=== PATIENT | male | born 1945 | race Caucasian/White ===

== ENCOUNTER 2016-10-27 08:22 | Emergency (ER) | payer MEDICARE ==
[~2016-10-27] VITALS: Ht 175.3 cm; Wt 78.6 kg
[~2016-10-27 08:22] MED LIST: ARIP5TAB10 PO; CALC500T7; CLIN300C86 PO; DICL100G5 TOP; HYDR-3841 PO; HYDR2TAB56 PO; METH-310 PO; ONDA4TAB4 PO; ORPH100T2 PO; OXYC15TA50 PO; PROC5TAB; PROM25TA7 PO
--- OUTSIDE RECORDS SUMMARY | 2016-10-27 08:32 | XMS REPORT | Continuity of Care Document ---
Author Author [facility] Address Unknown Phone Unavailable Care Team Providers Care Welding Manager Name Role Phone SADAF FAITH Primary Care Physician [phone] Insurance Providers Payer Name Policy Number Subscriber Name Relationship Medicare A And B [id number] Grace Marroquin E 18 Self / Same As Patient Advance Directives Directive Response Recorded Date/Time Advanced Directives Yes 05/24/16 1:00pm Type Living Will 05/24/16 1:00pm Type Durable Power of Cancer Registrar 05/24/16 1:00pm Chief Complaint and Reason for Visit Chief Complaint Pain Reason for Visit Chronic pain disorder [id number] Back pain Problems Active Problems Medical Problem Onset Date Status Abdominal pain ~04/04/2015 Resolved Acute anterior epistaxis Unknown Resolved Acute bronchitis ~06/10/2015 Resolved Acute exacerbation of chronic low back pain ~03/25/2016 Acute Allergic rhinitis Unknown Resolved Back pain ~06/02/2014 Resolved Back pain ~01/23/2015 Chronic Govea's cyst ~02/17/2015 Chronic Govea's cyst of knee ~02/12/2015 Chronic Bipolar 1 disorder Unknown Chronic Bronchitis Unknown Resolved COPD (chronic obstructive pulmonary disease) Unknown Chronic Cellulitis ~03/26/2016 Acute Chronic back pain ~12/21/2015 Chronic Chronic insomnia Unknown Chronic Chronic pain disorder Unknown Acute Chronic pain of left knee Unknown Chronic Chronic pain syndrome ~05/15/2016 Acute Concerned about own drug use ~06/13/2014 Resolved Constipated Unknown Chronic Constipation ~05/06/2015 Chronic Cough ~06/04/2015 Resolved Cyst of left kidney Unknown Chronic Depression Unknown Acute Excess ear wax ~12/12/2015 Resolved Fever Unknown Resolved Gastroesophageal reflux disease ~01/02/2015 Chronic History of elopement from health care facility Unknown Acute Hyperglycemia Unknown Resolved Injury of hand Unknown Resolved Insomnia 05/01/2016 Acute Knee pain ~02/04/2015 Chronic Knee pain, chronic ~09/11/2015 Chronic Left knee pain ~02/06/2015 Chronic Left knee pain Unknown Acute Low back pain 05/01/2016 Acute Low back pain Unknown Acute Manic depressive disease manic phase ~06/10/2015 Resolved Multiple abrasions ~12/12/2015 Resolved Nausea ~06/08/2015 Resolved Nausea & vomiting Unknown Resolved Nosebleed 05/30/2014 Resolved Pain in left knee Unknown Acute Post-op pain Unknown Resolved Presbyesophagus ~01/02/2015 Chronic Second degree burn of abdomen ~06/04/2015 Resolved Splinter in skin Unknown Resolved Suicidal ideation ~03/30/2016 Acute Upper respiratory infection Unknown Resolved Vomiting Unknown Resolved Wound infection ~06/04/2015 Resolved Medications Current Home Medications Medication Dose Units Route Directions Days/Qty Instructions Start Date Ondansetron Hcl 8 Mg 8 Mg ORAL As Directed as needed for Nausea 12/23 Naproxen Sodium 220 Mg 2 Mg ORAL As Needed 05/24/16 Past Home Medications Medication Directions Ordered Status Linaclotide 145 Mcg Capsule, 145 Mcg Oral Daily 05/30/14 Discontinued Zolpidem Tartrate (Ambien) 10 Mg Tablet, 5 Mg Oral Bedtime 05/30/14 Discontinued Finasteride (Proscar) 5 Mg Tablet, 5 Mg Oral Bedtime 05/30/14 Discontinued Losartan Potassium (Cozaar) 50 Mg Tablet, 50 Mg Oral Bedtime 05/30/14 Discontinued Aspirin 81 Mg Tablet.dr, 81 Mg Oral Daily 05/30/14 Discontinued Aspirin 500 Mg Tablet, 500 Mg Oral As Needed as needed for Pain 05/30/14 Discontinued Lidocaine 1 Ea Patch, 1 Ea External Daily 06/01/14 Discontinued Risperidone 1 Mg Tab, 1 Mg G Tube Daily 06/01/14 Discontinued Amitriptyline Hcl 100 Mg Tablet, 100 Mg Oral Daily 06/01/14 Discontinued Oxycodone Hcl 15 Mg Tab.er.12h, 15 Mg Oral As Needed for Pain 06/13/14 Discontinued Cephalexin 500 Mg Capsule, 500 Mg Oral Three Times A Day 06/20/14 Discontinued Acyclovir 800 Mg Tablet, 800 Mg Oral As Directed 06/20/14 Discontinued Ondansetron Hcl 4 Mg Tablet, 4 Mg Oral As Needed 06/26/14 Discontinued Cyclobenzaprine Hcl 10 Mg Tablet, 10 Mg Oral Every 8HRS 08/23/14 Discontinued Docusate Sodium 50 Mg Capsule, 50 Mg Oral Daily 08/23/14 Discontinued Diltiazem Hcl (Dilacor Xr) 180 Mg Cap.er.24h, 180 Mg Oral Daily 08/23/14 Discontinued Sucralfate (Carafate) 1 Gm Tablet, 1 Gm Oral Four Times Daily 08/23/14 Discontinued Omeprazole 20 Mg Capsule.dr, 20 Mg Oral Daily 08/23/14 Discontinued Ondansetron 4 Mg Tab.rapdis, 8 Mg Oral As Needed as needed for Nausea/ Vomiting 09/01/14 Discontinued Prochlorperazine Maleate 25 Mg Supp.rect, 10 Mg Rectal Three Times A Day Discontinued Cholestyramine (With Sugar) 378 Gm Powder, 4 Gm Oral As Needed 01/02/15 Discontinued Acetaminophen (Tylenol) 500 Mg Tablet, 2 Tab Oral Every 4 Hours 01/26/15 Discontinued Ibuprofen (Motrin) 200 Mg Tablet, 4 Tab Oral Twice A Day 01/26/15 Discontinued Ondansetron Hcl 4 Mg Tablet, 2 Tab Oral As Needed 01/26/15 Discontinued Omeprazole 40 Mg Cap, 40 Mg Oral Daily 01/26/15 Discontinued Cholestyramine (With Sugar) 4 Gm Packet, 4 Gm Oral Three Times A Day Discontinued Ziprasidone 40 Mg Cap, 40 Mg G Tube Daily for Depression 02/06/15 Discontinued Ziprasidone 80 Mg Cap, 80 Mg Oral Bedtime 02/13/15 Discontinued Diphenhydramine Hcl 25 Mg Tab, 25 Mg Oral Bedtime 02/13/15 Discontinued Diphenhydramine Hcl 25 Mg Tab, 75 Mg Oral Bedtime 02/13/15 Discontinued Zolpidem Tartrate 10 Mg Tablet, 20 Mg Oral Bedtime 02/13/15 Discontinued Cyclobenzaprine Hcl 10 Mg Tablet, 10 Mg Oral Bedtime 02/13/15 Discontinued Hydrocodone/Acetaminophen 1 Each Tablet, 1-2 As Needed 04/04/15 Discontinued Ketorolac Tromethamine 10 Mg Tablet, 10 Mg Oral As Needed 04/04/15 Discontinued Cyclobenzaprine Hcl 10 Mg Tablet, 10 Mg Oral As Needed 04/04/15 Discontinued Lurasidone Hcl 40 Mg Tablet, 40 Mg Oral Daily 04/04/15 Discontinued Gabapentin (Neurontin) 300 Mg Capsule, 300 Mg Oral Daily 04/04/15 Discontinued Ranitidine Hcl 150 Mg Tablet, 150 Mg Oral Bedtime 04/04/15 Discontinued Dicyclomine Hcl 10 Mg Capsule, 10 Mg Oral Three Times A Day for Pain Discontinued Omeprazole 20 Mg Capsule.dr, 20 Mg Oral Daily 04/16/15 Discontinued Diclofenac Sodium 100 Gm Gel, 100 Gm Topical Three Times A Day 04/16/15 Discontinued Meloxicam 15 Mg Tablet, 15 Mg Oral Daily 04/16/15 Discontinued Acetaminophen/Hydrocodone Bitart 1 Ea Tablet, 1 Tab Oral Every 4HRS as needed for Pain 04/16/15 Discontinued Amitriptyline Hcl 25 Mg Tab, 25 Mg Oral Daily 05/06/15 Discontinued Zolpidem Tartrate (Ambien) 10 Mg Tablet, 20 Mg Oral Bedtime 05/06/15 Discontinued Ondansetron 4 Mg Tab.rapdis, 4 Mg Oral As Needed 05/06/15 Discontinued Diltiazem Hcl 180 Mg Tab.er.24h, 180 Mg Oral Daily 05/06/15 Discontinued Lactulose 10 Gm/15 Ml Solution, 10 Gm Oral As Needed 05/13/15 Discontinued Asenapine Maleate 5 Mg Tab.subl, 5 Mg Sublingual Daily 05/21/15 Discontinued Hydroxyzine Hcl 25 Mg Tablet, 25 Mg Oral Bedtime 05/21/15 Discontinued Diclofenac Sodium 100 Gm Gel, 100 Gm Topical Twice A Day 05/21/15 Discontinued Celecoxib 200 Mg Capsule, 200 Mg Oral Daily 05/30/15 Discontinued Amoxicillin 875 Mg Tablet, 875 Mg Oral Twice A Day 06/04/15 Discontinued Metoclopramide Hcl 10 Mg Tablet, 10 Mg Oral Four Times Daily as needed for Nausea 06/08/15 Discontinued Levofloxacin 500 Mg Tablet, 1 Tab Oral Daily 06/08/15 Discontinued Diphenhydram/Pe/Dm/Acetamin/Gg 360 Ml Liquid.seq, 360 Ml Oral As Directed Discontinued Ondansetron Hcl 4 Mg Tab.rapdis, 4 Mg Oral Four Times Daily as needed for Nausea 06/08/15 Discontinued Naproxen Sodium 220 Mg Capsule, 220 Mg Oral Daily 06/10/15 Discontinued Cholestyramine (With Sugar) 4 Gm Packet, 4 Gm Oral As Needed as needed for Diarrhea 07/13/15 Discontinued Calcium Carbonate 600 Mg Tablet, 2 Tab Oral Twice A Day 07/13/15 Discontinued Multivitamin 1 Each Tablet, 1 Each Oral Daily 07/13/15 Discontinued Pyridoxine Hcl 25 Mg Tablet, 2 Tab Oral Daily 07/13/15 Discontinued Levofloxacin 500 Mg Tablet, 1 Tab Oral Daily 07/13/15 Discontinued Methylprednisolone 21 Tab/Pkt Tablet, 21 Tab Oral As Directed 07/20/15 Discontinued Naproxen Sodium 550 Mg Tablet, 550 Mg Oral Twice A Day 08/25/15 Discontinued Prochlorperazine Maleate 10 Mg Tablet, 10 Mg Oral As Needed 09/07/15 Discontinued Melatonin/Pyridoxine Hcl (B6) 1 Each Tab.mphase, 1 Each Oral Bedtime Discontinued Diphenhydramine Hcl 25 Mg Capsule, 25 Mg Oral As Needed 09/11/15 Discontinued Ibuprofen 200 Mg Capsule, 2 Cap Oral Every 4 Hours 09/11/15 Discontinued Ferrous Sulfate 325 Mg Tablet, 325 Mg Oral Daily 09/11/15 Discontinued Oxycodone/Acetaminophen 1 Each Tablet, 1 Each Oral As Needed 11/13/15 Discontinued Oxycodone/Acetaminophen 1 Tab Tablet, 2 Tab Oral Every 6 Hours 12/12/15 Discontinued Naproxen Sodium 220 Mg Tablet, 2 Tab Oral Twice A Day 12/12/15 Discontinued Oxycodone Hcl 20 Mg Tablet, 20 Mg Oral Every 4HRS 12/21/15 Discontinued Oxycodone/Acetaminophen 1 Each Tablet, 1 Tab Oral Every 4HRS as needed for Pain 12/21/15 Discontinued Oxycodone Hcl 15 Mg Tablet, 15-30 Mg Oral Every 4HRS as needed for Pain 02/04 Discontinued Methocarbamol 750 Mg Tablet, 750 Mg Oral Three Times A Day as needed for Spasms 02/05/16 Discontinued Tamsulosin Hcl 0.4 Mg Cap, 0.4 Mg Oral Daily 02/05/16 Discontinued Acetaminophen/Hydrocodone Bitart 1 Each Tablet, 1-2 Tab Oral Every 6 Hours as needed for Pain 02/22/16 Discontinued Promethazine Hcl 25 Mg Tab, 25 Mg Oral Every 6 Hours as needed for Nausea Discontinued Orphenadrine Citrate 100 Mg Tablet.er, 100 Mg Oral Three Times A Day Discontinued Ondansetron Hcl 4 Mg Tablet, 4 Mg Oral Every 6 Hours as needed for Nausea/ Vomiting 03/25/16 Discontinued Sulfamethoxazole/Trimethoprim 1 Each Tablet, 1 Tab Oral Twice A Day 03/25/16 Discontinued Aripiprazole 5 Mg Tablet, 5 Mg Oral Daily 03/28/16 Discontinued Hydroxyzine Pamoate 25 Mg Capsule, 25 Mg Oral Four Times Daily as needed for Anxiety 03/28/16 Discontinued Hydroxyzine Pamoate 50 Mg Capsule, 50 Mg Oral Bedtime 03/28/16 Discontinued Sulfamethoxazole/Trimethoprim (Bactrim Ds 800MG/160MG) 1 Each Tablet, 1 Ea Oral Twice A Day 03/28/16 Discontinued Clindamycin Hcl 300 Mg Capsule, 300 Mg Oral Four Times Daily 04/03/16 Discontinued Ketorolac Tromethamine 10 Mg Tab, 10 Mg Oral Four Times Daily 04/05/16 Discontinued Hydromorphone Hcl 2 Mg Tablet, 2 Mg Oral Every Three Hours 04/05/16 Discontinued Ondansetron Hcl 4 Mg Tablet, 4 Mg Oral Daily 04/15/16 Discontinued Diclofenac Sodium 100 Gm Gel, 100 Gm Topical Daily 04/15/16 Discontinued Hydromorphone Hcl 4 Mg Tab, 4 Mg Oral Four Times Daily as needed for Severe Pain 04/16/16 Discontinued Oxycodone/Acetaminophen 1 Each Tablet, 1 Each Oral Four Times Daily as needed for Pain 04/24/16 Discontinued Lidocaine 1 Ea Patch, 1 Ea Topical Daily 04/27/16 Discontinued Aripiprazole 2 Mg Tablet, 2 Mg Oral Daily 05/01/16 Discontinued Amitriptyline Hcl 25 Mg Tab, 25 Mg Oral Daily 05/01/16 Discontinued Oxycodone/Acetaminophen 1 Tab Tablet, 1-2 Tab Oral As Needed as needed for Pain 05/01/16 Discontinued Tramadol Hcl (Ultram) 50 Mg Tablet, 1-2 Tab Oral Every 6 Hours as needed for Pain 05/01/16 Discontinued Zolpidem Tartrate (Ambien) 10 Mg Tablet, 10 Mg Oral Bedtime 05/01/16 Discontinued Acetaminophen (Tylenol) 500 Mg Tablet, 500 Mg Oral As Needed 05/01/16 Discontinued Prochlorperazine Maleate 10 Mg Tablet, 10 Mg Oral Three Times A Day 05/01/16 Discontinued Omeprazole 40 Mg Capsule.dr, 40 Mg Oral Daily 05/01/16 Discontinued Acetaminophen/Hydrocodone Bitart 1 Ea Tab, 1 Tab Oral Every 6 Hours for Pain 05/01/16 Discontinued Melatonin 10 Mg Capsule, 10 Mg Oral Bedtime 05/01/16 Discontinued Lactulose 10 Gm/15 Ml Solution, 10 Gm Oral Daily 05/01/16 Discontinued Ibuprofen (Motrin) 200 Mg Tablet, 200 Mg Oral As Needed 05/01/16 Discontinued Cholestyramine (With Sugar) 4 Gm Packet, 4 Gm Oral As Needed 05/01/16 Discontinued Diphenhydramine Hcl 25 Mg Capsule, 25 Mg Oral As Needed 05/01/16 Discontinued Aripiprazole 5 Mg Tablet, 5 Mg Oral Daily 05/15/16 Discontinued Prednisone 20 Mg Tablet, 20 Mg Oral Twice A Day 05/24/16 Discontinued Social History Social History Problem Response Recorded Date/Time Onset Date Status Exposure to occupational hazards No 03/26/2016 6:29am Query Response Start Date Stop Date Smoking Status Current some day smoker Hospital Discharge Instructions No hospital discharge instructions. Plan of Care Discharge Date 05/24/16 1:32pm Disposition 01 HOME OR SELF-CARE Condition at Discharge Stable Instructions/Education Provided Chronic Pain Management (ED) Prescriptions See Medication Section Referrals SADAF FAITH - Additional Instructions/Education Some of your test results may not be complete prior to your leaving the Emergency Department. The Emergency Department is not authorized to give test results over the phone. Please contact the doctor's office listed in this packet of information for your final results. Follow up with your primary care physician or return to the Emergency Department for worsening or worrisome symptoms. * Emergency Department phone number: [phone], x [phone] MEDICAL RECORD If you need copies of your X-rays, call [phone]. If you need copies of your medical record, including lab results, a signed authorization for release of records will be required. A telephone call for release of Health Information is not allowed. BILLING Billing can sometimes be confusing and frustrating. To help avoid confusion in the future, please take a moment to acquaint yourself with the billing parties for services. SERVICE BILLING LIBERTARIAN Emergency Room Services [facility] Physician Services [facility] X-rays [place] [facility] Patients will receive bills for services from the appropriate provider. If you have any questions about your [facility] bill, our staff will be happy to assist you. Please call [phone], and ask for the billing department. THANK YOU for choosing [facility] as your emergency care provider! Care Plan and Goals ~~Discharge Care Plan~~ Problem: Back pain Goal: Decreased level of pain. Return to usual activities. Instructions: Take medication(s) as directed; follow up with your primary care physician as directed; follow patient home care instructions. Apply ice or heat to site for comfort. Functional Status No functional status results. Allergies, Adverse Reactions, Alerts Allergen Type Severity Reaction Status Last Updated Hydroxyzine Allergy Unknown Active 05/24/16 Gabapentin Allergy Unknown Active 05/24/16 Trazodone Allergy Unknown Active 05/24/16 Amantadine Allergy Unknown Active 05/24/16 ziprasidone Adverse Reaction Unknown N/V Active 05/24/16 asenapine Allergy Unknown Active 05/24/16 lurasidone Allergy Unknown Active 05/24/16 ziprasidone hcl Allergy Unknown Active 05/01/16 Immunizations No immunization records. Vital Signs Acute Vital Signs Vital Response Date/Time Temperature (Fahrenheit) 99.1 05/24/2016 1:36pm Pulse 85 bpm 05/24/2016 1:36pm Respirations 17 05/24/2016 1:36pm Height 5 ft 9 in Weight 169 lb Body Mass Index 25.0 kg/m^2 Results No known relevant diagnostic tests, laboratory data and/or discharge summary. Procedures Procedure Status Date Provider(s) THER/PROPH/DIAG INJ SC/IM Completed 04/24/16 EMERGENCY DEPT VISIT Completed 04/24/16 Completed 04/24/16 Completed 04/24/16 EMERGENCY DEPT VISIT Completed 04/27/16 Completed 04/27/16 THER/PROPH/DIAG INJ SC/IM Completed 05/01/16 EMERGENCY DEPT VISIT Completed 05/01/16 Completed 05/01/16 THER/PROPH/DIAG INJ SC/IM Completed 05/15/16 EMERGENCY DEPT VISIT Completed 05/15/16 Completed 05/15/16 Encounters Encounter Location Arrival/Admit Date Discharge/Depart Date Attending Provider Registered Emergency Room [facility] 05/24/16 12:54pm OCTAVIO CLARK MD Departed Emergency Room [facility] 05/15/16 1:05am 05/15/16 2:02am PILAR SOSA DO Departed Emergency Room [facility] 05/01/16 6:11am 05/01/16 7:46am PILAR SOSA DO Registered Clinic [facility] 04/28/16 8:41am Jose Manuel Fuller III Departed Emergency Room [facility] 04/27/16 4:57pm 04/27/16 5:41pm JOSE TIDWELL MD Departed Emergency Room [facility] 04/24/16 10:25pm 04/24/16 11: 06pm DANDY IRBY MD Registered Clinic [facility] 04/24/16 10:15pm DANDY IRBY MD Recent Diagnosis
--- OUTSIDE RECORDS SUMMARY | 2016-10-27 08:32 | XMS REPORT ---
Author Author [facility] Organization Unknown Address Unknown Phone Unavailable Care Team Providers Care Pricing Manager Name Role Phone MD CARON, IVONNE PP Unavailable Reason For Visit Chief Complaint BACK PAIN Social History Functional Status Vital Signs Results Problems Encounter Diagnosis No relevant problems exist. Encounters Encounter Diagnosis No relevant problems exist. Plan of Care Procedures No relevant procedures performed. Immunizations No immunizations administered or ordered. Hospital Course Hospital Discharge Instructions Allergies, Adverse Reactions, Alerts * Latex Allergy has not been assessed. * IV Contrast Allergy has not been assessed. Medication Medication reconciliation has not been performed.
--- OUTSIDE RECORDS SUMMARY | 2016-10-27 08:32 | XMS REPORT | Continuity of Care Document ---
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 04/27/16 5:18pm Chief Complaint and Reason for Visit Chief Complaint Pain Reason for Visit Chronic back pain Problems Active Problems Medical Problem Onset [...] Chronic Chronic insomnia Unknown Chronic Chronic pain of left knee Unknown Chronic Chronic pain syndrome Unknown Acute Concerned about own drug use ~06/13/2014 Resolved Constipated Unknown Chronic Constipation ~05/06/2015 Chronic Cough ~06/04/2015 Resolved Cyst of left kidney Unknown Chronic Depression Unknown Acute Excess ear wax ~12/12/2015 Resolved Fever Unknown Resolved Gastroesophageal reflux disease ~01/02/2015 Chronic History of elopement from health care facility Unknown Acute Hyperglycemia Unknown Resolved Injury of hand Unknown Resolved Knee pain ~02/04/2015 Chronic Knee pain, chronic ~09/11/2015 Chronic Left knee pain ~02/06/2015 Chronic Left knee pain Unknown Acute Low back pain Unknown Acute Low back pain Unknown Acute Manic [...] Units Route Directions Days/Qty Instructions Start Date Aripiprazole 5 Mg 5 Mg ORAL Daily 03/28/16 Diclofenac Sodium 100 Gm 100 Gm TOPICAL Daily 04/15/16 Oxycodone/Acetaminophen 1 Each 1 Each ORAL Four Times Daily as needed for Pain 04/24/16 Lidocaine 1 Ea 1 Ea TOPICAL Daily 1 Apply patch for 12 hours, remove for 12 hours, and then place new patch. 04/27/16 Past Home Medications Medication Directions Ordered Status [...] Tab Oral Twice A Day 03/25/16 Discontinued Hydroxyzine Pamoate 25 Mg Capsule, 25 [...] Tablet, 4 Mg Oral Daily 04/15/16 Discontinued Hydromorphone Hcl 4 Mg Tab, 4 Mg Oral Four Times Daily as needed for Severe Pain 04/16/16 Discontinued Social History Social History Problem Response Recorded Date/Time Onset Date Status Exposure to occupational hazards No 03/26/2016 6:29am Query Response Start Date Stop Date Smoking Status Never smoker Hospital Discharge Instructions No hospital discharge instructions. Plan of Care Discharge Date 04/27/16 5:41pm Disposition 01 HOME OR SELF-CARE Condition at Discharge Stable Instructions/Education Provided Chronic Pain Management (ED) Prescriptions See Medication Section Referrals SADAF FAITH - Additional Instructions/Education Rest, ice or heat to back for 20 minutes at a time at least twice a day. Continue your current medications as prescribed. Return if symptoms worsen, if new symptoms develop, or for any other concerns. Your prescription was electronically transmitted. Some of your test results may not [...] worrisome symptoms. * Emergency Department phone number: [phone], x [phone] MEDICAL RECORD If you need copies of your X-rays, call [phone]. If you need copies of [...] the billing parties for services. SERVICE BILLING [employer] Emergency Room Services Physician Services X-rays [place] [facility] Patients will receive bills for services from the appropriate provider. If you have any questions about your bill, our staff will be happy to assist you. Please call [phone], and ask for the billing department. THANK YOU for choosing as your emergency care provider! Care Plan and Goals ~~Discharge Care Plan~~ Problem: Contusion, pain to affected area, fall. Goal: Decreased contusion and pain to affected area. Instructions: Apply ice to area for 15-20 minutes every 3-4 hours. Elevate extremity above the level of the heart, if applicable. Splint area with pillow or blanket to any chest/abdomen injuries. Use incentive spirometry as directed. Take at least 10 deep breaths per hour. Take medication(s) as directed. Follow up with regular physician or specialist as directed. Exercise as tolerated or directed by physician. Functional Status No functional status results. Allergies, Adverse Reactions, Alerts Allergen Type Severity Reaction Status Last Updated quetiapine Adverse Reaction Unknown N/V Active 04/27/16 ziprasidone Adverse Reaction Unknown N/V Active 04/27/16 asenapine Allergy Unknown Active 04/27/16 Immunizations No immunization records. Vital Signs Acute Vital Signs Vital Response Date/Time Temperature (Fahrenheit) 98.2 04/27/2016 5:40pm Pulse 75 bpm 04/27/2016 5:40pm Respirations 18 04/27/2016 5:40pm Height 5 ft 9 in Weight 198 lb Body Mass Index 29.0 kg/m^2 Results Laboratory Results Test Name Result Units Flags Reference Collection Date/Time Result Date/ Time Comments White Blood Count 4.93 10^3uL 4.0-11.0 03/27/2016 5:00am 03/27/2016 6: 44am Red Blood Count 4.57 10^6uL 4.50-5.50 03/27/2016 5:00am 03/27/2016 6: 44am Hemoglobin 12.9 g/dL L 13.5-17.0 03/27/2016 5:00am 03/27/2016 6:44am Hematocrit 39.40 % 39.00-50.00 03/27/2016 5:00am 03/27/2016 6:44am Mean Corpuscular Volume 86 FL 80-100 03/27/2016 5:00am 03/27/2016 6: 44am Mean Corpuscular Hemoglobin 28.2 PG 26.0-34.0 03/27/2016 5:00am 2015 6:44am Mean Corpuscular Hemoglobin Concent 32.7 g/dL 31.0-37.0 03/27/2016 5: 00am 03/27/2016 6:44am Red Cell Distribution Width 14.5 % 11.8-15.6 03/27/2016 5:00am 2015 6:44am Platelet Count 182 10^3uL 150-450 03/27/2016 5:00am 03/27/2016 6:44am Mean Platelet Volume 9.8 FL H 6.0-9.5 03/27/2016 5:00am 03/27/2016 6: 44am Neutrophils (%) (Auto) 71 % H 51-67 03/26/2016 1:44am 03/26/2016 2:18am Lymphocytes (%) (Auto) 15 % L 20-46 03/26/2016 1:44am 03/26/2016 2:18am Monocytes (%) (Auto) 11 % 3-11 03/26/2016 1:44am 03/26/2016 2:18am Eosinophils (%) (Auto) 2 % 0-4 03/26/2016 1:44am 03/26/2016 2:18am Basophils (%) (Auto) 1 % 0-2 03/26/2016 1:44am 03/26/2016 2:18am Neutrophils # (Auto) 4.5 X10^3 03/26/2016 1:44am 03/26/2016 2:18am Lymphocytes # (Auto) 1.0 X10^3 03/26/2016 1:44am 03/26/2016 2:18am Monocytes # (Auto) 0.7 X10^3 03/26/2016 1:44am 03/26/2016 2:18am Eosinophils # (Auto) 0.1 10^3uL 03/26/2016 1:44am 03/26/2016 2:18am Basophils # (Auto) 0.1 10^3uL 03/26/2016 1:44am 03/26/2016 2:18am Differential Total Cells Counted 100 03/27/2016 5:00am 03/27/2016 6 :53am Segmented Neutrophils % 58 % 51-67 03/27/2016 5:00am 03/27/2016 6:53am Band Neutrophils % 1 % 0-6 03/27/2016 5:00am 03/27/2016 6:53am Lymphocytes % (Manual) 32 % 20-46 03/27/2016 5:00am 03/27/2016 6:53am Monocytes % (Manual) 6 % 3-11 03/27/2016 5:00am 03/27/2016 6:53am Eosinophils % (Manual) 3 % 0-4 03/27/2016 5:00am 03/27/2016 6:53am Basophils % (Manual) 0 % 0-2 03/27/2016 5:00am 03/27/2016 6:53am Metamyelocytes % 0 % 0-1 03/27/2016 5:00am 03/27/2016 6:53am Neutrophils # 2.9 # 03/27/2016 5:00am 03/27/2016 6:53am Absolute Band Neutrophils 0.0 # 03/27/2016 5:00am 03/27/2016 6:53am Lymphocytes # 1.6 # 03/27/2016 5:00am 03/27/2016 6:53am Monocytes # 0.2 # 03/27/2016 5:00am 03/27/2016 6:53am Eosinophils # 0.1 # 03/27/2016 5:00am 03/27/2016 6:53am Basophils # (Manual) 0.0 # 03/27/2016 5:00am 03/27/2016 6:53am Blood Morphology Comment SEE REFERENCE NORMAL 03/27/2016 5:00am 03/27 6:53am Poikilocytosis SLIGHT 03/27/2016 5:00am 03/27/2016 6:53am OVALOCYTES 1+ Urine Collection Type CLEAN CATCH 03/26/2016 4:50am 03/26/2016 5: 11am Urine Color Yellow 03/26/2016 4:50am 03/26/2016 5:02am Urine Clarity Clear 03/26/2016 4:50am 03/26/2016 5:02am Urine pH 7.0 5.0 - 8.0 03/26/2016 4:50am 03/26/2016 5:02am Urine Specific [place] 1.020 1.005-1.030 03/26/2016 4:50am 2015 5:02am Urine Protein Negative Negative 03/26/2016 4:50am 03/26/2016 5:02am Urine Glucose (UA) Negative Negative 03/26/2016 4:50am 03/26/2016 5: 02am Urine RBC (Auto) Negative Negative 03/26/2016 4:50am 03/26/2016 5: 02am Urine Ketones Negative Negative 03/26/2016 4:50am 03/26/2016 5:02am Urine Nitrite Negative Negative 03/26/2016 4:50am 03/26/2016 5:02am Urine Bilirubin Negative Negative 03/26/2016 4:50am 03/26/2016 5: 02am Urine Urobilinogen 0.2 mg/dL 0.2-1.0 03/26/2016 4:50am 03/26/2016 5: 02am Urine Leukocyte Esterase Negative Negative 03/26/2016 4:50am 2015 5:02am Sodium Level 143 mmol/L 135-150 03/27/2016 5:00am 03/27/2016 7:00am Potassium Level 4.2 mmol/L 3.5-5.1 03/27/2016 5:00am 03/27/2016 7:00am Chloride Level 102 mmol/L 98-108 03/27/2016 5:00am 03/27/2016 7:00am Carbon Dioxide Level 30 mmol/L H 22-29 03/27/2016 5:00am 03/27/2016 7: 00am Anion Gap 14.4 MEQ/L 3-15 03/27/2016 5:00am 03/27/2016 7:00am Blood Urea Nitrogen 10 mg/dL 7-18 03/27/2016 5:00am 03/27/2016 7:00am Creatinine 0.96 mg/dL 0.8-1.5 03/27/2016 5:00am 03/27/2016 7:00am BUN/Creatinine Ratio 10 10-20 03/27/2016 5:00am 03/27/2016 7:00am Estimat Glomerular Filtration Rate 93.7 03/27/2016 5:00am 2015 7:00am Estimated GFR (Non- 77.4 03/27/2016 5:00am 2015 7:00am Glucose Level 95 mg/dL 70-110 03/27/2016 5:00am 03/27/2016 7:00am Calculated Osmolality 275 mosm/L L 280-300 03/27/2016 5:00am 03/27/2016 7:00am Calcium Level 9.5 mg/dL 8.8-10.8 03/27/2016 5:00am 03/27/2016 7:00am Calcium/Ionized Calcium Ratio 4.3 mg/dL 3.8-4.6 03/27/2016 5:00am 03/27 7:00am Total Bilirubin 0.8 mg/dL 0.1-1.0 03/27/2016 5:00am 03/27/2016 7:00am Alkaline Phosphatase 160 U/L H 38-126 03/27/2016 5:00am 03/27/2016 7: 00am Aspartate Amino Transf (AST/SGOT) 22 U/L 15-37 03/27/2016 5:00am 2015 7:00am Alanine Aminotransferase (ALT/SGPT) 27 U/L L 30-65 03/27/2016 5:00am 7:00am Total Protein 6.8 g/dL 6.4-8.5 03/27/2016 5:00am 03/27/2016 7:00am Albumin 3.7 g/dL 3.4-5.0 03/27/2016 5:00am 03/27/2016 7:00am Albumin/Globulin Ratio 1.193 1.1-1.8 03/27/2016 5:00am 03/27/2016 7: 00am Thyroid Stimulating Hormone (TSH) 0.27 uIU/mL # L 0.46-4.68 03/26/2016 1: 44am 03/26/2016 2:59am C-Reactive Protein 0.90 mg/dL 0.0-0.9 03/28/2016 5:30am 03/28/2016 7: 12am Salicylates Level < 1.0 mg/dL L 2.0-20.0 03/26/2016 1:44am 03/26/2016 2: 29am Acetaminophen Level < 10.0 mcg/mL L 10.0-30.0 03/26/2016 1:44am 2015 2:29am Serum Alcohol < 10.0 mg/dL L 10-80 03/26/2016 1:44am 03/26/2016 2:29am Pending Laboratory Results Test Name Collection Date/Time Procedures Procedure Status Date Provider(s) ROUTINE VENIPUNCTURE Completed 03/26/16 ROUTINE VENIPUNCTURE Completed 03/26/16 ROUTINE VENIPUNCTURE Completed 03/26/16 COMPREHEN METABOLIC PANEL Completed 03/26/16 COMPREHEN METABOLIC PANEL Completed 03/26/16 URINALYSIS AUTO W/O SCOPE Completed 03/26/16 ASSAY THYROID STIM HORMONE Completed 03/26/16 BL SMEAR W/DIFF WBC COUNT Completed 03/26/16 COMPLETE CBC W/AUTO DIFF WBC Completed 03/26/16 COMPLETE CBC AUTOMATED Completed 03/26/16 C-REACTIVE PROTEIN Completed 03/26/16 C-REACTIVE PROTEIN Completed 03/26/16 C-REACTIVE PROTEIN Completed 03/26/16 THER/PROPH/DIAG IV INF INIT Completed 03/26/16 THER/PROPH/DIAG INJ SC/IM Completed 03/26/16 THER/PROPH/DIAG INJ SC/IM Completed 03/26/16 THER/PROPH/DIAG INJ SC/IM Completed 03/26/16 TX/PRO/DX INJ NEW DRUG ADDON Completed 03/26/16 TX/PRO/DX INJ NEW DRUG ADDON Completed 03/26/16 TX/PRO/DX INJ SAME DRUG CLEANER TOUCH UP WORKER Completed 03/26/16 TX/PRO/DX INJ SAME DRUG CLEANER TOUCH UP WORKER Completed 03/26/16 PT EVALUATION Completed 03/26/16 EMERGENCY DEPT VISIT Completed 03/26/16 Completed 03/26/16 Completed 03/26/16 Completed 03/26/16 Completed 03/26/16 Completed 03/26/16 Completed 03/26/16 Completed 03/26/16 Completed 03/26/16 Completed 03/26/16 Completed 03/26/16 Completed 03/26/16 Completed 03/26/16 Completed 03/26/16 Completed 03/26/16 Completed 03/26/16 Completed 03/26/16 Completed 03/26/16 Drug tests(s), presumptive, any number of drug classes; any Completed Drug test(s), definitive, utilizing drug identification meth Completed Drug test(s), definitive, utilizing drug identification meth Completed Drug test(s), definitive, utilizing drug identification meth Completed Completed 03/26/16 Completed 03/26/16 Completed 03/26/16 Completed 03/26/16 Completed 03/26/16 Completed 03/26/16 Completed 03/26/16 Completed 03/26/16 Completed 03/26/16 ROUTINE VENIPUNCTURE Completed 03/30/16 COMPREHEN METABOLIC PANEL Completed 03/30/16 URINALYSIS AUTO W/O SCOPE Completed 03/30/16 MICROSCOPIC EXAM OF URINE Completed 03/30/16 ASSAY THYROID STIM HORMONE Completed 03/30/16 COMPLETE CBC W/AUTO DIFF WBC Completed 03/30/16 PROTHROMBIN TIME Completed 03/30/16 EMERGENCY DEPT VISIT Completed 03/30/16 Drug tests(s), presumptive, any number of drug classes; any Completed Drug test(s), definitive, utilizing drug identification meth Completed Drug test(s), definitive, utilizing drug identification meth Completed Drug test(s), definitive, utilizing drug identification meth Completed EMERGENCY DEPT VISIT Completed 04/03/16 Completed 04/03/16 ROUTINE VENIPUNCTURE Completed 04/04/16 COMPREHEN METABOLIC PANEL Completed 04/04/16 COMPLETE CBC W/AUTO DIFF WBC Completed 04/04/16 THER/PROPH/DIAG IV INF INIT Completed 04/04/16 TX/PRO/DX INJ NEW DRUG ADDON Completed 04/04/16 EMERGENCY DEPT VISIT Completed 04/04/16 Completed 04/04/16 Completed 04/04/16 Completed 04/04/16 THER/PROPH/DIAG INJ SC/IM Completed 04/10/16 EMERGENCY DEPT VISIT Completed 04/10/16 Completed 04/10/16 Completed 04/10/16 ROUTINE VENIPUNCTURE Completed 04/15/16 COMPREHEN METABOLIC PANEL Completed 04/15/16 COMPLETE CBC W/AUTO DIFF WBC Completed 04/15/16 THER/PROPH/DIAG INJ SC/IM Completed 04/15/16 EMERGENCY DEPT VISIT Completed 04/15/16 Completed 04/15/16 Drug tests(s), presumptive, any number of drug classes; any Completed Drug test(s), definitive, utilizing drug identification meth Completed Drug test(s), definitive, utilizing drug identification meth Completed Drug test(s), definitive, utilizing drug identification meth Completed Completed 04/15/16 ROUTINE VENIPUNCTURE Completed 04/20/16 X-RAY EXAM THORAC SPINE 3VWS Completed 04/20/16 X-RAY EXAM L-S SPINE 2/3 VWS Completed 04/20/16 COMPREHEN METABOLIC PANEL Completed 04/20/16 URINALYSIS AUTO W/O SCOPE Completed 04/20/16 COMPLETE CBC W/AUTO DIFF WBC Completed 04/20/16 EMERGENCY DEPT VISIT Completed 04/20/16 Drug tests(s), presumptive, any number of drug classes; any Completed Drug test(s), definitive, utilizing drug identification meth Completed Drug test(s), definitive, utilizing drug identification meth Completed Drug test(s), definitive, utilizing drug identification meth Completed THER/PROPH/DIAG INJ SC/IM Completed 04/24/16 EMERGENCY DEPT VISIT Completed 04/24/16 Completed 04/24/16 Completed 04/24/16 Encounters Encounter Location Arrival/Admit Date Discharge/Depart Date Attending Provider Departed Emergency Room 04/27/16 4:57pm 04/27/16 5:41pm JOSE TIDWELL MD Departed Emergency Room 04/24/16 10:25pm 04/24/16 11: 06pm DANDY IRBY MD Registered Clinic 04/24/16 10:15pm DADNY IRBY MD Registered Clinic 04/20/16 3:00pm DANDY IRBY MD Departed Emergency Room 04/20/16 1:06pm 04/20/16 3:08pm DANDY IRBY MD Registered Emergency Room 04/15/16 9:31pm MUNIR BANKS MD Departed Emergency Room 04/10/16 4:00pm 04/10/16 5:01pm OCTAVIO CLARK MD Departed Emergency Room 04/04/16 11:32pm 04/05/16 1:27am MUNIR BANKS MD Departed Emergency Room 04/03/16 4:41pm 04/03/16 5:30pm JUAN MANUEL PARISH MD Registered Clinic 03/30/16 2:45pm PILAR SOSA DO Departed Emergency Room 03/30/16 10:45am 03/30/16 2:47pm PILAR SOSA DO Discharged Inpatient (obs) 03/26/16 6:02am 03/28/16 5: 55pm SARAH JONES MD Recent Diagnosis
--- OUTSIDE RECORDS SUMMARY | 2016-10-27 08:33 | XMS REPORT ---
Author Author [facility] Organization Unknown Address Unknown Phone Unavailable Care Team Providers Care Head Butler Name Role Phone UNASSIGNED DOCTOR , DOCTOR PP [phone] Reason For Visit Reason for Visit from 09/14/2015 4:54 PM:* Pt Stated Reason for Adm : Threatened to kill self for pain medication Reason for Visit from 09/12/2015 8:19 AM:* Pt Stated Reason for Adm : Threatened to kill self for pain medication Chief Complaint UNSPECIFIED BIPOLAR DISORDER Social History Social History from 09/15/2015 11:24 AM:* Tobacco Use? : Never Smoker Social History from 09/14/2015 4:54 PM:* Tobacco Use? : Never Smoker Social History from 09/12/2015 8:19 AM:* Tobacco Use? : Never Smoker Functional Status Functional Status from 09/15/2015 10:50 AM:* LOC : Alert * Oriented To : Person,Place,Time,Event * Weight Bearing Status : Full * Assist Level : Independent * # Assists : Independent Functional Status from 09/14/2015 8:56 PM:* LOC : Alert * Oriented To : Person,Place,Time,Event * Weight Bearing Status : Full * Assist Level : Independent * # Assists : Independent Functional Status from 09/14/2015 12:33 PM:* Oriented To : Person,Place,Time,Event Functional Status from 09/14/2015 8:45 AM:* LOC : Alert * Oriented To : Person,Place,Time,Event * Weight Bearing Status : Full * Assist Level : Independent * # Assists : Independent Functional Status from 09/13/2015 10:34 PM:* LOC : Alert * Oriented To : Person,Place,Time,Event * Weight Bearing Status : Full * Assist Level : Independent * # Assists : Independent Functional Status from 09/13/2015 9:29 AM:* LOC : Alert * Oriented To : Person,Place,Time,Event * Weight Bearing Status : Full * Assist Level : Independent * # Assists : Independent Functional Status from 09/12/2015 8:40 PM:* LOC : Alert * Oriented To : Person,Place,Time * Weight Bearing Status : Full * Assist Level : Independent * # Assists : Independent Functional Status from 09/12/2015 8:19 AM:* LOC : Alert * Oriented To : Person,Place,Time,Event * Weight Bearing Status : Full * Assist Level : Independent * # Assists : Independent Vital Signs Hospital Vital Signs from 09/15/2015 5:48 AM:* Height : 5/11 ft,in * Temperature : 97.6 F * Pulse : 75 * Respirations : 16 * BP : 125/82 Hospital Vital Signs from 09/14/2015 11:41 AM:* Height : 5/11 ft,in Hospital Vital Signs from 09/14/2015 3:52 AM:* Height : 5/11 ft,in * Temperature : 98.0 F * Pulse : 71 * Respirations : 16 * BP : 142/87 Hospital Vital Signs from 09/13/2015 7:02 AM:* Height : 5/11 ft,in * Temperature : 98.0 F * Pulse : 66 * Respirations : 20 * BP : 129/71 Hospital Vital Signs from 09/12/2015 9:09 PM:* Height : 5/11 ft,in * Temperature : 97.4 F * Pulse : 77 * Respirations : 20 * BP : 130/93 Hospital Vital Signs from 09/12/2015 8:19 AM:* Weight : 74.1/ kg * Height : 5/11 ft,in Hospital Vital Signs from 09/12/2015 7:45 AM:* Weight : 74.1/ kg * Height : 5/11 ft,in * Temperature : 96.8 F * Pulse : 62 * Respirations : 18 * BP : 152/89 Results Chemistry from 09/14/2015 6:45 AMGLUCOSE (FASTING) 108 MG/DL H (65-99 MG/DL) Problems Encounter Diagnosis * Chronic Pain Status:Active. * Fall Risk Status:Active. * Mood Disorder Status:Active. Encounters Encounter Diagnosis * Chronic Pain Status:Active. * Fall Risk Status:Active. * Mood Disorder Status:Active. Plan of Care Follow-up Appointments from 09/15/2015 11:24 AM:* #1 Office appointment: : Randa Weston * #1 Date/Time : 09/16/2015 3:30 PM * Address # [address] : [address] * #2 Office appointment: : Jeannie Lockwood * #2 Date/Time : 09/30/2015 10:00 AM * Address # 2 : [address] Procedures No relevant procedures performed. Immunizations No immunizations administered or ordered. Hospital Course Hospital Discharge Instructions How to care for yourself at home from 09/15/2015 11:24 AM:* Discharge Activity : Activity as tolerated * Discharge Diet : As before hospitalization * Call your doctor if: : Fever over 101 F or severe chills,Chest pain or other unexplained symptoms,Tingling or numbness develops,A sudden increase or decrease in weight,You have persistent or worsening symptoms,If you have Heart Failure and you gain 3 pounds within 1 week or your symptoms worsen. (Weigh at home tomorrow morning) Allergies, Adverse Reactions, Alerts * Geodon causes Unknown. * No Latex Allergy. * No IV Contrast Allergy. * No Known Food Allergies. Medication It is the responsibility of the patient or patient b2b outside sales representative to confirm the list of medications with either the patient's personal care provider or the patient's follow-up care provider to ensure the patient has an appropriate list of medications to take at home. Discharge medications New medications* aripiprazole (Abilify) 2 mg Tablet, Ordered By: CYNDY BARBOSA Directions: 1 tablet oral daily for mood stabilization Changed medications* omeprazole 40 mg capsule,delayed release(DR/EC), Ordered By : CYNDY BARBOSA Directions: 1 capsule oral daily before breakfast for dyspepsia * diclofenac sodium (Voltaren) 1 % Gel, Ordered By: CYNDY BARBOSA Directions: 1 application topical twice a day for pain Stopped medications* zolpidem (Ambien) 20 Tablet Directions: 1 tablet oral daily at bedtime * calcium carbonate-vit D3-min (Calcium 600 + Minerals) Tablet
--- OUTSIDE RECORDS SUMMARY | 2016-10-27 08:33 | XMS REPORT ---
Author Author GENERATED, SYSTEM Organization Unknown Address Unknown Phone Unavailable Care Team Providers Care Manager Life Insurance Name Role Phone UNASSIGNED DOCTOR , DOCTOR PP [phone] Reason For Visit Reason for Visit from 03/31/2016 9:37 AM:* Pt Stated Reason for Adm : "I can't tolerate the pain." Reason for Visit from 03/30/2016 4:30 PM:* Pt Stated Reason for Adm : "I can't tolerate the pain." Chief Complaint BIPOLAR I D/O MRE DEPRESSED Social History Social History from 03/31/2016 11:49 AM:* Tobacco Use? : Never Smoker Social History from 03/31/2016 9:37 AM:* Tobacco Use? : Never Smoker Social History from 03/30/2016 4:30 PM:* Tobacco Use? : Never Smoker Functional Status Functional Status from 03/31/2016 9:00 AM:* LOC : Alert * Oriented To : Person,Place,Time,Event * Weight Bearing Status : Full * Assist Level : Independent * # Assists : Independent Functional Status from 03/30/2016 8:35 PM:* LOC : Alert * Oriented To : Person,Place,Time,Event * Weight Bearing Status : Full * Assist Level : Independent * # Assists : Independent Functional Status from 03/30/2016 4:30 PM:* LOC : Alert * Oriented To : Person,Place,Time,Event * Weight Bearing Status : Full * Assist Level : Independent * # Assists : Independent Vital Signs Hospital Vital Signs from 03/31/2016 8:48 AM:* Height : 5/9 ft,in Hospital Vital Signs from 03/31/2016 6:19 AM:* Height : 5/9 ft,in * Temperature : 97.2 F * Pulse : 82 * Respirations : 18 * BP : 111/73 Hospital Vital Signs from 03/31/2016 1:32 AM:* Height : 5/9 ft,in * Temperature : 98.8 F * Pulse : 68 * Respirations : 18 * BP : 127/81 Hospital Vital Signs from 03/30/2016 9:00 PM:* Height : 5/9 ft,in * Temperature : 97.2 F * Pulse : 72 * Respirations : 18 * BP : 126/74 Hospital Vital Signs from 03/30/2016 4:30 PM:* Weight : 72.3/ kg * Height : 5/9 ft,in Hospital Vital Signs from 03/30/2016 3:35 PM:* Weight : 72.3/ kg * Height : 5/9 ft,in * Temperature : 98.9 F * Pulse : 72 * Respirations : 18 * BP : 102/53 Results Chemistry from 03/30/2016 5:02 PMGLUCOSE (FASTING) 98 MG/DL (65-99 MG/DL) Problems Encounter Diagnosis * Chronic Pain Status:Active. * Mood Disorder Status:Active. Additional Problems * Chronic Back Pain Comment:Problem resolved by [facility] upon Discharge , Status:Resolved. * Drug Overdose - Suicide Comment:Problem resolved by [facility] upon Discharge, Status:Resolved. * Fall Risk Comment:Problem resolved by [facility] upon Discharge, Status: Resolved. Encounters Encounter Diagnosis * Chronic Pain Status:Active. * Mood Disorder Status:Active. Plan of Care Follow-up Appointments from 03/31/2016 11:49 AM:* #1 Office appointment: : [facility] * #1 Date/Time : 04/06/2016 8:00 AM * Address # 1 : [phone] * #2 Office appointment: : Randa Grider [facility] * #2 Date/Time : 04/17/2016 9:15 AM * Address # 2 : [phone] Procedures No relevant procedures performed. Immunizations No immunizations administered or ordered. Hospital Course Hospital Discharge Instructions How to care for yourself at home from 03/31/2016 11:49 AM:* Discharge Activity : Activity as tolerated * Discharge Diet : As before hospitalization * Call your doctor if: : Fever over 101 F or severe chills,Chest pain or other unexplained symptoms,Tingling or numbness develops,A sudden increase or decrease in weight,You have persistent or worsening symptoms Allergies, Adverse Reactions, Alerts * Seroquel causes Unknown. * asenapine causes Unknown. * Geodon causes Unknown. * No Latex Allergy. * No IV Contrast Allergy. * No Known Food Allergies. Medication It is the responsibility of the patient or patient credit resolution representative to confirm the list of medications with either the patient's personal care provider or the patient's follow-up care provider to ensure the patient has an appropriate list of medications to take at home. Discharge medications New medications* aripiprazole (Abilify) 5 mg Tablet, Ordered By: CYNDY BARBOSA Directions: 1 tablet oral daily for mood stabilization * hydrOXYzine pamoate (Vistaril) 50 mg Capsule, Ordered By: CYNDY BARBOSA Directions: 1 capsule oral daily at bedtime for insomnia Changed medications* sulfamethoxazole-trimethoprim 800 mg-160 mg Tablet, Ordered By: CYNDY BARBOSA Directions: 1 tablet oral twice a day for recent bronchitis Additional Instructions: GIVE WITH A FULL GLASS OF WATER. BACTRIM 800 MG/160 MG. Stopped medications* methocarbamol (Robaxin-750) 750 mg Tablet Directions: 1 tablet oral three times a day PRN pain * oxyCODONE 15 mg Tablet Directions: 1 tablet oral every four hours PRN PAIN Additional Instructions: max 8 tabs in 24 hours * ondansetron HCl 4 mg Tablet Directions: 1 tablet oral every six hours PRN nausea or vomiting
--- OUTSIDE RECORDS SUMMARY | 2016-10-27 08:33 | XMS REPORT | Continuity of Care Document ---
Author Author [facility] Address Unknown Phone Unavailable Care Team Providers Care Pump Rebuilder Name Role Phone SADAF FAITH Primary Care Physician [phone] Insurance Providers Payer Name Policy Number Subscriber Name Relationship Medicare A And B [id number] Grace Marroquin 18 Self / Same As Patient Advance Directives Directive Response Recorded Date/Time Advanced Directives No 04/20/16 1:36pm Type Living Will 04/20/16 1:36pm Type Durable Power of Tool Carrier 04/20/16 1:36pm Problems Active Problems Medical Problem Onset Date [...] 100 Gm 100 Gm TOPICAL Daily 04/15/16 Past Home Medications Medication Directions Ordered Status [...] Smoking Status Never smoker Hospital Discharge Instructions Current inpatient/outpatient. Discharge instructions are currently unavailable. Plan of Care Prescriptions Functional Status No functional status results. Allergies, Adverse Reactions, Alerts Allergen Type Severity Reaction Status Last Updated quetiapine Adverse Reaction Unknown N/V Active 04/20/16 ziprasidone Adverse Reaction Unknown N/V Active 04/20/16 asenapine Allergy Unknown Active 04/20/16 Immunizations No immunization records. Vital Signs Acute Vital Signs Vital Response Date/Time Temperature (Fahrenheit) 99.1 04/20/2016 1:36pm Pulse 90 bpm 04/20/2016 3:05pm Respirations 16 04/20/2016 3:05pm Results Laboratory Results Test Name Result Units Flags Reference Collection Date/Time Result Date/ Time Comments White Blood Count 7.35 10^3uL 4.0-11.0 03/25/2016 4:05am 03/25/2016 4: 35am Red Blood Count 4.28 10^6uL L 4.50-5.50 03/25/2016 4:05am 03/25/2016 4: 35am Hemoglobin 12.0 g/dL L 13.5-17.0 03/25/2016 4:05am 03/25/2016 4:35am Hematocrit 36.20 % L 39.00-50.00 03/25/2016 4:05am 03/25/2016 4:35am Mean Corpuscular Volume 85 FL 80-100 03/25/2016 4:0503/25/2016 4: 35am Mean Corpuscular Hemoglobin 28.0 PG 26.0-34.0 03/25/2016 4:052015 4:35am Mean Corpuscular Hemoglobin Concent 33.1 g/dL 31.0-37.0 03/25/2016 4: 05am 03/25/2016 4:35am Red Cell Distribution Width 14.1 % 11.8-15.6 03/25/2016 4:052015 4:35am Platelet Count 162 10^3uL 150-450 03/25/2016 4:0503/25/2016 4:35am Mean Platelet Volume 9.8 FL H 6.0-9.5 03/25/2016 4:0503/25/2016 4: 35am Neutrophils (%) (Auto) 78 % H 51-67 03/25/2016 4:0503/25/2016 4:35am Lymphocytes (%) (Auto) 10 % L 20-46 03/25/2016 4:0503/25/2016 4:35am Monocytes (%) (Auto) 10 % 3-11 03/25/2016 4:0503/25/2016 4:35am Eosinophils (%) (Auto) 1 % 0-4 03/25/2016 4:0503/25/2016 4:35am Basophils (%) (Auto) 1 % 0-2 03/25/2016 4:0503/25/2016 4:35am Neutrophils # (Auto) 5.7 X10^3 03/25/2016 4:0503/25/2016 4:35am Lymphocytes # (Auto) 0.7 X10^3 03/25/2016 4:0503/25/2016 4:35am Monocytes # (Auto) 0.8 X10^3 03/25/2016 4:0503/25/2016 4:35am Eosinophils # (Auto) 0.1 10^3uL 03/25/2016 4:0503/25/2016 4:35am Basophils # (Auto) 0.0 10^3uL 03/25/2016 4:05am 03/25/2016 4:35am Sodium Level 142 mmol/L 135-150 03/25/2016 4:0503/25/2016 4:53am Potassium Level 3.8 mmol/L 3.5-5.1 03/25/2016 4:0503/25/2016 4:53am Chloride Level 106 mmol/L 98-108 03/25/2016 4:0503/25/2016 4:53am Carbon Dioxide Level 25 mmol/L 22-29 03/25/2016 4:0503/25/2016 4: 53am Anion Gap 15.1 MEQ/L H 3-15 03/25/2016 4:0503/25/2016 4:53am Blood Urea Nitrogen 9 mg/dL 7-18 03/25/2016 4:0503/25/2016 4:53am Creatinine 0.68 mg/dL L 0.8-1.5 03/25/2016 4:0503/25/2016 4:53am BUN/Creatinine Ratio 13 10-20 03/25/2016 4:0503/25/2016 4:53am Estimat Glomerular Filtration Rate 139.5 03/25/2016 4:2015 4:53am Estimated GFR (Non- 115.3 03/25/2016 4:2015 4:53am Glucose Level 105 mg/dL 70-110 03/25/2016 4:03/25/2016 4:53am Calculated Osmolality 274 mosm/L L 280-300 03/25/2016 4:0503/25/2016 4:53am Calcium Level 8.8 mg/dL 8.8-10.8 03/25/2016 4:03/25/2016 4:53am Calcium/Ionized Calcium Ratio 3.9 mg/dL 3.8-4.6 03/25/2016 4:0503/25 4:53am Total Bilirubin 0.9 mg/dL 0.1-1.0 03/25/2016 4:0503/25/2016 4:53am Alkaline Phosphatase 149 U/L H 38-126 03/25/2016 4:0503/25/2016 4: 53am Aspartate Amino Transf (AST/SGOT) 23 U/L 15-37 03/25/2016 4:052015 4:53am Alanine Aminotransferase (ALT/SGPT) 31 U/L 30-65 03/25/2016 4:05am 4:53am Total Protein 7.0 g/dL 6.4-8.5 03/25/2016 4:05am 03/25/2016 4:53am Albumin 3.7 g/dL 3.4-5.0 03/25/2016 4:05am 03/25/2016 4:53am Albumin/Globulin Ratio 1.121 1.1-1.8 03/25/2016 4:05am 03/25/2016 4: 53am C-Reactive Protein 0.80 mg/dL 0.0-0.9 03/25/2016 4:05am 03/25/2016 4: 53am Pending Laboratory Results Test Name Collection Date/Time Microbiology Results Procedure Source Result Collection Date/Time Result Date/Time Blood Culture Peripheral, :Lab Indicates After Collectio No Growth in 4 days 03/25/2016 4:05am 03/29/2016 6:30am Procedures Procedure Status Date Provider(s) ROUTINE VENIPUNCTURE Completed 03/25/16 COMPREHEN METABOLIC PANEL Completed 03/25/16 COMPLETE CBC W/AUTO DIFF WBC Completed 03/25/16 C-REACTIVE PROTEIN Completed 03/25/16 BLOOD CULTURE FOR BACTERIA Completed 03/25/16 HYDRATE IV INFUSION ADD-ON Completed 03/25/16 THER/PROPH/DIAG INJ IV PUSH Completed 03/25/16 TX/PRO/DX INJ SAME DRUG SCOREBOARD OPERATOR Completed 03/25/16 EMERGENCY DEPT VISIT Completed 03/25/16 Completed 03/25/16 Completed 03/25/16 Completed 03/25/16 Completed 03/25/16 ROUTINE VENIPUNCTURE Completed 03/26/16 ROUTINE VENIPUNCTURE Completed [...] ADDON Completed 03/26/16 TX/PRO/DX INJ SAME DRUG SCOREBOARD OPERATOR Completed 03/26/16 TX/PRO/DX INJ SAME DRUG SCOREBOARD OPERATOR Completed 03/26/16 PT EVALUATION Completed 03/26/16 EMERGENCY [...] VISIT Completed 04/10/16 Completed 04/10/16 Completed 04/10/16 Encounters Encounter Location Arrival/Admit Date Discharge/Depart Date Attending Provider Registered [facility] 04/20/16 3:00pm DANDY IRBY MD Departed Emergency Room [facility] 04/20/16 1:06pm 04/20/16 3:08pm DANDY IRBY MD Registered Emergency Room [facility] 04/15/16 9:31pm MUNIR BANKS MD Departed Emergency Room [facility] 04/10/16 4:00pm 04/10/16 5:01pm OCTAVIO CLARK MD Departed Emergency Room [facility] 04/04/16 11:32pm 04/05/16 1:27am MUNIR BANKS MD Departed Emergency Room [facility] 04/03/16 4:41pm 04/03/16 5:30pm JUAN MANUEL PARISH MD Registered Clinic [facility] 03/30/16 2:45pm PILAR SOSA DO Departed Emergency Room [facility] 03/30/16 10:45am 03/30/16 2:47pm PILAR SOSA DO Discharged Inpatient (obs) [facility] 03/26/16 6:02am 03/28/16 5: 55pm SARAH JONES MD Registered [facility] 03/26/16 1:30am DANDY IRBY MD Departed Emergency Room [facility] 03/25/16 3:27am 03/25/16 5:56am DANDY IRBY MD [facility] 03/25/16 3:12am DANDY IRBY MD
--- OUTSIDE RECORDS SUMMARY | 2016-10-27 08:33 | XMS REPORT | Continuity of Care Document ---
Author Author [facility] Organization [facility] Address Unknown Phone Unavailable Support Name Relationship Address Phone MUNIR BANSK MD Caregiver [address] [place] [address] Insurance Providers Payer Name Policy Number Subscriber Name Relationship Medicare A And B [id number] Miguel Marroquin 18 Self / Same As Patient Blue Cross [facility] Supp [id number] Miguel Marroquin 18 Self / Same As Patient Chief Complaint and Reason for Visit Chief Complaint Pain Reason for Visit Back pain Left knee pain Problems Medical Problems Problem Onset Date Status Nosebleed 05/30/2014 Resolved Back pain ~06/02/2014 Resolved Bipolar 1 disorder Unknown Active Cyst of left kidney Unknown Active Concerned about own drug use ~06/13/2014 Resolved Upper respiratory infection Unknown Resolved Acute anterior epistaxis Unknown Resolved Hyperglycemia Unknown Resolved Splinter in skin Unknown Resolved Vomiting Unknown Resolved Gastroesophageal reflux disease ~01/02/2015 Active 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 Chronic back pain ~02/04/2015 Active Back pain ~01/23/2015 Active Knee pain ~02/04/2015 Active Left knee pain ~02/06/2015 Active Medications Medication Dose Route Sig Days/Qty Instructions Order Date Discontinued Date Status Linaclotide 145 Mcg ORAL DAILY 05/30/14 06/26/14 Discontinued Zolpidem Tartrate 5 Mg ORAL BEDTIME 05/30/14 01/02/15 Discontinued Finasteride (Proscar) 5 Mg ORAL BEDTIME 05/30/14 01/24/15 Discontinued Losartan Potassium (Cozaar) 50 Mg ORAL BEDTIME 05/30/14 01/24/15 Discontinued Aspirin 81 Mg ORAL DAILY 05/30/14 05/30/14 Discontinued Aspirin 500 Mg ORAL NEEDED PRN PAIN 05/30/14 06/01/14 Discontinued Lidocaine 1 Ea EXT DAILY 06/01/14 06/26/14 Discontinued Risperidone 1 Mg GT DAILY 06/01/14 09/01/14 Discontinued Amitriptyline Hcl 100 Mg ORAL DAILY 06/01/14 09/01/14 Discontinued Oxycodone Hcl 15 Mg ORAL NEEDED For pain 06/13/14 08/23/14 Discontinued Cephalexin 500 Mg ORAL THREE TIMES A DAY 06/20/14 08/23/14 Discontinued Acyclovir 800 Mg ORAL DIRECTED 06/20/14 08/23/14 Discontinued Ondansetron Hcl 4 Mg ORAL NEEDED 06/26/14 09/01/14 Discontinued Cyclobenzaprine HCl 10 Mg ORAL EVERY 8HRS 08/23/14 01/02/15 Discontinued Docusate Sodium 50 Mg ORAL DAILY 08/23/14 09/01/14 Discontinued Diltiazem HCl (Dilacor XR) 180 Mg ORAL DAILY 08/23/14 Active Sucralfate (Carafate) 1 Gm ORAL FOUR TIMES DAILY 08/23/14 01/25/15 Discontinued Omeprazole 20 Mg ORAL DAILY 08/23/14 01/26/15 Discontinued Ondansetron 8 Mg ORAL NEEDED PRN NAUSEA/VOMITING 09/01/14 Discontinued Prochlorperazine Maleate 10 Mg RECTAL THREE TIMES A DAY 01/02/15 Discontinued Cholestyramine (With Sugar) 4 Gm ORAL NEEDED 01/02/15 01/26/15 Discontinued Acetaminophen (Tylenol) 6 Tab ORAL TWICE A DAY 01/26/15 Active Ibuprofen (Motrin) 4 Tab ORAL TWICE A DAY 01/26/15 Active Ondansetron Hcl 2 Tab ORAL NEEDED 01/26/15 Active Omeprazole 40 Mg ORAL DAILY 01/26/15 Active Cholestyramine (With Sugar) 4 Gm ORAL THREE TIMES A DAY 01/26/15 Active Ziprasidone 40 Mg GT TWICE A DAY For depression 02/06/15 Active Social History No social history. Hospital Discharge Instructions No hospital discharge instructions. Plan of Care Discharge Date 02/06/15 10:08pm Disposition 01 HOME OR SELF-CARE Condition at Discharge Stable Instructions/Education Provided Acute Low Back Pain (ED) Prescriptions See Medications Section Additional Instructions/Education Home. Rest. Pain meds as previously Rx'd. Limited heat 30 min up to 4 times a day to lower back, as needed. Follow up with PCP next week, as planned. Some of your test results may not [...] worrisome symptoms. * Emergency Department phone number: [phone], x [phone]* MEDICAL RECORD If you need copies of your X-rays, call [phone]. If you need copies of [...] SERVICE BILLING [employer] Emergency Room Services [facility] Physician Services [facility] X-rays [place] [facility] Patients will receive bills for services from the appropriate provider. If you have any questions about your [facility] bill, our staff will be happy to assist you. Please call [phone], and ask for the billing department. THANK YOU for choosing [facility] as your emergency care provider! Functional Status No functional status results. Allergies, Adverse Reactions, Alerts Allergen Type Severity Reaction Status Last Updated No Known Drug Allergies Active 06/26/14 Immunizations No immunization records. Vital Signs Acute Vital Signs Vital Response Date/Time Temperature (Fahrenheit) 98.5 Pulse 74 bpm Respirations 18 Height 5 ft 11 in Weight 180 lb Body Mass Index 25.0 kg/m^2 Results Test Source Date Result Interp. Ref. Range Comments Absolute Band Neutrophils June 20, 2014 7:00am 0.0 # Acetaminophen Level February 01, 2015 10:10am < 10.0 mcg/mL L 10.0-30.0 Alanine Aminotransferase (ALT/SGPT) February 01, 2015 10:10am 41 U/L N 30- 65 Albumin February 01, 2015 10:10am 3.5 g/dL N 3.4-5.0 Albumin/Globulin Ratio February 01, 2015 10:10am 1.250 N 1.1-1.8 Alkaline Phosphatase February 01, 2015 10:10am 134 U/L H 38-126 Amylase Level June 01, 2014 10:10pm 60 U/L N 25-115 Anion Gap February 01, 2015 10:10am 13.5 MEQ/L N 3-15 Aspartate Amino Transf (AST/SGOT) February 01, 2015 10:10am 38 U/L H 15-37 BUN/Creatinine Ratio February 01, 2015 10:10am 11 N 10-20 Band Neutrophils % June 20, 2014 7:00am 0 % N 0-6 Basophils # (Auto) January 26, 2015 9:27am 0.0 10^3uL Basophils % (Manual) June 20, 2014 7:00am 0 % N 0-2 Basophils (%) (Auto) January 26, 2015 9:27am 0 % N 0-2 Blood Morphology Comment June 20, 2014 7:00am Normal NORMAL Blood Urea Nitrogen February 01, 2015 10:10am 9 mg/dL N 7-18 C-Reactive Protein January 26, 2015 9:27am 0.80 mg/dL N 0.0-0.9 Calcium Level February 01, 2015 10:10am 8.9 mg/dL N 8.8-10.8 Calcium/Ionized Calcium Ratio February 01, 2015 10:10am 4.2 mg/dL N 3.8-4.6 Calculated Osmolality February 01, 2015 10:10am 278 mosm/L L 280-300 Carbon Dioxide Level February 01, 2015 10:10am 24 mmol/L N 22-29 Chloride Level February 01, 2015 10:10am 108 mmol/L N 98-108 Creatinine February 01, 2015 10:10am 0.82 mg/dL N 0.8-1.5 Differential Total Cells Counted June 20, 2014 7:00am 100 Eosinophils # June 20, 2014 7:00am 0.1 # Eosinophils # (Auto) January 26, 2015 9:27am 0.1 10^3uL Eosinophils % (Manual) June 20, 2014 7:00am 1 % N 0-4 Eosinophils (%) (Auto) January 26, 2015 9:27am 2 % N 0-4 Estimat Glomerular Filtration Rate February 01, 2015 10:10am 113.1 Estimated GFR (Non- February 01, 2015 10:10am 93.4 Glucose Level February 01, 2015 10:10am 172 mg/dL DH 70-110 Hematocrit January 26, 2015 9:27am 40.20 % N 39.00-50.00 Hemoglobin January 26, 2015 9:27am 13.5 g/dL N 13.5-17.0 Lipase June 01, 2014 10:10pm 159 U/L N 23-300 Lymphocytes # June 20, 2014 7:00am 1.0 # Lymphocytes # (Auto) January 26, 2015 9:27am 1.0 X10^3 Lymphocytes % (Manual) June 20, 2014 7:00am 20 % N 20-46 Lymphocytes (%) (Auto) January 26, 2015 9:27am 19 % L 20-46 Mean Corpuscular Hemoglobin January 26, 2015 9:27am 29.5 PG N 26.0-34.0 Mean Corpuscular Hemoglobin Concent January 26, 2015 9:27am 33.6 g/dL N 31.0-37.0 Mean Corpuscular Volume January 26, 2015 9:27am 88 FL N 80-100 Mean Platelet Volume January 26, 2015 9:27am 9.9 FL H 6.0-9.5 Metamyelocytes % June 20, 2014 7:00am 0 % N 0-1 Monocytes # June 20, 2014 7:00am 0.3 # Monocytes # (Auto) January 26, 2015 9:27am 0.7 X10^3 Monocytes % (Manual) June 20, 2014 7:00am 6 % N 3-11 Monocytes (%) (Auto) January 26, 2015 9:27am 14 % H 3-11 Neutrophils # June 20, 2014 7:00am 3.7 # Neutrophils # (Auto) January 26, 2015 9:27am 3.3 X10^3 Neutrophils (%) (Auto) January 26, 2015 9:27am 65 % N 51-67 Platelet Count January 26, 2015 9:27am 175 10^3uL N 150-450 Potassium Level February 01, 2015 10:10am 3.4 mmol/L L 3.5-5.1 Red Blood Count January 26, 2015 9:27am 4.58 10^6uL N 4.50-5.50 Red Cell Distribution Width January 26, 2015 9:27am 12.8 % N 11.8-15.6 Salicylates Level January 26, 2015 9:27am < 1.0 mg/dL L 2.0-20.0 Segmented Neutrophils % June 20, 2014 7:00am 73 % H 51-67 Serum Alcohol January 26, 2015 9:27am < 10.0 mg/dL L 10-80 Sodium Level February 01, 2015 10:10am 142 mmol/L N 135-150 Total Bilirubin February 01, 2015 10:10am 0.7 mg/dL N 0.1-1.0 Total Protein February 01, 2015 10:10am 6.3 g/dL L 6.4-8.5 Urine Bacteria January 26, 2015 9:17am Rare /HPF Urine collection method Clean Catch Urine Bilirubin January 26, 2015 9:17am Negative Negative Urine collection method Clean Catch Urine Blood June 01, 2014 10:15pm Negative Negative Urine collection method Clean Catch Urine Clarity January 26, 2015 9:17am Clear Urine collection method Clean Catch Urine Collection Type January 26, 2015 9:17am Random voided Urine collection method Clean Catch Urine Color January 26, 2015 9:17am Yellow Urine collection method Clean Catch Urine Glucose (UA) January 26, 2015 9:17am Negative Negative Urine collection method Clean Catch Urine Ketones January 26, 2015 9:17am Negative Negative Urine collection method Clean Catch Urine Leukocyte Esterase January 26, 2015 9:17am Negative Negative Urine collection method Clean Catch Urine Nitrite January 26, 2015 9:17am Negative Negative Urine collection method Clean Catch Urine Protein January 26, 2015 9:17am Negative Negative Urine collection method Clean Catch Urine RBC January 26, 2015 9:17am 0-2 /HPF Urine collection method Clean Catch Urine RBC (Auto) January 26, 2015 9:17am Trace-intact H Negative Urine collection method Clean Catch Urine Specific Hi Hat January 26, 2015 9:17am 1.010 1.005-1.030 Urine collection method Clean Catch Urine Squamous Epithelial Cells January 26, 2015 9:17am 2-5 /LPF Urine collection method Clean Catch Urine Urobilinogen January 26, 2015 9:17am 0.2 mg/dL 0.2-1.0 Urine collection method Clean Catch Urine WBC January 26, 2015 9:17am 2-5 /HPF Urine collection method Clean Catch Urine pH January 26, 2015 9:17am 5.5 5.0 - 8.0 Urine collection method Clean Catch Volume Urine Centrifuged January 26, 2015 9:17am 12 ml Urine collection method Clean Catch White Blood Count January 26, 2015 9:27am 5.05 10^3uL N 4.0-11.0 Procedures Procedure Status Date Provider(s) MRI LUMBAR SPINE W/O DYE completed 01/29/15 Encounters Encounter Location Date/Time Departed Emergency Room [facility] 02/06/15 8:14pm Departed Emergency Room [facility] 02/04/15 9:37pm Departed Emergency Room [facility] 02/01/15 9:35am Registered Clinic [facility] 01/29/15 7:24am Departed Emergency Room [facility] 01/26/15 9:03am Registered Clinic [facility] 01/26/15 8:50am Departed Emergency Room [facility] 01/25/15 5:10pm Departed Emergency Room [facility] 01/24/15 11:04pm Recent Diagnosis
--- OUTSIDE RECORDS SUMMARY | 2016-10-27 08:35 | XMS REPORT ---
Author Author GENERATED, SYSTEM Organization Unknown Address Unknown Phone Unavailable Care Team Providers Care Advertising Statistical Clerk Name Role Phone MD CARON, IVONNE PP Unavailable Reason For Visit Chief Complaint VOMITING, NAUCEAUS Social History Functional Status Vital Signs Results Chemistry from 06/07/2015 3:31 AMSODIUM 141 MMOL/L (136-145 MMOL/L) POTASSIUM 3.4 MMOL/L L (3.5-5.1 MMOL/L) CHLORIDE 107 MMOL/L (98-107 MMOL/L) TCO2 29.1 MMOL/L (21.0-32.0 MMOL/L) *ANION GAP 4.9 MMOL/L L (8.0-16.0 MMOL/L) BUN 7 MG/DL (7-18 MG/DL) CREATININE 0.85 MG/DL (0.70-1.30 MG/DL) *BUN/CREATININE RATIO 8.2 L (9.1-17.0 ) GLUCOSE 98 MG/DL (65-99 MG/DL) *GFR EST NON AFR NAMIBIAN 89 ML/MIN *GFRA EST AFR AMER >90 ML/MIN CALCIUM 9.4 MG/DL (8.5-10.1 MG/DL) Hematology from 06/07/2015 3:31 AMWBC 7.3 X10e3/UL (3.6-11.2 X10e3/UL) RBC 4.77 X10e6/UL (4.06-5.63 X10e6/UL) HEMOGLOBIN 14.9 G/DL (12.5-16.3 G/DL) HEMATOCRIT 44.8 % (36.7-47.1 %) *MCV 93.8 FL (80.0-100.0 FL) *MCH 31.1 PG (27.0-33.0 PG) *MCHC 33.2 G/DL (32.0-36.0 G/DL) *RDW 13.1 % (12.3-17.0 %) *RDWSD 42.9 (37.1-47.8 ) PLATELET 171 X10e3/UL (159-386 X10e3/UL) *MPV 7.9 FL (7.4-10.4 FL) AUTOMATED DIFF PERFORMED SEGS 75.0 % *LYMPHOCYTES 14.5 % *MONOCYTES 7.0 % *EOSINOPHILS 2.5 % *BASOPHILS 1.0 % *ABSOLUTE NEUTROPHILS 5.40 X10e3/UL (1.80-7.80 X10e3/UL) *ABSOLUTE LYMPHOCYTES 1.10 X10e3/UL (1.00-3.00 X10e3/UL) *ABSOLUTE MONOCYTES 0.50 X10e3/UL (0.30-1.00 X10e3/UL) *ABSOLUTE EOSINOPHILS 0.20 X10e3/UL (0.00-0.50 X10e3/UL) *ABSOLUTE BASOPHILS 0.10 X10e3/UL (0.00-0.20 X10e3/UL) Urinalysis from 06/07/2015 3:20 AM* Status: Final Result URINALYSIS Specimen Number: [id number] Sample Collection Date/Time: 06/07/2015 3:20 AM Specimen Source: *URINE COLOR YELLOW (STRAW/YELL/DK YELL ) *URINE APPEARANCE CLEAR (CLEAR ) URINE PH 7.5 (5.0-8.0 ) URINE SPECIFIC GRAVITY 1.010 (<=1.005->=1.030 ) *URINE GLUCOSE NEGATIVE MG/DL (NEGATIVE MG/DL) *URINE BILIRUBIN NEGATIVE (NEGATIVE ) *URINE KETONES NEGATIVE MG/DL (NEGATIVE MG/DL) *URINE BLOOD NEGATIVE (NEGATIVE ) *URINE PROTEIN NEGATIVE MG/DL (NEGATIVE MG/DL) *URINE UROBILINOGEN 0.2 EU/DL (0.2-1.0 EU/DL) *URINE NITRITES NEGATIVE (NEGATIVE ) *URINE LEUKOCYTES NEGATIVE (NEGATIVE ) Problems Encounter Diagnosis No relevant problems exist. [...]
--- OUTSIDE RECORDS SUMMARY | 2016-10-27 08:35 | XMS REPORT | Continuity of Care Document ---
Author Author [facility] Organization [facility] Address Unknown Phone Unavailable Support Name Relationship Address Phone KATE MARTINEZ DO Caregiver [address] [place] [address] KATE MARROQUIN Next Of Kin [address] [place] [address] Insurance Providers Payer Name Policy Number Subscriber Name Relationship Medicare A And B [id number] Miguel Marroquin 18 Self / Same As Patient Blue Cross [facility] Supp [id number] Miguel Marroquin 18 Self / Same As Patient Chief Complaint and Reason for Visit Chief Complaint GI Complaint Reason for Visit Hyperglycemia Splinter in skin Vomiting Problems Medical Problems Problem Onset Date Status Nosebleed 05/30/2014 Resolved Back pain ~06/02/2014 Resolved Bipolar 1 disorder Unknown Active Cyst of left kidney Unknown Active Concerned about own drug use ~06/13/2014 Resolved Upper respiratory infection Unknown Resolved Acute anterior epistaxis Unknown Resolved Hyperglycemia Unknown Active Splinter in skin Unknown Active Vomiting Unknown Active Medications Medication Dose Route Sig Days/Qty Instructions Order Date Discontinued Date Status Linaclotide 145 Mcg ORAL DAILY 05/30/14 06/26/14 Discontinued Zolpidem Tartrate 5 Mg ORAL BEDTIME 05/30/14 Active Finasteride 5 Mg ORAL BEDTIME 05/30/14 Active Losartan Potassium 50 Mg ORAL BEDTIME 05/30/14 Active Aspirin 81 Mg ORAL DAILY 05/30/14 05/30/14 [...] HCl 10 Mg ORAL EVERY 8HRS 08/23/14 Active Docusate Sodium 50 Mg ORAL DAILY 08/23/14 09/01/14 Discontinued Diltiazem HCl 180 Mg ORAL DAILY 08/23/14 Active Sucralfate (Carafate) 1 Gm ORAL FOUR TIMES DAILY 08/23/14 Active Omeprazole 20 Mg ORAL DAILY 08/23/14 Active Ondansetron 8 Mg ORAL NEEDED PRN NAUSEA/VOMITING 09/01/14 Active Social History No social history. Hospital Discharge Instructions No hospital discharge instructions. Plan of Care Discharge Date 09/02/14 12:18am Disposition 01 HOME OR SELF-CARE Condition at Discharge Stable Instructions/Education Provided Acute Nausea and Vomiting (ED) Prescriptions See Medications Section Additional Instructions/Education Follow up with primary care doctor and specialist. Return to ER as needed. Some of your test results may not [...] worrisome symptoms. * Emergency Department phone number: [phone], x [phone]* MEDICAL RECORD If you need copies of your X-rays, call [phone] x [phone]. If you need copies of [...] the billing parties for services. [employer]ILLING [facility] Emergency Room Services [facility] Physician Services [facility] X[facility] [facility] Patients will receive bills for services from the appropriate provider. If you have any questions about your [facility] bill, our staff will be happy to assist you. Please call [phone], and ask for the billing department. THANK YOU for choosing [facility] as your emergency care provider! Functional Status No functional status results. Allergies, Adverse Reactions, Alerts Allergen Type Severity Reaction Status Last Updated No Known Drug Allergies Active 06/26/14 Immunizations No immunization records. Vital Signs Acute Vital Signs Vital Response Date/Time Temperature (Fahrenheit) 98.6 Pulse 85 bpm Respirations 18 Height 5 ft 11 in Weight 172 lb Body Mass Index 24.0 kg/m^2 Results Test Source Date Result Interp. Ref. Range Comments Absolute Band Neutrophils June 20, 2014 7:00am 0.0 # Alanine Aminotransferase (ALT/SGPT) September 01, 2014 11:45pm 22 U/L L 30-65 Albumin September 01, 2014 11:45pm 3.8 g/dL N 3.4-5.0 Albumin/Globulin Ratio September 01, 2014 11:45pm 1.520 N 1.1-1.8 Alkaline Phosphatase September 01, 2014 11:45pm 149 U/L H 38-126 Amylase Level June 01, 2014 10:10pm 60 U/L N 25-115 Anion Gap September 01, 2014 11:45pm 13.4 MEQ/L N 3-15 Aspartate Amino Transf (AST/SGOT) September 01, 2014 11:45pm 29 U/L N 15- 37 BUN/Creatinine Ratio September 01, 2014 11:45pm 15 N 10-20 Band Neutrophils % June 20, 2014 7:00am 0 % N 0-6 Basophils # (Auto) September 01, 2014 11:45pm 0.0 10^3uL Basophils % (Manual) June 20, 2014 7:00am 0 % N 0-2 Basophils (%) (Auto) September 01, 2014 11:45pm 1 % N 0-2 Blood Morphology Comment June 20, 2014 7:00am Normal NORMAL Blood Urea Nitrogen September 01, 2014 11:45pm 12 mg/dL N 7-18 Calcium Level September 01, 2014 11:45pm 9.1 mg/dL DN 8.8-10.8 Calcium/Ionized Calcium Ratio September 01, 2014 11:45pm 4.3 mg/dL N 3.8- 4.6 Calculated Osmolality September 01, 2014 11:45pm 276 mosm/L L 280-300 Carbon Dioxide Level September 01, 2014 11:45pm 25 mmol/L N 22-29 Chloride Level September 01, 2014 11:45pm 107 mmol/L N 98-108 Creatinine September 01, 2014 11:45pm 0.80 mg/dL N 0.8-1.5 Differential Total Cells Counted June 20, 2014 7:00am 100 Eosinophils # June 20, 2014 7:00am 0.1 # Eosinophils # (Auto) September 01, 2014 11:45pm 0.1 10^3uL Eosinophils % (Manual) June 20, 2014 7:00am 1 % N 0-4 Eosinophils (%) (Auto) September 01, 2014 11:45pm 3 % N 0-4 Estimat Glomerular Filtration Rate September 01, 2014 11:45pm 116.3 Estimated GFR (Non- September 01, 2014 11:45pm 96.1 Glucose Level September 01, 2014 11:45pm 154 mg/dL H 70-110 Hematocrit September 01, 2014 11:45pm 39.80 % N 39.00-50.00 Hemoglobin September 01, 2014 11:45pm 13.5 g/dL N 13.5-17.0 Lipase June 01, 2014 10:10pm 159 U/L N 23-300 Lymphocytes # June 20, 2014 7:00am 1.0 # Lymphocytes # (Auto) September 01, 2014 11:45pm 0.9 X10^3 Lymphocytes % (Manual) June 20, 2014 7:00am 20 % N 20-46 Lymphocytes (%) (Auto) September 01, 2014 11:45pm 20 % N 20-46 Mean Corpuscular Hemoglobin September 01, 2014 11:45pm 30.1 PG N 26.0- 34.0 Mean Corpuscular Hemoglobin Concent September 01, 2014 11:45pm 33.9 g/dL N 31.0-37.0 Mean Corpuscular Volume September 01, 2014 11:45pm 89 FL N 80-100 Mean Platelet Volume September 01, 2014 11:45pm 9.7 FL H 6.0-9.5 Metamyelocytes % June 20, 2014 7:00am 0 % N 0-1 Monocytes # June 20, 2014 7:00am 0.3 # Monocytes # (Auto) September 01, 2014 11:45pm 0.4 X10^3 Monocytes % (Manual) June 20, 2014 7:00am 6 % N 3-11 Monocytes (%) (Auto) September 01, 2014 11:45pm 10 % N 3-11 Neutrophils # June 20, 2014 7:00am 3.7 # Neutrophils # (Auto) September 01, 2014 11:45pm 3.0 X10^3 Neutrophils (%) (Auto) September 01, 2014 11:45pm 67 % N 51-67 Platelet Count September 01, 2014 11:45pm 177 10^3uL N 150-450 Potassium Level September 01, 2014 11:45pm 3.7 mmol/L N 3.5-5.1 Red Blood Count September 01, 2014 11:45pm 4.49 10^6uL L 4.50-5.50 Red Cell Distribution Width September 01, 2014 11:45pm 12.9 % N 11.8- 15.6 Segmented Neutrophils % June 20, 2014 7:00am 73 % H 51-67 Sodium Level September 01, 2014 11:45pm 141 mmol/L N 135-150 Total Bilirubin September 01, 2014 11:45pm 0.9 mg/dL N 0.1-1.0 Total Protein September 01, 2014 11:45pm 6.3 g/dL L 6.4-8.5 Urine Bilirubin June 01, 2014 10:15pm Negative Negative Urine collection method Clean Catch Urine Blood June 01, 2014 10:15pm Negative Negative Urine collection method Clean Catch Urine Clarity June 01, 2014 10:15pm Clear Urine collection method Clean Catch Urine Collection Type June 01, 2014 10:15pm Clean catch Urine collection method Clean Catch Urine Color June 01, 2014 10:15pm Dark yellow Urine collection method Clean Catch Urine Glucose (UA) June 01, 2014 10:15pm Negative Negative Urine collection method Clean Catch Urine Ketones June 01, 2014 10:15pm 2+ H Negative --- 06/14/14 0411 ---UR KETO previously reported as: Negative Urine Leukocyte Esterase June 01, 2014 10:15pm Negative Negative Urine collection method Clean Catch Urine Nitrite June 01, 2014 10:15pm Negative Negative Urine collection method Clean Catch Urine Protein June 01, 2014 10:15pm Negative Negative Urine collection method Clean Catch Urine Specific [place] June 01, 2014 10:15pm 1.025 1.005-1.030 Urine collection method Clean Catch Urine Urobilinogen June 01, 2014 10:15pm 0.2 mg/dL 0.2-1.0 Urine collection method Clean Catch Urine pH June 01, 2014 10:15pm 5.5 5.0 - 8.0 Urine collection method Clean Catch White Blood Count September 01, 2014 11:45pm 4.44 10^3uL N 4.0-11.0 Procedures Procedure Status Date Provider(s) CONTRAST X-RAY ESOPHAGUS completed 08/12/14 EMERGENCY DEPT VISIT completed 08/23/14 Encounters Encounter Location Date/Time Departed Emergency Room [facility] 09/01/14 10:56pm Registered [facility] 09/01/14 7:30am Departed Emergency Room [facility] 08/23/14 5:32pm Registered Clinic [facility] 08/12/14 8:31am Recent Diagnosis
--- OUTSIDE RECORDS SUMMARY | 2016-10-27 08:36 | XMS REPORT | Continuity of Care Document ---
Author Author [facility] Organization [facility] Address Unknown Phone Unavailable Support Name Relationship Address Phone KATE MARTINEZ DO Caregiver [address] [place] [address] KATE MARROQUIN Next Of Kin [address] [place] [address] Insurance Providers Payer Name Policy Number Subscriber Name Relationship Medicare A And B [id number] Miguel Marroquin 18 Self / Same As Patient Blue Cross [facility] Supp [id number] Miguel Marroquin 19 Self / Same As [...] worrisome symptoms. * Emergency Department phone number: [phone], x [phone]* MEDICAL RECORD If you need copies of your X-rays, call [phone] x [phone]. If you need copies of [...] the billing parties for services. SERVICE BILLING [employer] Emergency Room Services [facility] Physician Services [facility] X-rays [facility] Patients will receive bills for services from the appropriate provider. If you have any questions about your [facility] bill, our staff will be happy to assist you. Please call [phone], and ask for the billing department. THANK YOU for choosing [facility] as your emergency care provider! Functional Status [...] Urine collection method Clean Catch Urine Specific [place] June 01, 2014 10:15pm 1.025 1.005-1.030 Urine [...] completed 08/12/14 EMERGENCY DEPT VISIT completed 08/23/14 ROUTINE VENIPUNCTURE completed 09/01/14 COMPREHEN METABOLIC PANEL completed 09/01/14 COMPLETE CBC W/AUTO DIFF WBC completed 09/01/14 EMERGENCY DEPT VISIT completed 09/01/14 Encounters Encounter Location Date/Time Departed Emergency Room [facility] 09/01/14 10:56pm Discharged Recurring [facility] 09/01/14 7:30am Departed Emergency Room [facility] 08/23/14 5:32pm Registered Clinic [facility] 08/12/14 8:31am Recent Diagnosis
--- OUTSIDE RECORDS SUMMARY | 2016-10-27 08:36 | XMS REPORT | Continuity of Care Document ---
Author Author [facility] Organization [facility] Address Unknown Phone Unavailable Care Team Providers Care Funeral Home Associate Name Role Phone NEY MOSS MD Primary Care Physician [phone] Insurance Providers Payer Name Policy Number Subscriber Name Relationship Medicare A And B [id number] Grace Marroquin 18 Self / Same As Patient Chief Complaint and Reason for Visit Chief Complaint Pain Reason for Visit [id number] Back pain Problems Medical Problems Problem Onset Date [...] ~02/04/2015 Active Left knee pain ~02/06/2015 Active 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 Hospital Discharge Instructions No hospital discharge instructions. Plan of Care Discharge Date 02/17/15 11:05am Disposition 01 HOME OR SELF-CARE Condition at Discharge Stable Instructions/Education Provided Chronic Pain Management (ED) Govea's Cyst (ED) Prescriptions See Medications Section Referrals NEY MOSS MD Additional Instructions/Education Please stop using ambulance and emergency room services for chronic back and knee pain. These are best managed by your regular primary care doctor and any consultants he may use. Keep your appointment with Dr. Moss today at 2 pm. Please take over the counter pain medications like Tylenol or ibuprofen per label instructions. Keep your follow up appointments with your [place] counselor and upper caser. Some of your test results may not [...] worrisome symptoms. * Emergency Department phone number: [phone], x [phone]* MEDICAL RECORD If you need copies of your X-rays, call [phone] x [phone]. If you need copies of [...] the billing parties for services. SERVICE BILLING [employer] Emergency Room Services [facility] Physician Services [facility] X-rays [facility] [facility] Patients will receive bills for services from the appropriate provider. If you have any questions about your [facility] bill, our staff will be happy to assist you. Please call [phone], and ask for the billing department. THANK YOU for choosing [facility] as your emergency care provider! Functional Status No functional status results. Allergies, Adverse Reactions, Alerts Allergen Type Severity Reaction Status Last Updated No Known Drug Allergies Active 02/17/15 Immunizations No immunization records. Vital Signs Acute Vital Signs Vital Response Date/Time Temperature (Fahrenheit) 97.8 Pulse 90 bpm Respirations 18 Height 5 ft 11 in Weight 180 lb Body Mass Index 25.0 kg/m^2 Results Test Source Date Result Interp. Ref. Range Comments Acetaminophen Level February 01, 2015 10:10am < [...] 2015 9:27am 0 % N 0-2 Blood Urea Nitrogen February 01, 2015 10:10am 9 mg/dL N 7-18 C-Reactive Protein January 26, 2015 9:27am 0.80 mg/dL N 0.0-0.9 Calcium Level February 01, 2015 10:10am 8.9 mg/dL N 8.8-10.8 Calculated Osmolality February 01, 2015 10:10am 278 [...] 26, 2015 9:27am 2 % N 0-4 Glucose Level February 01, 2015 10:10am 172 [...] 7:00am 73 % H 51-67 Sodium Level February 01, 2015 10:10am 142 [...] /HPF Urine collection method Clean Catch Urine Specific [place] January 26, 2015 9:17am 1.010 1.005-1.030 Urine [...] 26, 2015 9:27am 5.05 10^3uL N 4.0-11.0 Serum Alcohol January 26, 2015 9:27am < 10.0 mg/dL L 10-80 Volume Urine Centrifuged January 26, 2015 9:17am 12 ml Urine collection method Clean Catch Estimat Glomerular Filtration Rate February 01, 2015 10:10am 113.1 Blood Morphology Comment June 20, 2014 7:00am Normal NORMAL Estimated GFR (Non- February 01, 2015 10:10am 93.4 Urine RBC (Auto) January 26, 2015 9:17am Trace-intact H Negative Urine collection method Clean Catch Absolute Band Neutrophils June 20, 2014 7:00am 0.0 # Calcium/Ionized Calcium Ratio February 01, 2015 10:10am 4.2 mg/dL N 3.8-4.6 Procedures Procedure Status Date Provider(s) THER/PROPH/DIAG INJ SC/IM completed 01/24/15 EMERGENCY DEPT VISIT completed 01/24/15 completed 01/24/15 THER/PROPH/DIAG INJ SC/IM completed 01/25/15 EMERGENCY DEPT VISIT completed 01/25/15 completed 01/25/15 ROUTINE VENIPUNCTURE completed 01/26/15 COMPREHEN METABOLIC PANEL completed 01/26/15 URINALYSIS AUTO W/O SCOPE completed 01/26/15 MICROSCOPIC EXAM OF URINE completed 01/26/15 COMPLETE CBC W/AUTO DIFF WBC completed 01/26/15 C-REACTIVE PROTEIN completed 01/26/15 EMERGENCY DEPT VISIT completed 01/26/15 completed 01/26/15 completed 01/26/15 completed 01/26/15 Alcohol (ethanol) any specimen except breath completed 01/26/15 MRI LUMBAR SPINE W/O DYE completed 01/29/15 ROUTINE VENIPUNCTURE completed 02/01/15 COMPREHEN METABOLIC PANEL completed 02/01/15 THER/PROPH/DIAG INJ SC/IM completed 02/01/15 EMERGENCY DEPT VISIT completed 02/01/15 completed 02/01/15 completed 02/01/15 completed 02/01/15 X-RAY EXAM OF KNEE 3 completed 02/04/15 THER/PROPH/DIAG INJ SC/IM completed 02/04/15 EMERGENCY DEPT VISIT completed 02/04/15 completed 02/04/15 THER/PROPH/DIAG INJ SC/IM completed 02/06/15 EMERGENCY DEPT VISIT completed 02/06/15 completed 02/06/15 Encounters Encounter Location Date/Time Departed Emergency Room [facility] 02/17/15 10:25am Registered Clinic [facility] 02/17/15 10:20am Departed Emergency Room [facility] 02/13/15 3:39am Departed Emergency Room [facility] 02/06/15 8:14pm Departed Emergency Room [facility] 02/04/15 9:37pm Departed Emergency Room [facility] 02/01/15 9:35am Registered Clinic [facility] 01/29/15 7:24am Departed Emergency Room [facility] 01/26/15 9:03am Registered Clinic [facility] 01/26/15 8:50am Departed Emergency Room [facility] 01/25/15 5:10pm Departed Emergency Room [facility] 01/24/15 11:04pm Recent Diagnosis
--- OUTSIDE RECORDS SUMMARY | 2016-10-27 08:36 | XMS REPORT | Continuity of Care Document ---
Author Author [facility] Organization [facility] Address Unknown Phone Unavailable Support Name Relationship Address Phone MARIA ELENA SORIA MD Caregiver [address] [place] [address] Amanuel Morris Caregiver [address] [place], [place] [id number] KATE MARROQUIN Next Of Kin [address] [place] [address] Insurance Providers Payer Name Policy Number Subscriber Name Relationship Medicare A And B [id number] Grace Marroquin 18 Self / Same As Patient [employer] [facility] Supp [id number] Grace Marroquin 18 Self / Same As Patient Problems Medical Problems Problem Onset Date Status Nosebleed 05/30/2014 Active Back pain ~06/02/2014 Active Bipolar 1 disorder Unknown Active Cyst of left kidney Unknown Active Concerned about own drug use ~06/13/2014 Active Upper respiratory infection Unknown Active Acute anterior epistaxis Unknown Active Medications Medication Dose Route Sig Days/Qty Instructions Order Date Discontinued Date Status Linaclotide 145 Mcg ORAL DAILY 05/30/14 06/26/14 Discontinued Zolpidem Tartrate 10 Mg ORAL BEDTIME 05/30/14 Active Finasteride 5 Mg ORAL BEDTIME 05/30/14 Active Losartan Potassium 50 Mg ORAL BEDTIME 05/30/14 Active Aspirin 81 Mg ORAL DAILY 05/30/14 05/30/14 Discontinued Aspirin 500 Mg ORAL NEEDED PRN PAIN 05/30/14 06/01/14 Discontinued Lidocaine 1 Ea EXT DAILY 06/01/14 06/26/14 Discontinued Risperidone 1 Mg GT DAILY 06/01/14 Active Amitriptyline Hcl 100 Mg ORAL DAILY 06/01/14 Active Oxycodone Hcl 15 Mg ORAL NEEDED For pain 06/13/14 08/23/14 Discontinued Cephalexin 500 Mg ORAL THREE TIMES A DAY 06/20/14 08/23/14 Discontinued Acyclovir 800 Mg ORAL DIRECTED 06/20/14 08/23/14 Discontinued Ondansetron Hcl 4 Mg ORAL NEEDED 06/26/14 Active Cyclobenzaprine HCl 10 Mg ORAL EVERY 8HRS 08/23/14 Active Docusate Sodium 50 Mg ORAL DAILY 08/23/14 Active Diltiazem HCl 180 Mg ORAL DAILY 08/23/14 Active Sucralfate 1 Gm ORAL FOUR TIMES DAILY 08/23/14 Active Omeprazole 20 Mg ORAL DAILY 08/23/14 Active Social History No social history. Hospital Discharge Instructions No hospital discharge instructions. Plan of Care Discharge Date 08/23/14 6:27pm Disposition 07 AGAINST MEDICAL ADVICE Prescriptions See Medications Section Functional Status No functional status results. Allergies, Adverse Reactions, Alerts Allergen Type Severity Reaction Status Last Updated No Known Drug Allergies Active 06/26/14 Immunizations No immunization records. Vital Signs Acute Vital Signs Vital Response Date/Time Temperature (Fahrenheit) 98.4 Pulse 98 bpm Respirations 16 Height 5 ft 11 in Weight 172 lb Body Mass Index 23.0 kg/m^2 Results Test Source Date Result Interp. Ref. Range Comments Alanine Aminotransferase (ALT/SGPT) June 01, 2014 10:10pm 51 U/L N 30-65 Albumin June 01, 2014 10:10pm 4.3 G/DL N 3.4-5.0 Albumin/Globulin Ratio June 01, 2014 10:10pm 1.720 N 1.1-1.8 Alkaline Phosphatase June 01, 2014 10:10pm 109 U/L N 38-126 Amylase Level June 01, 2014 10:10pm 60 U/L N 25-115 Anion Gap June 20, 2014 7:00am 9.6 MEQ/L N 3-15 Aspartate Amino Transf (AST/SGOT) June 01, 2014 10:10pm 69 U/L H 15- 37 BUN/Creatinine Ratio June 20, 2014 7:00am 18 N 10-20 Band Neutrophils % June 20, 2014 7:00am 0 % N 0-6 Basophils # (Auto) June 20, 2014 7:00am Not Performed Basophils % (Manual) June 20, 2014 7:00am 0 % N 0-2 Basophils (%) (Auto) June 20, 2014 7:00am Not Performed 0-2 Blood Urea Nitrogen June 20, 2014 7:00am 14 MG/DL DN 7-18 Calcium Level June 20, 2014 7:00am 7.9 MG/DL DL 8.8-10.8 Calculated Osmolality June 01, 2014 10:10pm 269 MOSM/L L 280-300 Carbon Dioxide Level June 20, 2014 7:00am 26 MMOL/L N 22-29 Chloride Level June 20, 2014 7:00am 102 mmol/L N 98-108 Creatinine June 20, 2014 7:00am 0.78 mg/dL L 0.8-1.5 Differential Total Cells Counted June 20, 2014 7:00am 100 Eosinophils # June 20, 2014 7:00am 0.1 # Eosinophils # (Auto) June 20, 2014 7:00am Not Performed Eosinophils % (Manual) June 20, 2014 7:00am 1 % N 0-4 Eosinophils (%) (Auto) June 20, 2014 7:00am Not Performed 0-4 Glucose Level June 20, 2014 7:00am 139 mg/dL DH 70-110 Hematocrit June 20, 2014 7:00am 35.30 % L 39.00-50.00 Hemoglobin June 20, 2014 7:00am 12.1 g/dL L 13.5-17.0 Lipase June 01, 2014 10:10pm 159 U/L N 23-300 Lymphocytes # June 20, 2014 7:00am 1.0 # Lymphocytes # (Auto) June 20, 2014 7:00am Not Performed Lymphocytes % (Manual) June 20, 2014 7:00am 20 % N 20-46 Lymphocytes (%) (Auto) June 20, 2014 7:00am Not Performed 20-46 Mean Corpuscular Hemoglobin June 20, 2014 7:00am 31.0 PG N 26.0- 34.0 Mean Corpuscular Hemoglobin Concent June 20, 2014 7:00am 34.3 g/dL N 31.0-37.0 Mean Corpuscular Volume June 20, 2014 7:00am 91 FL N 80-100 Mean Platelet Volume June 20, 2014 7:00am 9.3 FL N 6.0-9.5 Metamyelocytes % June 20, 2014 7:00am 0 % N 0-1 Monocytes # June 20, 2014 7:00am 0.3 # Monocytes # (Auto) June 20, 2014 7:00am Not Performed Monocytes % (Manual) June 20, 2014 7:00am 6 % N 3-11 Monocytes (%) (Auto) June 20, 2014 7:00am Not Performed 3-11 Neutrophils # June 20, 2014 7:00am 3.7 # Neutrophils # (Auto) June 20, 2014 7:00am Not Performed Neutrophils (%) (Auto) June 20, 2014 7:00am Not Performed 51-67 Platelet Count June 20, 2014 7:00am 163 10^3uL N 150-450 Potassium Level June 20, 2014 7:00am 3.7 mmol/L N 3.5-5.1 Red Blood Count June 20, 2014 7:00am 3.90 10^6uL L 4.50-5.50 Red Cell Distribution Width June 20, 2014 7:00am 12.3 % N 11.8-15.6 Segmented Neutrophils % June 20, 2014 7:00am 73 % H 51-67 Sodium Level June 20, 2014 7:00am 135 MMOL/L N 135-150 Total Bilirubin June 01, 2014 10:10pm 1.1 MG/DL H 0.1-1.0 Total Protein June 01, 2014 10:10pm 6.8 G/DL N 6.4-8.5 Urine Bilirubin June 01, 2014 10:15pm [...] Urine collection method Clean Catch Urine Specific Sandy June 01, 2014 10:15pm 1.025 1.005-1.030 Urine collection method Clean Catch Urine Urobilinogen June 01, 2014 10:15pm 0.2 mg/dL 0.2-1.0 Urine collection method Clean Catch Urine pH June 01, 2014 10:15pm 5.5 5.0 - 8.0 Urine collection method Clean Catch White Blood Count June 20, 2014 7:00am 5.09 10^3uL N 4.0-11.0 Estimat Glomerular Filtration Rate June 20, 2014 7:00am 119.8 Blood Morphology Comment June 20, 2014 7:00am Normal NORMAL Estimated GFR (Non- June 20, 2014 7:00am 99.0 Absolute Band Neutrophils June 20, 2014 7:00am 0.0 # Calcium/Ionized Calcium Ratio June 01, 2014 10:10pm 4.00 mg/dL Procedures Procedure Status Date Provider(s) CONTRAST X-RAY ESOPHAGUS completed 08/12/14 Encounters Encounter Location Date/Time Departed Emergency Room [facility] 08/23/14 5:32pm Registered Clinic [facility] 08/12/14 8:31am
--- OUTSIDE RECORDS SUMMARY | 2016-10-27 08:37 | XMS REPORT ---
Author Author [facility] Organization Unknown Address Unknown Phone Unavailable Care Team Providers Care Postie Name Role Phone MD CARON, IVONNE PP Unavailable Reason For Visit Chief Complaint DEEP COUGH, NAUSEA Social History Functional Status Vital Signs Results DX Radiology from 06/05/2015 10:49 AMCHEST 2 VIEWS History: Cough. Technique: 2 VIEW CHEST Priors: 07/20/08 Findings: The cardiac silhouette and pulmonary vasculature within normal limits. There are no acute infiltrates or effusions. Impression: No acute cardiopulmonary disease. Electronically signed by: Franck Marquez MD Dictated: 06/05/2015 13:40 Problems Encounter Diagnosis No relevant problems exist. [...]
--- OUTSIDE RECORDS SUMMARY | 2016-10-27 08:37 | XMS REPORT | Continuity of Care Document ---
Author Author [facility] Organization [facility] Address Unknown Phone Unavailable Support Name Relationship Address Phone ARIELLA DAVIS MD Caregiver [address] [place] [address] Unavailable SADAF FAITH PA-C Caregiver [address] [place] [address] Unavailable OTHER Caregiver Unknown Unavailable VERITO COLES Next Of Kin [address] [place] [address] Insurance Providers Guarantor Grace Marroquin Address [address] [place] [address] Email DENIED/NO PT PORT Payer Medicare Policy Number [id number] Subscriber's Name Grace Marroquin Relationship 18 Self Advance Directives Directive Response Recorded Date/Time Advanced Directives Type None 04/12/16 3:03am Chief Complaint and Reason for Visit Chief Complaint Low Back Pain or Injury Reason for Visit Narcotic dependence Chronic back pain Problems Active Problems Medical Problem Onset Date Status Cellulitis Unknown Acute Cellulitis Unknown Acute Esophagitis Unknown Acute Exacerbation of chronic back pain Unknown Acute Gastritis Unknown Acute Nausea & vomiting Unknown Acute Nausea & vomiting Unknown Acute Nausea & vomiting Unknown Acute Shingles Unknown Acute Shingles Unknown Acute Past Problems Medical Problem Onset Date Chronic back pain Unknown Narcotic dependence Unknown Medications Current Home Medications Medication Dose Units Route Directions Days Qty Instructions Start Date Aripiprazole (Abilify) 5 Mg Tablet 1 Tab Oral Daily 04/12/16 Calcium Carbonate (Tums) 200 Mg Tab.chew As Needed 09/07/15 Clindamycin Hcl 300 Mg Capsule 1 Cap Oral Four Times Daily TAKE WITH A FULL GLASS OF WATER TO AVOID ESOPHAGEAL IRRITATION. 04/12/16 Diclofenac Sodium (Voltaren) 100 Gm Gel..gram. 1 Applic Topically Three Times A Day 04/12/16 Hydromorphone Hcl (Dilaudid) 2 Mg Tablet 1 Tab Oral As Needed 90 Tablet 04/12/16 Hydromorphone Hcl (Dilaudid) 2 Mg Tablet 1 Tab Oral Four Times Daily Prn 20 Tablet 04/12/16 Hydroxyzine Pamoate 25 Mg Capsule 1 Cap Oral Bedtime as needed for Insomnia 60 Capsule 04/12/16 Methocarbamol (Robaxin-750) 750 Mg Tablet 750 Mg Oral Three Times A Day as needed for Spasms Take 1 tablet, by mouth, 3 times a day. 04/12/16 Ondansetron Hcl (Zofran) 4 Mg Tablet 8 Mg Oral Every 6 Hours for Nausea 02/05/15 Orphenadrine Citrate 100 Mg Tablet.er 100 Mg Oral Every 12 Hours 04/12/16 Oxycodone Hcl 15 Mg Tablet 15 Mg Oral Every 4-6 Hours as needed for Pain 04/12/16 Prochlorperazine Maleate 5 Mg Tablet 10 Mg Every 8 Hours as needed for Nausea 09/07/15 Promethazine Hcl 25 Mg Tablet 1 Tab Oral Every 6 Hours as needed for Nausea &/Or Vomiting 04/12/16 Social History Social History Problem Response Recorded Date/Time Onset Date Status Chewing Tobacco Status No 04/12/2016 4:28am Not Applicable Not Applicable Hx Substance Use No 04/12/2016 4:28am Not Applicable Not Applicable Hx Alcohol Use No 04/12/2016 4:28am Not Applicable Not Applicable Has the pt used tobacco in the last 12 months No 08/20/2014 7:13am Not Applicable Not Applicable Tobacco Usage none 06/23/2014 4:09am Not Applicable Not Applicable Query Response Start Date Stop Date Smoking Status Light Smoker Hospital Discharge Instructions No hospital discharge instructions. Plan of Care Discharge Date 04/12/16 4:40am Disposition 01 DISCHARGED HOME, SELF-CARE Condition at Discharge Improved Instructions/Education Provided Low Back Pain Prescriptions See Medication Section Referrals Fara MOSS MD Address: [place] [address] Additional Instructions/Education Dilaudid 2 mg, one tablet 4 times daily for pain control Call your primary doctor in [place] first thing this morning, and get an appointment sometime in the next 2 days. Establish pain management care with your primary doctor or a automobile painter Call Dr. Fuller tomorrow to set up an appointment for evaluation of the spinal nodule. Care Plan and Goals Physician Care Plan Problem: Back pain, opioid dependence Goal: Follow up with primary care provider Instructions: Take medications and follow care plan as discussed/written Dilaudid 2 mg, one tablet 4 times daily for pain control Call your primary doctor in [place] first thing this morning, and get an appointment sometime in the next 2 days. Establish pain management care with your primary doctor or a automobile painter Call Dr. Fuller tomorrow to set up an appointment for evaluation of the spinal nodule. Functional Status No functional status results. Allergies, Adverse Reactions, Alerts Allergen Type Severity Reaction Status Last Updated Gabapentin Allergy Unknown Active 04/12/16 Quetiapine Allergy Unknown Active 04/12/16 Ziprasidone Allergy Unknown Active 04/12/16 Asenapine Allergy Unknown Active 04/12/16 Lurasidone Allergy Unknown Active 04/12/16 Immunizations Query Response on File Recorded Date/Time Hx Influenza Vaccination No 02/05/15 9:00am Hx Influenza Vaccination No 02/05/15 9:00am Influenza Vaccine Hx NONE 04/12/16 4:28am Vital Signs Acute Vital Signs Vital Response Date/Time Temperature (Fahrenheit) 98.4 deg F (96.8 - 99.1) 04/12/2016 4:40am Temperature (Calculated Celsius) 36.75998 degrees C (36.0 - 37.3) 04/12/2016 4:40am Pulse Rate (adult) 66 bpm (60 - 100) 04/12/2016 4:40am Respiratory Rate 12 breaths/min (10 - 20) 04/12/2016 4:40am O2 Sat by Pulse Oximetry 94 % (90 - 100) 04/12/2016 4:40am Blood Pressure 166/96 mm Hg 04/12/2016 4:40am Height (Feet) 5 feet 04/12/2016 3:03am Height (Inches) 9.00 inches 04/12/2016 3:03am Weight (Kilograms) 77.100 kg 04/12/2016 3:03am Body Mass Index (BMI) 25.0 04/12/2016 3:03am Results No known relevant diagnostic tests, laboratory data and/or discharge summary. Procedures No known history of procedures. Encounters Encounter Location Arrival/Admit Date Discharge/Depart Date Attending Provider Departed Emergency Room [facility] 04/12/16 3:03am 04/12/16 4: 40am ARIELLA DAVIS MD Recent Diagnosis
--- OUTSIDE RECORDS SUMMARY | 2016-10-27 08:37 | XMS REPORT ---
Author Author [facility] Organization Unknown Address Unknown Phone Unavailable Care Team Providers Care Hotel Clerk Name Role Phone UNASSIGNED DOCTOR , DOCTOR PP [phone] Reason For Visit Reason for Visit from [...] 8:00 AM * Address # 1 : [phone] * #2 Office appointment: : Randa Grider PV * #2 Date/Time : 04/17/2016 9:15 AM * Address # 2 : [phone] Procedures No relevant procedures performed. Immunizations No [...] the responsibility of the patient or patient medical customer service representative to confirm the list of medications [...]
--- OUTSIDE RECORDS SUMMARY | 2016-10-27 08:37 | XMS REPORT | Continuity of Care Document ---
Author Author [facility] Address Unknown Phone Unavailable Care Team Providers Care Refrigeration Engine Operator Name Role Phone SADAF FAITH Primary Care Physician [phone] Insurance Providers Payer Name Policy Number Subscriber Name Relationship Medicare A And B [id number] Grace Marroquin 18 Self / Same As Patient Advance Directives Directive Response Recorded Date/Time Advanced Directives Yes 05/01/16 6:23am Type Living Will 05/01/16 6:23am Type Durable Power of Turnstile Collector 05/01/16 6:23am Chief Complaint and Reason for Visit Chief Complaint Pain Reason for Visit Chronic back pain Insomnia Chronic pain of left knee Problems Active Problems Medical Problem Onset Date [...] Resolved Injury of hand Unknown Resolved Insomnia Unknown Acute Knee pain ~02/04/2015 Chronic Knee pain, [...] Units Route Directions Days/Qty Instructions Start Date Oxycodone/Acetaminophen 1 Each 1 Each ORAL Four Times Daily as needed for Pain 04/24/16 Aripiprazole 2 Mg 2 Mg ORAL Daily 05/01/16 Amitriptyline Hcl 25 Mg 25 Mg ORAL Daily 05/01/16 Oxycodone/Acetaminophen 1 Tab 1-2 Tab ORAL As Needed as needed for Pain 05/01/16 Tramadol Hcl (Ultram) 50 Mg 1-2 Tab ORAL Every 6 Hours as needed for Pain 20 05/01/16 Zolpidem Tartrate (Ambien) 10 Mg 10 Mg ORAL Bedtime 05/01/16 Acetaminophen (Tylenol) 500 Mg 500 Mg ORAL As Needed 05/01/16 Prochlorperazine Maleate 10 Mg 10 Mg ORAL Three Times A Day 05/01/16 Omeprazole 40 Mg 40 Mg ORAL Daily 05/01/16 Acetaminophen/Hydrocodone Bitart 1 Ea 1 Tab ORAL Every 6 Hours for Pain 05/01/16 Melatonin 10 Mg 10 Mg ORAL Bedtime 05/01/16 Lactulose 10 Gm/15 Ml 10 Gm ORAL Daily 05/01/16 Ibuprofen (Motrin) 200 Mg 200 Mg ORAL As Needed 05/01/16 Cholestyramine (With Sugar) 4 Gm 4 Gm ORAL As Needed 05/01/16 Diphenhydramine Hcl 25 Mg 25 Mg ORAL As Needed 05/01/16 Past Home Medications Medication Directions Ordered Status Linaclotide 145 Mcg Capsule, 145 Mcg Oral Daily 05/30/14 Discontinued Zolpidem Tartrate (Ambien) 10 Mg Tablet, 5 Mg Oral Bedtime 05/30/14 Discontinued Finasteride (Proscar) 5 Mg Tablet, 5 Mg Oral Bedtime 05/30/14 Discontinued Losartan Potassium (Cozaar) 50 Mg Tablet, 50 Mg Oral Bedtime 05/30/14 Discontinued Aspirin 81 Mg Tablet., 81 Mg Oral Daily 05/30/14 Discontinued Aspirin [...] as needed for Severe Pain 04/16/16 Discontinued Lidocaine 1 Ea Patch, 1 Ea Topical Daily 04/27/16 Discontinued Social History Social History Problem Response Recorded Date/Time Onset Date Status Exposure to occupational hazards No 03/26/2016 6:29am Query Response Start Date Stop Date Smoking Status Current some day smoker Hospital Discharge Instructions No hospital discharge instructions. Plan of Care Discharge Date 05/01/16 7:46am Disposition 01 HOME OR SELF-CARE Condition at Discharge Stable Instructions/Education Provided Chronic Pain Management (ED) Insomnia in Older People (GEN) Prescriptions See Medication Section Referrals SADAF FAITH - Additional Instructions/Education The medical records here at [facility] indicate multiple emergency room visits for back pain and knee pain. You apparently have seen specialists for this, have had corrective surgeries, yet you have continued to have pain. It also sounds like your specialists are offering no additional surgical solutions for your problem. You may be in a "chronic pain" situation and need chronic pain management by either your primary care physician or a chronic pain specialist. You are hereby advised to refrain from presenting to this emergency department or any emergency department for treatment of your chronic pain. This ER will not provide you any additional narcotic medications either in injectable form or tablet form or with prescriptions for home use for these chronic conditions. You should see your primary care doctor for chronic pain management or to get referred to a chronic pain specialist. Regarding your insomnia, you're advised today to try taking melatonin 10 mg, Benadryl 50 mg, and amitriptyline 50 mg at bedtime each night as needed. However, it would be better to seek the advice of your primary care doctor and/or your psychiatrist for further help with your insomnia. Some of your test results may not [...] worrisome symptoms. * Emergency Department phone number: [phone], x [phone] MEDICAL RECORD If you need copies of your X-rays, call [phone] x [phone]. If you need copies of [...] services. SERVICE BILLING DEMOCRAT Emergency Room Services [facility] Physician Services [facility] X-rays [facility] Patients will receive bills for services from the appropriate provider. If you have any questions about your [facility] bill, our staff will be happy to assist you. Please call [phone], and ask for the billing department. THANK YOU for choosing [facility] as your emergency care provider! Care [...] Status Last Updated Hydroxyzine Allergy Unknown Active 05/01/16 Gabapentin Allergy Unknown Active 05/01/16 Trazodone Allergy Unknown Active 05/01/16 Amantadine Allergy Unknown Active 05/01/16 ziprasidone Adverse Reaction Unknown N/V Active 04/27/16 asenapine Allergy Unknown Active 04/27/16 lurasidone Allergy Unknown Active 05/01/16 ziprasidone hcl Allergy Unknown Active 05/01/16 Immunizations No immunization records. Vital Signs Acute Vital Signs Vital Response Date/Time Temperature (Fahrenheit) 98.1 05/01/2016 6:23am Pulse 72 bpm 05/01/2016 7:48am Respirations 14 05/01/2016 7:48am Height 5 ft 9 in Weight 169 lb Body Mass Index 25.0 kg/m^2 Results Pending Laboratory Results Test Name Collection Date/Time Procedures Procedure Status Date Provider(s) EMERGENCY DEPT VISIT Completed 04/03/16 Completed 04/03/16 [...] Discharge/Depart Date Attending Provider Departed Emergency Room [facility] 05/01/16 6:11am 05/01/16 7:46am PILAR SOSA DO Registered Clinic [facility] 04/28/16 8:41am Jose Manuel Fuller III Departed Emergency Room [facility] 04/27/16 4:57pm 04/27/16 5:41pm JOSE TIDWELL MD Departed Emergency Room [facility] 04/24/16 10:25pm 04/24/16 11: 06pm DANDY IRBY MD Registered [facility] 04/24/16 10:15pm DANDY IRBY MD Registered [facility] 04/20/16 3:00pm DANDY IRBY MD Departed Emergency Room [facility] 04/20/16 1:06pm 04/20/16 3:08pm DANDY IRBY MD Registered Emergency Room [facility] 04/15/16 9:31pm MUNIR BANKS MD Departed Emergency Room [facility] 04/10/16 4:00pm 04/10/16 5:01pm OCTAVIO CLARK MD Departed Emergency Room [facility] 04/04/16 11:32pm 04/05/16 1:27am MUNIR BANKS MD Departed Emergency Room [facility] 04/03/16 4:41pm 04/03/16 5:30pm JUAN MANUEL PARISH MD Recent Diagnosis
--- OUTSIDE RECORDS SUMMARY | 2016-10-27 08:37 | XMS REPORT ---
Author Author [facility] Organization Unknown Address Unknown Phone Unavailable Care Team Providers Care Manufacturing Mechanic Name Role Phone MD CARON, IVONNE PP Unavailable Reason For Visit Chief Complaint RETAINING FLUID Social History Functional Status Vital Signs Results Chemistry from 07/04/2014 11:52 PMSODIUM 137 MMOL/L (136-145 MMOL/L) POTASSIUM 3.8 MMOL/L (3.5-5.1 MMOL/L) CHLORIDE 106 MMOL/L (98-107 MMOL/L) TCO2 26.0 MMOL/L (21.0-32.0 MMOL/L) ANION GAP 5.0 MMOL/L L (8.0-16.0 MMOL/L) BUN 11 MG/DL (7-18 MG/DL) CREATININE 0.86 MG/DL (0.63-1.13 MG/DL) BUN/CREATININE RATIO 12.8 (9.1-17.0 ) GLUCOSE 112 MG/DL H (65-99 MG/DL) GFR EST NON AFR GAMBIAN 89 ML/MIN GFRA EST AFR AMER >90 ML/MIN CALCIUM 8.2 MG/DL L (8.5-10.1 MG/DL) BILIRUBIN TOTAL 0.38 MG/DL (0.20-1.00 MG/DL) TOTAL PROTEIN 6.5 GM/DL (6.4-8.2 GM/DL) ALBUMIN 2.9 GM/DL L (3.4-5.0 GM/DL) GLOBULIN 3.6 GM/DL H (2.3-3.5 GM/DL) A/G RATIO 0.8 MG/DL L (1.5-2.2 MG/DL) ALK PHOS 109 U/L (46-116 U/L) ALT (SGPT) 34 U/L (12-78 U/L) AST (SGOT) 62 U/L H (15-37 U/L) TROPONIN-I <0.04 (SEE BELOW ) CKMB 5.8 NG/ML H (0.0-3.6 NG/ML) Hematology from 07/04/2014 11:53 PMWBC 2.7 X10e3/UL L (3.6-11.2 X10e3/UL) RBC 3.88 X10e6/UL L (4.06-5.63 X10e6/UL) HEMOGLOBIN 11.8 G/DL L (12.5-16.3 G/DL) HEMATOCRIT 34.7 % L (36.7-47.1 %) MCV 89.5 FL (80.0-100.0 FL) MCH 30.4 PG (27.0-33.0 PG) MCHC 34.0 G/DL (32.0-36.0 G/DL) RDW 13.4 % (12.3-17.0 %) RDWSD 42.0 (37.1-47.8 ) PLATELET 167 X10e3/UL (159-386 X10e3/UL) MPV 7.3 FL L (7.4-10.4 FL) MANUAL DIFF PERFORMED SEGS 54.0 % BANDS 4.0 % LYMPHOCYTES 23.0 % MONOCYTES 14.0 % EOSINOPHILS 3.0 % BASOPHILS 1.0 % ATYPICAL LYMPHOCYTES 1.0 % ABSOLUTE NEUTROPHILS 1.6 X10e3/UL L (1.8-7.8 X10e3/UL) ABSOLUTE LYMPHOCYTES 0.6 X10e3/UL L (1.0-3.0 X10e3/UL) ABSOLUTE MONOCYTES 0.4 X10e3/UL (0.3-1.0 X10e3/UL) ABSOLUTE EOSINOPHILS 0.1 X10e3/UL (0.0-0.5 X10e3/UL) ABSOLUTE BASOPHILS 0.0 X10e3/UL (0.0-0.2 X10e3/UL) OVALOCYTES 1+ Problems Encounter Diagnosis No relevant problems exist. [...]
--- OUTSIDE RECORDS SUMMARY | 2016-10-27 08:37 | XMS REPORT | Continuity of Care Document ---
Author Author [facility] Address Unknown Phone Unavailable Care Team Providers Care Heel Molder Name Role Phone SADAF FAITH Primary Care Physician [phone] Insurance Providers Payer Name Policy Number Subscriber Name Relationship Medicare A And B [id number] Grace Marroquin 19 Self / Same As Patient Advance Directives Directive Response Recorded Date/Time Advanced Directives Yes 05/15/16 1:16am Type Living Will 05/15/16 1:16am Type Durable Power of Charger Operator Helper 05/15/16 1:16am Chief Complaint and Reason for Visit Chief Complaint Psychological Complaint Reason for Visit Chronic pain syndrome Problems Active Problems Medical Problem Onset Date [...] As Directed as needed for Nausea 12/23 Aripiprazole 5 Mg 5 Mg ORAL Daily 05/15/16 Past Home Medications Medication Directions Ordered Status [...] 25 Mg Oral As Needed 05/01/16 Discontinued Social History Social History Problem Response Recorded Date/Time Onset Date Status Exposure to occupational hazards No 03/26/2016 6:29am Query Response Start Date Stop Date Smoking Status Current some day smoker Hospital Discharge Instructions No hospital discharge instructions. Plan of Care Discharge Date 05/15/16 2:02am Disposition 01 HOME OR SELF-CARE Prescriptions See Medication Section Referrals SADAF FAITH - Additional Instructions/Education Keep your follow up appointment with the pain doctor in June and see your primary care doctor and mental health doctors this week. Some of your test results may not [...] worrisome symptoms. * Emergency Department phone number: [phone], x [phone]* MEDICAL RECORD If you need copies of your X-rays, call [phone] x [phone]. If you need copies of [...] services. SERVICE BILLING LIBERTARIAN Emergency Room Services [facility] Physician Services [facility] X-rays [facility] Patients will receive bills for services from the appropriate provider. If you have any questions about your [facility] bill, our staff will be happy to assist you. Please call [phone], and ask for the billing department. THANK YOU for choosing [facility] as your emergency care provider! Care Plan [...] Vital Signs Vital Response Date/Time Temperature (Fahrenheit) 97.9 05/15/2016 1:16am Pulse 68 bpm 05/15/2016 2:01am Respirations 18 05/15/2016 2:01am Height 5 ft 9 in Weight 174 lb Body Mass Index 25.0 kg/m^2 Results Laboratory Results Test Name Result Units Flags Reference Collection Date/Time Result Date/ Time Comments White Blood Count 5.64 10^3uL 4.0-11.0 04/15/2016 10:10pm 04/15/2016 10 :18pm Red Blood Count 4.27 10^6uL L 4.50-5.50 04/15/2016 10:10pm 04/15/2016 10 :18pm Hemoglobin 12.3 g/dL L 13.5-17.0 04/15/2016 10:10pm 04/15/2016 10:18pm Hematocrit 36.00 % L 39.00-50.00 04/15/2016 10:10pm 04/15/2016 10:18pm Mean Corpuscular Volume 84 FL 80-100 04/15/2016 10:10pm 04/15/2016 10: 18pm Mean Corpuscular Hemoglobin 28.8 PG 26.0-34.0 04/15/2016 10:10pm 2015 10:18pm Mean Corpuscular Hemoglobin Concent 34.2 g/dL 31.0-37.0 04/15/2016 10: 10pm 04/15/2016 10:18pm Red Cell Distribution Width 14.7 % 11.8-15.6 04/15/2016 10:10pm 2015 10:18pm Platelet Count 193 10^3uL 150-450 04/15/2016 10:10pm 04/15/2016 10: 18pm Mean Platelet Volume 9.5 FL 6.0-9.5 04/15/2016 10:10pm 04/15/2016 10: 18pm Neutrophils (%) (Auto) 66 % 51-67 04/15/2016 10:10pm 04/15/2016 10: 18pm Lymphocytes (%) (Auto) 22 % 20-46 04/15/2016 10:10pm 04/15/2016 10: 18pm Monocytes (%) (Auto) 11 % 3-11 04/15/2016 10:10pm 04/15/2016 10:18pm Eosinophils (%) (Auto) 1 % 0-4 04/15/2016 10:10pm 04/15/2016 10:18pm Basophils (%) (Auto) 1 % 0-2 04/15/2016 10:10pm 04/15/2016 10:18pm Neutrophils # (Auto) 3.7 X10^3 04/15/2016 10:10pm 04/15/2016 10:18pm Lymphocytes # (Auto) 1.2 X10^3 04/15/2016 10:10pm 04/15/2016 10:18pm Monocytes # (Auto) 0.6 X10^3 04/15/2016 10:10pm 04/15/2016 10:18pm Eosinophils # (Auto) 0.1 10^3uL 04/15/2016 10:10pm 04/15/2016 10: 18pm Basophils # (Auto) 0.0 10^3uL 04/15/2016 10:10pm 04/15/2016 10:18pm Sodium Level 142 mmol/L 135-150 04/15/2016 10:1004/15/2016 10:31pm Potassium Level 3.6 mmol/L 3.5-5.1 04/15/2016 10:1004/15/2016 10: 31pm Chloride Level 109 mmol/L H 98-108 04/15/2016 10:1004/15/2016 10: 31pm Carbon Dioxide Level 24 mmol/L 22-29 04/15/2016 10:1004/15/2016 10: 31pm Anion Gap 12.3 MEQ/L 3-15 04/15/2016 10:1004/15/2016 10:31pm Blood Urea Nitrogen 12 mg/dL 7-18 04/15/2016 10:1004/15/2016 10: 31pm Creatinine 0.97 mg/dL 0.8-1.5 04/15/2016 10:1004/15/2016 10:31pm BUN/Creatinine Ratio 12 10-04/15/2016 10:1004/15/2016 10:31pm Estimat Glomerular Filtration Rate 92.6 04/15/2016 10:102015 10:31pm Estimated GFR (Non- 76.5 04/15/2016 10:2015 10:31pm Glucose Level 104 mg/dL 70-110 04/15/2016 10:1004/15/2016 10:31pm Calculated Osmolality 274 mosm/L L 280-300 04/15/2016 10:102015 10:31pm Calcium Level 9.0 mg/dL 8.8-10.8 04/15/2016 10:1004/15/2016 10:31pm Calcium/Ionized Calcium Ratio 4.1 mg/dL 3.8-4.6 04/15/2016 10:1001/2016 10:31pm Total Bilirubin 0.9 mg/dL 0.1-1.0 04/15/2016 10:1004/15/2016 10: 31pm Alkaline Phosphatase 141 U/L H 38-126 04/15/2016 10:10pm 04/15/2016 10: 31pm Aspartate Amino Transf (AST/SGOT) 18 U/L 15-37 04/15/2016 10:10pm 04/15 10:31pm Alanine Aminotransferase (ALT/SGPT) 26 U/L L 30-65 04/15/2016 10:10pm 10:31pm Total Protein 6.8 g/dL 6.4-8.5 04/15/2016 10:10pm 04/15/2016 10:31pm Albumin 3.5 g/dL 3.4-5.0 04/15/2016 10:10pm 04/15/2016 10:31pm Albumin/Globulin Ratio 1.060 L 1.1-1.8 04/15/2016 10:10pm 04/15/2016 10:31pm Salicylates Level < 1.0 mg/dL L 2.0-20.0 04/15/2016 10:10pm 04/15/2016 10:31pm Acetaminophen Level < 10.0 mcg/mL L 10.0-30.0 04/15/2016 10:10pm 2015 10:31pm Serum Alcohol < 10.0 mg/dL L 10-80 04/15/2016 10:10pm 04/15/2016 10: 31pm Pending Laboratory Results Test Name Collection Date/Time Procedures Procedure Status Date Provider(s) ROUTINE VENIPUNCTURE Completed 04/20/16 X-RAY EXAM THORAC [...] EMERGENCY DEPT VISIT Completed 05/01/16 Completed 05/01/16 Encounters Encounter Location Arrival/Admit Date Discharge/Depart Date Attending Provider Departed Emergency Room [facility] 05/15/16 1:05am 05/15/16 2:02am PILAR SOSA DO Departed Emergency Room [facility] 05/01/16 6:11am 05/01/16 7:46am PILAR SOSA DO Registered Clinic [facility] 04/28/16 8:41am Jose Manuel Fuller III Departed Emergency Room [facility] 04/27/16 4:57pm 04/27/16 5:41pm JOSE TIDWELL MD Departed Emergency Room [facility] 04/24/16 10:25pm 04/24/16 11: 06pm DANDY IRBY MD Registered Clinic [facility] 04/24/16 10:15pm DANDY IRBY MD Registered Clinic [facility] 04/20/16 3:00pm DANDY IRBY MD Departed Emergency Room [facility] 04/20/16 1:06pm 04/20/16 3:08pm DANDY IRBY MD Departed Emergency Room [facility] 04/15/16 9:31pm 04/16/16 6:06am MUNIR BANKS MD Recent Diagnosis
--- OUTSIDE RECORDS SUMMARY | 2016-10-27 08:38 | XMS REPORT | Continuity of Care Document ---
Author Author [facility] Address Unknown Phone Unavailable Care Team Providers Care Spray Booth Operator Name Role Phone SADAF FAITH Primary Care Physician [phone] Insurance Providers Payer Name Policy Number Subscriber Name Relationship Medicare A And B [id number] Grace Marroquin 19 Self / Same As Patient Advance Directives Directive Response Recorded Date/Time Advanced Directives Yes 05/01/16 6:23am Type Living Will 05/01/16 6:23am Type Durable Power of Rating Officer 05/01/16 6:23am Chief Complaint and Reason for [...] Additional Instructions/Education The medical records here at [facility] indicate multiple emergency room visits for back [...] worrisome symptoms. * Emergency Department phone number: [phone], x [phone]* MEDICAL RECORD If you need copies of your X-rays, call [phone] x [phone]. If you need copies of [...] SERVICE BILLING CONSTITUTION PARTY Emergency Room Services [facility] Physician Services [facility] X-rays [facility] Patients will receive bills for services from the appropriate provider. If you have any questions about your [facility] bill, our staff will be happy to assist you. Please call [phone], and ask for the billing department. THANK YOU for choosing [facility] as your emergency care provider! Care Plan [...] Collection Date/Time Procedures Procedure Status Date Provider(s) THER/PROPH/DIAG INJ SC/IM Completed 04/10/16 EMERGENCY DEPT [...]
--- OUTSIDE RECORDS SUMMARY | 2016-10-27 08:38 | XMS REPORT | Continuity Of Care Document ---
Author Author [facility] Organization [facility] Address [address] [place] [address] Phone Care Team Providers Care Shank Scourer Name Role Phone UNASSIGNED, PHYSICIAN Unavailable Unavailable SADAF PAREKH PP FRANCISCA HOBSON M AT Results Microbiology Results Visit/Account #[id number] (June 30, 2016 3:06am - June 30, 2016 5: 09am) Procedure Result INFLUENZA A/B INFLUENZA A/B Result Instance On June 30, 2016 3:10am Source: NASAL Result Prompts: INFLUENZA A NEGATIVE FOR INFLUENZA A INFLUENZA B NEGATIVE FOR INFLUENZA B Allergies and Adverse Reactions Allergies and Adverse Reactions Patient Unit Number: [id number] Agent Type Reaction Severity Status NO KNOWN DRUG ALLERGIES Drug Allergy Unknown Unknown Active GABAPENTIN Drug Allergy Unknown Unknown Active QUETIAPINE Drug Allergy Unknown Unknown Active ZIPRASIDONE Drug Allergy Unknown Unknown Active LURASIDONE Drug Allergy Unknown Unknown Active Problem List Problem List Visit/Account #[id number] (June 30, 2016 3:06am - June 30, 2016 5: 09am) Acute Problems: Code/Condition Comments Documented Start Date Documented Resolved Date Code (s) Acute bronchitis ICD10: J20.9 Acute bronchitis ICD9: 466.0 Acute bronchitis SNOMED: 52557746 Acute bronchitis Patient Unit Number: [id number] Chronic Problems: Code/Condition Comments Documented Start Date Documented Resolved Date Code (s) Opiate dependence ICD10: F11.20 Opioid dependence ICD9: 304.00 Opioid dependence SNOMED: 87286224 Opioid dependence 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 Take the Z-Frank as prescribed. Recommend stop smoking. Followup with your PCP if not better in the next 3-5 days. Return to the ER if worsens. Vital Signs Vital Signs Visit/Account #[id number] (June 30, 2016 3:06am - June 30, 2016 5: 09am) Sign First Result Last Result Code(s) Temperature in Fahrenheit Temperature (Fahrenheit): 97.8 [degF] On June 30, 2016 3:05am Temperature (Fahrenheit): 98.2 [degF] On June 30, 2016 5:02am 8310-5 Body Temperature Weight in Kilograms Weight (Kilograms): 81.8 kg On June 30, 2016 3:05am 3141-9 Weight Measured 31024-6 Body weight measured in kilograms Functional Status Functional and Cognitive Status No Functional Status Data Medications Inpatient/Ordered Medications - Medications administered during hospital visit Visit/Account #[id number] (June 30, 2016 3:06am - June 30, 2016 5: 09am) Medication Route Sig/Schedule Precondition/Indication Comments/Instructions Codes ATROVENT 0.02% NEB(IPRATROPIUM BROMIDE) 0.5 MG/2.5 ML SOLUTION Dose: 2.5 ML INHALED NOW Ipratropium [place] 0.2 MG/ML Inhalant Solution (RxNorm): 161814 ATROVENT 0.02% NEB (IPRATROPIUM BROMIDE) NDC: 67396431949 XOPENEX NEB(LEVALBUTEROL) 1.25 MG/0.5 ML NEBULE Dose: 0.5 ML INHALED NOW Levalbuterol 0.417 MG/ML Inhalant Solution [Xopenex] (RxNorm): 109424 XOPENEX NEB (LEVALBUTEROL) NDC: 46231181677 TORADOL INJ(KETOROLAC TROMETHAMINE) 60 MG/2 ML VIAL Dose: 2 ML INTRAMUSC NOW 2 ML Ketorolac Tromethamine 30 MG/ML Injection (RxNorm): 3010782 TORADOL INJ (KETOROLAC TROMETHAMINE) NDC: 71728048203 Discharge Medications - Medications that patient should continue to take. Review with physician Visit/Account #[id number] (June 30, 2016 3:06am - June 30, 2016 5: 09am) Medication Route Sig/Schedule Precondition/Indication Comments/Instructions Codes Zithromax (Z-Pack)(AZITHROMYCIN) 250 MG TAB Dose: 1 TAB ORAL DIRECTED Rx Instructions: TAKE 2 TABLETS TODAY THEN 1 TABLET DAILY ON DAYS 2-5. Azithromycin 250 MG Oral Tablet [Zithromax] (RxNorm): 654377 Zithromax (Z-Pack) (AZITHROMYCIN) NDC: 38205460512 History Of Encounters Encounters Visit/Account #[id number] (June 30, 2016 3:06am - June 30, 2016 5: 09am) Account Status Physican Of Record Reason For Visit Visit Diagnosis Start Date/Time Stop Date/Time ER MILAGROS ESPINOSA MD FLU LIKE SYMPTOMS R05: COUGH ICD10 Jun 30, 2016 3:06am Jun 30, 2016 5:09am History of Procedures Procedure List No procedures recorded. Discharge Instructions Discharge Instructions Visit/Account #[id number] (June 30, 2016 3:06am - June 30, 2016 5: 09am) DISCHARGE INSTRUCTIONS Physician Documentation Social History Social History No Social History Data. Immunizations Immunizations Patient Unit Number: [id number] Immunizations No immunizations recorded.
--- OUTSIDE RECORDS SUMMARY | 2016-10-27 08:39 | XMS REPORT ---
Author Author GENERATED, SYSTEM Organization Unknown Address Unknown Phone Unavailable Care Team Providers Care Senior Informatica Etl Developer Name Role Phone UNASSIGNED DOCTOR , DOCTOR PP [phone] Reason For Visit Chief Complaint PAIN IN LEFT KNEE Social History Functional Status Vital Signs Results Chemistry from 09/12/2015 5:55 AM*COCAINE NEGATIVE (NEG <150 ) *PCP NEGATIVE (NEG <25 ) *OXYCODONE NEGATIVE (NEG <100 ) *PROPOXYPHENE (NORPROPOXYPHENE) NEGATIVE (NEG <300 ) *CANNABINOIDS NEGATIVE (NEG <50 ) *BENZODIAZEINE NEGATIVE (NEG <150 ) *AMPHETAMINE NEGATIVE (NEG <500 ) *BARBITURATES NEGATIVE (NEG <200 ) *METHAMPHETAMINES NEGATIVE (NEG <500 ) *METHADONE (UR) NEGATIVE (NEG <200 ) *OPIATES NEGATIVE (NEG <100 ) *TRICYCLICS NEGATIVE (NEG <300 ) Chemistry from 09/12/2015 5:18 AMSODIUM 144 MMOL/L (136-145 MMOL/L) POTASSIUM 3.6 MMOL/L (3.5-5.1 MMOL/L) CHLORIDE 107 MMOL/L (98-107 MMOL/L) TCO2 30.2 MMOL/L (21.0-32.0 MMOL/L) *ANION GAP 6.8 MMOL/L L (8.0-16.0 MMOL/L) BUN 8 MG/DL (7-18 MG/DL) CREATININE 1.06 MG/DL (0.70-1.30 MG/DL) *BUN/CREATININE RATIO 7.5 L (9.1-17.0 ) GLUCOSE 112 MG/DL H (65-99 MG/DL) *GFR EST NON AFR CHADIAN 71 ML/MIN *GFRA EST AFR AMER 82 ML/MIN CALCIUM 8.8 MG/DL (8.5-10.1 MG/DL) BILIRUBIN TOTAL 0.60 MG/DL (0.20-1.00 MG/DL) TOTAL PROTEIN 6.3 GM/DL L (6.4-8.2 GM/DL) ALBUMIN 3.5 GM/DL (3.4-5.0 GM/DL) *GLOBULIN 2.8 GM/DL (2.3-3.5 GM/DL) *A/G RATIO 1.3 MG/DL L (1.5-2.2 MG/DL) ALK PHOS 114 U/L (46-116 U/L) ALT (SGPT) 26 U/L (14-59 U/L) AST (SGOT) 16 U/L (15-37 U/L) ALCOHOL <0.003 GM/DL ACETAMINOPHEN 17 MCG/ML (10-30 MCG/ML) SALICYLATE 0.2 MG/DL L (2.8-20.0 MG/DL) Hematology from 09/12/2015 5:18 AMWBC 5.4 X10e3/UL (3.6-11.2 X10e3/UL) RBC 4.48 X10e6/UL (4.06-5.63 X10e6/UL) HEMOGLOBIN 13.7 G/DL (12.5-16.3 G/DL) HEMATOCRIT 40.8 % (36.7-47.1 %) *MCV 90.9 FL (80.0-100.0 FL) *MCH 30.5 PG (27.0-33.0 PG) *MCHC 33.6 G/DL (32.0-36.0 G/DL) *RDW 13.2 % (12.3-17.0 %) *RDWSD 41.6 (37.1-47.8 ) PLATELET 193 X10e3/UL (159-386 X10e3/UL) *MPV 7.9 FL (7.4-10.4 FL) AUTOMATED DIFF PERFORMED SEGS 55.6 % *LYMPHOCYTES 25.1 % *MONOCYTES 11.6 % *EOSINOPHILS 6.7 % *BASOPHILS 1.0 % *ABSOLUTE NEUTROPHILS 3.00 X10e3/UL (1.80-7.80 X10e3/UL) *ABSOLUTE LYMPHOCYTES 1.30 X10e3/UL (1.00-3.00 X10e3/UL) *ABSOLUTE MONOCYTES 0.60 X10e3/UL (0.30-1.00 X10e3/UL) *ABSOLUTE EOSINOPHILS 0.40 X10e3/UL (0.00-0.50 X10e3/UL) *ABSOLUTE BASOPHILS 0.10 X10e3/UL (0.00-0.20 X10e3/UL) Urinalysis from 09/12/2015 5:55 AM*URINE COLOR YELLOW (STRAW/YELL/DK YELL ) *URINE APPEARANCE CLEAR (CLEAR ) URINE PH 5.5 (5.0-8.0 ) URINE SPECIFIC GRAVITY <1.005 (<=1.005->=1.030 ) *URINE GLUCOSE NEGATIVE MG/DL (NEGATIVE MG/DL) *URINE BILIRUBIN NEGATIVE (NEGATIVE ) *URINE KETONES NEGATIVE MG/DL (NEGATIVE MG/DL) *URINE BLOOD NEGATIVE (NEGATIVE ) *URINE PROTEIN NEGATIVE MG/DL (NEGATIVE MG/DL) *URINE UROBILINOGEN 0.2 EU/DL (0.2-1.0 EU/DL) *URINE NITRITES NEGATIVE (NEGATIVE ) *URINE LEUKOCYTES NEGATIVE (NEGATIVE ) Problems Encounter Diagnosis No relevant problems exist. Additional Problems * Chronic Pain Status:Active. * Fall Risk Status:Active. * Mood Disorder Status:Active. Encounters Encounter Diagnosis No relevant problems exist. Plan of Care Procedures No relevant procedures performed. Immunizations No immunizations administered or ordered. Hospital Course Hospital Discharge Instructions Allergies, Adverse Reactions, Alerts * Geodon causes Unknown. * Latex Allergy has not been assessed. * IV Contrast Allergy has not been assessed. * No Known Food Allergies. Medication Medication reconciliation has not been performed.
--- OUTSIDE RECORDS SUMMARY | 2016-10-27 08:39 | XMS REPORT | Continuity of Care Document ---
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 04/22/2016 OCTAVIO CLARK MD, Ot M54.89 OTHER DORSALGIA 04/22/2016 DANDY IRBY MD P Ot R45.851 SUICIDAL IDEATIONS 04/24/2016 DANDY IRBY MD P Ot M54.5 LOW BACK PAIN 04/25/2016 PILAR SOSA DO Ot R45.851 SUICIDAL IDEATIONS 04/25/2016 DANDY IRBY MD P Ot F32.9 MAJOR DEPRESSIVE DISORDER, SINGLE EPISOD 04/25/2016 DANDY IRBY MD P Ot R45.851 SUICIDAL IDEATIONS 04/27/2016 DANDY IRBY MD P Ot M54.5 LOW BACK PAIN 04/27/2016 YAW HOBSON, JOSE Leach Ot G89.29 OTHER CHRONIC PAIN 04/27/2016 YAW HOBSON, JOSE L Ot M54.5 LOW BACK PAIN 04/27/2016 YAW HOBSON, JOSE L Ot Z98.890 OTHER SPECIFIED POSTPROCEDURAL STATES 04/28/2016 JACOBY WARE MDCY L Ot 401.9 HYPERTENSION NOS 04/28/2016 JEANIE HOBSON, TIMOTHY L Ot 784.7 EPISTAXIS 04/28/2016 YANG HOBSON, MARIA ELENA Ot 401.9 HYPERTENSION NOS 04/28/2016 YANG HOBSON, MARIA ELENA Ot 780.4 DIZZINESS AND GIDDINESS 04/28/2016 YANG HOBSON, MARIA ELENA Ot 780.79 OTH MALAISE FATIGUE 04/28/2016 MARIA ELENA SORIA MD Ot 401.9 HYPERTENSION NOS 04/28/2016 YANG HOBSON, MARIA ELENA Ot 784.7 EPISTAXIS 04/28/2016 YANG HOBSON, MARIA ELENA Ot V58.66 LONG-TERM (CURRENT) USE OF ASPIRIN 04/28/2016 NEY MOSS MD Ot 553.3 DIAPHRAGMATIC HERNIA 04/28/2016 NEY MOSS MD Ot 787.20 DYSPHAGIA, UNSPECIFIED 04/28/2016 PILAR SOSA DO Ot 724.2 LUMBAGO 04/28/2016 NEY MOSS MD Ot 724.02 SPINAL STENOSIS, LUMBAR REG, W/OUT NEURO 04/28/2016 NEY MOSS MD Ot 724.5 BACKACHE NOS 04/28/2016 PILAR SOSA DO Ot 305.90 DRUG ABUSE NEC-UNSPEC 04/28/2016 PILAR SOSA DO Ot 719.46 JOINT PAIN-L/LEG 04/28/2016 FAST NEY HOBSON Ot 338.29 OTHER CHRONIC PAIN 04/28/2016 FAST NEY HOBSON Ot 717.5 DERANGEMENT MENISCUS NEC 04/28/2016 FAST NEY HOBSON Ot 719.46 JOINT PAIN-L/LEG 04/28/2016 FAST NEY HOBSON Ot 721.3 LUMBOSACRAL SPONDYLOSIS 04/28/2016 NEY MOSS MD Ot 727.41 GANGLION OF JOINT 04/28/2016 FAST NEY HOBSON Ot 782.3 EDEMA 04/28/2016 GIULIANA GOMES MD Ot F31.9 BIPOLAR DISORDER, UNSPECIFIED 04/28/2016 GIULIANA GOMES MD Ot G47.00 INSOMNIA, UNSPECIFIED 04/28/2016 GIULIANA GOMES MD Ot I10 ESSENTIAL (PRIMARY) HYPERTENSION 04/28/2016 GIULIANA GOMES MD Ot M54.9 DORSALGIA, UNSPECIFIED 04/28/2016 GIULIANA GOMES MD Ot Z11.4 ENCOUNTER FOR SCREENING FOR HUMAN IMMUNO 04/28/2016 GIULIANA GOMES MD Ot Z72.51 HIGH RISK HETEROSEXUAL BEHAVIOR 04/28/2016 Daily Siva HOBSON Ot M17.12 UNILATERAL PRIMARY OSTEOARTHRITIS, LEFT 04/28/2016 Daily Siva HOBSON Ot M25.562 PAIN IN LEFT KNEE 04/28/2016 DUNCAN HOBSON, DIDI Miranda Ot M25.562 PAIN IN LEFT KNEE 04/28/2016 Daily Siva HOBSON Ot Z96.652 PRESENCE OF LEFT ARTIFICIAL KNEE JOINT 04/28/2016 Daily Siva HOBSON Ot Z98.89 OTHER SPECIFIED POSTPROCEDURAL STATES 04/28/2016 MUNIR BANKS MD, Ot M25.562 PAIN IN LEFT KNEE 04/28/2016 MAHAMED HOBSON, DANDY Gallego Ot Z53.21 PROC/TRTMT NOT CRD OUT D/T PT LV BEF SEE 04/28/2016 MUNIR BANKS MD, Ot F99 MENTAL DISORDER, NOT OTHERWISE SPECIFIED 04/28/2016 MUNIR BANKS MD, Ot G89.29 OTHER CHRONIC PAIN 04/28/2016 JOCELYN MD, AMARAL R Ot M25.562 PAIN IN LEFT KNEE 04/28/2016 MUNIR BANKS MD R Ot M54.89 OTHER DORSALGIA 04/28/2016 MUNIR BANKS MD R Ot R45.851 SUICIDAL IDEATIONS 04/28/2016 DANDY IRBY MD P Ot M54.5 LOW BACK PAIN 04/28/2016 DANDY IRBY MD P Ot M79.605 PAIN IN LEFT LEG 04/28/2016 DANDY IRBY MD P Ot G89.29 OTHER CHRONIC PAIN 04/28/2016 DANDY IRBY MD P Ot R45.851 SUICIDAL IDEATIONS 04/28/2016 PILAR SOSA DO Ot R45.851 SUICIDAL IDEATIONS 04/28/2016 MUNIR BANKS MD R Ot F32.9 MAJOR DEPRESSIVE DISORDER, SINGLE EPISOD 04/28/2016 MUNIR BANKS MD R Ot G89.29 OTHER CHRONIC PAIN 04/28/2016 MUNIR BANKS MD R Ot M54.5 LOW BACK PAIN 04/28/2016 MUNIR BANKS MD R Ot R45.851 SUICIDAL IDEATIONS 04/28/2016 DANDY IRBY MD P Ot R45.851 SUICIDAL IDEATIONS 04/28/2016 DANDY IRBY MD P Ot G89.29 OTHER CHRONIC PAIN 04/30/2016 DANDY IRBY MD P Ot M54.5 LOW BACK PAIN 05/01/2016 PILAR SOSA DO Ot G47.00 INSOMNIA, UNSPECIFIED 05/01/2016 PILAR SOSA DO Ot G89.29 OTHER CHRONIC PAIN 05/01/2016 PILAR SOSA DO Ot M25.562 PAIN IN LEFT KNEE 05/01/2016 PILAR SOSA DO Ot M54.5 LOW BACK PAIN 05/01/2016 PILAR SOSA DO Ot Z91.14 PATIENT'S OTHER NONCOMPLIANCE WITH MEDIC 05/02/2016 YAW HOBSON, JOSE Leach Ot G89.29 OTHER CHRONIC PAIN 05/02/2016 YAW HOBSON, JOSE Leach Ot M54.5 LOW BACK PAIN 05/02/2016 YAW HOBSON, JOSE L Ot Z98.890 OTHER SPECIFIED POSTPROCEDURAL STATES 05/02/2016 Jose Manuel Fuller Ruth Ot Z53.9 PROCEDURE AND TREATMENT NOT CARRIED OUT , 05/04/2016 SOSA DO PILAR Can Ot G47.00 INSOMNIA, UNSPECIFIED 05/04/2016 SOSA DO PILAR Can Ot G89.29 OTHER CHRONIC PAIN 05/04/2016 SHEILA DO PILAR Can Ot M25.562 PAIN IN LEFT KNEE 05/04/2016 SOSA PILAR KING Ot M54.5 LOW BACK PAIN 05/04/2016 SOSA PILAR KING Ot Z91.14 PATIENT'S OTHER NONCOMPLIANCE WITH MEDIC 05/09/2016 JOCELYN HOBSON, MUNIR Carey Ot F32.9 MAJOR DEPRESSIVE DISORDER, SINGLE EPISOD 05/09/2016 MUNIR BANKS MD Ot G89.29 OTHER CHRONIC PAIN 05/09/2016 MUNIR BANKS MD Ot M54.5 LOW BACK PAIN 05/09/2016 MUNIR BANKS MD Ot R45.851 SUICIDAL IDEATIONS 05/11/2016 DANDY IRBY MD Ot R45.851 SUICIDAL IDEATIONS 05/15/2016 SOSA PILAR KING Ot F31.9 BIPOLAR DISORDER, UNSPECIFIED 05/15/2016 SOSA PILAR KING Ot G89.29 OTHER CHRONIC PAIN 05/16/2016 TIMOTHY WARE MD Ot 401.9 HYPERTENSION NOS 05/16/2016 TIMOTHY WARE MD Ot 784.7 EPISTAXIS 05/16/2016 MARIA ELENA SORIA MD Ot 401.9 HYPERTENSION NOS 05/16/2016 YANG HOBSON, MARIA ELENA Ot 780.4 DIZZINESS AND GIDDINESS 05/16/2016 MARIA ELENA SORIA MD Ot 780.79 OTH MALAISE FATIGUE 05/16/2016 MARIA ELENA SORIA MD Ot 401.9 HYPERTENSION NOS 05/16/2016 MARIA ELENA SORIA MD Ot 784.7 EPISTAXIS 05/16/2016 MARIA ELENA SORIA MD Ot V58.66 LONG-TERM (CURRENT) USE OF ASPIRIN 05/16/2016 NEY MOSS MD Ot 553.3 DIAPHRAGMATIC HERNIA 05/16/2016 NEY MOSS MD Ot 787.20 DYSPHAGIA, UNSPECIFIED 05/16/2016 PILAR SOSA DO Ot 724.2 LUMBAGO 05/16/2016 FAST MD, NEY A Ot 724.02 SPINAL STENOSIS, LUMBAR REG, W/OUT NEURO 05/16/2016 FAST NEY HOBSON Ot 724.5 BACKACHE NOS 05/16/2016 SHEILA KING PILAR Can Ot 305.90 DRUG ABUSE NEC-UNSPEC 05/16/2016 SHEILA KING PILAR [place] Ot 719.46 JOINT PAIN-L/LEG 05/16/2016 FAST NEY HOBSON Ot 338.29 OTHER CHRONIC PAIN 05/16/2016 FAST NEY HOBSON Ot 717.5 DERANGEMENT MENISCUS NEC 05/16/2016 FAST NEY HOBSON Ot 719.46 JOINT PAIN-L/LEG 05/16/2016 FAST NEY HOBSON Ot 721.3 LUMBOSACRAL SPONDYLOSIS 05/16/2016 NEY MOSS MD Ot 727.41 GANGLION OF JOINT 05/16/2016 FAST NEY HOBSON Ot 782.3 EDEMA 05/16/2016 GIULIANA GOMES MD Ot F31.9 BIPOLAR DISORDER, UNSPECIFIED 05/16/2016 GIULIANA GOMES MD Ot G47.00 INSOMNIA, UNSPECIFIED 05/16/2016 GIULIANA GOMES MD Ot I10 ESSENTIAL (PRIMARY) HYPERTENSION 05/16/2016 GIULIANA GOMES MD Ot M54.9 DORSALGIA, UNSPECIFIED 05/16/2016 GIULIANA GOMES MD Ot Z11.4 ENCOUNTER FOR SCREENING FOR HUMAN IMMUNO 05/16/2016 GIULIANA GOMES MD Ot Z72.51 HIGH RISK HETEROSEXUAL BEHAVIOR 05/16/2016 Daily Siva HOBSON Ot M17.12 UNILATERAL PRIMARY OSTEOARTHRITIS, LEFT 05/16/2016 Daily Siva HOBSON Ot M25.562 PAIN IN LEFT KNEE 05/16/2016 DUNCAN HOBSON, DIDI Miranda Ot M25.562 PAIN IN LEFT KNEE 05/16/2016 Daily Siva HOBSON Ot Z96.652 PRESENCE OF LEFT ARTIFICIAL KNEE JOINT 05/16/2016 Daily Siva HOBSON Ot Z98.89 OTHER SPECIFIED POSTPROCEDURAL STATES 05/16/2016 JOCELYN HOBSON, MUNIR Carey Ot M25.562 PAIN IN LEFT KNEE 05/16/2016 MAHAMED HOBSON, DANDY Gallego Ot Z53.21 PROC/TRTMT NOT CRD OUT D/T PT LV BEF SEE 05/16/2016 MUNIR BANKS MD R Ot F99 MENTAL DISORDER, NOT OTHERWISE SPECIFIED 05/16/2016 MUNIR BANKS MD R Ot G89.29 OTHER CHRONIC PAIN 05/16/2016 MUNIR BANKS MD R Ot M25.562 PAIN IN LEFT KNEE 05/16/2016 MUNIR BANKS MD R Ot M54.89 OTHER DORSALGIA 05/16/2016 MUNIR BANKS MD R Ot R45.851 SUICIDAL IDEATIONS 05/16/2016 DANDY IRBY MD P Ot M54.5 LOW BACK PAIN 05/16/2016 DANDY IRBY MD P Ot M79.605 PAIN IN LEFT LEG 05/16/2016 DANDY IRBY MD P Ot G89.29 OTHER CHRONIC PAIN 05/16/2016 DANDY IRBY MD P Ot R45.851 SUICIDAL IDEATIONS 05/16/2016 PILAR SOSA DO Ot R45.851 SUICIDAL IDEATIONS 05/16/2016 DANDY IRBY MD P Ot R45.851 SUICIDAL IDEATIONS 05/16/2016 DANDY IRBY MD P Ot G89.29 OTHER CHRONIC PAIN 05/16/2016 Jose Manuel Fuller Ot Z53.9 PROCEDURE AND TREATMENT NOT CARRIED OUT , 05/17/2016 DANDY IRBY MD P Ot G89.29 OTHER CHRONIC PAIN 05/17/2016 PILAR SOSA DO Ot F31.9 BIPOLAR DISORDER, UNSPECIFIED 05/17/2016 PILAR SOSA DO Ot G89.29 OTHER CHRONIC PAIN 05/21/2016 PILAR SOSA DO Ot F31.9 BIPOLAR DISORDER, UNSPECIFIED 05/21/2016 PILAR SOSA DO Ot G89.29 OTHER CHRONIC PAIN 05/24/2016 JEANIE HOBSON, TIMOTHY L Ot 401.9 HYPERTENSION NOS 05/24/2016 JEANIE HOBSON, TIMOTHY L Ot 784.7 EPISTAXIS 05/24/2016 YANG HOBSON, MARIA ELENA Ot 401.9 HYPERTENSION NOS 05/24/2016 YANG HOBSON, MARIA ELENA Ot 780.4 DIZZINESS AND GIDDINESS 05/24/2016 YANG HOBSON, MARIA ELENA Ot 780.79 OTH MALAISE FATIGUE 05/24/2016 YANG HOBSON, MARIA ELENA Ot 401.9 HYPERTENSION NOS 05/24/2016 YANG HOBSON, MARIA ELENA Ot 784.7 EPISTAXIS 05/24/2016 MARIA ELENA SORIA MD Ot V58.66 LONG-TERM (CURRENT) USE OF ASPIRIN 05/24/2016 NEY MOSS MD Ot 553.3 DIAPHRAGMATIC HERNIA 05/24/2016 NEY MOSS MD Ot 787.20 DYSPHAGIA, UNSPECIFIED 05/24/2016 PILAR SOSA DO Ot 724.2 LUMBAGO 05/24/2016 NEY MOSS MD Ot 724.02 SPINAL STENOSIS, LUMBAR REG, W/OUT NEURO 05/24/2016 NEY MOSS MD Ot 724.5 BACKACHE NOS 05/24/2016 PILAR SOSA DO Ot 305.90 DRUG ABUSE NEC-UNSPEC 05/24/2016 PILAR SOSA DO Ot 719.46 JOINT PAIN-L/LEG 05/24/2016 NEY MOSS MD Ot 338.29 OTHER CHRONIC PAIN 05/24/2016 NEY MOSS MD Ot 717.5 DERANGEMENT MENISCUS NEC 05/24/2016 NEY MOSS MD Ot 719.46 JOINT PAIN-L/LEG 05/24/2016 NEY MOSS MD Ot 721.3 LUMBOSACRAL SPONDYLOSIS 05/24/2016 NEY MOSS MD Ot 727.41 GANGLION OF JOINT 05/24/2016 NEY MOSS MD Ot 782.3 EDEMA 05/24/2016 GIULIANA GOMES MD Ot F31.9 BIPOLAR DISORDER, UNSPECIFIED 05/24/2016 GIULIANA GOMES MD Ot G47.00 INSOMNIA, UNSPECIFIED 05/24/2016 GIULIANA GOMES MD Ot I10 ESSENTIAL (PRIMARY) HYPERTENSION 05/24/2016 GIULIANA GOMES MD Ot M54.9 DORSALGIA, UNSPECIFIED 05/24/2016 GIULIANA GOMES MD Ot Z11.4 ENCOUNTER FOR SCREENING FOR HUMAN IMMUNO 05/24/2016 GIULIANA GOMES MD Ot Z72.51 HIGH RISK HETEROSEXUAL BEHAVIOR 05/24/2016 Daily Siva HOBSON Ot M17.12 UNILATERAL PRIMARY OSTEOARTHRITIS, LEFT 05/24/2016 Daily Siva HOBSON Ot M25.562 PAIN IN LEFT KNEE 05/24/2016 DUNCAN HOBSON, DIDI Miranda Ot M25.562 PAIN IN LEFT KNEE 05/24/2016 Daily Siva HOBSON Ot Z96.652 PRESENCE OF LEFT ARTIFICIAL KNEE JOINT 05/24/2016 Daily Siva HOBSON Ot Z98.89 OTHER SPECIFIED POSTPROCEDURAL STATES 05/24/2016 MUNIR BANKS MD Ot M25.562 PAIN IN LEFT KNEE 05/24/2016 DANDY IRBY MD Ot Z53.21 PROC/TRTMT NOT CRD OUT D/T PT LV BEF SEE 05/24/2016 MUNIR BANKS MD Ot F99 MENTAL DISORDER, NOT OTHERWISE SPECIFIED 05/24/2016 MUNIR BANKS MD Ot G89.29 OTHER CHRONIC PAIN 05/24/2016 MUNIR BANKS MD Ot M25.562 PAIN IN LEFT KNEE 05/24/2016 MUNIR BANKS MD Ot M54.89 OTHER DORSALGIA 05/24/2016 MUNIR BANKS MD Ot R45.851 SUICIDAL IDEATIONS 05/24/2016 DANDY IRBY MD Ot M54.5 LOW BACK PAIN 05/24/2016 DANDY IRBY MD Ot M79.605 PAIN IN LEFT LEG 05/24/2016 DANDY IRBY MD Ot G89.29 OTHER CHRONIC PAIN 05/24/2016 DANDY IRBY MD Ot R45.851 SUICIDAL IDEATIONS 05/24/2016 PILAR SOSA DO Ot R45.851 SUICIDAL IDEATIONS 05/24/2016 DANDY IRBY MD Ot R45.851 SUICIDAL IDEATIONS 05/24/2016 DANDY IRBY MD Ot G89.29 OTHER CHRONIC PAIN 05/24/2016 Jose Manuel Fuller Ot Z53.9 PROCEDURE AND TREATMENT NOT CARRIED OUT , 05/24/2016 OCTAVIO CLARK MD, Ot G89.29 OTHER CHRONIC PAIN 05/24/2016 OCTAVIO CLARK MD Ot M54.5 LOW BACK PAIN 05/24/2016 OCTAVIO CLARK MD Ot Z87.898 PERSONAL HISTORY OF OTHER SPECIFIED COND 05/27/2016 OCTAVIO CLARK MD, Ot G89.29 OTHER CHRONIC PAIN 05/27/2016 OCTAVIO CLARK MD Ot M54.5 LOW BACK PAIN 05/27/2016 OCTAVIO CLARK MD Ot Z87.898 PERSONAL HISTORY OF OTHER SPECIFIED COND 05/28/2016 MUNIR BANKS MD Ot F32.9 MAJOR DEPRESSIVE DISORDER, SINGLE EPISOD 05/28/2016 MUNIR BANKS MD Ot G89.29 OTHER CHRONIC PAIN 05/28/2016 MUNIR BANKS MD Ot M54.5 LOW BACK PAIN 05/28/2016 MUNIR BANKS MD Ot R45.851 SUICIDAL IDEATIONS 05/31/2016 TIMOTHY WARE MD Ot 401.9 HYPERTENSION NOS 05/31/2016 TIMOTHY WARE MD Ot 784.7 EPISTAXIS 05/31/2016 YANG HOBSON, MARIA ELENA Ot 401.9 HYPERTENSION NOS 05/31/2016 YANG HOBSON, MARIA ELENA Ot 780.4 DIZZINESS AND GIDDINESS 05/31/2016 YANG HOBSON, MARIA ELENA Ot 780.79 OTH MALAISE FATIGUE 05/31/2016 YANG HOBSON, MARIA ELENA Ot 401.9 HYPERTENSION NOS 05/31/2016 YANG HOBSON, MARIA ELENA Ot 784.7 EPISTAXIS 05/31/2016 YANG HOBSON, MARIA ELENA Ot V58.66 LONG-TERM (CURRENT) USE OF ASPIRIN 05/31/2016 NEY MOSS MD Ot 553.3 DIAPHRAGMATIC HERNIA 05/31/2016 NEY MOSS MD Ot 787.20 DYSPHAGIA, UNSPECIFIED 05/31/2016 PILAR SOSA DO Ot 724.2 LUMBAGO 05/31/2016 NEY MOSS MD Ot 724.02 SPINAL STENOSIS, LUMBAR REG, W/OUT NEURO 05/31/2016 NEY MOSS MD Ot 724.5 BACKACHE NOS 05/31/2016 PILAR SOSA DO Ot 305.90 DRUG ABUSE NEC-UNSPEC 05/31/2016 PILAR SOSA DO Ot 719.46 JOINT PAIN-L/LEG 05/31/2016 NEY MOSS MD Ot 338.29 OTHER CHRONIC PAIN 05/31/2016 NEY MOSS MD Ot 717.5 DERANGEMENT MENISCUS NEC 05/31/2016 NEY MOSS MD Ot 719.46 JOINT PAIN-L/LEG 05/31/2016 NEY MOSS MD Ot 721.3 LUMBOSACRAL SPONDYLOSIS 05/31/2016 NEY MOSS MD Ot 727.41 GANGLION OF JOINT 05/31/2016 NEY MOSS MD Ot 782.3 EDEMA 05/31/2016 GIULIANA GOMES MD Ot F31.9 BIPOLAR DISORDER, UNSPECIFIED 05/31/2016 GIULIANA GOMES MD Ot G47.00 INSOMNIA, UNSPECIFIED 05/31/2016 GIULIANA GMOES MD Ot I10 ESSENTIAL (PRIMARY) HYPERTENSION 05/31/2016 GIULIANA GOMES MD, Ot M54.9 DORSALGIA, UNSPECIFIED 05/31/2016 GIULIANA GOMES MD Ot Z11.4 ENCOUNTER FOR SCREENING FOR HUMAN IMMUNO 05/31/2016 GIULINAA GOMES MD Ot Z72.51 HIGH RISK HETEROSEXUAL BEHAVIOR 05/31/2016 Daily Siva HOBSON Ot M17.12 UNILATERAL PRIMARY OSTEOARTHRITIS, LEFT 05/31/2016 Daily Siva HOBSON Ot M25.562 PAIN IN LEFT KNEE 05/31/2016 DUNCAN HOBSON, DIDI Miranda Ot M25.562 PAIN IN LEFT KNEE 05/31/2016 Daily Siva HOBSON Ot Z96.652 PRESENCE OF LEFT ARTIFICIAL KNEE JOINT 05/31/2016 Daily Siva HOBSON Ot Z98.89 OTHER SPECIFIED POSTPROCEDURAL STATES 05/31/2016 MUNIR BANKS MD, Ot M25.562 PAIN IN LEFT KNEE 05/31/2016 DANDY IRBY MD, Ot Z53.21 PROC/TRTMT NOT CRD OUT D/T PT LV BEF SEE 05/31/2016 MUNIR BANKS MD, Ot F99 MENTAL DISORDER, NOT OTHERWISE SPECIFIED 05/31/2016 MUNIR BANKS MD Ot G89.29 OTHER CHRONIC PAIN 05/31/2016 MUNIR BANKS MD, Ot M25.562 PAIN IN LEFT KNEE 05/31/2016 MUNIR BANKS MD, Ot M54.89 OTHER DORSALGIA 05/31/2016 MUNIR BANKS MD, Ot R45.851 SUICIDAL IDEATIONS 05/31/2016 DANDY IRBY MD, Ot M54.5 LOW BACK PAIN 05/31/2016 MIGGIANI MD, DANDY P Ot M79.605 PAIN IN LEFT LEG 05/31/2016 DANDY IRBY MD P Ot G89.29 OTHER CHRONIC PAIN 05/31/2016 DANDY IRBY MD P Ot R45.851 SUICIDAL IDEATIONS 05/31/2016 PILAR SOSA DO Ot R45.851 SUICIDAL IDEATIONS 05/31/2016 DANDY IRBY MD P Ot R45.851 SUICIDAL IDEATIONS 05/31/2016 DANDY IRBY MD P Ot G89.29 OTHER CHRONIC PAIN 05/31/2016 Jose Manuel Fuller Ot Z53.9 PROCEDURE AND TREATMENT NOT CARRIED OUT , 05/31/2016 MUNIR BANKS MD Ot F99 MENTAL DISORDER, NOT OTHERWISE SPECIFIED 05/31/2016 MUNIR BANKS MD Ot G89.29 OTHER CHRONIC PAIN 05/31/2016 MUNIR BANKS MD Ot M25.562 PAIN IN LEFT KNEE 05/31/2016 MUNIR BANKS MD R Ot M54.89 OTHER DORSALGIA 05/31/2016 MUNIR BANKS MD R Ot R45.851 SUICIDAL IDEATIONS 05/31/2016 DANDY IRBY MD P Ot M54.5 LOW BACK PAIN 05/31/2016 DANDY IRBY MD P Ot M79.605 PAIN IN LEFT LEG 05/31/2016 DANDY IRBY MD P Ot G89.29 OTHER CHRONIC PAIN 05/31/2016 DANDY IRBY MD P Ot R45.851 SUICIDAL IDEATIONS 05/31/2016 PILAR SOSA DO Ot R45.851 SUICIDAL IDEATIONS 05/31/2016 DANDY IRBY MD P Ot R45.851 SUICIDAL IDEATIONS 05/31/2016 DANDY IRBY MD P Ot G89.29 OTHER CHRONIC PAIN 06/05/2016 MARIA ELENA SORIA MD Ot M25.562 PAIN IN LEFT KNEE 06/09/2016 MARIA ELENA SORIA MD, Ot M25.562 PAIN IN LEFT KNEE 06/16/2016 TIMOTHY WARE MD L Ot 401.9 HYPERTENSION NOS 06/16/2016 TIMOTHY WARE MD Ot 784.7 EPISTAXIS 06/16/2016 YANG MD, MARIA ELENA Ot 401.9 HYPERTENSION NOS 06/16/2016 YANG HOBSON, MARIA ELENA Ot 780.4 DIZZINESS AND GIDDINESS 06/16/2016 MARIA ELENA SORIA MD Ot 780.79 OTH MALAISE FATIGUE 06/16/2016 MARIA ELENA SORIA MD Ot 401.9 HYPERTENSION NOS 06/16/2016 MARIA ELENA SORIA MD Ot 784.7 EPISTAXIS 06/16/2016 MARIA ELENA SORIA MD Ot V58.66 LONG-TERM (CURRENT) USE OF ASPIRIN 06/16/2016 NEY MOSS MD Ot 553.3 DIAPHRAGMATIC HERNIA 06/16/2016 NEY MOSS MD Ot 787.20 DYSPHAGIA, UNSPECIFIED 06/16/2016 PILAR SOSA DO Ot 724.2 LUMBAGO 06/16/2016 NEY MOSS MD Ot 724.02 SPINAL STENOSIS, LUMBAR REG, W/OUT NEURO 06/16/2016 NEY MOSS MD Ot 724.5 BACKACHE NOS 06/16/2016 PILAR SOSA DO Ot 305.90 DRUG ABUSE NEC-UNSPEC 06/16/2016 PILAR SOSA DO Ot 719.46 JOINT PAIN-L/LEG 06/16/2016 NEY MOSS MD Ot 338.29 OTHER CHRONIC PAIN 06/16/2016 NEY MOSS MD Ot 717.5 DERANGEMENT MENISCUS NEC 06/16/2016 NEY MOSS MD Ot 719.46 JOINT PAIN-L/LEG 06/16/2016 NEY MOSS MD Ot 721.3 LUMBOSACRAL SPONDYLOSIS 06/16/2016 NEY MOSS MD Ot 727.41 GANGLION OF JOINT 06/16/2016 NEY MOSS MD Ot 782.3 EDEMA 06/16/2016 GIULIANA GOMES MD Ot F31.9 BIPOLAR DISORDER, UNSPECIFIED 06/16/2016 GIULIANA GOMES MD Ot G47.00 INSOMNIA, UNSPECIFIED 06/16/2016 GIULIANA GOMES MD Ot I10 ESSENTIAL (PRIMARY) HYPERTENSION 06/16/2016 GIULIANA GOMES MD Ot M54.9 DORSALGIA, UNSPECIFIED 06/16/2016 GIULIANA GOMES MD Ot Z11.4 ENCOUNTER FOR SCREENING FOR HUMAN IMMUNO 06/16/2016 GIULIANA GOMES MD, Ot Z72.51 HIGH RISK HETEROSEXUAL BEHAVIOR 06/16/2016 Daily Siva HOBSON Ot M17.12 UNILATERAL PRIMARY OSTEOARTHRITIS, LEFT 06/16/2016 Daily Siva HOBSON Ot M25.562 PAIN IN LEFT KNEE 06/16/2016 DUNCAN HOBSON, DIDI Miranda Ot M25.562 PAIN IN LEFT KNEE 06/16/2016 Daily Siva HOBSON Ot Z96.652 PRESENCE OF LEFT ARTIFICIAL KNEE JOINT 06/16/2016 Daily Siva HOBSON Ot Z98.89 OTHER SPECIFIED POSTPROCEDURAL STATES 06/16/2016 MUNIR BANKS MD Ot M25.562 PAIN IN LEFT KNEE 06/16/2016 DANDY IRBY MD Ot Z53.21 PROC/TRTMT NOT CRD OUT D/T PT LV BEF SEE 06/16/2016 MUNIR BANKS MD Ot F99 MENTAL DISORDER, NOT OTHERWISE SPECIFIED 06/16/2016 MUNIR BANKS MD Ot G89.29 OTHER CHRONIC PAIN 06/16/2016 MUNIR BANKS MD Ot M25.562 PAIN IN LEFT KNEE 06/16/2016 MUNIR BANKS MD R Ot M54.89 OTHER DORSALGIA 06/16/2016 MUNIR BANKS MD Ot R45.851 SUICIDAL IDEATIONS 06/16/2016 DANDY IRBY MD Ot M54.5 LOW BACK PAIN 06/16/2016 DANDY IRBY MD Ot M79.605 PAIN IN LEFT LEG 06/16/2016 DANDY IRBY MD Ot G89.29 OTHER CHRONIC PAIN 06/16/2016 DANDY IRBY MD P Ot R45.851 SUICIDAL IDEATIONS 06/16/2016 PILAR SOSA DO Ot R45.851 SUICIDAL IDEATIONS 06/16/2016 DANDY IRBY MD Ot R45.851 SUICIDAL IDEATIONS 06/16/2016 DANDY IRBY MD P Ot G89.29 OTHER CHRONIC PAIN 06/16/2016 Jose Manuel Fuller Ot Z53.9 PROCEDURE AND TREATMENT NOT CARRIED OUT , 06/16/2016 PILAR SOSA DO Ot G89.29 OTHER CHRONIC PAIN 06/16/2016 PILAR SOSA DO, Ot M25.561 PAIN IN RIGHT KNEE 06/21/2016 SHEILA KING PILAR [place] Ot G89.29 OTHER CHRONIC PAIN 06/21/2016 PLIAR SOSA DO Ot M25.561 PAIN IN RIGHT KNEE 06/25/2016 SHEILA KING PILAR Can Ot G89.29 OTHER CHRONIC PAIN 06/25/2016 PILAR SOSA DO Can Ot M25.561 PAIN IN RIGHT KNEE 06/27/2016 MUNIR BANKS MD R Ot M25.562 PAIN IN LEFT KNEE 06/27/2016 MUNIR BANKS MD R Ot F99 MENTAL DISORDER, NOT OTHERWISE SPECIFIED 06/27/2016 MUNIR BANKS MD R Ot G89.29 OTHER CHRONIC PAIN 06/27/2016 MUNIR BANKS MD R Ot M25.562 PAIN IN LEFT KNEE 06/27/2016 MUNIR BANKS MD R Ot M54.89 OTHER DORSALGIA 06/27/2016 MUNIR BANKS MD R Ot R45.851 SUICIDAL IDEATIONS 06/27/2016 DANDY IRBY MD P Ot M54.5 LOW BACK PAIN 06/27/2016 DANDY IRBY MD P Ot M79.605 PAIN IN LEFT LEG 06/27/2016 DANDY IRBY MD P Ot G89.29 OTHER CHRONIC PAIN 06/27/2016 DANDY IRBY MD P Ot R45.851 SUICIDAL IDEATIONS 06/27/2016 DANDY IRBY MD P Ot G89.29 OTHER CHRONIC PAIN 06/27/2016 DANDY IRBY MD P Ot R45.851 SUICIDAL IDEATIONS 06/27/2016 SOSA PILAR KING Ot R45.851 SUICIDAL IDEATIONS 06/27/2016 DANDY IRBY MD P Ot R45.851 SUICIDAL IDEATIONS 06/27/2016 DANDY IRBY MD P Ot G89.29 OTHER CHRONIC PAIN Procedures Results Test Result Range CBC W/DIFF - 11/17/14 15:55 BASOPHIL # 0.0 k/cumm 0.0-0.2 BASOPHIL % 1 % 0-1 EOSINOPHIL # 0.2 k/cumm 0.1-0.5 EOSINOPHIL % 4 % 2-4 GRANULOCYTE # 3.1 k/cumm 2.0-9.0 GRANULOCYTE % 66 % 50-75 LYMPHOCYTE # 0.7 k/cumm 1.0-4.0 LYMPHOCYTE % 15 % 20-30 MEAN CELL HGB 29.8 pg 27.0-33.0 MEAN CELL HGB CONCENTRATION 33.7 g/dL 32.0-37.0 MEAN CELL VOLUME 88.3 fl 80.0-100.0 MONOCYTE # 0.7 k/cumm 0.1-1.0 MONOCYTE % 16 % 4-6 RED BLOOD CELL 4.97 m/cumm 4.00-6.00 RED CELL DISTRIBUTION WIDTH 13.3 % 11.0- 15.6 WHITE BLOOD CELL 4.7 k/cumm 5.0-10.0 HEMOGLOBIN 14.8 gm/dL 14.0-18.0 HEMATOCRIT 43.9 % 40.0-54.0 PLATELET COUNT 173 k/cumm 150-400 URINALYSIS, ROUTINE - 11/17/14 16:05 UA LEUKOCYTE ESTERASE DIPSTICK NEGATIVE NEGATIVE UA NITRITE DIPSTICK NEGATIVE NEGATIVE UA PROTEIN DIPSTICK NEGATIVE NEGATIVE UA GLUCOSE DIPSTICK NEGATIVE NEGATIVE UA KETONE DIPSTICK NEGATIVE NEGATIVE UA UROBILINOGEN DIPSTICK NORMAL NORMAL UA BILIRUBIN DIPSTICK NEGATIVE NEGATIVE UA BLOOD DIPSTICK TRACE NEGATIVE UA SPECIFIC GRAVITY 1.010 1.015-1.025 UR PH 5.5 5.0-7.0 CHEM/HEM PROFILE-BEDSIDE - 11/17/14 16:05 POTASSIUM 3.5 mmol/L 3.5-5.3 METHOD Bedside ANION GAP 22 mmol/L 10-20 METHOD Bedside GLUCOSE 117 mg/dL 70-99 BLOOD UREA NITROGEN 5 mg/dL 7-20 CREATININE 0.8 mg/dL 0.8-1.3 HEMOGLOBIN 13.9 gm/dL 14.0-18.0 HEMATOCRIT 41.0 % 40.0-54.0 SODIUM 143 mmol/L 135-148 CHLORIDE 103 mmol/L 98-110 CARBON DIOXIDE 23 mmol/L 21-32 CALCIUM IONIZED 4.8 mg/dL 4.5-5.3 UA MICROSCOPIC - 11/17/14 16:05 UA RBC 0-3 rbc/hpf 0 - 3 UA VOLUME FOR EXAM 12.0 mL (12mL STD) UA WBC 0-1 wbc/hpf 0 - 5 Complete blood count (CBC) with automated white blood cell (WBC) differential - 02/05/16 22:53 Blood automated leukocyte count 4.72 4.0 -11.0 Erythrocytes 3.90 4.50-5.50 12.0-16.0;g/dL 11.3 13.5-17.0 Hematocrit 33.60 39.00-50.00 Automated erythrocyte mean corpuscular volume 86 80-100 Mean corpuscular hemoglobin (MCH) determination 29.0 26.0-34.0 Automated erythrocyte mean corpuscular hemoglobin concentration measurement ( mass/volume) 33.6 31.0-37.0 Erythrocyte distribution width 12.5 11.8 -15.6 Automated blood platelet count 206 150- 450 Automated blood platelet mean volume measurement 9.6 6.0-9.5 Comprehensive metabolic panel - 02/05/16 22:53 Sodium measurement 132 70-110 Carbon dioxide measurement -29 Serum or plasma anion gap 16.0 3-15 BLOOD UREA NITROGEN 9 7-18 CREATININE SERUM 0.72 0.8-1.5 Brucella species antibody panel (IgG, IgM) 13 10-20 Estimated glomerular filtration rate (GFR) 131.0 Estimated glomerular filtration rate (GFR) non- 108.2 OSMOLALITY,CALCULATED 269 280-300 CALCIUM 9.2 8.8-10.8 Calculated ionized calcium measurement 4.2 3.8-4.6 BILIRUBIN,TOTAL 1.2 0.1-1.0 Serum or plasma alkaline phosphatase measurement 128 38-126 ASPARTATE AMINO TRANSFERASE 35 15-37 ALANINE AMINOTRANSFERASE 41 30-65 Serum or plasma total protein measurement 6.6 6.4-8.5 Serum or plasma albumin measurement 3.6 3.4-5.0 Serum or plasma albumin/globulin mass ratio 1.200 1.1-1.8 Complete blood count, platelets with manual differential - 02/05/16 22:53 Total cell count 100 Blood segmented neutrophils percentage 67 51-67 Blood band neutrophil count as percentage of total leukocytes 0 0-6 LYMPHOCYTES % 14 20-46 Automated monocyte percentage 16 3-11 Eosinophil count auto 3 0-4 Basophils 0 0-2 NEUTROPHILS(SEG) 3.2 NEUTROPHILS # BANDS 0.0 Blood lymphocytes manual count (number/volume) 0.7 Automated blood monocyte count 0.6 Blood absolute eosinophil count 0.1 Basophils 0.0 Erythrocyte morphology assessment NORMAL NORMAL Bacterial blood culture - 02/05/16 22:53 Bacterial blood culture NG5 Bacterial blood culture - 02/05/16 23:00 Bacterial blood culture NG5 Complete blood count (CBC) with automated white blood cell (WBC) differential - 02/28/16 06:25 Blood automated leukocyte count 6.53 4.0 -11.0 Erythrocytes 4.15 4.50-5.50 12.0-16.0;g/dL 11.8 13.5-17.0 Hematocrit 35.20 39.00-50.00 Automated erythrocyte mean corpuscular volume 85 80-100 Mean corpuscular hemoglobin (MCH) determination 28.4 26.0-34.0 Automated erythrocyte mean corpuscular hemoglobin concentration measurement ( mass/volume) 33.5 31.0-37.0 Erythrocyte distribution width 12.7 11.8 -15.6 Automated blood platelet count 168 150- 450 Automated blood platelet mean volume measurement 9.8 6.0-9.5 Automated neutrophil percentage 79 51- 67 Lymphocytes/100 leukocytes 11 20-46 Automated monocyte percentage 7 3-11 Eosinophil count auto 2 0-4 Automated basophil percentage 1 0-2 Automated blood neutrophil count 5.2 Blood lymphocytes count (number/volume) 0.7 Automated blood monocyte count 0.4 Blood absolute eosinophil count 0.1 Basophils 0.1 Comprehensive metabolic panel - 02/28/16 06:25 Sodium measurement 96 70-110 Carbon dioxide measurement 23 22-29 Serum or plasma anion gap 15.6 3-15 BLOOD UREA NITROGEN 12 7-18 CREATININE SERUM 0.74 0.8-1.5 Brucella species antibody panel (IgG, IgM) 16 10-20 Estimated glomerular filtration rate (GFR) 126.5 Estimated glomerular filtration rate (GFR) non- 104.6 OSMOLALITY,CALCULATED 280 280-300 CALCIUM 8.5 8.8-10.8 Calculated ionized calcium measurement 4.2 3.8-4.6 BILIRUBIN,TOTAL 0.7 0.1-1.0 Serum or plasma alkaline phosphatase measurement 159 38-126 ASPARTATE AMINO TRANSFERASE 23 15-37 ALANINE AMINOTRANSFERASE 36 30-65 Serum or plasma total protein measurement 5.7 6.4-8.5 Serum or plasma albumin measurement 3.3 3.4-5.0 Serum or plasma albumin/globulin mass ratio 1.375 1.1-1.8 SALICYLATE - 02/28/16 06:25 SALICYLATE < 1.0 2.0-20.0 ACETAMINOPHEN - 02/28/16 06:25 ACETAMINOPHEN < 10.0 10.0-30.0 ALCOHOL - 02/28/16 06:25 ALCOHOL < 10.0 10-80 DRUG SCREEN STAT - 02/28/16 07:09 Urine phencyclidine detection by screening method >25 NG/ml NEGATIVE NEGATIVE Urine benzodiazepines detection by screening method Negative Negative Urine cocaine detection Negative Negative Urine amphetamines detection by screen method > 1000 ng/mL NEGATIVE NEGATIVE Urine tetrahydrocannabinol detection by screening method >100 NG/ml Negative Negative Urine opiates detection by screening method Positive Negative Urine barbiturates detection by screening method Negative Negative Drugs of abuse panel POSITIVE NEGATIVE Complete blood count (CBC) with automated white blood cell (WBC) differential - 03/25/16 04:05 Blood automated leukocyte count 7.35 4.0 -11.0 Erythrocytes 4.28 4.50-5.50 12.0-16.0;g/dL 12.0 13.5-17.0 Hematocrit 36.20 39.00-50.00 Automated erythrocyte mean corpuscular volume 85 80-100 Mean corpuscular hemoglobin (MCH) determination 28.0 26.0-34.0 Automated erythrocyte mean corpuscular hemoglobin concentration measurement ( mass/volume) 33.1 31.0-37.0 Erythrocyte distribution width 14.1 11.8 -15.6 Automated blood platelet count 162 150- 450 Automated blood platelet mean volume measurement 9.8 6.0-9.5 Automated neutrophil percentage 78 51- 67 Lymphocytes/100 leukocytes 10 20-46 Automated monocyte percentage 10 3-11 Eosinophil count auto 1 0-4 Automated basophil percentage 1 0-2 Automated blood neutrophil count 5.7 Blood lymphocytes count (number/volume) 0.7 Automated blood monocyte count 0.8 Blood absolute eosinophil count 0.1 Basophils 0.0 Comprehensive metabolic panel - 03/25/16 04:05 Sodium measurement 105 70-110 Carbon dioxide measurement 25 22-29 Serum or plasma anion gap 15.1 3-15 BLOOD UREA NITROGEN 9 7-18 CREATININE SERUM 0.68 0.8-1.5 Brucella species antibody panel (IgG, IgM) 13 10-20 Estimated glomerular filtration rate (GFR) 139.5 Estimated glomerular filtration rate (GFR) non- 115.3 OSMOLALITY,CALCULATED 274 280-300 CALCIUM 8.8 8.8-10.8 Calculated ionized calcium measurement 3.9 3.8-4.6 BILIRUBIN,TOTAL 0.9 0.1-1.0 Serum or plasma alkaline phosphatase measurement 149 38-126 ASPARTATE AMINO TRANSFERASE 23 15-37 ALANINE AMINOTRANSFERASE 31 30-65 Serum or plasma total protein measurement 7.0 6.4-8.5 Serum or plasma albumin measurement 3.7 3.4-5.0 Serum or plasma albumin/globulin mass ratio 1.121 1.1-1.8 C REACTIVE PROTEIN* - 03/25/16 04:05 C REACTIVE PROTEIN* 0.80 0.0-0.9 Complete blood count (CBC) with automated white blood cell (WBC) differential - 03/26/16 01:44 Blood automated leukocyte count 6.36 4.0 -11.0 Erythrocytes 4.39 4.50-5.50 12.0-16.0;g/dL 12.3 13.5-17.0 Hematocrit 37.10 39.00-50.00 Automated erythrocyte mean corpuscular volume 85 80-100 Mean corpuscular hemoglobin (MCH) determination 28.0 26.0-34.0 Automated erythrocyte mean corpuscular hemoglobin concentration measurement ( mass/volume) 33.2 31.0-37.0 Erythrocyte distribution width 14.2 11.8 -15.6 Automated blood platelet count 181 150- 450 Automated blood platelet mean volume measurement 10.2 6.0-9.5 Automated neutrophil percentage 71 51- 67 Lymphocytes/100 leukocytes 15 20-46 Automated monocyte percentage 11 3-11 Eosinophil count auto 2 0-4 Automated basophil percentage 1 0-2 Automated blood neutrophil count 4.5 Blood lymphocytes count (number/volume) 1.0 Automated blood monocyte count 0.7 Blood absolute eosinophil count 0.1 Basophils 0.1 Comprehensive metabolic panel - 03/26/16 01:44 Sodium measurement 103 70-110 Carbon dioxide measurement 25 22-29 Serum or plasma anion gap 16.0 3-15 BLOOD UREA NITROGEN 11 7-18 CREATININE SERUM 0.65 0.8-1.5 Brucella species antibody panel (IgG, IgM) 17 10-20 Estimated glomerular filtration rate (GFR) 147.0 Estimated glomerular filtration rate (GFR) non- 121.5 OSMOLALITY,CALCULATED 280 280-300 CALCIUM 8.9 8.8-10.8 Calculated ionized calcium measurement 4.0 3.8-4.6 BILIRUBIN,TOTAL 1.1 0.1-1.0 Serum or plasma alkaline phosphatase measurement 142 38-126 ASPARTATE AMINO TRANSFERASE 24 15-37 ALANINE AMINOTRANSFERASE 31 30-65 Serum or plasma total protein measurement 6.9 6.4-8.5 Serum or plasma albumin measurement 3.7 3.4-5.0 Serum or plasma albumin/globulin mass ratio 1.156 1.1-1.8 THYROID STIMULATING HORMONE* - 03/26/16 01:44 THYROID STIMULATING HORMONE 0.27 0.46- 4.68 C REACTIVE PROTEIN* - 03/26/16 01:44 C REACTIVE PROTEIN* 2.30 0.0-0.9 SALICYLATE - 03/26/16 01:44 SALICYLATE < 1.0 2.0-20.0 ACETAMINOPHEN - 03/26/16 01:44 ACETAMINOPHEN < 10.0 10.0-30.0 ALCOHOL - 03/26/16 01:44 ALCOHOL < 10.0 10-80 UA CULTURE IF INDICATED* - 03/26/16 04:50 COLLECTION METHOD CLEAN CATCH Color of urine by auto Yellow Urine appearance determination Clear Urine pH measurement by automated test strip 7.0 5.0 - 8.0 Specific gravity of urine by automated test strip 1.020 1.005-1.030 Urine protein measurement by test strip (mass/volume) Negative Negative Urine glucose detection by automated test strip Negative Negative Urine erythrocytes count by automated test strip (number/volume) Negative Negative Urine ketones detection by automated test strip Negative Negative Urine nitrite detection by test strip Negative Negative Urine total bilirubin detection by automated test strip Negative Negative Urine urobilinogen measurement by automated test strip (mass/volume) 0.2 0.2-1.0 Urine leukocyte esterase detection by dipstick Negative Negative DRUG SCREEN STAT - 03/26/16 04:50 Urine phencyclidine detection by screening method >25 NG/ml NEGATIVE NEGATIVE Urine benzodiazepines detection by screening method Negative Negative Urine cocaine detection Negative Negative Urine amphetamines detection by screen method > 1000 ng/mL NEGATIVE NEGATIVE Urine tetrahydrocannabinol detection by screening method >100 NG/ml Negative Negative Urine opiates detection by screening method Positive Negative Urine barbiturates detection by screening method Negative Negative Drugs of abuse panel POSITIVE NEGATIVE CBC AND MANUAL DIFF - 03/27/16 05:00 Blood automated leukocyte count 4.93 4.0 -11.0 Erythrocytes 4.57 4.50-5.50 12.0-16.0;g/dL 12.9 13.5-17.0 Hematocrit 39.40 39.00-50.00 Automated erythrocyte mean corpuscular volume 86 80-100 Mean corpuscular hemoglobin (MCH) determination 28.2 26.0-34.0 Automated erythrocyte mean corpuscular hemoglobin concentration measurement ( mass/volume) 32.7 31.0-37.0 Erythrocyte distribution width 14.5 11.8 -15.6 Automated blood platelet count 182 150- 450 Automated blood platelet mean volume measurement 9.8 6.0-9.5 Total cell count 100 Blood segmented neutrophils percentage 58 51-67 Blood band neutrophil count as percentage of total leukocytes 1 0-6 LYMPHOCYTES % 32 20-46 Automated monocyte percentage 6 3-11 Eosinophil count auto 3 0-4 Basophils 0 0-2 Manual blood metamyelocytes/100 leukocytes 0 0-1 NEUTROPHILS(SEG) 2.9 NEUTROPHILS # BANDS 0.0 Blood lymphocytes manual count (number/volume) 1.6 Automated blood monocyte count 0.2 Blood absolute eosinophil count 0.1 Basophils 0.0 Erythrocyte morphology assessment SEE REFERENCE NORMAL Blood poikilocytosis detection by light microscopy SLIGHT Comprehensive metabolic panel - 03/27/16 05:00 Sodium measurement 95 70-110 Carbon dioxide measurement 30 22-29 Serum or plasma anion gap 14.4 3-15 BLOOD UREA NITROGEN 10 7-18 CREATININE SERUM 0.96 0.8-1.5 Brucella species antibody panel (IgG, IgM) 10 10-20 Estimated glomerular filtration rate (GFR) 93.7 Estimated glomerular filtration rate (GFR) non- 77.4 OSMOLALITY,CALCULATED 275 280-300 CALCIUM 9.5 8.8-10.8 Calculated ionized calcium measurement 4.3 3.8-4.6 BILIRUBIN,TOTAL 0.8 0.1-1.0 Serum or plasma alkaline phosphatase measurement 160 38-126 ASPARTATE AMINO TRANSFERASE 22 15-37 ALANINE AMINOTRANSFERASE 27 30-65 Serum or plasma total protein measurement 6.8 6.4-8.5 Serum or plasma albumin measurement 3.7 3.4-5.0 Serum or plasma albumin/globulin mass ratio 1.193 1.1-1.8 C REACTIVE PROTEIN* - 03/27/16 05:00 C REACTIVE PROTEIN* 1.60 0.0-0.9 C REACTIVE PROTEIN* - 03/28/16 05:30 C REACTIVE PROTEIN* 0.90 0.0-0.9 Complete blood count (CBC) with automated white blood cell (WBC) differential - 03/30/16 11:15 Blood automated leukocyte count 5.29 4.0 -11.0 Erythrocytes 4.36 4.50-5.50 12.0-16.0;g/dL 12.4 13.5-17.0 Hematocrit 37.30 39.00-50.00 Automated erythrocyte mean corpuscular volume 86 80-100 Mean corpuscular hemoglobin (MCH) determination 28.4 26.0-34.0 Automated erythrocyte mean corpuscular hemoglobin concentration measurement ( mass/volume) 33.2 31.0-37.0 Erythrocyte distribution width 14.6 11.8 -15.6 Automated blood platelet count 198 150- 450 Automated blood platelet mean volume measurement 9.6 6.0-9.5 Automated neutrophil percentage 69 51- 67 Lymphocytes/100 leukocytes 17 20-46 Automated monocyte percentage 11 3-11 Eosinophil count auto 2 0-4 Automated basophil percentage 1 0-2 Automated blood neutrophil count 3.6 Blood lymphocytes count (number/volume) 0.9 Automated blood monocyte count 0.6 Blood absolute eosinophil count 0.1 Basophils 0.1 Prothrombin time (PT) with international normalized ratio (INR) - 03/30/16 11: 15 Prothrombin time (PT) in platelet poor plasma by coagulation assay 13.0 11.6-14.2 INR in platelet poor plasma by coagulation assay 1.0 0.8-1.4 Comprehensive metabolic panel - 03/30/16 11:15 Sodium measurement 95 70-110 Carbon dioxide measurement 26 22-29 Serum or plasma anion gap 18.3 3-15 BLOOD UREA NITROGEN 16 7-18 CREATININE SERUM 0.96 0.8-1.5 Brucella species antibody panel (IgG, IgM) 17 10-20 Estimated glomerular filtration rate (GFR) 93.7 Estimated glomerular filtration rate (GFR) non- 77.4 OSMOLALITY,CALCULATED 279 280-300 CALCIUM 9.7 8.8-10.8 Calculated ionized calcium measurement 4.1 3.8-4.6 BILIRUBIN,TOTAL 0.9 0.1-1.0 Serum or plasma alkaline phosphatase measurement 148 38-126 ASPARTATE AMINO TRANSFERASE 25 15-37 ALANINE AMINOTRANSFERASE 27 30-65 Serum or plasma total protein measurement 7.6 6.4-8.5 Serum or plasma albumin measurement 4.3 3.4-5.0 Serum or plasma albumin/globulin mass ratio 1.303 1.1-1.8 THYROID STIMULATING HORMONE* - 03/30/16 11:15 THYROID STIMULATING HORMONE 0.29 0.46- 4.68 SALICYLATE - 03/30/16 11:15 SALICYLATE < 1.0 2.0-20.0 ACETAMINOPHEN - 03/30/16 11:15 ACETAMINOPHEN < 10.0 10.0-30.0 ALCOHOL - 03/30/16 11:15 ALCOHOL < 10.0 10-80 UA CULTURE IF INDICATED* - 03/30/16 11:25 COLLECTION METHOD CLEAN CATCH Color of urine by auto Yellow Urine appearance determination Clear Urine pH measurement by automated test strip 5.5 5.0 - 8.0 Specific gravity of urine by automated test strip 1.020 1.005-1.030 Urine protein measurement by test strip (mass/volume) Negative Negative Urine glucose detection by automated test strip Negative Negative Urine erythrocytes count by automated test strip (number/volume) Trace-lysed Negative Urine ketones detection by automated test strip Negative Negative Urine nitrite detection by test strip Negative Negative Urine total bilirubin detection by automated test strip Negative Negative Urine urobilinogen measurement by automated test strip (mass/volume) 0.2 0.2-1.0 Urine leukocyte esterase detection by dipstick Negative Negative Microscopic examination of urine - 03/30/16 11:25 Urine volume measurement 12 mL Urine erythrocytes detection by automated method 0-2 Automated urine sediment leukocyte count by microscopy (number/high power field ) None Seen Bacteria None Seen SQUAMOUS EPITHELIAL CELL,UR 0-2 MUCOUS,URINE Rare DRUG SCREEN STAT - 03/30/16 11:25 Urine phencyclidine detection by screening method >25 NG/ml NEGATIVE NEGATIVE Urine benzodiazepines detection by screening method Positive Negative Urine cocaine detection Negative Negative Urine amphetamines detection by screen method > 1000 ng/mL NEGATIVE NEGATIVE Urine tetrahydrocannabinol detection by screening method >100 NG/ml Negative Negative Urine opiates detection by screening method Negative Negative Urine barbiturates detection by screening method Negative Negative Drugs of abuse panel POSITIVE NEGATIVE Complete blood count (CBC) with automated white blood cell (WBC) differential - 04/05/16 00:02 Blood automated leukocyte count 8.50 4.0 -11.0 Erythrocytes 4.24 4.50-5.50 12.0-16.0;g/dL 11.8 13.5-17.0 Hematocrit 35.80 39.00-50.00 Automated erythrocyte mean corpuscular volume 84 80-100 Mean corpuscular hemoglobin (MCH) determination 27.8 26.0-34.0 Automated erythrocyte mean corpuscular hemoglobin concentration measurement ( mass/volume) 33.0 31.0-37.0 Erythrocyte distribution width 14.6 11.8 -15.6 Automated blood platelet count 231 150- 450 Automated blood platelet mean volume measurement 9.1 6.0-9.5 Automated neutrophil percentage 76 51- 67 Lymphocytes/100 leukocytes 13 20-46 Automated monocyte percentage 9 3-11 Eosinophil count auto 1 0-4 Automated basophil percentage 1 0-2 Automated blood neutrophil count 6.4 Blood lymphocytes count (number/volume) 1.1 Automated blood monocyte count 0.8 Blood absolute eosinophil count 0.1 Basophils 0.1 Comprehensive metabolic panel - 04/05/16 00:02 Sodium measurement 99 70-110 Carbon dioxide measurement 21 22-29 Serum or plasma anion gap 16.4 3-15 BLOOD UREA NITROGEN 9 7-18 CREATININE SERUM 0.79 0.8-1.5 Brucella species antibody panel (IgG, IgM) 11 10-20 Estimated glomerular filtration rate (GFR) 117.3 Estimated glomerular filtration rate (GFR) non- 97.0 OSMOLALITY,CALCULATED 274 280-300 CALCIUM 9.1 8.8-10.8 Calculated ionized calcium measurement 4.0 3.8-4.6 BILIRUBIN,TOTAL 0.9 0.1-1.0 Serum or plasma alkaline phosphatase measurement 148 38-126 ASPARTATE AMINO TRANSFERASE 18 15-37 ALANINE AMINOTRANSFERASE 26 30-65 Serum or plasma total protein measurement 7.2 6.4-8.5 Serum or plasma albumin measurement 3.9 3.4-5.0 Serum or plasma albumin/globulin mass ratio 1.181 1.1-1.8 Complete blood count (CBC) with automated white blood cell (WBC) differential - 04/15/16 22:10 Blood automated leukocyte count 5.64 4.0 -11.0 Erythrocytes 4.27 4.50-5.50 12.0-16.0;g/dL 12.3 13.5-17.0 Hematocrit 36.00 39.00-50.00 Automated erythrocyte mean corpuscular volume 84 80-100 Mean corpuscular hemoglobin (MCH) determination 28.8 26.0-34.0 Automated erythrocyte mean corpuscular hemoglobin concentration measurement ( mass/volume) 34.2 31.0-37.0 Erythrocyte distribution width 14.7 11.8 -15.6 Automated blood platelet count 193 150- 450 Automated blood platelet mean volume measurement 9.5 6.0-9.5 Automated neutrophil percentage 66 51- 67 Lymphocytes/100 leukocytes 22 20-46 Automated monocyte percentage 11 3-11 Eosinophil count auto 1 0-4 Automated basophil percentage 1 0-2 Automated blood neutrophil count 3.7 Blood lymphocytes count (number/volume) 1.2 Automated blood monocyte count 0.6 Blood absolute eosinophil count 0.1 Basophils 0.0 Comprehensive metabolic panel - 04/15/16 22:10 Sodium measurement 104 70-110 Carbon dioxide measurement 24 22-29 Serum or plasma anion gap 12.3 3-15 BLOOD UREA NITROGEN 12 7-18 CREATININE SERUM 0.97 0.8-1.5 Brucella species antibody panel (IgG, IgM) 12 10-20 Estimated glomerular filtration rate (GFR) 92.6 Estimated glomerular filtration rate (GFR) non- 76.5 OSMOLALITY,CALCULATED 274 280-300 CALCIUM 9.0 8.8-10.8 Calculated ionized calcium measurement 4.1 3.8-4.6 BILIRUBIN,TOTAL 0.9 0.1-1.0 Serum or plasma alkaline phosphatase measurement 141 38-126 ASPARTATE AMINO TRANSFERASE 18 15-37 ALANINE AMINOTRANSFERASE 26 30-65 Serum or plasma total protein measurement 6.8 6.4-8.5 Serum or plasma albumin measurement 3.5 3.4-5.0 Serum or plasma albumin/globulin mass ratio 1.060 1.1-1.8 SALICYLATE - 04/15/16 22:10 SALICYLATE < 1.0 2.0-20.0 ACETAMINOPHEN - 04/15/16 22:10 ACETAMINOPHEN < 10.0 10.0-30.0 ALCOHOL - 04/15/16 22:10 ALCOHOL < 10.0 10-80 DRUG SCREEN STAT - 04/15/16 22:25 Urine phencyclidine detection by screening method >25 NG/ml NEGATIVE NEGATIVE Urine benzodiazepines detection by screening method Negative Negative Urine cocaine detection Negative Negative Urine amphetamines detection by screen method > 1000 ng/mL NEGATIVE NEGATIVE Urine tetrahydrocannabinol detection by screening method >100 NG/ml Negative Negative Urine opiates detection by screening method Negative Negative Urine barbiturates detection by screening method Negative Negative Drugs of abuse panel NEGATIVE NEGATIVE UA CULTURE IF INDICATED* - 04/20/16 13:27 COLLECTION METHOD CLEAN CATCH Color of urine by auto Yellow Urine appearance determination Clear Urine pH measurement by automated test strip 7.0 5.0 - 8.0 Specific gravity of urine by automated test strip 1.020 1.005-1.030 Urine protein measurement by test strip (mass/volume) Negative Negative Urine glucose detection by automated test strip Negative Negative Urine erythrocytes count by automated test strip (number/volume) Negative Negative Urine ketones detection by automated test strip Negative Negative Urine nitrite detection by test strip Negative Negative Urine total bilirubin detection by automated test strip Negative Negative Urine urobilinogen measurement by automated test strip (mass/volume) 0.2 0.2-1.0 Urine leukocyte esterase detection by dipstick Negative Negative DRUG SCREEN STAT - 04/20/16 13:27 Urine phencyclidine detection by screening method >25 NG/ml NEGATIVE NEGATIVE Urine benzodiazepines detection by screening method Negative Negative Urine cocaine detection Negative Negative Urine amphetamines detection by screen method > 1000 ng/mL NEGATIVE NEGATIVE Urine tetrahydrocannabinol detection by screening method >100 NG/ml Negative Negative Urine opiates detection by screening method Positive Negative Urine barbiturates detection by screening method Negative Negative Drugs of abuse panel NEGATIVE NEGATIVE Comprehensive metabolic panel - 04/20/16 13:34 Sodium measurement 89 70-110 Carbon dioxide measurement 28 22-29 Serum or plasma anion gap 14.7 3-15 BLOOD UREA NITROGEN 11 7-18 CREATININE SERUM 0.81 0.8-1.5 Brucella species antibody panel (IgG, IgM) 14 10-20 Estimated glomerular filtration rate (GFR) 114.0 Estimated glomerular filtration rate (GFR) non- 94.2 OSMOLALITY,CALCULATED 273 280-300 CALCIUM 9.1 8.8-10.8 Calculated ionized calcium measurement 3.9 3.8-4.6 BILIRUBIN,TOTAL 0.9 0.1-1.0 Serum or plasma alkaline phosphatase measurement 145 38-126 ASPARTATE AMINO TRANSFERASE 25 15-37 ALANINE AMINOTRANSFERASE 27 30-65 Serum or plasma total protein measurement 7.4 6.4-8.5 Serum or plasma albumin measurement 4.1 3.4-5.0 Serum or plasma albumin/globulin mass ratio 1.242 1.1-1.8 SALICYLATE - 04/20/16 13:34 SALICYLATE < 1.0 2.0-20.0 ACETAMINOPHEN - 10/12/16 13:34 ACETAMINOPHEN < 10.0 10.0-30.0 ALCOHOL - 04/20/16 13:34 ALCOHOL < 10.0 10-80 Complete blood count (CBC) with automated white blood cell (WBC) differential - 04/20/16 13:34 Blood automated leukocyte count 4.97 4.0 -11.0 Erythrocytes 4.48 4.50-5.50 12.0-16.0;g/dL 12.8 13.5-17.0 Hematocrit 38.40 39.00-50.00 Automated erythrocyte mean corpuscular volume 86 80-100 Mean corpuscular hemoglobin (MCH) determination 28.6 26.0-34.0 Automated erythrocyte mean corpuscular hemoglobin concentration measurement ( mass/volume) 33.3 31.0-37.0 Erythrocyte distribution width 14.9 11.8 -15.6 Automated blood platelet count 169 150- 450 Automated blood platelet mean volume measurement 9.7 6.0-9.5 Automated neutrophil percentage 62 51- 67 Lymphocytes/100 leukocytes 24 20-46 Automated monocyte percentage 11 3-11 Eosinophil count auto 1 0-4 Automated basophil percentage 1 0-2 Automated blood neutrophil count 3.1 Blood lymphocytes count (number/volume) 1.2 Automated blood monocyte count 0.6 Blood absolute eosinophil count 0.1 Basophils 0.0 Encounters ACCT No. Visit Date/Time Discharge Status Pt. Type Provider Facility Loc./Unit Complaint [id number] 11/17/2014 14:27:00 2014 17:15:00 DIS Emergency Louis HOBSON, Graham Deutsch [facility] W.EDS
--- OUTSIDE RECORDS SUMMARY | 2016-10-27 08:39 | XMS REPORT | Continuity of Care Document ---
Author Author [facility] Organization [facility] Address Unknown Phone Unavailable Support Name Relationship Address Phone MUNIR BANKS MD Caregiver [address] [place] [address] Insurance Providers Payer Name Policy Number Subscriber Name Relationship Medicare A And B [id number] Miguel Marroquin 18 Self / Same As Patient [employer] [facility] Supp [id number] Miguel Marroquin 18 Self / Same As Patient Chief Complaint and Reason for Visit Chief Complaint Pain Reason for Visit Chronic back pain Knee pain Problems Medical Problems Problem Onset Date [...] pain ~01/23/2015 Active Knee pain ~02/04/2015 Active Medications Medication Dose Route Sig Days/Qty [...] ORAL THREE TIMES A DAY 01/26/15 Active Social History No social history. Hospital Discharge Instructions No hospital discharge instructions. Plan of Care Discharge Date 02/04/15 11:23pm Disposition 01 HOME OR SELF-CARE Condition at Discharge Stable Instructions/Education Provided Acute Low Back Pain (ED) Prescriptions See Medications Section Additional Instructions/Education Home. Rest in a recliner. For your low back, use limited heat, 30 min up to four times a day. Pain meds as previously discussed with your PCP. Follow up with PCP in 2 days. Some of your test results may not [...] worrisome symptoms. * Emergency Department phone number: [phone], x [phone]* MEDICAL RECORD If you need copies of your X-rays, call [phone] x [phone]. If you need copies of [...] services. SERVICE BILLING DEMOCRAT Emergency Room Services [facility] Physician Services [facility] X-[facility] Patients will receive bills for services from the appropriate provider. If you have any questions about your [facility] bill, our staff will be happy to assist you. Please call [phone], and ask for the billing department. THANK YOU for choosing [facility] as your emergency care provider! Functional Status No functional status results. Allergies, Adverse Reactions, Alerts Allergen Type Severity Reaction Status Last Updated No Known Drug Allergies Active 06/26/14 Immunizations No immunization records. Vital Signs Acute Vital Signs Vital Response Date/Time Temperature (Fahrenheit) 98.3 Pulse 75 bpm Respirations 18 Height 5 ft 11 [...] Urine collection method Clean Catch Urine Specific [place] January 26, 2015 9:17am 1.010 1.005-1.030 Urine [...] Encounters Encounter Location Date/Time Departed Emergency Room [facility] 02/04/15 9:37pm Departed Emergency Room [facility] 02/01/15 9:35am Registered Clinic [facility] 01/29/15 7:24am Departed Emergency Room [facility] 01/26/15 9:03am Registered Clinic [facility] 01/26/15 8:50am Departed Emergency Room [facility] 01/25/15 5:10pm Departed Emergency Room [facility] 01/24/15 11:04pm Recent Diagnosis
--- OUTSIDE RECORDS SUMMARY | 2016-10-27 08:39 | XMS REPORT | Continuity Of Care Document ---
Author Author [facility] Organization [facility] Address [address] [place] [address] Phone Care Team Providers Care Tire Changer Aircraft Name Role Phone Can SUN MD AT UNASSIGNED, PHYSICIAN Unavailable Unavailable SADAF PAREKH PP Jenna MEZA MD Unavailable Results Results No results recorded. Allergies and Adverse Reactions Allergies and Adverse Reactions Patient Unit Number: [id number] Agent Type Reaction Severity Status NO KNOWN DRUG ALLERGIES Drug Allergy Unknown Unknown Active Problem List Problem List Visit/Account #[id number] (June 15, 2016 10:17am - June 15, 2016 11: 25am) Acute Problems: Code/Condition Comments Documented Start Date Documented Resolved Date Code (s) Back pain ICD10: M54.9 Back pain ICD9: 724.5 Back pain SNOMED: 144681611 Back pain Knee pain, left ICD10: M25.562 Left knee pain ICD9: 719.46 Left knee pain SNOMED: 38408681 Left knee pain Patient Unit Number: [id number] Chronic Problems: Code/Condition Comments Documented Start Date Documented Resolved Date Code (s) Opiate dependence ICD10: F11.20 Opioid dependence ICD9: 304.00 Opioid dependence SNOMED: 67747424 Opioid dependence 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 Followup with primary care physician Vital Signs Vital Signs Visit/Account #[id number] (June 15, 2016 10:17am - June 15, 2016 11: 25am) Sign First Result Last Result Code(s) Body Mass Index Body Mass Index (BMI): 29.0 kg/m2 On June 15, 2016 10:15am 64799-8 BMI (body mass index) Body Mass Index as a Calculated Value 29.8 kg/m2 On June 15, 2016 10:15am 17457-1 BMI (body mass index) Body Surface Area as a Calculated Value 2.07 m2 On June 15, 2016 10:15am 3140-1 BSA (body surface area) Height (Feet/Inches) 5 [ft_us] 9 [in_us] On June 15, 2016 10:15am Temperature in Fahrenheit Temperature (Fahrenheit): 98.0 [degF] On June 15, 2016 10:15am Temperature (Fahrenheit): 98.2 [degF] On June 15, 2016 11:13am 8310-5 Body Temperature Weight in Kilograms Weight (Kilograms): 91.5 kg On June 15, 2016 10:15am 3141-9 Weight Measured 28359-0 Body weight measured in kilograms Functional Status Functional and Cognitive Status No Functional Status Data Medications Inpatient/Ordered Medications - Medications administered during hospital visit Visit/Account #[id number] (June 15, 2016 10:17am - June 15, 2016 11: 25am) Medication Route Sig/Schedule Precondition/Indication Comments/Instructions Codes TORADOL INJ(KETOROLAC TROMETHAMINE) 60 MG/2 ML VIAL Dose: 2 ML INTRAMUSC NOW 2 ML Ketorolac Tromethamine 30 MG/ML Injection (RxNorm): 2252488 TORADOL INJ (KETOROLAC TROMETHAMINE) ND: 61307875949 SUBLIMAZE INJ(FentaNYL CITRATE) 100 MCG/2 ML INJECTION Dose: 1 ML INTRAMUSC NOW Label Comments: GIVE BY SLOW PUSH OVER 2-5 MIN MAY INCREASE FALL RISK SUBLIMAZE INJ (FentaNYL CITRATE) NDC: 70433529122 Discharge Medications - Medications that patient should continue to take. Review with physician Visit/Account #[id number] (June 15, 2016 10:17am - June 15, 2016 11: 25am) Medication Route Sig/Schedule Precondition/Indication Comments/Instructions Codes NAPROXEN(NAPROXEN) 500 MG TABLET Dose: 500 MG ORAL TWICE A DAY Naproxen 500 MG Oral Tablet (RxNorm): 520393 NAPROXEN (NAPROXEN) NDC: 37228073171 Prednisone(PredniSONE) 20 MG TAB Dose: 60 MG ORAL DAILY Rx Instructions: Take 3 tabs daily for the next 4 days Prednisone 20 MG Oral Tablet (RxNorm): 291651 Prednisone (PredniSONE) NDC: 23221600871 History Of Encounters Encounters Visit/Account #[id number] (June 15, 2016 10:17am - June 15, 2016 11: 25am) Account Status Physican Of Record Reason For Visit Visit Diagnosis Start Date/Time Stop Date/Time ER DIDI SUN MD KNEE AND BACK PAIN Not Available Jun 15, 2016 10:17am Jun 15, 2016 11:25am History of Procedures Procedure List No procedures recorded. Discharge Instructions Discharge Instructions Visit/Account #[id number] (June 15, 2016 10:17am - June 15, 2016 11: 25am) DISCHARGE INSTRUCTIONS Physician Documentation Social History Social History No Social History Data. Immunizations Immunizations Patient Unit Number: [id number] Immunizations No immunizations recorded.
--- OUTSIDE RECORDS SUMMARY | 2016-10-27 08:40 | XMS REPORT | Continuity of Care Document ---
Author Author [facility] Address Unknown Phone Unavailable Care Team Providers Care Refractory Manager Name Role Phone SADAF FAITH Primary Care Physician [phone] Insurance Providers Payer Name Policy Number Subscriber Name Relationship Medicare A And B [id number] Grace Marroquin 18 Self / Same As Patient Advance Directives Directive Response Recorded Date/Time Advanced Directives No 04/24/16 10:45pm Type Living Will 04/24/16 10:45pm Type Durable Power of Analysis Engineer 04/24/16 10:45pm Chief Complaint and Reason for Visit Chief Complaint Pain Reason for Visit Acute exacerbation of chronic low back pain Problems Active Problems Medical Problem [...] Times Daily as needed for Pain 04/24/16 Past Home Medications Medication Directions Ordered Status [...] discharge instructions. Plan of Care Discharge Date 04/24/16 11:06pm Disposition 01 HOME OR SELF-CARE Condition at Discharge Stable Instructions/Education Provided Chronic Pain Management (ED) Prescriptions See Medication Section Referrals SADAF FAITH - Additional Instructions/Education ED BREANN if any worse. Follow up with your doctor. Some of your test results may not [...] worrisome symptoms. * Emergency Department phone number: [phone], x [phone]* MEDICAL RECORD If you need copies of your X-rays, call [phone] x [phone]. If you need copies of [...] services. SERVICE BILLING LIBERTARIAN Emergency Room Services [facility] Physician Services [facility] X[facility] [place] Patients will receive bills for services from the appropriate provider. If you have any questions about your [facility] bill, our staff will be happy to assist you. Please call [phone], and ask for the billing department. THANK YOU for choosing [facility] as your emergency care provider! Care [...] Updated quetiapine Adverse Reaction Unknown N/V Active 04/24/16 ziprasidone Adverse Reaction Unknown N/V Active 04/24/16 asenapine Allergy Unknown Active 04/24/16 Immunizations No immunization records. Vital Signs Acute Vital Signs Vital Response Date/Time Temperature (Fahrenheit) 98.1 04/24/2016 11:08pm Pulse 75 bpm 04/24/2016 11:08pm Respirations 16 04/24/2016 11:08pm Height 5 ft 9 in Weight 130 lb Body Mass Index 19.0 kg/m^2 Results Laboratory Results Test Name Result Units Flags Reference Collection Date/Time Result Date/ Time Comments White Blood Count 7.35 10^3uL 4.0-11.0 03/25/2016 4:05am 03/25/2016 4: 35am Red Blood Count 4.28 10^6uL L 4.50-5.50 03/25/2016 4:05am 03/25/2016 4: 35am Hemoglobin 12.0 g/dL L 13.5-17.0 03/25/2016 4:03/25/2016 4:35am Hematocrit 36.20 % L 39.00-50.00 03/25/2016 4:03/25/2016 4:35am Mean Corpuscular Volume 85 FL 80-100 03/25/2016 4:03/25/2016 4: 35am Mean Corpuscular Hemoglobin 28.0 PG 26.0-34.0 03/25/2016 4:2015 4:35am Mean Corpuscular Hemoglobin Concent 33.1 g/dL 31.0-37.0 03/25/2016 4: 03/25/2016 4:35am Red Cell Distribution Width 14.1 % 11.8-15.6 03/25/2016 4:2015 4:35am Platelet Count 162 10^3uL 150-450 03/25/2016 4:03/25/2016 4:35am Mean Platelet Volume 9.8 FL H 6.0-9.5 03/25/2016 4:03/25/2016 4: 35am Neutrophils (%) (Auto) 78 % H 51-67 03/25/2016 4:03/25/2016 4:35am Lymphocytes (%) (Auto) 10 % L 20-46 03/25/2016 4:03/25/2016 4:35am Monocytes (%) (Auto) 10 % 3-11 03/25/2016 4:03/25/2016 4:35am Eosinophils (%) (Auto) 1 % 0-4 03/25/2016 4:03/25/2016 4:35am Basophils (%) (Auto) 1 % 0-2 03/25/2016 4:03/25/2016 4:35am Neutrophils # (Auto) 5.7 X10^3 03/25/2016 4:03/25/2016 4:35am Lymphocytes # (Auto) 0.7 X10^3 03/25/2016 4:03/25/2016 4:35am Monocytes # (Auto) 0.8 X10^3 03/25/2016 4:0503/25/2016 4:35am Eosinophils # (Auto) 0.1 10^3uL 03/25/2016 4:05am 03/25/2016 4:35am Basophils # (Auto) 0.0 10^3uL 03/25/2016 4:0503/25/2016 4:35am Sodium Level 142 mmol/L 135-150 03/25/2016 [...] 4:53am Estimat Glomerular Filtration Rate 139.5 03/25/2016 4:052015 4:53am Estimated GFR (Non- 115.3 03/25/2016 4:052015 4:53am Glucose Level 105 mg/dL 70-110 03/25/2016 4:0503/25/2016 4:53am Calculated Osmolality 274 mosm/L L 280-300 03/25/2016 4:0503/25/2016 4:53am Calcium Level 8.8 mg/dL 8.8-10.8 03/25/2016 4:0503/25/2016 4:53am Calcium/Ionized Calcium Ratio 3.9 mg/dL 3.8-4.6 03/25/2016 4:0503/25 4:53am Total Bilirubin 0.9 mg/dL 0.1-1.0 03/25/2016 4:0503/25/2016 4:53am Alkaline Phosphatase 149 U/L H 38-126 03/25/2016 4:05am 03/25/2016 4: 53am Aspartate Amino Transf (AST/SGOT) 23 U/L 15-37 03/25/2016 4:05am 2015 4:53am Alanine Aminotransferase (ALT/SGPT) 31 U/L 30-65 [...] PUSH Completed 03/25/16 TX/PRO/DX INJ SAME DRUG COLD HEADER Completed 03/25/16 EMERGENCY DEPT VISIT Completed 03/25/16 [...] ADDON Completed 03/26/16 TX/PRO/DX INJ SAME DRUG COLD HEADER Completed 03/26/16 TX/PRO/DX INJ SAME DRUG COLD HEADER Completed 03/26/16 PT EVALUATION Completed 03/26/16 EMERGENCY [...] utilizing drug identification meth Completed Completed 04/15/16 Encounters Encounter Location Arrival/Admit Date Discharge/Depart Date Attending Provider Departed Emergency Room [facility] 04/24/16 10:25pm 04/24/16 11: 06pm DANDY IRBY MD Registered [facility] 04/24/16 10:15pm DANDY IRBY MD Registered [facility] 04/20/16 3:00pm DANDY IRBY MD Departed Emergency Room [facility] 04/20/16 1:06pm 04/20/16 3:08pm DANDY IRBY MD Registered Emergency Room [facility] 04/15/16 9:31pm MUNIR BANKS MD Departed Emergency Room [facility] 04/10/16 4:00pm 04/10/16 5:01pm OCTAVIO CLARK MD Departed Emergency Room [facility] 04/04/16 11:32pm 04/05/16 1:27am MUNIR BANKS MD Departed Emergency Room [facility] 04/03/16 4:41pm 04/03/16 5:30pm JUAN MANUEL PARISH MD Registered Clinic [facility] 03/30/16 2:45pm PILAR SOSA DO Departed Emergency Room [facility] 03/30/16 10:45am 03/30/16 2:47pm PILAR SOSA DO Discharged Inpatient (obs) [facility] 03/26/16 6:02am 03/28/16 5: 55pm SARAH JONES MD Registered Clinic [facility] 03/26/16 1:30am DANDY IRBY MD Departed Emergency Room [facility] 03/25/16 3:27am 03/25/16 5:56am DANDY IRBY MD Registered Clinic [facility] 03/25/16 3:12am DANDY IRBY MD Recent Diagnosis
--- OUTSIDE RECORDS SUMMARY | 2016-10-27 08:40 | XMS REPORT | Continuity of Care Document ---
Author Author [facility] Address Unknown Phone Unavailable Care Team Providers Care Strapping Machine Tender Name Role Phone SADAF FAITH Primary Care Physician [phone] Insurance Providers Payer Name Policy Number Subscriber Name Relationship Medicare A And B [id number] Grace Marroquin 18 Self / Same As Patient Self Pay Pending Hannah Apprv [id number] Grace Marroquin 18 Self / Same As Patient Advance Directives Directive Response Recorded Date/Time Advanced Directives No 10/10/16 10:20pm Type Living Will 10/10/16 10:20pm Type Durable Power of Vector Control Specialist 10/10/16 10:20pm Chief Complaint and Reason for Visit Chief Complaint Pain Reason for Visit Subungual hematoma of great toe of left foot Problems Active Problems Medical Problem Onset Date [...] ~12/21/2015 Chronic Chronic insomnia Unknown Chronic Chronic knee pain Unknown Acute Chronic pain disorder Unknown Acute Chronic pain [...] ~06/04/2015 Resolved Splinter in skin Unknown Resolved Subungual hematoma of great toe of left foot Unknown Acute Suicidal ideation ~03/30/2016 Acute Upper respiratory infection Unknown Resolved Vomiting Unknown Resolved Wound infection ~06/04/2015 Resolved Medications Current Home Medications Medication Dose Units Route Directions Days/Qty Instructions Start Date Naproxen Sodium 220 Mg 2 Mg ORAL As Needed 05/24/16 Lisinopril (Zestril) 20 Mg 20 Mg ORAL Daily 10/10/16 Clonidine Hcl 0.1 Mg 0.1 Mg ORAL Daily 10/10/16 Past Home Medications Medication Directions Ordered Status [...] 25 Mg Oral As Needed 05/01/16 Discontinued Ondansetron Hcl 8 Mg Tablet, 8 Mg Oral As Directed as needed for Nausea 05/15 Discontinued Aripiprazole 5 Mg Tablet, 5 Mg [...] discharge instructions. Plan of Care Discharge Date 10/11/16 12:09am Disposition 01 HOME OR SELF-CARE Condition at Discharge Stable Instructions/Education Provided Toe Injury (DC) Prescriptions See Medication Section Referrals SADAF FAITH - Additional Instructions/Education You may keep a light guaze dressing on the toenail to absorb blood and fluid oozing. You will gradually shed the nail over the next few weeks and grow a new nail under it pushing it off. There is no hurry to remove the nail. Keep the area clean. Your x-rays did not show any significant abnormality according to the ER doctor, but a radiologist will over-read them later and make sure nothing was missed. You may want to wear a stiff soled shoe or boot for comfort. Some of your test results may not [...] worrisome symptoms. * Emergency Department phone number: [phone], x [phone]* MEDICAL RECORD If you need copies of your X-rays, call [phone] x [phone]. If you need copies of [...] services. SERVICE BILLING LIBERTARIAN Emergency Room Services [facility] Physician Services [facility] [place] [facility] Patients will receive bills for services from the appropriate provider. If you have any questions about your [facility] bill, our staff will be happy to assist you. Please call [phone], and ask for the billing department. THANK YOU for choosing [facility] as your emergency care provider! Care Plan and Goals ~~Discharge Care Plan~~ Problem: Sprain, strain or fracture of extremity Goal: Extremity will be pink and warm to touch, with good movement of fingers or toes. Instructions: Apply ice bag and elevate extremity above the level of your heart. Monitor extremity for pink color to fingers or toes and movement. Call your physician if extremity becomes blue in color or cool to touch. Some swelling of fingers or toes is expected, continue to wiggle fingers and toes and keep elevated. Allow 24-48 hours for the splint to dry completely. Do not place splint on a hard surface to avoid a pressure area. Take medication(s) as directed. Follow up with Orthopedic or primary care physician as directed. Functional Status No functional status results. Allergies, Adverse Reactions, Alerts Allergen Type Severity Reaction Status Last Updated Hydroxyzine Allergy Unknown Active 10/10/16 Gabapentin Allergy Unknown Active 10/10/16 Trazodone Allergy Unknown Active 10/10/16 Amantadine Allergy Unknown Active 10/10/16 ziprasidone Adverse Reaction Unknown N/V Active 10/10/16 asenapine Allergy Unknown Active 10/10/16 lurasidone Allergy Unknown Active 10/10/16 ziprasidone hcl Allergy Unknown Active 05/01/16 Immunizations No immunization records. Vital Signs Acute Vital Signs Vital Response Date/Time Temperature (Fahrenheit) 98.3 10/10/2016 10:20pm Pulse 87 bpm 10/11/2016 12:10am Respirations 20 10/11/2016 12:10am Height 5 ft 9 in Weight 163 lb Body Mass Index 24.0 kg/m^2 Results No known relevant diagnostic tests, laboratory data and/or discharge summary. Procedures No known history of procedures. Encounters Encounter Location Arrival/Admit Date Discharge/Depart Date Attending Provider Departed Emergency Room [facility] 10/10/16 10:07pm 10/11/16 12: 09am PILAR SOSA DO Recent Diagnosis
--- OUTSIDE RECORDS SUMMARY | 2016-10-27 08:41 | XMS REPORT | Continuity of Care Document ---
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 Hospital Discharge Instructions No hospital discharge instructions. Plan of Care Discharge Date 02/13/15 4:25am Disposition 01 HOME OR SELF-CARE Condition at Discharge Stable Instructions/Education Provided Govea's Cyst (ED) Prescriptions See Medications Section Referrals NEY MOSS MD Additional Instructions/Education Use a cane or crutches or walker to avoid putting any weight on your left knee so as to not have pain Don't take more that 4 grams (4000mg of tylenol a day) Follow up with Dr. Moss regarding further treatment of your pain Some of your test results may not [...] worrisome symptoms. * Emergency Department phone number: [phone], x [phone]* MEDICAL RECORD If you need copies of your X-rays, call [phone] x [phone]. If you need copies of [...] services. SERVICE BILLING LIBERTARIAN Emergency Room Services [facility] Physician Services [facility] [place] [facility] Patients will receive bills for services from the appropriate provider. If you have any questions about your [facility] bill, our staff will be happy to assist you. Please call [phone], and ask for the billing department. THANK YOU for choosing [facility] as your emergency care provider! Functional Status No functional status results. Allergies, Adverse Reactions, Alerts Allergen Type Severity Reaction Status Last Updated No Known Drug Allergies Active 06/26/14 Immunizations No immunization records. Vital Signs Acute Vital Signs Vital Response Date/Time Temperature (Fahrenheit) 98.1 Pulse 81 bpm Respirations 18 Height 5 ft 11 [...] Urine collection method Clean Catch Urine Specific [place] January 26, 2015 9:17am 1.010 1.005-1.030 Urine [...] N 4.0-11.0 Procedures Procedure Status Date Provider(s) THER/PROPH/DIAG INJ [...] Encounters Encounter Location Date/Time Departed Emergency Room [facility] 02/13/15 3:39am Departed Emergency Room [facility] 02/06/15 8:14pm Departed Emergency Room [facility] 02/04/15 9:37pm Departed Emergency Room [facility] 02/01/15 9:35am Registered Clinic [facility] 01/29/15 7:24am Departed Emergency Room [facility] 01/26/15 9:03am Registered Clinic [facility] 01/26/15 8:50am Departed Emergency Room [facility] 01/25/15 5:10pm Departed Emergency Room [facility] 01/24/15 11:04pm Recent Diagnosis
--- OUTSIDE RECORDS SUMMARY | 2016-10-27 08:41 | XMS REPORT | Continuity of Care Document ---
Author Author [facility] Organization [facility] Address Unknown Phone Unavailable Support Name Relationship Address Phone Fara MOSS MD Caregiver [address] [place] [address] NORMAN POTTS MD Caregiver [facility] [address] [place] [phone] IVONNE REARDON Caregiver [address] [place] [address] KATE MARROQUIN Next Of Kin [address] [place] [address] Insurance Providers Payer Name Policy Number Subscriber Name Relationship Medicare [id number] Grace Marroquin 19 Self Blue [employer] Select Plan 65 [id number] Grace Marroquin 19 Self Advance Directives Directive Response Recorded Date/Time Ordered Resuscitation Status Full Code 08/19/14 2:23pm Resuscitation Documents on File No 08/20/14 7:15am Problems Medical Problems Problem Onset Date Status Cellulitis Unknown Active Cellulitis Unknown Active Shingles Unknown Active Shingles Unknown Active Medications Medication Dose Route Sig Days/Qty Instructions Order Date Discontinued Date Status Zolpidem Tartrate 10 Mg PO BEDTIME Take 1 tablet, by mouth, 1 time a day (at BEDTIME). 06/17/14 Active Amitriptyline HCl 200 Mg PO BEDTIME 06/17/14 Active Risperidone 1 Mg PO BEDTIME 06/17/14 Active Losartan Potassium 100 Mg PO DAILY 06/17/14 Active Diltiazem HCl 180 Mg PO DAILY 08/19/14 Active Finasteride 1 Tab PO DAILY 08/19/14 Active Cyclobenzaprine HCl 1 Tab PO THREE TIMES A DAY PRN PRN ORDERS Active Ondansetron 4 Mg PO EVERY 4 HOURS PRN PRN ORDERS 08/20/14 Active Docusate Sodium 50 Mg PO DAILY For CONSTIPATION 08/20/14 Active Social History Social History Problem Response Recorded Date/Time Hx Alcohol Use No 08/20/2014 7:13am Has the pt used tobacco in the last 12 months No 08/20/2014 7:13am Tobacco Usage none 06/23/2014 4:09am Query Response Start Date Stop Date Smoking Status Never smoker Hospital Discharge Instructions No hospital discharge instructions. Plan of Care No plan of care. Functional Status Query Response Date Recorded Physical Hygiene Self June 17, 2014 9:09pm Physical Hygiene Self June 17, 2014 9:09pm Allergies, Adverse Reactions, Alerts Allergen Type Severity Reaction Status Last Updated No Known Allergies Active 06/17/14 Immunizations Name Given Type Hx Influenza Vaccination No Historical Hx Influenza Vaccination No Historical Vital Signs Acute Vital Signs Vital Response Date/Time Temperature (Fahrenheit) 97.0 deg F (96.8 - 99.1) Temperature (Calculated Celsius) 36.91573 degrees C (36.0 - 37.3) Temperature Source Temporal Pulse Rate (adult) 80 bpm (60 - 100) Respiratory Rate 16 breaths/min (10 - 20) O2 Sat by Pulse Oximetry 99 % (90 - 100) Oxygen Delivery Method Room Air Blood Pressure 143/85 mm Hg Blood Pressure Source Automatic Cuff Height 5 ft 11 in Weight 170 lb Body Mass Index 23.0 kg/m^2 Results Test Source Date Result Interp. Ref. Range Comments Acetaminophen Level June 17, 2014 9:32pm < 10 UG/ML L 10-30 TOXIC < 4 HR POST INGESTION: >150 MG/L;TOXIC <12 HR POST INGESTION: >50 MG/L Alanine Aminotransferase (ALT/SGPT) June 17, 2014 9:32pm 64 U/L N 21 -72 Albumin June 17, 2014 9:32pm 3.5 G/DL N 3.5-5.0 Albumin/Globulin Ratio June 17, 2014 9:32pm 1.3 RATIO N 1.1-2.2 Alkaline Phosphatase June 17, 2014 9:32pm 174 U/L H 38-126 Anion Gap June 17, 2014 9:32pm 4 MEQ/L L 5-15 Aspartate Amino Transf (AST/SGOT) June 17, 2014 9:32pm 53 U/L N 17- 59 BUN/Creatinine Ratio June 17, 2014 9:32pm 12 RATIO N 6-26 Basophils # (Auto) June 17, 2014 9:32pm 0.0 T/MM3 N 0-0.2 Basophils (%) (Auto) June 17, 2014 9:32pm 0.3 % N 0-2 Blood Urea Nitrogen June 17, 2014 9:32pm 12.0 MG/DL N 9-20 Calcium Level June 17, 2014 9:32pm 8.4 MG/DL N 8.4-10.2 Calculated Osmolality June 17, 2014 9:32pm 264 MOSM/KG N 261-280 Carbon Dioxide Level June 17, 2014 9:32pm 29 MEQ/L N 22-30 Chloride Level June 17, 2014 9:32pm 104 MEQ/L N 98-107 Creatinine June 17, 2014 9:32pm 1.0 MG/DL N 0.8-1.5 Eosinophils # (Auto) June 17, 2014 9:32pm 0.1 T/MM3 N 0-0.5 Eosinophils (%) (Auto) June 17, 2014 9:32pm 2.1 % N 0-4 Globulin June 17, 2014 9:32pm 2.6 G/DL N 2.4-3.6 Glucose Level June 17, 2014 9:32pm 98 MG/DL N 75-110 Hematocrit June 17, 2014 9:32pm 39.6 % L 41-53 Hemoglobin June 17, 2014 9:32pm 13.0 GM/DL L 13.5-17.5 Lymphocytes # (Auto) June 17, 2014 9:32pm 1.0 T/MM3 N 1-4.8 Lymphocytes (%) (Auto) June 17, 2014 9:32pm 16.3 % L 23-45 Mean Corpuscular Hemoglobin June 17, 2014 9:32pm 31.4 UUG N 26-34 Mean Corpuscular Hemoglobin Concent June 17, 2014 9:32pm 32.8 GM/DL N 31-37 Mean Corpuscular Volume June 17, 2014 9:32pm 95.7 UM3 N 80-100 Mean Platelet Volume June 17, 2014 9:32pm 9.3 UM3 L 9.4-12.4 Monocytes # (Auto) June 17, 2014 9:32pm 0.6 T/MM3 N 0-0.8 Monocytes (%) (Auto) June 17, 2014 9:32pm 9.7 % H 0-9.0 Neutrophils # (Auto) June 17, 2014 9:32pm 4.5 T/MM3 N 1.8-7.7 Neutrophils (%) (Auto) June 17, 2014 9:32pm 71.4 % H 33-66 Platelet Count June 17, 2014 9:32pm 156 T/MM3 N 130-400 Potassium Level June 17, 2014 9:32pm 4.1 MEQ/L N 3.6-5 RDW Standard Deviation June 17, 2014 9:32pm 42.7 FL N 36.9-50.2 Red Blood Count June 17, 2014 9:32pm 4.14 M/MM3 L 4.50-5.90 Salicylates Level June 17, 2014 9:32pm < 1.0 MG/DL L 2-20 Sodium Level June 17, 2014 9:32pm 137 MEQ/L N 134-144 Thyroid Stimulating Hormone (TSH) June 17, 2014 9:32pm 0.37 MIU/L L 0.47-4.68 Total Bilirubin June 17, 2014 9:32pm 0.80 MG/DL N 0.20-1.30 Total Protein June 17, 2014 9:32pm 6.1 G/DL L 6.3-8.2 Urine Bilirubin June 17, 2014 10:12pm Negative - Has specimen been collected/obtained? Y Urine Blood June 17, 2014 10:12pm Negative - Has specimen been collected/obtained? Y Urine Collection Type June 17, 2014 10:12pm Cleancatch-midstream - Has specimen been collected/obtained? Y Urine Color June 17, 2014 10:12pm Yellow - Has specimen been collected/obtained? Y Urine Glucose (UA) June 17, 2014 10:12pm Negative - Has specimen been collected/obtained? Y Urine Ketones June 17, 2014 10:12pm Negative - Has specimen been collected/obtained? Y Urine Leukocyte Esterase June 17, 2014 10:12pm Negative - Has specimen been collected/obtained? Y Urine Nitrite June 17, 2014 10:12pm Negative - Has specimen been collected/obtained? Y Urine Protein June 17, 2014 10:12pm Negative - Has specimen been collected/obtained? Y Urine Specific [place] June 17, 2014 10:12pm 1.010 L - Has specimen been collected/obtained? Y Urine Turbidity June 17, 2014 10:12pm Clear - Has specimen been collected/obtained? Y Urine Urobilinogen June 17, 2014 10:12pm 0.2 EU/DL - Has specimen been collected/obtained? Y Urine pH June 17, 2014 10:12pm 7.0 - Has specimen been collected/ obtained? Y White Blood Count June 17, 2014 9:32pm 6.3 T/MM3 N 4.5-11.0 Chemistry Specimen Hemolysis June 17, 2014 9:32pm < 15 0-25 0-25 : No Hemolysis.26-70: Slight Hemolysis - can falsely elevate K and Urine Protein. 71-285: Moderate Hemolysis - can falsely elevate K, Troponin I, CA 19-9, PTH, CSF GLucose, and Urine Protein, and can falsely decrease Phenytoin. 286-999: Gross Hemolysis - can falsely elevate K, Troponin I, CA 19-9, PTH, CSF Glucose, and Urine Protine, and can falsely decrease Phenytoin. Recommend specimen recollection. Urinalysis Comment June 17, 2014 10:12pm Microscopic not ind. - Has specimen been collected/obtained? Y Lab Scanned Report June 17, 2014 10:56pm REFERENCE LAB [id number] - Turbidity June 17, 2014 9:32pm < 20 0-20 Glomerular Filtration Rate Calc June 17, 2014 9:32pm 74 - Immature Granulocyte # (Auto) June 17, 2014 9:32pm 0.01 T/MM3 N 0.00 -0.03 Immature Granulocyte % (Auto) June 17, 2014 9:32pm 0.2 % N 0.0-0.5 Icterus Index June 17, 2014 9:32pm < 2 0-7 Name: GRACE MARROQUIN Unit #: [id number] : 1945 Sex: M Loc / Svc: ED DOS: 06/17/14 Signed Report #: [id number] DIAGNOSTIC IMAGING REPORT TYPE OF EXAM: CT HEAD W/O CONTRAST Dictated By: MARTA HENSON MD INDICATION: ITS.REASON: swelling on forehead CT HEAD W/O CONTRAST: Comparison: None Technique: Axial CT images through the head were performed without contrast. FINDINGS: The ventricles are of normal size, shape, and contour for the patient's age. There are scattered areas of low attenuation in the white matter which most likely represent changes from chronic microvascular ischemia. The brainstem, cerebellum, and cerebral hemispheres otherwise have a normal morphology and CT attenuation. There is no evidence of midline displacement. No hemorrhage, signs of acute territorial stroke, mass effect, mass lesions, or edema is evident. The visualized portions of the skull base, midface, and calvarium demonstrate no abnormality. The paranasal sinuses are well aerated and free of significant disease. Mucous retention cysts in the left maxillary and sphenoid sinuses. The tympanic and mastoid cavities appear normal. Small amount of soft tissue swelling in the frontal region. IMPRESSION: No acute intracranial abnormality or hemorrhage. There is a preliminary report by [facility]. . Procedures Procedure Status Date Provider(s) ROUTINE VENIPUNCTURE completed 06/17/14 CT HEAD/BRAIN W/O DYE completed 06/17/14 COMPREHEN METABOLIC PANEL completed 06/17/14 ASSAY OF SALICYLATE completed 06/17/14 URINALYSIS AUTO W/O SCOPE completed 06/17/14 ASSAY OF ACETAMINOPHEN completed 06/17/14 ASSAY THYROID STIM HORMONE completed 06/17/14 COMPLETE CBC W/AUTO DIFF WBC completed 06/17/14 EMERGENCY DEPT VISIT completed 06/17/14 [id number] ITEM OR SERVICE completed 06/17/14 [id number] ITEM OR SERVICE completed 06/17/14 DRUG SCR, UR,STAT completed 06/17/14 Esophagogastroduodenoscopy (EGD) with closed biopsy completed 08/20/14 NORMAN POTTS MD Encounters Encounter Location Date/Time Departed Emergency Room [facility] 06/17/14 9:09pm
--- OUTSIDE RECORDS SUMMARY | 2016-10-27 08:41 | XMS REPORT | Continuity of Care Document ---
Author Author [facility] Address Unknown Phone Unavailable Care Team Providers Care Social Professionals Name Role Phone SADAF FAITH Primary Care Physician [phone] Insurance Providers Payer Name Policy Number Subscriber Name Relationship Medicare A And B [id number] Grace Marroquin 18 Self / Same As Patient Self Pay Pending [facility] Apprv [id number] Grace Marroquin 19 Self / Same As Patient Advance Directives Directive Response Recorded Date/Time Advanced Directives No 06/05/16 8:40am Type Living Will 05/24/16 1:00pm Type Durable Power of Finance Lecturer 05/24/16 1:00pm Chief Complaint and Reason for Visit Chief Complaint Pain Reason for Visit Knee pain Problems Active Problems Medical Problem Onset [...] discharge instructions. Plan of Care Discharge Date 06/05/16 9:12am Disposition 01 HOME OR SELF-CARE Condition at Discharge Stable Prescriptions See Medication Section Referrals SADAF FAITH - Additional Instructions/Education Follow up with your PCP and keep your already scheduled appointment with the pain specialist for chronic pain management Continue your current medications Return if you think you are having an emergency condition Some of your test results may not [...] worrisome symptoms. * Emergency Department phone number: [phone], x [phone]* MEDICAL RECORD If you need copies of your X-rays, call [phone] x [phone]. If you need copies of [...] services. SERVICE BILLING DEMOCRAT Emergency Room Services [facility] Physician Services [facility] X-rays [place] [facility] Patients will receive bills for services from the appropriate provider. If you have any questions about your [facility] bill, our staff will be happy to assist you. Please call [phone], and ask for the billing department. THANK YOU for choosing [facility] as your emergency care provider! Care Plan [...] Status Last Updated Hydroxyzine Allergy Unknown Active 06/05/16 Gabapentin Allergy Unknown Active 06/05/16 Trazodone Allergy Unknown Active 06/05/16 Amantadine Allergy Unknown Active 06/05/16 ziprasidone Adverse Reaction Unknown N/V Active 06/05/16 asenapine Allergy Unknown Active 06/05/16 lurasidone Allergy Unknown Active 06/05/16 ziprasidone hcl Allergy Unknown Active 05/01/16 Immunizations No immunization records. Vital Signs Acute Vital Signs Vital Response Date/Time Temperature (Fahrenheit) 98.5 06/05/2016 9:11am Pulse 79 bpm 06/05/2016 9:11am Respirations 14 06/05/2016 9:11am Height 5 ft 9 in Weight 169 lb Body Mass Index 25.0 kg/m^2 Results No known relevant diagnostic tests, laboratory data and/or discharge summary. Procedures Procedure Status Date Provider(s) THER/PROPH/DIAG INJ SC/IM Completed 05/15/16 EMERGENCY DEPT VISIT Completed 05/15/16 Completed 05/15/16 EMERGENCY DEPT VISIT Completed 05/24/16 Encounters Encounter Location Arrival/Admit Date Discharge/Depart Date Attending Provider Departed Emergency Room [facility] 06/05/16 8:34am 06/05/16 9:12am MARIA ELENA SORIA MD Departed Emergency Room [facility] 05/24/16 12:54pm 05/24/16 1:32pm OCTAVIO CLARK MD Departed Emergency Room [facility] 05/15/16 1:05am 05/15/16 2:02am PILAR SOSA DO Recent Diagnosis
--- OUTSIDE RECORDS SUMMARY | 2016-10-27 08:41 | XMS REPORT ---
Author [facility] Organization Unknown Address Unknown Phone Unavailable Care Team Providers Care Tipple Boss Name Role Phone MD CARON, IVONNE PP Unavailable Reason For Visit Chief Complaint VOMITING EVERYTHING Social History Functional Status Vital Signs Results [...]
--- OUTSIDE RECORDS SUMMARY | 2016-10-27 08:42 | XMS REPORT ---
Author Author [facility] Organization Unknown Address Unknown Phone Unavailable Care Team Providers Care Discharge Coordinator Name Role Phone UNASSIGNED DOCTOR , DOCTOR PP [phone] Reason For Visit Reason for Visit from 02/29/2016 11:00 AM:* Pt Stated Reason for Adm : Si with a plan to OD on pain medications Reason for Visit from 02/28/2016 11:00 AM:* Pt Stated Reason for Adm : Si with a plan to OD on pain medications Chief Complaint MAJOR DEPRESSION REC/SEVERE WITHOUT PF Social History Social History from 03/01/2016 1:20 PM:* Tobacco Use? : Never Smoker Social History from 02/29/2016 11:00 AM:* Tobacco Use? : Never Smoker Social History from 02/28/2016 11:00 AM:* Tobacco Use? : Never Smoker Functional Status Functional Status from 03/01/2016 8:55 AM:* LOC : Alert * Oriented To : Person,Place,Time,Event * Weight Bearing Status : Full * Assist Level : Independent * # Assists : Independent Functional Status from 02/29/2016 9:15 PM:* LOC : Alert * Oriented To : Person,Place,Time,Event * Weight Bearing Status : Full * Assist Level : Independent * # Assists : Independent Functional Status from 02/29/2016 9:53 AM:* LOC : Alert * Oriented To : Person,Place,Time * Weight Bearing Status : Full * Assist Level : Independent * # Assists : Independent Functional Status from 02/28/2016 9:15 PM:* LOC : Alert * Oriented To : Person,Place,Time,Event * Weight Bearing Status : Full * Assist Level : Independent * # Assists : Independent Functional Status from 02/28/2016 11:00 AM:* LOC : Alert * Oriented To : Person,Place,Time,Event * Weight Bearing Status : Full * Assist Level : Independent * # Assists : Independent Vital Signs Hospital Vital Signs from 03/01/2016 8:18 AM:* Height : 5/11 ft,in * Temperature : 99.9 F * Pulse : 80 * Respirations : 20 * BP : 142/86 Hospital Vital Signs from 02/29/2016 9:47 AM:* Height : 5/11 ft,in Hospital Vital Signs from 02/29/2016 6:21 AM:* Height : 5/11 ft,in * Temperature : 98.6 F * Pulse : 77 * Respirations : 16 * BP : 132/80 Hospital Vital Signs from 02/28/2016 11:00 AM:* Weight : 71.5/ kg * Height : 5/11 ft,in Hospital Vital Signs from 02/28/2016 10:47 AM:* Weight : 71.5/ kg * Height : 5/11 ft,in * Temperature : 97.6 F * Pulse : 75 * Respirations : 18 * BP : 140/81 Results Chemistry from 02/29/2016 5:52 AMGLUCOSE (FASTING) 92 MG/DL (65-99 MG/DL) Serology from 02/29/2016 5:52 AMHIV 1/2 RAPID SCREEN NON-REACTIVE (NON-REACTIVE ) Problems Encounter Diagnosis * Chronic Back Pain Status:Active. * Drug Overdose - Suicide Status:Active. Additional Problems * Chronic Pain Comment:Problem resolved by [facility] upon Discharge, Status:Resolved. * Fall Risk Comment:Problem resolved by [facility] upon Discharge, Status: Resolved. * Mood Disorder Comment:Problem resolved by [facility] upon Discharge, Status:Resolved. Encounters Encounter Diagnosis * Chronic Back Pain Status:Active. * Drug Overdose - Suicide Status:Active. Plan of Care Follow-up Appointments from 03/01/2016 1:20 PM:* #1 Office appointment: : [facility] Intake * Address # 1 : [facility]: [address], [address], [place], [place] - Procedures No relevant procedures performed. Immunizations No immunizations administered or ordered. Hospital Course Hospital Discharge Instructions How to care for yourself at home from 03/01/2016 1:20 PM:* Discharge Activity : Activity as tolerated * [...] tomorrow morning) Allergies, Adverse Reactions, Alerts * Aftabdon causes Unknown. * No Latex Allergy. * No IV Contrast Allergy. * No Known Food Allergies. Medication It is the responsibility of the patient or patient business services representative to confirm the list of medications with either the patient's personal care provider or the patient's follow-up care provider to ensure the patient has an appropriate list of medications to take at home. Discharge medications New medications* aripiprazole (Abilify) 5 mg Tablet, Ordered By: CANDY HOLDER, PAC Directions: 1 tablet oral daily for mood stabilization * hydrOXYzine pamoate (Vistaril) 25 mg Capsule, Ordered By: CANDY HOLDER, PAC Directions: 1 capsule oral three times a day PRN ANXIETY * hydrOXYzine pamoate (Vistaril) 50 mg Capsule, Ordered By: CANDY HOLDER, PAC Directions: 1 capsule oral daily at bedtime for insomnia * tamsuLOSIN 0.4 mg capsule,extended release 24hr, Ordered By: CANDY HOLDER , PAC Directions: 1 capsule oral daily for for blood pressure Continued medications* promethazine 25 mg Tablet, Ordered By: CANDY HOLDER , PAC Directions: 1 tablet oral every six hours PRN nausea or vomiting Changed medications* methocarbamol (Robaxin-750) 750 mg Tablet, Ordered By: CANDY HOLDER, PAC Directions: 1 tablet oral four times daily PRN pain * oxyCODONE 15 mg Tablet, Ordered By: CANDY HOLDER, PAC Directions: 1 tablet oral every four hours PRN PAIN Stopped medications* orphenadrine citrate 100 mg Tablet Extended Release Directions: 1 tablet oral twice a day * HYDROcodone-acetaminophen (Fiatt) 5 mg-325 mg Tablet Directions: 1 tablet oral every six hours PRN pain * tamulosin 1 po daily
--- OUTSIDE RECORDS SUMMARY | 2016-10-27 08:42 | XMS REPORT | Continuity of Care Document ---
Author Author [facility] Address Unknown Phone Unavailable Care Team Providers Care Senior Manufacturing Test Engineer Name Role Phone SADAF FAITH Primary Care Physician [phone] Insurance Providers Payer Name Policy Number Subscriber Name Relationship Medicare A And B [id number] Grace Marroquin 19 Self / Same As Patient Self Pay Pending [facility] Apprv [id number] Grace Marroquin 19 Self / Same As Patient Advance Directives Directive Response Recorded Date/Time Advanced Directives No 06/16/16 8:53am Type Living Will 06/16/16 8:53am Type Durable Power of Archeology Faculty Member 06/16/16 8:53am Chief Complaint and Reason for Visit Chief Complaint Pain Reason for Visit Chronic knee pain Chronic back pain Problems Active Problems Medical [...] discharge instructions. Plan of Care Discharge Date 06/16/16 9:15am Disposition 01 HOME OR SELF-CARE Condition at Discharge Stable Instructions/Education Provided Chronic Pain (DC) Prescriptions See Medication Section Referrals SADAF FAITH - Additional Instructions/Education Once again you are inappropriately using the emergency room for management of your chronic pain. To reiterate prior directions given to you, do not return to this emergency room for treatment of chronic pain issues. Please use your primary care doctor and your chronic pain doctor for these issues. This includes presenting for Toradol shots. Toradol is never supposed to be used more than 5 consecutive days, and it is an anti-inflammatory medication, which can be more safely managed by Aleve or Motrin or other [id number] anti-inflammatory medications as you have been previously instructed. Apparently, [facility] gave you a prescription for Aleve which you did not fill. You're receiving your last Toradol injection from this ER today for these chronic complaints of knee pain and back pain. Please do not present to other emergency rooms for the same reason. Please see your regular doctors for this. Only present here for other emergency conditions. Some of your test results may not [...] worrisome symptoms. * Emergency Department phone number: [phone], x [phone]* MEDICAL RECORD If you need copies of your X-rays, call [phone] x [phone]. If you need copies of [...] SERVICE BILLING CONSTITUTION PARTY Emergency Room Services [facility] Physician Services [facility] X-rays [place] Radi[facility] Patients will receive bills for services from the appropriate provider. If you have any questions about your [facility] bill, our staff will be happy to assist you. Please call [phone], and ask for the billing department. THANK YOU for choosing [facility] as your emergency care provider! Care Plan and Goals ~~Discharge Care Plan~~ Problem:pain Goal:decreased pain Instructions:follow up with pcp Functional Status No functional status results. Allergies, [...] Signs Vital Response Date/Time Temperature (Fahrenheit) 97.8 06/16/2016 9:26am Pulse 85 bpm 06/16/2016 9:26am Respirations 18 06/16/2016 9:26am Height 5 ft 9 in Weight 183 lb Body Mass Index 27.0 kg/m^2 Results No known relevant diagnostic tests, laboratory data and/or discharge summary. Procedures Procedure Status Date Provider(s) EMERGENCY DEPT VISIT Completed 05/24/16 THER/PROPH/DIAG INJ SC/IM Completed 06/05/16 EMERGENCY DEPT VISIT Completed 06/05/16 Completed 06/05/16 Encounters Encounter Location Arrival/Admit Date Discharge/Depart Date Attending Provider Departed Emergency Room [facility] 06/16/16 8:44am 06/16/16 9:15am PILAR SOSA DO Departed Emergency Room [facility] 06/05/16 8:34am 06/05/16 9:12am MARIA ELENA SORIA MD Departed Emergency Room [facility] 05/24/16 12:54pm 05/24/16 1:32pm OCTAVIO CLARK MD Recent Diagnosis
--- OUTSIDE RECORDS SUMMARY | 2016-10-27 08:42 | XMS REPORT ---
Author Author [facility] Organization Unknown Address Unknown Phone Unavailable Care Team Providers Care Reservation Manager Name Role Phone UNASSIGNED DOCTOR , DOCTOR PP [phone] Reason For Visit Reason for Visit from [...] the responsibility of the patient or patient food service representative to confirm the list of medications with either the patient's personal care provider or the patient's follow-up care provider to ensure the patient has an appropriate list of medications to take at home. Preliminary list - medication reconciliation not completed. Discharge medications New medications* aripiprazole (Abilify) 2 mg Tablet, Ordered By: CANDY HOLDER, CYNDY Directions: 1 tablet oral daily for mood stabilization Changed medications* omeprazole 40 mg capsule,delayed release(DR/EC), Ordered By : CANDY HOLDER, PAC Directions: 1 capsule oral daily before breakfast for dyspepsia * diclofenac sodium (Voltaren) 1 % Gel, Ordered By: CYNDY BARBOSA Directions: 1 application topical twice a day for pain Stopped medications* zolpidem (Ambien) 20 Tablet Directions: 1 tablet oral daily at bedtime * calcium carbonate-vit D3-min (Calcium 600 + Minerals) Tablet
--- OUTSIDE RECORDS SUMMARY | 2016-10-27 08:42 | XMS REPORT | Continuity of Care Document ---
Author Author [facility] Organization [facility] Address Unknown Phone Unavailable Support Name Relationship Address Phone MUNIR BANKS MD Caregiver [address] [place] [address] KATE MARROQUIN Next Of Kin [address] [place] [address] Insurance Providers Payer Name Policy Number Subscriber Name Relationship Medicare A And B [id number] Miguel Marroquin 18 Self / Same As Patient Blue Cross [facility] Supp [id number] Miguel Marroquin 18 Self / Same As Patient Chief Complaint and Reason for Visit Chief Complaint GI Complaint Reason for Visit Gastroesophageal reflux disease Presbyesophagus Problems Medical Problems Problem Onset Date Status Nosebleed 05/30/2014 Resolved Back pain ~06/02/2014 Resolved Bipolar 1 disorder Unknown Active Cyst of left kidney Unknown Active Concerned about own drug use ~06/13/2014 Resolved Upper respiratory infection Unknown Resolved Acute anterior epistaxis Unknown Resolved Hyperglycemia Unknown Active Splinter in skin Unknown Active Vomiting Unknown Active Gastroesophageal reflux disease Unknown Active Presbyesophagus Unknown Active Medications Medication Dose Route Sig Days/Qty Instructions Order Date Discontinued Date Status Linaclotide 145 Mcg ORAL DAILY 05/30/14 06/26/14 Discontinued Zolpidem Tartrate 5 Mg ORAL BEDTIME 05/30/14 01/02/15 Discontinued Finasteride (Proscar) 5 Mg ORAL BEDTIME 05/30/14 Active Losartan Potassium (Cozaar) 50 Mg ORAL BEDTIME 05/30/14 Active Aspirin [...] Mg ORAL NEEDED PRN NAUSEA/VOMITING 09/01/14 Active Prochlorperazine Maleate 10 Mg RECTAL THREE TIMES A DAY 01/02/15 Active Cholestyramine (With Sugar) 4 Gm ORAL NEEDED 01/02/15 Active Social History No social history. Hospital Discharge Instructions No hospital discharge instructions. Plan of Care Discharge Date 01/02/15 10:13pm Disposition 01 HOME OR SELF-CARE Condition at Discharge Stable Instructions/Education Provided Gastroesophageal Reflux Disease (ED) Prescriptions See Medications Section Additional Instructions/Education Change Prilosec 20mg to twice a day, 30 min before meals. Other meds as previously Rx'd, including Zofran 4mg about twice a day as needed for nausea. Follow up with Dr. Beckford per office instructions. Some of your test results may not [...] worrisome symptoms. * Emergency Department phone number: [phone], x [phone]* MEDICAL RECORD If you need copies of your X-rays, call [phone] x [phone]. If you need copies of [...] services. SERVICE BILLING LIBERTARIAN Emergency Room Services [facility] Physician Services [facility] X[facility] [place] [facility] Patients will receive bills for services from the appropriate provider. If you have any questions about your [facility] bill, our staff will be happy to assist you. Please call [phone], and ask for the billing department. THANK YOU for choosing [facility] as your emergency care provider! Functional Status No functional status results. Allergies, Adverse Reactions, Alerts Allergen Type Severity Reaction Status Last Updated No Known Drug Allergies Active 06/26/14 Immunizations No immunization records. Vital Signs Acute Vital Signs Vital Response Date/Time Temperature (Fahrenheit) 98.6 Pulse 90 bpm Respirations 20 Height 5 ft 11 in Weight 169 lb Body Mass Index 23.0 kg/m^2 Results [...] Urine collection method Clean Catch Urine Specific [place] June 01, 2014 10:15pm 1.025 1.005-1.030 Urine collection method Clean Catch Urine Urobilinogen June 01, 2014 10:15pm 0.2 mg/dL 0.2-1.0 Urine collection method Clean Catch Urine pH June 01, 2014 10:15pm 5.5 5.0 - 8.0 Urine collection method Clean Catch White Blood Count September 01, 2014 11:45pm 4.44 10^3uL N 4.0-11.0 Procedures No known history of procedures. Encounters Encounter Location Date/Time Departed Emergency Room [facility] 01/02/15 8:52pm Recent Diagnosis
--- OUTSIDE RECORDS SUMMARY | 2016-10-27 08:42 | XMS REPORT | Continuity of Care Document ---
Author Author [facility] Organization [facility] Address Unknown Phone Unavailable Support Name Relationship Address Phone JUAN MANUEL PARISH MD Caregiver [address] [place] [address] Insurance Providers Payer Name Policy Number Subscriber Name Relationship Medicare A And B [id number] Miguel Marroquin 18 Self / Same As Patient Blue Cross [facility] Supp [id number] Miguel Marroquin 19 Self / Same As Patient Chief Complaint and Reason for Visit Chief Complaint Pain Reason for Visit Chronic back pain Problems Medical Problems Problem Onset Date [...] Active 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 Chronic back pain ~01/25/2015 Active Back pain ~01/23/2015 Active Medications Medication Dose Route Sig Days/Qty [...] discharge instructions. Plan of Care Discharge Date 02/01/15 10:59am Disposition 01 HOME OR SELF-CARE Condition at Discharge Stable Instructions/Education Provided Low Back Strain (ED) Prescriptions See Medications Section Additional Instructions/Education Follow up with Dr. Del Valle on Monday, call for appointment. Return if pain changes, unable to walk, can not urinate. Some of your test results may not [...] worrisome symptoms. * Emergency Department phone number: [phone], x [phone]* MEDICAL RECORD If you need copies of your X-rays, call [phone] x [phone]. If you need copies of [...] services. SERVICE BILLING REPUBLICAN Emergency Room Services [facility] Physician Services [facility] X-[facility] [place] [facility] Patients will receive bills for services from the appropriate provider. If you have any questions about your [facility] bill, our staff will be happy to assist you. Please call [phone], and ask for the billing department. THANK YOU for choosing [facility] as your emergency care provider! Functional Status No functional status results. Allergies, Adverse Reactions, Alerts Allergen Type Severity Reaction Status Last Updated No Known Drug Allergies Active 06/26/14 Immunizations No immunization records. Vital Signs Acute Vital Signs Vital Response Date/Time Temperature (Fahrenheit) 98.3 Pulse 81 bpm Respirations 20 Height 5 ft 10 in Weight 159 lb Body Mass Index 22.0 kg/m^2 Results Test Source Date Result Interp. [...] Urine collection method Clean Catch Urine Specific [place] January 26, 2015 9:17am 1.010 1.005-1.030 Urine [...] N 4.0-11.0 Procedures Procedure Status Date Provider(s) EMERGENCY DEPT VISIT completed 01/02/15 completed 01/02/15 Encounters Encounter Location Date/Time Registered Emergency Room [facility] 02/01/15 9:35am Registered Clinic [facility] 01/29/15 7:24am Departed Emergency Room [facility] 01/26/15 9:03am Registered Clinic [facility] 01/26/15 8:50am Departed Emergency Room [facility] 01/25/15 5:10pm Departed Emergency Room [facility] 01/24/15 11:04pm Departed Emergency Room [facility] 01/02/15 8:52pm Recent Diagnosis
--- OUTSIDE RECORDS SUMMARY | 2016-10-27 08:42 | XMS REPORT ---
Author Author [facility] Organization Unknown Address Unknown Phone Unavailable Care Team Providers Care Mechanical Specialist Name Role Phone UNASSIGNED DOCTOR , DOCTOR PP [phone] Reason For Visit Chief Complaint PT LEFT WITHOUT BEING SEEN,BACK PAIN Social History Functional Status Vital Signs Results Problems Encounter Diagnosis No relevant problems exist. Additional Problems * Chronic Back Pain Comment:Problem resolved by [facility] upon Discharge , Status:Resolved. * Chronic Pain Comment:Problem resolved by [facility] upon Discharge, Status:Resolved. * Chronic Pain Comment:Problem resolved by [facility] upon Discharge, Status:Resolved. * Drug Overdose - Suicide Comment:Problem resolved by [facility] upon Discharge, Status:Resolved. * Fall Risk Comment:Problem resolved by [facility] upon Discharge, Status: Resolved. * Mood Disorder Comment:Problem resolved by [facility] upon Discharge, Status:Resolved. * Mood Disorder Comment:Problem resolved by [facility] upon Discharge, Status:Resolved. Encounters Encounter Diagnosis No relevant problems exist. Plan of Care Procedures No relevant procedures performed. Immunizations No immunizations administered or ordered. Hospital Course Hospital Discharge Instructions Allergies, Adverse Reactions, Alerts * Seroquel causes Unknown. * asenapine causes Unknown. * Geodon causes Unknown. * Latex Allergy has not been assessed. * IV Contrast Allergy has not been assessed. * No Known Food Allergies. Medication Medication reconciliation has not been performed.
[2016-10-27] MEDS ORDERED: NORMAL SALINE 1,000 ML IV ONE (08:59)
[2016-10-27] MEDS ORDERED: NAPR220T61 PO (09:11)
[2016-10-27] MEDS ORDERED: ACET-62 PO (09:11)
[2016-10-27] MEDS ORDERED: RISP1TAB27 PO (09:11)
--- OUTSIDE RECORDS SUMMARY | 2016-10-27 09:18 | XMS REPORT ---
Author Author [facility] Organization Unknown Address Unknown Phone Unavailable Care Team Providers Care Truck Driver Flatbed Name Role Phone MD CARON, IVONNE PP [...]
--- OUTSIDE RECORDS SUMMARY | 2016-10-27 09:19 | XMS REPORT | Continuity of Care Document ---
Author Author [facility] Organization [facility] Address Unknown Phone Unavailable Support Name Relationship Address Phone MUNIR BANKS MD Caregiver [address] [place] [address] Insurance Providers Payer Name Policy Number Subscriber Name Relationship Medicare A And B [id number] Miguel Marroquin 18 Self / Same As Patient Blue Cross [facility] Supp [id number] Miguel Marroquin 19 Self / Same As [...] worrisome symptoms. * Emergency Department phone number: [phone], x [phone]* MEDICAL RECORD If you need copies of your X-rays, call [phone] x [phone]. If you need copies of [...] services. SERVICE BILLING REPUBLICAN Emergency Room Services [facility] Physician Services [facility] [place] [facility] Patients will receive bills for services from the appropriate provider. If you have any questions about your [facility] bill, our staff will be happy to assist you. Please call [phone], and ask for the billing department. THANK YOU for choosing [facility] as your emergency care provider! [...] Urine collection method Clean Catch Urine Specific [place] January 26, 2015 9:17am 1.010 1.005-1.030 Urine [...] Encounters Encounter Location Date/Time Departed Emergency Room [facility] 02/06/15 8:14pm Departed Emergency Room [facility] 02/04/15 9:37pm Departed Emergency Room [facility] 02/01/15 9:35am Registered Clinic [facility] 01/29/15 7:24am Departed Emergency Room [facility] 01/26/15 9:03am Registered Clinic [facility] 01/26/15 8:50am Departed Emergency Room [facility] 01/25/15 5:10pm Departed Emergency Room [facility] 01/24/15 11:04pm Recent Diagnosis
--- OUTSIDE RECORDS SUMMARY | 2016-10-27 09:19 | XMS REPORT ---
Author Author [facility], [facility] Organization Unknown Address Unknown Phone Unavailable Care Team Providers Care Benefits Clerk Name Role Phone UNASSIGNED DOCTOR , DOCTOR PP [phone] Reason For Visit Reason for Visit from [...] the responsibility of the patient or patient wire rope sales representative to confirm the list of [...]
--- OUTSIDE RECORDS SUMMARY | 2016-10-27 09:20 | XMS REPORT ---
Author Author [facility] Organization Unknown Address Unknown Phone Unavailable Care Team Providers Care College Administrator Name Role Phone UNASSIGNED DOCTOR , DOCTOR PP [phone] Reason For Visit Reason for Visit from [...] 8:00 AM * Address # 1 : [phone] * #2 Office appointment: : Randa Grider PV * #2 Date/Time : 04/17/2016 9:15 AM * Address # 2 : [phone] Procedures No relevant procedures performed. Immunizations No [...] the responsibility of the patient or patient leasing representative to confirm the list of medications [...]
--- OUTSIDE RECORDS SUMMARY | 2016-10-27 09:21 | XMS REPORT ---
Author Author [facility] Organization Unknown Address Unknown Phone Unavailable Care Team Providers Care Pond Scaler Name Role Phone MD CARON, IVONNE PP [...] MG/DL (65-99 MG/DL) *GFR EST NON AFR [place] 89 ML/MIN *GFRA EST AFR AMER >90 [...] AM* Status: Final Result URINALYSIS Specimen Number: [id number] Sample Collection Date/Time: 06/07/2015 3:20 AM Specimen [...]
--- OUTSIDE RECORDS SUMMARY | 2016-10-27 09:22 | XMS REPORT | Continuity of Care Document ---
Author Author [facility] Organization [facility] Address Unknown Phone Unavailable Support Name Relationship Address Phone KATE MARTINEZ DO Caregiver [address] [place] [address] KATE MARROQUIN Next Of Kin [address] [place] [address] Insurance Providers Payer Name Policy Number Subscriber Name Relationship Medicare A And B [id number] Miguel Marroquin 19 Self / Same As Patient Blue Cross [facility] Supp [id number] Miguel Marroquin 19 Self / Same As [...] worrisome symptoms. * Emergency Department phone number: [phone], x [phone]* MEDICAL RECORD If you need copies of your X-rays, call [phone] x [phone]. If you need copies of [...] SERVICE BILLING ALLIANCE PARTY Emergency Room Services [facility] Physician Services [facility] X-[facility] [place] [facility] Patients will receive bills for services from the appropriate provider. If you have any questions about your [facility] bill, our staff will be happy to assist you. Please call [phone], and ask for the billing department. THANK YOU for choosing [facility] as your emergency care provider! [...] Urine collection method Clean Catch Urine Specific [place] June 01, 2014 10:15pm 1.025 1.005-1.030 Urine [...] Encounters Encounter Location Date/Time Departed Emergency Room [facility] 09/01/14 10:56pm Registered [facility] 09/01/14 7:30am Departed Emergency Room [facility] 08/23/14 5:32pm Registered Clinic [facility] 08/12/14 8:31am Recent Diagnosis
--- OUTSIDE RECORDS SUMMARY | 2016-10-27 09:22 | XMS REPORT | Continuity of Care Document ---
Author Author [facility] Organization [facility] Address Unknown Phone Unavailable Care Team Providers Care Manager Supplier Name Role Phone NEY MOSS MD Primary Care Physician [phone] Insurance Providers Payer Name Policy Number Subscriber Name Relationship Medicare A And B [id number] Grace Marroquin 19 Self / Same As Patient Chief Complaint and Reason for Visit Chief Complaint Pain Reason for Visit [id number] Back pain Problems Medical Problems Problem Onset [...] Keep your follow up appointments with your [place] counselor and casey saw operator. Some of your test results may not [...] worrisome symptoms. * Emergency Department phone number: [phone], x [phone]* MEDICAL RECORD If you need copies of your X-rays, call [phone] x [phone]. If you need copies of [...] SERVICE BILLING [employer]IANCE PARTY Emergency Room Services [facility] Physician Services [facility] X[facility] [place] [facility] Patients will receive bills for services from the appropriate provider. If you have any questions about your [facility] bill, our staff will be happy to assist you. Please call [phone], and ask for the billing department. THANK YOU for choosing [facility] as your emergency care provider! [...] Urine collection method Clean Catch Urine Specific [place] January 26, 2015 9:17am 1.010 1.005-1.030 Urine [...] Encounter Location Date/Time Departed Emergency Room [facility] 02/17/15 10:25am Registered Clinic [facility] 02/17/15 10:20am Departed Emergency Room [facility] 02/13/15 3:39am Departed Emergency Room [facility] 02/06/15 8:14pm Departed Emergency Room [facility] 02/04/15 9:37pm Departed Emergency Room [facility] 02/01/15 9:35am Registered Clinic [facility] 01/29/15 7:24am Departed Emergency Room [facility] 01/26/15 9:03am Registered Clinic [facility] 01/26/15 8:50am Departed Emergency Room [facility] 01/25/15 5:10pm Departed Emergency Room [facility] 01/24/15 11:04pm Recent Diagnosis
--- OUTSIDE RECORDS SUMMARY | 2016-10-27 09:23 | XMS REPORT | Continuity of Care Document ---
Author Author [facility] Organization [facility] Address Unknown Phone Unavailable Support Name Relationship Address Phone KATE MARTINEZ DO Caregiver [address] [place] [address] KATE MARROQUIN Next Of Kin [address] [place] [address] Insurance Providers Payer Name Policy Number Subscriber Name Relationship Medicare A And B [id number] Miguel Marroquin 19 Self / Same As Patient Blue Cross [facility] Supp [id number] Miguel Marroquin 19 Self / Same As [...] worrisome symptoms. * Emergency Department phone number: [phone], x [phone]* MEDICAL RECORD If you need copies of your X-rays, call [phone] x [phone]. If you need copies of [...] services. SERVICE BILLING REPUBLICAN Emergency Room Services [facility] Physician Services [facility] X-rays [place] [facility] Patients will receive bills for services from the appropriate provider. If you have any questions about your [facility] bill, our staff will be happy to assist you. Please call [phone], and ask for the billing department. THANK YOU for choosing [facility] as your emergency care [...] Urine collection method Clean Catch Urine Specific [place] June 01, 2014 10:15pm 1.025 1.005-1.030 Urine [...] Encounters Encounter Location Date/Time Departed Emergency Room [facility] 09/01/14 10:56pm Discharged Recurring [facility] 09/01/14 7:30am Departed Emergency Room [facility] 08/23/14 5:32pm Registered Clinic [facility] 08/12/14 8:31am Recent Diagnosis
--- OUTSIDE RECORDS SUMMARY | 2016-10-27 09:23 | XMS REPORT ---
Author Author [facility] Organization Unknown Address Unknown Phone Unavailable Care Team Providers Care Mat Machine Operator Name Role Phone UNASSIGNED DOCTOR , DOCTOR PP [phone] Reason For Visit Reason for Visit from [...] 8:00 AM * Address # 1 : [phone] * #2 Office appointment: : Randa Grider PV * #2 Date/Time : 04/17/2016 9:15 AM * Address # 2 : [phone] Procedures No relevant procedures performed. Immunizations No [...] the responsibility of the patient or patient risk control field representative to confirm the list of medications [...]
--- OUTSIDE RECORDS SUMMARY | 2016-10-27 09:23 | XMS REPORT | Continuity of Care Document ---
Author Author [facility] Organization [facility] Address Unknown Phone Unavailable Support Name Relationship Address Phone MARIA ELENA SORIA MD Caregiver [address] [place] [address] Amanuel Morris Caregiver [address] [place], [place] [id number] KATE MARROQUIN Next Of Kin [address] [place] [address] Insurance Providers Payer Name Policy Number Subscriber Name Relationship Medicare A And B [id number] Grace Marroquin 19 Self / Same As Patient Blue Cross [facility] Supp [id number] Grace Marroquin 19 Self / Same As [...] Urine collection method Clean Catch Urine Specific [place] June 01, 2014 10:15pm 1.025 1.005-1.030 Urine [...] Encounters Encounter Location Date/Time Departed Emergency Room [facility] 08/23/14 5:32pm Registered Clinic [facility] 08/12/14 8:31am
--- OUTSIDE RECORDS SUMMARY | 2016-10-27 09:24 | XMS REPORT ---
Author Author [facility] Organization Unknown Address Unknown Phone Unavailable Care Team Providers Care Instructional Support Technician Name Role Phone MD CARON, IVONNE PP [...] acute cardiopulmonary disease. Electronically signed by: Franck Maruqez MD Dictated: 06/05/2015 13:40 Problems Encounter Diagnosis [...]
--- OUTSIDE RECORDS SUMMARY | 2016-10-27 09:24 | XMS REPORT ---
Author Author [facility], [facility] Organization Unknown Address Unknown Phone Unavailable Care Team Providers Care In Flight Refueling Manager Name Role Phone MD CARON, IVONNE [...] H (65-99 MG/DL) GFR EST NON AFR [place] 89 ML/MIN GFRA EST AFR AMER >90 [...]
--- OUTSIDE RECORDS SUMMARY | 2016-10-27 09:26 | XMS REPORT | Continuity of Care Document ---
Author Author [facility] Organization [facility] Address Unknown Phone Unavailable Allergies Active Description Code Type Severity Reaction Onset Reported/Identified Relationship to Patient Clinical Status Yes No Known Medication Allergies NKMA N/A N/A 08/22/2014 Yes No Known Allergies No Known Allergies Drug Allergy Unknown N/A 11/17/2014 Yes No Known Drug Allergies [id number] Drug Allergy Unknown N/ A 04/16/2015 Yes quetiapine [id number] Drug Allergy Unknown N/V 04/27/2016 Yes ziprasidone hcl ziprasidone hcl Unknown N/A 05/01/2016 Yes amantadine [id number] Drug Allergy Unknown N/A 10/10/2016 Yes asenapine [id number] Drug Allergy Unknown N/A 10/10/2016 Yes gabapentin [id number] Drug Allergy Unknown N/A 10/10/2016 Yes hydroxyzine [id number] Drug Allergy Unknown N/A 10/10/2016 Yes lurasidone [id number] Drug Allergy Unknown N/A 10/10/2016 Yes trazodone [id number] Drug Allergy Unknown N/A 10/10/2016 Yes ziprasidone [id number] Drug Allergy Unknown N/V 10/10/2016 Medications Problems [...] Ot K52.9 NONINFECTIVE GASTROENTERITIS AND COLITIS 05/13/2015 YNAG HOBSON, MARIA ELENA Ot R11.0 NAUSEA 05/21/2015 [...] IN LEFT KNEE 09/07/2015 MAHAMED HOBSON, DANDY Gallego Ot G89.29 OTHER CHRONIC PAIN 09/07/2015 MAHAMED [...] , NEY Valle Ot 782.3 09/11/2015 GIULIANA OGMES MD Ot F31.9 09/11/2015 GIULIANA GOMES MD [...] M25.562 PAIN IN LEFT KNEE 02/15/2016 MUNIR BANKS MD Ot M25.562 PAIN IN [...] MD Ot 719.46 JOINT PAIN-L/LEG 02/17/2016 NEY MOSS [...] D/T PT LV BEF SEE 02/28/2016 YANG HOBSNO, MARIA ELENA Ot G89.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 CHRONIC POSTPROCEDURAL [...] Ot F31.9 BIPOLAR DISORDER, UNSPECIFIED 05/16/2016 GIULIANA OGMES MD Ot G47.00 INSOMNIA, UNSPECIFIED 05/16/2016 GIULIANA [...] HISTORY OF OTHER SPECIFIED COND 05/27/2016 OCTAVIO CALRK MD, Ot G89.29 OTHER CHRONIC PAIN 05/27/2016 [...] Ot 401.9 HYPERTENSION NOS 05/31/2016 YANG HOBSON, MARAI ELENA Ot 780.4 DIZZINESS AND GIDDINESS 05/31/2016 [...] MD Ot G47.00 INSOMNIA, UNSPECIFIED 05/31/2016 GIULIANA GOMES MD Ot I10 ESSENTIAL (PRIMARY) HYPERTENSION 05/31/2016 GIULIANA GOMES MD, Ot M54.9 DORSALGIA, UNSPECIFIED 05/31/2016 GIULIANA GOMES MD Ot Z11.4 ENCOUNTER FOR SCREENING FOR HUMAN IMMUNO 05/31/2016 GIULIANA GOMES MD Ot Z72.51 HIGH RISK [...] P Ot R45.851 SUICIDAL IDEATIONS 05/31/2016 PILAR SOAS DO Ot R45.851 SUICIDAL IDEATIONS 05/31/2016 DANDY [...] Ot Z98.89 OTHER SPECIFIED POSTPROCEDURAL STATES 06/16/2016 MUINR BANKS MD Ot M25.562 PAIN IN LEFT [...] [place] Ot G89.29 OTHER CHRONIC PAIN 06/21/2016 PILAR SOSA DO Ot M25.561 PAIN IN RIGHT [...] Status Pt. Type Provider Facility Loc./Unit Complaint [id number] 11/17/2014 14:27:00 2014 17:15:00 DIS Emergency Louis HOBSON, Graham Deutsch [facility] W.EDS
--- OUTSIDE RECORDS SUMMARY | 2016-10-27 09:26 | XMS REPORT | Continuity of Care Document ---
Author Author [facility] LIVE HCIS Organization [facility] HCIS Address Unknown Phone Unavailable Support Name Relationship Address Phone MUNIR BANKS MD Caregiver [address] [place] [address] Insurance Providers Payer Name Policy Number Subscriber Name Relationship Medicare A And B [id number] Miguel Marroquin 18 Self / Same As Patient Blue Cross [facility] Supp [id number] Miguel Marroquin 19 Self / Same As [...] worrisome symptoms. * Emergency Department phone number: [phone], x [phone]* MEDICAL RECORD If you need copies of your X-rays, call [phone] x [phone]. If you need copies of [...] the billing parties for services. SERVICE BILLING [employer] Emergency Room Services [facility] Physician Services [facility] X-rays [facility] Patients will receive bills for services from the appropriate provider. If you have any questions about your [facility] bill, our staff will be happy to assist you. Please call [phone], and ask for the billing department. THANK YOU for choosing [facility] as your emergency care provider! Functional Status [...] Urine collection method Clean Catch Urine Specific [place] January 26, 2015 9:17am 1.010 1.005-1.030 Urine [...] Encounters Encounter Location Date/Time Departed Emergency Room [facility] 02/04/15 9:37pm Departed Emergency Room [facility] 02/01/15 9:35am Registered Clinic [facility] 01/29/15 7:24am Departed Emergency Room [facility] 01/26/15 9:03am Registered Clinic [facility] 01/26/15 8:50am Departed Emergency Room [facility] 01/25/15 5:10pm Departed Emergency Room [facility] 01/24/15 11:04pm Recent Diagnosis
--- NOTE | 2016-10-27 09:27 | NUR ---
RETURNED FROM CT
--- OUTSIDE RECORDS SUMMARY | 2016-10-27 09:27 | XMS REPORT ---
Author Author GENERATED, SYSTEM Organization Unknown Address Unknown Phone Unavailable Care Team Providers Care Cat Sitter Name Role Phone UNASSIGNED DOCTOR , DOCTOR PP [phone] Reason For Visit Chief Complaint PAIN IN [...] H (65-99 MG/DL) *GFR EST NON AFR PERUVIAN 71 ML/MIN *GFRA EST AFR AMER 82 [...]
--- OUTSIDE RECORDS SUMMARY | 2016-10-27 09:28 | XMS REPORT ---
Author Author GENERATED, SYSTEM Organization Unknown Address Unknown Phone Unavailable Care Team Providers Care Maple Syrup Maker Name Role Phone MD CARON, IVONNE PP [...]
--- OUTSIDE RECORDS SUMMARY | 2016-10-27 09:28 | XMS REPORT | Continuity of Care Document ---
Author Author [facility] LIVE Organization [facility] LIVE Address Unknown Phone Unavailable Support Name Relationship Address Phone Fara MOSS MD Caregiver [address] [place] [address] NORMAN POTTS MD Caregiver [facility] [address] [place] [phone] IVONNE REARDON Caregiver [address] [place] [address] KATE MARROQUIN Next Of Kin [address] [place] [address] Insurance Providers Payer Name Policy Number Subscriber Name Relationship Medicare [id number] Grace Marroquin 19 Self Blue Cross Select Plan 65 [id number] Grace Marroquin 19 Self Advance Directives Directive [...] F (96.8 - 99.1) Temperature (Calculated Celsius) 36.21806 degrees C (36.0 - 37.3) Temperature Source [...] Has specimen been collected/obtained? Y Urine Specific [place] June 17, 2014 10:12pm 1.010 L - [...] Report June 17, 2014 10:56pm REFERENCE LAB [id number] - Turbidity June 17, 2014 9:32pm < 20 0-20 Glomerular Filtration Rate Calc June 17, 2014 9:32pm 74 - Immature Granulocyte # (Auto) June 17, 2014 9:32pm 0.01 T/MM3 N 0.00 -0.03 Immature Granulocyte % (Auto) June 17, 2014 9:32pm 0.2 % N 0.0-0.5 Icterus Index June 17, 2014 9:32pm < 2 0-7 Name: GRACE MARROQUIN Unit #: [id number] : 1945 Sex: M Loc / Svc: ED DOS: 06/17/14 Signed Report #: [id number] DIAGNOSTIC IMAGING REPORT TYPE OF EXAM: CT [...] hemorrhage. There is a preliminary report by [employer]. . Procedures Procedure Status Date Provider(s) ROUTINE VENIPUNCTURE completed 06/17/14 CT HEAD/BRAIN W/O DYE completed 06/17/14 COMPREHEN METABOLIC PANEL completed 06/17/14 ASSAY OF SALICYLATE completed 06/17/14 URINALYSIS AUTO W/O SCOPE completed 06/17/14 ASSAY OF ACETAMINOPHEN completed 06/17/14 ASSAY THYROID STIM HORMONE completed 06/17/14 COMPLETE CBC W/AUTO DIFF WBC completed 06/17/14 EMERGENCY DEPT VISIT completed 06/17/14 [id number] ITEM OR SERVICE completed 06/17/14 [id number] ITEM OR SERVICE completed 06/17/14 DRUG SCR, UR,STAT completed 06/17/14 Esophagogastroduodenoscopy (EGD) with closed biopsy completed 08/20/14 NORMAN POTTS MD Encounters Encounter Location Date/Time Departed Emergency Room [facility] 06/17/14 9:09pm
--- OUTSIDE RECORDS SUMMARY | 2016-10-27 09:28 | XMS REPORT | Continuity of Care Document ---
Author Author [facility] LIVE HCIS Organization [facility] LIVE HCIS Address Unknown Phone Unavailable Care Team Providers Care Screw Supervisor Name Role Phone NEY MOSS MD Primary Care Physician [phone] Insurance Providers Payer Name Policy Number Subscriber Name Relationship Medicare A And B [id number] Miguel Marroquin 19 Self / Same As [...] worrisome symptoms. * Emergency Department phone number: [phone], x [phone]* MEDICAL RECORD If you need copies of your X-rays, call [phone] x [phone]. If you need copies of [...] SERVICE BILLING [employer] Emergency Room Services [facility] Physician Services [facility] X-rays [facility] Patients will receive bills for services from the appropriate provider. If you have any questions about your [facility] bill, our staff will be happy to assist you. Please call [phone], and ask for the billing department. THANK YOU for choosing [facility] as your emergency care provider! Functional Status [...] Urine collection method Clean Catch Urine Specific [place] January 26, 2015 9:17am 1.010 1.005-1.030 Urine [...] Encounters Encounter Location Date/Time Departed Emergency Room [facility] 02/13/15 3:39am Departed Emergency Room [facility] 02/06/15 8:14pm Departed Emergency Room [facility] 02/04/15 9:37pm Departed Emergency Room [facility] 02/01/15 9:35am Registered Clinic [facility] 01/29/15 7:24am Departed Emergency Room [facility] 01/26/15 9:03am Registered Clinic [facility] 01/26/15 8:50am Departed Emergency Room [facility] 01/25/15 5:10pm Departed Emergency Room [facility] 01/24/15 11:04pm Recent Diagnosis
[2016-10-27 09:29] LABS: BASOPHILS % (AUTO) 0.4 % (0-2); EOSINOPHILS # (AUTO) 0.1 T/MM3 (0-0.5); EOSINOPHILS % (AUTO) 2.7 % (0-4); HCT - HEMATOCRIT 43.9 % (41-53); HGB - HEMOGLOBIN 14.7 GM/DL (13.5-17.5); IMMATURE GRANULOCYTE # (AUTO) 0.01 T/MM3 (0.00-0.03); IMMATURE GRANULOCYTE % (AUTO) 0.2 % (0.0-0.5); LYMPHOCYTES # (AUTO) 1.7 T/MM3 (1-4.8); LYMPHOCYTES % (AUTO) 31.3 % (23-45); MEAN CORPUSCULAR HGB 29.7 UUG (26-34); MEAN CORPUSCULAR HGB CONC(MCHC 33.5 GM/DL (31-37); MEAN CORPUSCULAR VOLUME 88.7 UM3 (80-100); MEAN PLATELET VOLUME 10.5 UM3 (9.4-12.4); MONOCYTES # (AUTO) 0.5 T/MM3 (0-0.8); MONOCYTES % (AUTO) 9.5 % (0-9.0); NEUTROPHILS % (AUTO) 55.9 % (33-66); RED BLOOD COUNT 4.95 M/MM3 (4.50-5.90); WBC - WHITE BLOOD COUNT 5.3 T/MM3 (4.5-11.0)
--- OUTSIDE RECORDS SUMMARY | 2016-10-27 09:29 | XMS REPORT ---
Author Author GENERATED, SYSTEM Organization Unknown Address Unknown Phone Unavailable Care Team Providers Care Doctor Of Nurse Anesthesia Practice Name Role Phone UNASSIGNED DOCTOR , DOCTOR PP [phone] Reason For Visit Chief Complaint PT LEFT [...]
--- OUTSIDE RECORDS SUMMARY | 2016-10-27 09:29 | XMS REPORT | Continuity of Care Document ---
Author Author [facility] LIVE HCIS Organization [facility] LIVE HCIS Address Unknown Phone Unavailable Support Name Relationship Address Phone JUAN MANUEL PARISH MD Caregiver [address] [place] [address] Insurance Providers Payer Name Policy Number Subscriber Name Relationship Medicare A And B [id number] Miguel Marroquin 19 Self / Same As Patient Blue Cross [facility] Supp [id number] Miguel Marroquin 19 Self / Same As [...] worrisome symptoms. * Emergency Department phone number: [phone], x [phone]* MEDICAL RECORD If you need copies of your X-rays, call [phone] x [phone]. If you need copies of [...] Hospital Physician Services [facility] X-rays [place] [facility] Patients will receive bills for services from the appropriate provider. If you have any questions about your [facility] bill, our staff will be happy to assist you. Please call [phone], and ask for the billing department. THANK [...] Urine collection method Clean Catch Urine Specific [place] January 26, 2015 9:17am 1.010 1.005-1.030 Urine [...] Encounters Encounter Location Date/Time Registered Emergency Room [facility] 02/01/15 9:35am Registered Clinic [facility] 01/29/15 7:24am Departed Emergency Room [facility] 01/26/15 9:03am Registered Clinic [facility] 01/26/15 8:50am Departed Emergency Room [facility] 01/25/15 5:10pm Departed Emergency Room [facility] 01/24/15 11:04pm Departed Emergency Room [facility] 01/02/15 8:52pm Recent Diagnosis
--- OUTSIDE RECORDS SUMMARY | 2016-10-27 09:29 | XMS REPORT ---
Author Author GENERATED, SYSTEM Organization Unknown Address Unknown Phone Unavailable Care Team Providers Care Light Bulb Assembler Name Role Phone UNASSIGNED DOCTOR , DOCTOR PP [phone] Reason For Visit Reason for Visit from [...] the responsibility of the patient or patient sales service representative to confirm the list of [...]
--- OUTSIDE RECORDS SUMMARY | 2016-10-27 09:29 | XMS REPORT | Continuity of Care Document ---
Author Author [facility] LIVE HCIS Organization [facility] LIVE HCIS Address Unknown Phone Unavailable Support Name Relationship Address Phone MUNIR BANKS MD Caregiver [address] [place] [address] KATE MARROQUIN Next Of Kin [address] [place] [address] Insurance Providers Payer Name Policy Number Subscriber Name Relationship Medicare A And B [id number] Miguel Marroquin 19 Self / Same As Patient Blue Cross [facility] Supp [id number] Miguel Marroquin 19 Self / Same As [...] worrisome symptoms. * Emergency Department phone number: [phone], x [phone]* MEDICAL RECORD If you need copies of your X-rays, call [phone] x [phone]. If you need copies of [...] services. SERVICE BILLING LIBERTARIAN Emergency Room Services [facility] Physician Services [facility] X-rays [facility] Patients will receive bills for services from the appropriate provider. If you have any questions about your [facility] bill, our staff will be happy to assist you. Please call [phone], and ask for the billing department. THANK YOU for choosing [facility] as your emergency care provider! Functional Status [...] Urine collection method Clean Catch Urine Specific [place] June 01, 2014 10:15pm 1.025 1.005-1.030 Urine [...] Encounters Encounter Location Date/Time Departed Emergency Room [facility] 01/02/15 8:52pm Recent Diagnosis
--- OUTSIDE RECORDS SUMMARY | 2016-10-27 09:29 | XMS REPORT ---
Author Author GENERATED, SYSTEM Organization Unknown Address Unknown Phone Unavailable Care Team Providers Care Chair Maker Name Role Phone UNASSIGNED DOCTOR , DOCTOR PP [phone] Reason For Visit Reason for Visit from [...] 03/01/2016 1:20 PM:* #1 Office appointment: : [facility] Intake * Address # 1 : [facility]: [address], [address], [place], [place] - Procedures No relevant procedures performed. [...] responsibility of the patient or patient sales representative printing supplies to confirm the list of medications with [...] tablet oral twice a day * HYDROcodone-acetaminophen (Hettinger) 5 mg-325 mg Tablet Directions: 1 tablet oral every six hours PRN pain * tamulosin 1 po daily
[2016-10-27 09:32] LABS: BLOOD, URINE TRACE-INTACT (NEGATIVE); COLOR,URINE YELLOW (YELLOW); LEUKOCYTE ESTERASE ,URINE NEGATIVE (NEGATIVE); NITRITE,URINE NEGATIVE (NEGATIVE); UROBILINOGEN,URINE 0.2 EU/DL (NORMAL)
[2016-10-27 09:37] LABS: ALBUMIN/GLOBULIN RATIO 1.3 RATIO (1.1-2.2); ALKALINE PHOSPHATASE 170 U/L (38-126); ALT (SGPT) 29 U/L (21-72); ANION GAP 15 MEQ/L (5-15); AST (SGOT) 33 U/L (17-59); BUN/CREATININE RATIO 24 RATIO (6-26); CALCIUM 9.4 MG/DL (8.4-10.2); CHLORIDE 108 MEQ/L (98-107); CO2 - CARBON DIOXIDE 25 MEQ/L (22-30); CREATININE 0.7 MG/DL (0.8-1.5); GLOMERULAR FILTRATION RATE 111; GLUCOSE 111 MG/DL (75-110); LIPASE 162 U/L (23-300); POTASSIUM 3.9 MEQ/L (3.6-5); SODIUM 148 MEQ/L (134-144); TOTAL PROTEIN 7.1 G/DL (6.3-8.2)
--- NOTE | 2016-10-27 09:44 | DI ---
Indication: ITS.REASON: Upper abdominal pain for two days PROCEDURE: CT ABD/PELVIS W/O CONTRAST: Encounter: Initial Comparison: None Technique: Axial CT images were performed through the abdomen and pelvis without intravenous contrast. Coronal and sagittal two-dimensional reformats. Automated Exposure Control and Iterative Reconstruction dose reducing techniques were utilized. Findings: 4 mm right lower lobe pulmonary nodule on image #4 appears noncalcified but does not require specific imaging follow-up. Lung bases are otherwise clear. The unenhanced contours of the liver show multiple probable cysts but no contour deforming mass or obvious bile duct dilatation. The gallbladder is surgically absent. Granuloma in the spleen which is otherwise normal. The pancreas and adrenal glands are normal. Bilateral renal cysts with a slightly higher than normal fluid attenuation lesion arising from the lower pole of the left kidney measuring 2 cm in diameter with an attenuation value of 38 Hounsfield units. Additional smaller low-attenuation lesion arising from the superior pole of the left kidney, too small to definitively characterize. Scattered atherosclerotic plaque in the abdominal aorta and its major branches. No gross abdominal or pelvic lymphadenopathy. Bladder is normal. Prostate is mildly enlarged. No free fluid. Sigmoid diverticulosis without evidence of acute diverticulitis. No bowel obstruction. The appendix is normal. No obvious renal or ureteral stones. Bone windows show degenerative and postoperative changes in the lumbar spine. Impression: 1. No acute disease process seen in the abdomen or pelvis. 2. Indeterminate left renal lesion. Recommend further evaluation with renal ultrasound which can be performed on a nonemergent basis. .
--- NOTE | 2016-10-27 10:00 | NUR ---
STATUS PATIENT RESTING IN ROOM WITH EYES CLOSED
--- NOTE | 2016-10-27 10:18 | ERPDOC ---
Departure Disposition Decision Date: Oct 27, 2016 Disposition Decision Time: 10:19 Disposition: 01 DISCHARGED HOME, SELF-CARE Impression Impression Impression: Primary Impression: Gastritis Additional Impression: Abdominal pain Severity: Moderate Condition: Stable Referrals: OTHER (Family) Patient Instructions: Abdominal Pain (ED) Problems/Meds/Labs Reviewed?: Yes Medications reviewed and manag: Yes Additional Instructions: Carafate 1 g before meals and at bedtime. Zantac 150 milligram tablet twice daily. Please follow up with her primary care provider. Follow up care ordered?: Yes Mental Status: Alert, Oriented Scripts Ranitidine HCl (Zantac) 150 Mg Tablet 150 MG PO BID for ACID REFLUX, #60 TAB Take 1 tablet, by mouth, 2 times a day. Prov: LURDES VIVAR MD 10/27/16 Sucralfate (Carafate) 1 Gm/10 Ml Oral.susp 1 G PO ACHS, #60 ML Prov: LURDES VIVAR MD 10/27/16 HPI - Abdominal Pain General Chief Complaint: Abdominal Pain Stated Complaint: ABD PAIN Time Seen by Provider: 08:59 HPI - Abdominal Pain Initial Comments 71-year-old gentleman presents with abdominal pain. He has had this for a couple days now. He has tried taking Motrin which did not help, tried drinking a bunch of Maalox which did not help. He continues to drink coffee, does drink alcohol. Does not smoke. He did have a EGD previously which showed ulcer. No fevers or chills Allergies: Coded Allergies: asenapine (Verified Allergy, Unknown, 04/12/16) gabapentin (Verified Allergy, Unknown, 04/12/16) lurasidone (Verified Allergy, Unknown, 04/12/16) quetiapine (Verified Allergy, Unknown, 04/12/16) ziprasidone (Verified Allergy, Unknown, 04/12/16) Past History Past Medical History Metabolic: hypertension GI: GERD Musculoskeletal: back pain Psychological: bipolar Surgical History General: gallbladder Vaccines Hx Influenza Vaccination: No Social History Does patient use chewing tobac: No Second Hand Exposure: No Substance Use Type: does not use Alcohol Intake: none Review of Systems GI Upper Abdomen: see HPI Lower Abdomen: see HPI All other Systems All Other Systems: Reviewed and Negative Physical Exam General General Nourishment: well nourished, well developed General Body Habitus: well groomed Vitals and Pain First Documented Vital Signs Date Time Temp Pulse Resp B/P Pulse Ox O2 Delivery O2 Flow Rate FiO2 10/27/16 08:27 97.2 81 18 159/96 96 Room Air Weight: Kilograms: 78.600 Height (feet): 5 Height (inches): 9.00 Triage Pain Scale: Normal Exams: Head: Normocephalic w/o trauma ENMT: No facial trauma, nasal exudates, pharyngeal erythema, or exudates are noted Chest/Resp: Clear all doty, with good airflow, and symmetry bilaterally CV: Regular rate and rhythm, without murmur or gallop, Pulses 2+ all extremities, capillary refill, <2 seconds all ext., no pedal edema noted Neurologic: Patient is alert, and oriented, cranial nerves, motor/sensory/ cerebellar, exams w/o gross deficits, to observation Psychiatric: Patient exhibits, appropriate attention, emotion and affect Abdomen (brief) Comments Diffusely tender, slightly distended, no masses palpable. No specific point tenderness noted Differential Diagnoses Considering: Biliary Colic, Bowel Obstruction, Gastroenteritis, GI Bleed, Ileus , Pancreatitis Progress Results/Orders Orders Procedure Category Date Status Time Iv Lock (Ed Only) EDM 10/27/16 Transmitted 08:59 Nothing By Mouth (Ed EDM 10/27/16 Transmitted Only) 08:59 Cbc W/Auto LAB 10/27/16 Complete Diff-Reflex Manual 08:59 Cmp - Comprehensive LAB 10/27/16 Complete Metabolic 08:59 Lipase LAB 10/27/16 Complete 08:59 Ua, Dip Wreflex LAB 10/27/16 Complete Microsc & Acoustical Tile Carpenters Supervisor 08:59 Ct Abd/Pelvis W/O CT 10/27/16 Resulted Contrast 08:59 Normal Saline (Normal PHA 10/27/16 In Process Saline Iv) 08:59 Lab Results Laboratory Tests Test 10/27/16 09:15 White Blood Count 5.3T/MM3 Red Blood Count 4.95M/MM3 Hemoglobin 14.7GM/DL Hematocrit 43.9% Mean Corpuscular Volume 88.7UM3 Mean Corpuscular Hemoglobin 29.7UUG Mean Corpuscular Hemoglobin Concent 33.5GM/DL RDW Standard Deviation 43.1FL Platelet Count 219T/MM3 Mean Platelet Volume 10.5UM3 Immature Granulocyte % (Auto) 0.2% Neutrophils (%) (Auto) 55.9% Lymphocytes (%) (Auto) 31.3% Monocytes (%) (Auto) 9.5% Eosinophils (%) (Auto) 2.7% Basophils (%) (Auto) 0.4% Absolute Immature Granulocyte (auto 0.01T/MM3 Absolute Neutrophils (auto) 3.0T/MM3 Absolute Lymphocytes (auto) 1.7T/MM3 Absolute Monocytes (auto) 0.5T/MM3 Absolute Eosinophils (auto) 0.1T/MM3 Absolute Basophils (auto) 0.0T/MM3 Urine Collection Type Voided-not cc-midstr Urine Color Yellow Urine Turbidity Clear Urine pH 5.5 Urine Specific [place] 1.010 Urine Protein Negative Urine Glucose (UA) Negative Urine Ketones Negative Urine Blood Trace-intact Urine Nitrite Negative Urine Bilirubin Negative Urine Urobilinogen 0.2EU/DL Urine Leukocyte Esterase Negative Urinalysis Comment Microscopic not ind. Turbidity < 20 Sodium Level 148MEQ/L Potassium Level 3.9MEQ/L Chloride Level 108MEQ/L Carbon Dioxide Level 25MEQ/L Anion Gap 15MEQ/L Blood Urea Nitrogen 17.0MG/DL Creatinine 0.7MG/DL Glomerular Filtration Rate Calc 111 BUN/Creatinine Ratio 24RATIO Glucose Level 111MG/DL Calculated Osmolality 287MOSM/KG Calcium Level 9.4MG/DL Total Bilirubin 1.20MG/DL Icterus Index < 2 Aspartate Amino Transf (AST/SGOT) 33U/L Alanine Aminotransferase (ALT/SGPT) 29U/L Alkaline Phosphatase 170U/L Total Protein 7.1G/DL Albumin 4.0G/DL Globulin 3.1G/DL Albumin/Globulin Ratio 1.3RATIO Lipase 162U/L Chemistry Specimen Hemolysis 21 Medications Current ED Medications Sodium Chloride (Normal Saline IV) 1,000 ml @ 250 mls/hr Q4H ONCE IV Last administered on 10/27/16t 09:50; Start 10/27/16 at 08:59; Stop 10/27/16 at 12:58 Progress Progress No acute etiology identified. Patient likely has gastritis. I would like started on Carafate 1 g before meals and at bedtime, continue with an acid glenn like Zantac 150 milligrams twice a day and have him follow-up with his primary care provider. Would consider a motility agent like Reglan for short- term, but will leave that up to the PCP. If pain worsens would like him to come back so that in the event we miss something we can pick it up. LURDES VIAVR MD Oct 27, 2016 10:18
[2016-10-27] MEDS ORDERED: RANI150T12 PO (10:24)
[2016-10-27] MEDS ORDERED: SUCR1ORA3 PO (10:24)
[2016-10-27 10:35] VITALS: BP 147/72; PULSE 80; RESP 18; TEMP 97.2; O2SAT 97
== END 2016-10-27 10:35 | disposition home or self-care (01) ==
LOC: ED 08:22
DX: K29.70 Gastritis, unspecified, without bleeding (principal)
CPT/HCPCS: 74176; 80053; 81003; 83690; 85025; 96360; 99284; J7030

== ENCOUNTER 2016-10-27 23:37 | Inpatient (IN) | payer MEDICARE ==
[~2016-10-27] VITALS: Ht 168.9 cm; Wt 77.0 kg
--- NOTE | 2016-10-27 01:40 | NUR ---
admission note Pt is a 71 year old male patient in the ER, pt transported by wheelchair by ER nurse with belongings, transferred into room 189, pt came from his own apartment that he has been at for 1 week. Pt needs stand by assist with transfers, pt left leg limps, pt is alert and oriented x3, pt agreeable to sign himself in to generations. Pt is clean and in a hospital gown with shorts on. Pt has a old scar lower back healed, no drainage noted. No bruising noted. Pt does wear glasses, pt has 4 wrist watches on, pt has 2 rings on, pt did agree to remove earring. Pt inventory done, pt wallet, pocket watch, coins locked in nurse room service server at the nurses station. Pt admitted for suicidal ideation level II, pt is on constant observation 1:1 for safety, pt is in bed with 2 bed rails up and bed alarm on. Pt states that he got out of custodial on October 06 after 60 days, pt called his cousin and wanted his belongings back: lap top, clothing. Pt cousin refused to answer his call. Pt states "I got pissed off and called my friend and told him I was going to slip my throat, drink bleach, take Tylenol and Aleve." Pt states he still feels suicidal and would go home and slit his throat. Pt cooperative with assessment, vitals, and questions. Pt slum score 29. Addendum: 10/28/16 at 0739 by STEVEN HARRISON RN pt charting should be 10/28/16 at 01:20
[~2016-10-27 23:37] MED LIST changes: +ACET-62 PO; +NAPR220T61 PO; +RANI150T12 PO; +RISP1TAB27 PO; +SUCR1ORA3 PO
--- NOTE | 2016-10-27 23:41 | NUR ---
PROVIDER DR DAVIS IN ROOM TO SEE PT
--- OUTSIDE RECORDS SUMMARY | 2016-10-27 23:41 | XMS REPORT ---
Author Author GENERATED, SYSTEM Organization Unknown Address Unknown Phone Unavailable Care Team Providers Care Library Media Assistant Name Role Phone MD CARON, IVONNE PP [...]
--- OUTSIDE RECORDS SUMMARY | 2016-10-27 23:42 | XMS REPORT | Continuity of Care Document ---
Author Author [facility] Organization [facility] Address Unknown Phone Unavailable Support Name Relationship Address Phone LURDES VIVAR MD Caregiver [address] [place] [address] Unavailable OTHER Caregiver Unknown Unavailable VERITO COLES Next Of Kin [address] [place] [address] Insurance Providers Guarantor Grace Marroquin Address [address] [address] [place] [address] Email DENIED 10-27-16 Payer Medicare Policy Number [id number] Subscriber's Name Grace Marroquin Relationship 18 Self Advance Directives Directive Response Recorded Date/Time Advanced Directives Type None 10/27/16 8:27am Chief Complaint and Reason for Visit Chief Complaint Abdominal Pain Reason for Visit Gastritis Abdominal pain Problems Active Problems Medical Problem Onset Date Status Cellulitis Unknown Acute Cellulitis Unknown Acute Esophagitis Unknown Acute Exacerbation of chronic back pain Unknown Acute Nausea & vomiting Unknown Acute Nausea & vomiting Unknown Acute Nausea & vomiting Unknown Acute Opioid dependence Unknown Chronic Shingles Unknown Acute Shingles Unknown Acute Past Problems Medical Problem Onset Date Abdominal pain Unknown Chronic back pain Unknown Gastritis Unknown Narcotic dependence Unknown Medications Current Home Medications Medication Dose Units Route Directions Days Qty Instructions Start Date Acetaminophen 500 Mg Tablet 1,000 Mg Oral Every 8 Hours as needed for Pain 10/27/16 Naproxen Sodium (Aleve) 220 Mg Tablet 440 Mg Oral Twice Daily With Meals as needed for Pain 10/27/16 Ranitidine Hcl (Zantac) 150 Mg Tablet 150 Mg Oral Twice A Day for Acid Reflux 60 Tablet Take 1 tablet, by mouth, 2 times a day. 10/27/16 Risperidone 1 Mg Tablet 1 Mg Oral Twice A Day as needed for Prn Orders 10/27/16 Sucralfate (Carafate) 1 Gm/10 Ml Oral.susp 1 G Oral Before Meals And At Bedtime 60 Milliliter 10/27/16 Social History Social History Problem Response Recorded Date/Time Onset Date Status Hx Substance Use No 10/27/2016 8:27am Not Applicable Not Applicable Hx Alcohol Use N DAILY- REPORTS 1 SHOT WHISKEY ALMOST EVERY DAY 10/27/2016 8: 27am Not Applicable Not Applicable Has the pt used tobacco in the last 12 months No 08/20/2014 7:13am Not Applicable Not Applicable Tobacco Usage none 06/23/2014 4:09am Not Applicable Not Applicable Query Response Start Date Stop Date Smoking Status Light Smoker Hospital Discharge Instructions No hospital discharge instructions. Plan of Care Discharge Date 10/27/16 10:35am Disposition 01 DISCHARGED HOME, SELF-CARE Condition at Discharge Stable Instructions/Education Provided Abdominal Pain (ED) Prescriptions See Medication Section Referrals OTHER Additional Instructions/Education Carafate 1 g before meals and at bedtime. Zantac 150 milligram tablet twice daily. Please follow up with her primary care provider. Functional Status No functional status results. Allergies, [...] No 02/05/15 9:00am Influenza Vaccine Hx NONE 10/27/16 8:27am Vital Signs Acute Vital Signs Vital Response Date/Time Temperature (Fahrenheit) 97.2 deg F (96.8 - 99.1) 10/27/2016 10:35am Temperature (Calculated Celsius) 36.18956 degrees C (36.0 - 37.3) 10/27/2016 10:35am Pulse Rate (adult) 80 bpm (60 - 100) 10/27/2016 10:35am Respiratory Rate 18 breaths/min (10 - 20) 10/27/2016 10:35am O2 Sat by Pulse Oximetry 97 % (90 - 100) 10/27/2016 10:35am Blood Pressure 147/72 mm Hg 10/27/2016 10:35am Height (Feet) 5 feet 10/27/2016 8:27am Height (Inches) 9.00 inches 10/27/2016 8:27am Weight (Kilograms) 78.600 kg 10/27/2016 8:27am Height 5 ft 9 in 10/27/2016 8:27am Weight 173.28 lb 10/27/2016 8:27am Body Mass Index 25.0 kg/m^2 10/27/2016 8:27am Results Laboratory Results Test Name Result Units Flags Reference Collection Date/Time Result Date/ Time Comments White Blood Count 5.3 T/MM3 4.5-11.0 10/27/2016 9:1510/27/2016 9: 29am Red Blood Count 4.95 M/MM3 4.50-5.90 10/27/2016 9:1510/27/2016 9: 29am Hemoglobin 14.7 GM/DL 13.5-17.5 10/27/2016 9:10/27/2016 9:29am Hematocrit 43.9 % 41-53 10/27/2016 9:10/27/2016 9:29am Mean Corpuscular Volume 88.7 UM3 80-100 10/27/2016 9:10/27/2016 9: 29am Mean Corpuscular Hemoglobin 29.7 UUG 26-34 10/27/2016 9:2016 9:29am Mean Corpuscular Hemoglobin Concent 33.5 GM/DL 31-37 10/27/2016 9:10/27/2016 9:29am RDW Standard Deviation 43.1 FL 36.9-50.2 10/27/2016 9:10/27/2016 9 :29am Platelet Count 219 T/MM3 130-400 10/27/2016 9:10/27/2016 9:29am Mean Platelet Volume 10.5 UM3 9.4-12.4 10/27/2016 9:10/27/2016 9: 29am Neutrophils (%) (Auto) 55.9 % 33-66 10/27/2016 9:10/27/2016 9: 29am Lymphocytes (%) (Auto) 31.3 % 23-45 10/27/2016 9:10/27/2016 9: 29am Monocytes (%) (Auto) 9.5 % H 0-9.0 10/27/2016 9:10/27/2016 9:29am Eosinophils (%) (Auto) 2.7 % 0-4 10/27/2016 9:10/27/2016 9:29am Basophils (%) (Auto) 0.4 % 0-2 10/27/2016 9:10/27/2016 9:29am Immature Granulocyte % (Auto) 0.2 % 0.0-0.5 10/27/2016 9:2016 9:29am Absolute Neutrophils (auto) 3.0 T/MM3 1.8-7.7 10/27/2016 9:2016 9:29am Absolute Lymphocytes (auto) 1.7 T/MM3 1-4.8 10/27/2016 9:2016 9:29am Absolute Monocytes (auto) 0.5 T/MM3 0-0.8 10/27/2016 9:10/27/2016 9:29am Absolute Eosinophils (auto) 0.1 T/MM3 0-0.5 10/27/2016 9:2016 9:29am Absolute Basophils (auto) 0.0 T/MM3 0-0.2 10/27/2016 9:10/27/2016 9:29am Absolute Immature Granulocyte (auto 0.01 T/MM3 0.00-0.03 10/27/2016 9: 10/27/2016 9:29am Icterus Index < 2 0-7 10/27/2016 9:10/27/2016 9:37am Chemistry Specimen Hemolysis 21 0-25 10/27/2016 9:10/27/2016 9: 37am 0-25: Specimen Exhibited No Hemolysis. Turbidity < 20 0-20 10/27/2016 9:10/27/2016 9:37am Sodium Level 148 MEQ/L H 134-144 10/27/2016 9:10/27/2016 9:37am Potassium Level 3.9 MEQ/L 3.6-5 10/27/2016 9:10/27/2016 9:37am Chloride Level 108 MEQ/L H 98-107 10/27/2016 9:1510/27/2016 9:37am Carbon Dioxide Level 25 MEQ/L 22-30 10/27/2016 9:10/27/2016 9: 37am Anion Gap 15 MEQ/L 5-15 10/27/2016 9:10/27/2016 9:37am Blood Urea Nitrogen 17.0 MG/DL 9-20 10/27/2016 9:10/27/2016 9: 37am Creatinine 0.7 MG/DL L 0.8-1.5 10/27/2016 9:10/27/2016 9:37am BUN/Creatinine Ratio 24 RATIO 6-26 10/27/2016 9:10/27/2016 9:37am Glomerular Filtration Rate Calc 111 10/27/2016 9:10/27/2016 9: 37am Glucose Level 111 MG/DL H 75-110 10/27/2016 9:10/27/2016 9:37am Calculated Osmolality 287 MOSM/KG H 261-280 10/27/2016 9:2016 9:37am Calcium Level 9.4 MG/DL 8.4-10.2 10/27/2016 9:10/27/2016 9:37am Total Bilirubin 1.20 MG/DL 0.20-1.30 10/27/2016 9:10/27/2016 9: 37am Alkaline Phosphatase 170 U/L H 38-126 10/27/2016 9:10/27/2016 9: 37am Total Protein 7.1 G/DL 6.3-8.2 10/27/2016 9:10/27/2016 9:37am Albumin 4.0 G/DL 3.5-5.0 10/27/2016 9:10/27/2016 9:37am Globulin 3.1 G/DL 2.4-3.6 10/27/2016 9:10/27/2016 9:37am Albumin/Globulin Ratio 1.3 RATIO 1.1-2.2 10/27/2016 9:10/27/2016 9 :37am Aspartate Amino Transf (AST/SGOT) 33 U/L 17-59 10/27/2016 9:2016 9:37am Alanine Aminotransferase (ALT/SGPT) 29 U/L 21-72 10/27/2016 9: 9:37am Lipase 162 U/L 23-300 10/27/2016 9:10/27/2016 9:37am Urine Collection Type VOIDED-NOT CC-MIDSTR 10/27/2016 9:152016 9:32am Urine Color YELLOW YELLOW 10/27/2016 9:1510/27/2016 9:32am Urine Turbidity CLEAR CLEAR 10/27/2016 9:1510/27/2016 9:32am Urine Specific [place] 1.010 L 1.015-1.025 10/27/2016 9:152016 9:32am Urine pH 5.5 5.0-8.0 10/27/2016 9:1510/27/2016 9:32am Urine Leukocyte Esterase NEGATIVE NEGATIVE 10/27/2016 9:152016 9:32am Urine Nitrite NEGATIVE NEGATIVE 10/27/2016 9:1510/27/2016 9:32am Urine Protein NEGATIVE NEGATIVE 10/27/2016 9:15am 10/27/2016 9:32am Urine Glucose (UA) NEGATIVE NEGATIVE 10/27/2016 9:1510/27/2016 9: 32am Urine Ketones NEGATIVE NEGATIVE 10/27/2016 9:1510/27/2016 9:32am Urine Urobilinogen 0.2 EU/DL NORMAL 10/27/2016 9:1510/27/2016 9: 32am Urine Bilirubin NEGATIVE NEGATIVE 10/27/2016 9:1510/27/2016 9: 32am Urine Blood TRACE-INTACT A NEGATIVE 10/27/2016 9:1510/27/2016 9: 32am Urinalysis Comment MICROSCOPIC NOT IND. 10/27/2016 9:152016 9:32am Name: GRACE MARROQUIN Unit #: [id number] : [id number] Sex: M Admit Date: Loc / Svc: ED Discharge Date: DIAGNOSTIC IMAGING REPORT Report #: [id number] [facility] KARY Obrien Indication: ITS.REASON: Upper abdominal pain for two days PROCEDURE: CT ABD/PELVIS W/O CONTRAST: Encounter: Initial Comparison: None Technique: Axial CT images were performed through the abdomen and pelvis without intravenous contrast. Coronal and sagittal two-dimensional reformats. Automated Exposure Control and Iterative Reconstruction dose reducing techniques were utilized. Findings: 4 mm right lower lobe pulmonary nodule on image #4 appears noncalcified but does not require specific imaging follow-up. Lung bases are otherwise clear. The unenhanced contours of the liver show multiple probable cysts but no contour deforming mass or obvious bile duct dilatation. The gallbladder is surgically absent. Granuloma in the spleen which is otherwise normal. The pancreas and adrenal glands are normal. Bilateral renal cysts with a slightly higher than normal fluid attenuation lesion arising from the lower pole of the left kidney measuring 2 cm in diameter with an attenuation value of 38 Hounsfield units. Additional smaller low-attenuation lesion arising from the superior pole of the left kidney, too small to definitively characterize. Scattered atherosclerotic plaque in the abdominal aorta and its major branches. No gross abdominal or pelvic lymphadenopathy. Bladder is normal. Prostate is mildly enlarged. No free fluid. Sigmoid diverticulosis without evidence of acute diverticulitis. No bowel obstruction. The appendix is normal. No obvious renal or ureteral stones. Bone windows show degenerative and postoperative changes in the lumbar spine. Impression: 1. No acute disease process seen in the abdomen or pelvis. 2. Indeterminate left renal lesion. Recommend further evaluation with renal ultrasound which can be performed on a nonemergent basis. . Procedures No known history of procedures. Encounters Encounter Location Arrival/Admit Date Discharge/Depart Date Attending Provider Departed Emergency Room [facility] 10/27/16 8:22am 10/27/16 10: 35am LURDES VIVAR MD Recent Diagnosis
--- OUTSIDE RECORDS SUMMARY | 2016-10-27 23:43 | XMS REPORT ---
Author Author [facility] Organization Unknown Address Unknown Phone Unavailable Care Team Providers Care Sterile Processing Technician Name Role Phone UNASSIGNED DOCTOR , DOCTOR PP [phone] Reason For Visit Reason for Visit from [...] the responsibility of the patient or patient loan servicing representative to confirm the list of medications [...]
--- OUTSIDE RECORDS SUMMARY | 2016-10-27 23:43 | XMS REPORT ---
Author Author [facility] Organization Unknown Address Unknown Phone Unavailable Care Team Providers Care Booster Plant Operator Name Role Phone UNASSIGNED DOCTOR , DOCTOR PP [phone] Reason For Visit Reason for Visit from [...] 8:00 AM * Address # 1 : [phone] * #2 Office appointment: : Randa Grider PV * #2 Date/Time : 04/17/2016 9:15 AM * Address # 2 : [phone] Procedures No relevant procedures performed. Immunizations No [...] the responsibility of the patient or patient cordage sales representative to confirm the list of [...]
--- OUTSIDE RECORDS SUMMARY | 2016-10-27 23:43 | XMS REPORT | Continuity of Care Document ---
Author Author [facility] Organization [facility] Address Unknown Phone Unavailable Support Name Relationship Address Phone MUNIR BANKS MD Caregiver [address] [place] [address] Insurance Providers Payer Name Policy Number Subscriber Name Relationship Medicare A And B [id number] Miguel Marroquin 18 Self / Same As Patient Blue Cross [facility] Supp [id number] Miguel Marroquin 19 Self / Same As [...] worrisome symptoms. * Emergency Department phone number: [phone], x [phone]* MEDICAL RECORD If you need copies of your X-rays, call [phone] x [phone]. If you need copies of [...] SERVICE BILLING [employer] [facility] Emergency Room Services [facility] Physician Services [facility] X[facility] [place] [facility] Patients will receive bills for services from the appropriate provider. If you have any questions about your [facility] bill, our staff will be happy to assist you. Please call [phone], and ask for the billing department. THANK YOU for choosing [facility] as your emergency care provider! Functional Status [...] Urine collection method Clean Catch Urine Specific [place] January 26, 2015 9:17am 1.010 1.005-1.030 Urine [...] Encounters Encounter Location Date/Time Departed Emergency Room [facility] 02/06/15 8:14pm Departed Emergency Room [facility] 02/04/15 9:37pm Departed Emergency Room [facility] 02/01/15 9:35am Registered Clinic [facility] 01/29/15 7:24am Departed Emergency Room [facility] 01/26/15 9:03am Registered Clinic [facility] 01/26/15 8:50am Departed Emergency Room [facility] 01/25/15 5:10pm Departed Emergency Room [facility] 01/24/15 11:04pm Recent Diagnosis
--- OUTSIDE RECORDS SUMMARY | 2016-10-27 23:44 | XMS REPORT ---
Author Author [facility] Organization Unknown Address Unknown Phone Unavailable Care Team Providers Care Soda Column Operator Name Role Phone MD CARON, IVONNE PP [...] MG/DL (65-99 MG/DL) *GFR EST NON AFR BELGIAN 89 ML/MIN *GFRA EST AFR AMER >90 [...] AM* Status: Final Result URINALYSIS Specimen Number: [id number] Sample Collection Date/Time: 06/07/2015 3:20 AM Specimen [...]
--- OUTSIDE RECORDS SUMMARY | 2016-10-27 23:45 | XMS REPORT | Continuity of Care Document ---
Author Author [facility] Organization [facility] Address Unknown Phone Unavailable Care Team Providers Care Chief Transfer And Pumphouse Operator Name Role Phone NEY MOSS MD Primary Care Physician [phone] Insurance Providers Payer Name Policy Number Subscriber Name Relationship Medicare A And B [id number] Grace Marroquin 18 Self / Same As Patient Chief Complaint and Reason for Visit Chief Complaint Pain Reason for Visit [id number] Back pain Problems Medical Problems Problem Onset [...] Keep your follow up appointments with your [place] counselor and rehabilitation caseworker. Some of your test results may not [...] worrisome symptoms. * Emergency Department phone number: [phone], x [phone]* MEDICAL RECORD If you need copies of your X-rays, call [phone] x [phone]. If you need copies of [...] SERVICE BILLING [employer] Emergency Room Services [facility] Physician Services [facility] X-rays [place] [facility] Patients will receive bills for services from the appropriate provider. If you have any questions about your [facility] bill, our staff will be happy to assist you. Please call [phone], and ask for the billing department. THANK YOU for choosing [facility] as your emergency care provider! Functional [...] Urine collection method Clean Catch Urine Specific [place] January 26, 2015 9:17am 1.010 1.005-1.030 Urine [...] Encounters Encounter Location Date/Time Departed Emergency Room [facility] 02/17/15 10:25am Registered Clinic [facility] 02/17/15 10:20am Departed Emergency Room [facility] 02/13/15 3:39am Departed Emergency Room [facility] 02/06/15 8:14pm Departed Emergency Room [facility] 02/04/15 9:37pm Departed Emergency Room [facility] 02/01/15 9:35am Registered Clinic [facility] 01/29/15 7:24am Departed Emergency Room [facility] 01/26/15 9:03am Registered Clinic [facility] 01/26/15 8:50am Departed Emergency Room [facility] 01/25/15 5:10pm Departed Emergency Room [facility] 01/24/15 11:04pm Recent Diagnosis
--- OUTSIDE RECORDS SUMMARY | 2016-10-27 23:45 | XMS REPORT | Continuity of Care Document ---
Author Author [facility] Organization [facility] Address Unknown Phone Unavailable Support Name Relationship Address Phone KATE MARTINEZ DO Caregiver [address] [place] [address] KATE MARROQUIN Next Of Kin [address] [place] [address] Insurance Providers Payer Name Policy Number Subscriber Name Relationship Medicare A And B [id number] Miguel Marroquin 18 Self / Same As Patient Blue Cross [facility] Supp [id number] Miguel Marroquin 19 Self / Same As [...] worrisome symptoms. * Emergency Department phone number: [phone], x [phone]* MEDICAL RECORD If you need copies of your X-rays, call [phone] x [phone]. If you need copies of [...] SERVICE BILLING [facility] Emergency Room Services [facility] Physician Services [facility] X-rays [place] [facility] Patients will receive bills for services from the appropriate provider. If you have any questions about your [facility] bill, our staff will be happy to assist you. Please call [phone], and ask for the billing department. THANK YOU for choosing [facility] as your emergency care provider! [...] Urine collection method Clean Catch Urine Specific [place] June 01, 2014 10:15pm 1.025 1.005-1.030 Urine [...] Encounters Encounter Location Date/Time Departed Emergency Room [facility] 09/01/14 10:56pm Registered [facility] 09/01/14 7:30am Departed Emergency Room [facility] 08/23/14 5:32pm Registered Clinic [facility] 08/12/14 8:31am Recent Diagnosis
--- OUTSIDE RECORDS SUMMARY | 2016-10-27 23:46 | XMS REPORT | Continuity of Care Document ---
Author Author [facility] Organization [facility] Address Unknown Phone Unavailable Support Name Relationship Address Phone MARIA ELENA SORIA MD Caregiver [address] [place] [address] Amanuel Morris Caregiver [address] [place], [place] [id number] KATE MARROQUIN Next Of Kin [address] [place] [address] Insurance Providers Payer Name Policy Number Subscriber Name Relationship Medicare A And B [id number] Grace Marroquin 19 Self / Same As Patient Blue Cross [facility] Supp [id number] Grace Marroquin 19 Self / Same As [...] Urine collection method Clean Catch Urine Specific [place] June 01, 2014 10:15pm 1.025 1.005-1.030 Urine [...] Encounters Encounter Location Date/Time Departed Emergency Room [facility] 08/23/14 5:32pm Registered Clinic [facility] 08/12/14 8:31am
--- OUTSIDE RECORDS SUMMARY | 2016-10-27 23:46 | XMS REPORT ---
Author Author [facility] Organization Unknown Address Unknown Phone Unavailable Care Team Providers Care Solar Manufacturer'S Representative Name Role Phone MD CARON, IVONNE PP [...] H (65-99 MG/DL) GFR EST NON AFR VINCENTIAN 89 ML/MIN GFRA EST AFR AMER >90 [...]
--- OUTSIDE RECORDS SUMMARY | 2016-10-27 23:46 | XMS REPORT | Continuity of Care Document ---
Author Author [facility] Organization [facility] Address Unknown Phone Unavailable Support Name Relationship Address Phone KATE MARTINEZ DO Caregiver [address] [place] [address] KATE MARROQUIN Next Of Kin [address] [place] [address] Insurance Providers Payer Name Policy Number Subscriber Name Relationship Medicare A And B [id number] Miguel Marroquin 19 Self / Same As Patient Blue Cross [facility] Supp [id number] Miguel Marroquin 19 Self / Same As [...] worrisome symptoms. * Emergency Department phone number: [phone], x [phone]* MEDICAL RECORD If you need copies of your X-rays, call [phone] x [phone]. If you need copies of [...] SERVICE BILLING [employer] Emergency Room Services [facility] Physician Services [facility] X-rays [place] [facility] Patients will receive bills for services from the appropriate provider. If you have any questions about your [facility] bill, our staff will be happy to assist you. Please call [phone], and ask for the billing department. THANK [...] Urine collection method Clean Catch Urine Specific [place] June 01, 2014 10:15pm 1.025 1.005-1.030 Urine [...] Encounters Encounter Location Date/Time Departed Emergency Room [facility] 09/01/14 10:56pm Discharged Recurring [facility] 09/01/14 7:30am Departed Emergency Room [facility] 08/23/14 5:32pm Registered Clinic [facility] 08/12/14 8:31am Recent Diagnosis
--- OUTSIDE RECORDS SUMMARY | 2016-10-27 23:46 | XMS REPORT ---
Author Author [facility] Organization Unknown Address Unknown Phone Unavailable Care Team Providers Care Open Hearth Door Liner Name Role Phone UNASSIGNED DOCTOR , DOCTOR PP [phone] Reason For Visit Reason for Visit from [...] 8:00 AM * Address # 1 : [phone] * #2 Office appointment: : Randa Grider PV * #2 Date/Time : 04/17/2016 9:15 AM * Address # 2 : [phone] Procedures No relevant procedures performed. Immunizations No [...] the responsibility of the patient or patient aircraft sales representative to confirm the list of [...]
--- OUTSIDE RECORDS SUMMARY | 2016-10-27 23:46 | XMS REPORT ---
Author Author [facility] Organization Unknown Address Unknown Phone Unavailable Care Team Providers Care Pouncing Machine Operator Name Role Phone MD CARON, IVONNE [...]
--- OUTSIDE RECORDS SUMMARY | 2016-10-27 23:49 | XMS REPORT | Continuity of Care Document ---
Author Author [facility] Organization [facility] Address Unknown Phone Unavailable Allergies Active Description Code Type Severity Reaction Onset Reported/Identified Relationship to Patient Clinical Status Yes No Known Medication Allergies NKMA N/A N/A 08/22/2014 Yes No Known Allergies No Known Allergies Drug Allergy Unknown N/A 11/17/2014 Yes No Known Drug Allergies [id number] Drug Allergy Unknown N/ A 04/16/2015 Yes quetiapine [id number] Drug Allergy Unknown N/V 04/27/2016 Yes ziprasidone hcl ziprasidone hcl Unknown N/A 05/01/2016 Yes amantadine [id number] Drug Allergy Unknown N/A 10/10/2016 Yes asenapine [id number] Drug Allergy Unknown N/A 10/10/2016 Yes gabapentin [id number] Drug Allergy Unknown N/A 10/10/2016 Yes hydroxyzine [id number] Drug Allergy Unknown N/A 10/10/2016 Yes lurasidone [id number] Drug Allergy Unknown N/A 10/10/2016 Yes trazodone [id number] Drug Allergy Unknown N/A 10/10/2016 Yes ziprasidone [id number] Drug Allergy Unknown N/V 10/10/2016 Medications Problems [...] L Ot 719.07 JOINT EFFUSION-ANKLE 06/30/2014 JEANIE OHBSON, TIMOTHY L Ot 401.9 06/30/2014 JEANIE HOBSON, [...] Ot Z98.89 OTHER SPECIFIED POSTPROCEDURAL STATES 02/17/2016 JOECLYN HOBSON, MUNIR Carey Ot M25.562 PAIN IN [...] Ot I10 ESSENTIAL (PRIMARY) HYPERTENSION 02/28/2016 GIULIANA GOMSE MD Ot M54.9 DORSALGIA, UNSPECIFIED 02/28/2016 GIULIANA [...] R Ot M54.89 OTHER DORSALGIA 04/28/2016 MUNIR BNAKS MD R Ot R45.851 SUICIDAL IDEATIONS 04/28/2016 [...] NOT CARRIED OUT , 05/04/2016 SOSA DO PIALR Can Ot G47.00 INSOMNIA, UNSPECIFIED 05/04/2016 SOSA [...] SORIA MD Ot 401.9 HYPERTENSION NOS 05/16/2016 MAIRA ELENA SOIRA MD Ot 784.7 EPISTAXIS 05/16/2016 MARIA ELENA [...] Ot Z98.89 OTHER SPECIFIED POSTPROCEDURAL STATES 05/24/2016 MUINR BANKS MD Ot M25.562 PAIN IN [...] DO Ot G89.29 OTHER CHRONIC PAIN 06/16/2016 SOSA DO, PILAR M Ot M25.561 PAIN IN RIGHT KNEE 06/21/2016 SHEILA KINGPILAR Ot G89.29 OTHER CHRONIC PAIN 06/21/2016 SHEILA KINGPILAR Ot M25.561 PAIN IN RIGHT KNEE 06/25/2016 SOSA DOPILAR Ot G89.29 OTHER CHRONIC PAIN 06/25/2016 SHEILA KINGPILAR Ot M25.561 PAIN IN RIGHT KNEE 06/27/2016 [...] MD P Ot G89.29 OTHER CHRONIC PAIN 10/18/2016 PILAR SOSA DO Ot S90.211A CONTUSION OF RIGHT GREAT TOE W DAMAGE TO 10/18/2016 PILAR SOSA DO Ot W20.8XXA OTH CAUSE OF STRIKE BY THROWN, PROJECTED 10/18/2016 PILAR SOSA DO Ot Y92.009 [facility] [address] IN [facility] NON-INSTITUT ( PRIVATE Procedures Results Test Result Range CBC W/DIFF [...] Sodium measurement 132 70-110 Carbon dioxide measurement 29 22-29 Serum or plasma anion gap 16.0 [...] 13:34 SALICYLATE < 1.0 2.0-20.0 ACETAMINOPHEN - 04/20/16 13:34 ACETAMINOPHEN < 10.0 10.0-30.0 ALCOHOL - [...] Status Pt. Type Provider Facility Loc./Unit Complaint [id number] 11/17/2014 14:27:00 2014 17:15:00 DIS Emergency Louis HOBSON, [facility] W.EDS
--- OUTSIDE RECORDS SUMMARY | 2016-10-27 23:49 | XMS REPORT ---
Author Author GENERATED, SYSTEM Organization Unknown Address Unknown Phone Unavailable Care Team Providers Care Immigration Case Manager Name Role Phone UNASSIGNED DOCTOR , DOCTOR PP [phone] Reason For Visit Chief Complaint PAIN IN [...] H (65-99 MG/DL) *GFR EST NON AFR STATELESS 71 ML/MIN *GFRA EST AFR AMER 82 [...]
--- OUTSIDE RECORDS SUMMARY | 2016-10-27 23:49 | XMS REPORT | Continuity of Care Document ---
Author Author [facility] Organization [facility] Address Unknown Phone Unavailable Support Name Relationship Address Phone MUNIR BANKS MD Caregiver [address] [place] [address] Insurance Providers Payer Name Policy Number Subscriber Name Relationship Medicare A And B [id number] Miguel Marroquin 18 Self / Same As Patient Blue Cross [facility] Supp [id number] Miguel Marroquin 19 Self / Same As [...] worrisome symptoms. * Emergency Department phone number: [phone], x [phone]* MEDICAL RECORD If you need copies of your X-rays, call [phone] x [phone]. If you need copies of [...] SERVICE BILLING [place] Emergency Room Services [facility] Physician Services [facility] X-rays [place] [facility] Patients will receive bills for services from the appropriate provider. If you have any questions about your [facility] bill, our staff will be happy to assist you. Please call [phone], and ask for the billing department. THANK YOU for choosing [facility] as your emergency care provider! Functional [...] Urine collection method Clean Catch Urine Specific [place] January 26, 2015 9:17am 1.010 1.005-1.030 Urine [...] Encounters Encounter Location Date/Time Departed Emergency Room [facility] 02/04/15 9:37pm Departed Emergency Room [facility] 02/01/15 9:35am Registered Clinic [facility] 01/29/15 7:24am Departed Emergency Room [facility] 01/26/15 9:03am Registered Clinic [facility] 01/26/15 8:50am Departed Emergency Room [facility] 01/25/15 5:10pm Departed Emergency Room [facility] 01/24/15 11:04pm Recent Diagnosis
--- NOTE | 2016-10-27 23:50 | NUR ---
LAB/UDS MANAGER COMMUNITY DEVELOPMENT IN ROOM FOR LAB DRAW AND UDS. ALL COLLECTED
--- OUTSIDE RECORDS SUMMARY | 2016-10-27 23:51 | XMS REPORT ---
Author Author GENERATED, SYSTEM Organization Unknown Address Unknown Phone Unavailable Care Team Providers Care Spinning Lathe Operator Automatic Name Role Phone MD CARON, IVONNE PP [...]
--- OUTSIDE RECORDS SUMMARY | 2016-10-27 23:51 | XMS REPORT | Continuity of Care Document ---
Author Author [facility] Organization [facility] Address Unknown Phone Unavailable Support Name Relationship Address Phone Fara MOSS MD Caregiver [address] [place] [address] NORMAN POTTS MD Caregiver [facility] [address] [place] [phone] IVONNE REARDON Caregiver [address] [place] [address] KATE MARROQUIN Next Of Kin [address] [place] [address] Insurance Providers Payer Name Policy Number Subscriber Name Relationship Medicare [id number] Grace Marroquin 19 Self Blue Cross Select Plan [id number] Grace Marroquin 19 Self Advance Directives Directive [...] F (96.8 - 99.1) Temperature (Calculated Celsius) 36.08064 degrees C (36.0 - 37.3) Temperature Source [...] Has specimen been collected/obtained? Y Urine Specific [place] June 17, 2014 10:12pm 1.010 L - [...] Report June 17, 2014 10:56pm REFERENCE LAB [id number] - Turbidity June 17, 2014 9:32pm < 20 0-20 Glomerular Filtration Rate Calc June 17, 2014 9:32pm 74 - Immature Granulocyte # (Auto) June 17, 2014 9:32pm 0.01 T/MM3 N 0.00 -0.03 Immature Granulocyte % (Auto) June 17, 2014 9:32pm 0.2 % N 0.0-0.5 Icterus Index June 17, 2014 9:32pm < 2 0-7 Name: GRACE MARROQUIN Unit #: [id number] : 1945 Sex: M Loc / Svc: ED DOS: 06/17/14 Signed Report #: [id number] DIAGNOSTIC IMAGING REPORT TYPE OF EXAM: CT [...] hemorrhage. There is a preliminary report by [facility]. . Procedures Procedure Status Date Provider(s) ROUTINE VENIPUNCTURE completed 06/17/14 CT HEAD/BRAIN W/O DYE completed 06/17/14 COMPREHEN METABOLIC PANEL completed 06/17/14 ASSAY OF SALICYLATE completed 06/17/14 URINALYSIS AUTO W/O SCOPE completed 06/17/14 ASSAY OF ACETAMINOPHEN completed 06/17/14 ASSAY THYROID STIM HORMONE completed 06/17/14 COMPLETE CBC W/AUTO DIFF WBC completed 06/17/14 EMERGENCY DEPT VISIT completed 06/17/14 [id number] ITEM OR SERVICE completed 06/17/14 [id number] ITEM OR SERVICE completed 06/17/14 DRUG SCR, UR,STAT completed 06/17/14 Esophagogastroduodenoscopy (EGD) with closed biopsy completed 08/20/14 NORMAN POTTS MD Encounters Encounter Location Date/Time Departed Emergency Room [facility] 06/17/14 9:09pm
--- OUTSIDE RECORDS SUMMARY | 2016-10-27 23:51 | XMS REPORT | Continuity of Care Document ---
Author Author [facility] Organization [facility] Address Unknown Phone Unavailable Care Team Providers Care Operator Supply Name Role Phone NEY MOSS MD Primary Care Physician [phone] Insurance Providers Payer Name Policy Number Subscriber Name Relationship Medicare A And B [id number] Miguel Marroquin 19 Self / Same As [...] worrisome symptoms. * Emergency Department phone number: [phone], x [phone]* MEDICAL RECORD If you need copies of your X-rays, call [phone] x [phone]. If you need copies of [...] services. SERVICE BILLING DEMOCRAT Emergency Room Services [facility] Physician Services [facility] X-rays [place] [facility] Patients will receive bills for services from the appropriate provider. If you have any questions about your [facility] bill, our staff will be happy to assist you. Please call [phone], and ask for the billing department. THANK YOU for choosing [facility] as your emergency care provider! Functional [...] Urine collection method Clean Catch Urine Specific [place] January 26, 2015 9:17am 1.010 1.005-1.030 Urine [...] Encounters Encounter Location Date/Time Departed Emergency Room [facility] 02/13/15 3:39am Departed Emergency Room [facility] 02/06/15 8:14pm Departed Emergency Room [facility] 02/04/15 9:37pm Departed Emergency Room [facility] 02/01/15 9:35am Registered Clinic [facility] 01/29/15 7:24am Departed Emergency Room [facility] 01/26/15 9:03am Registered Clinic [facility] 01/26/15 8:50am Departed Emergency Room [facility] 01/25/15 5:10pm Departed Emergency Room [facility] 01/24/15 11:04pm Recent Diagnosis
--- OUTSIDE RECORDS SUMMARY | 2016-10-27 23:51 | XMS REPORT ---
Author Author GENERATED, SYSTEM Organization Unknown Address Unknown Phone Unavailable Care Team Providers Care Field Support Specialist Name Role Phone UNASSIGNED DOCTOR , DOCTOR PP [phone] Reason For Visit Reason for Visit from [...] 03/01/2016 1:20 PM:* #1 Office appointment: : [facility] Intake * Address # 1 : [facility]: [address], [address], [place], [place] - Procedures No relevant procedures performed. [...] the responsibility of the patient or patient new accounts representative to confirm the list of medications [...] tablet oral twice a day * HYDROcodone-acetaminophen (Cre[place]) 5 mg-325 mg Tablet Directions: 1 tablet oral every six hours PRN pain * tamulosin 1 po daily
--- OUTSIDE RECORDS SUMMARY | 2016-10-27 23:52 | XMS REPORT ---
Author Author GENERATED, SYSTEM Organization Unknown Address Unknown Phone Unavailable Care Team Providers Care Purchasing Expeditor Name Role Phone UNASSIGNED DOCTOR , DOCTOR PP [phone] Reason For Visit Reason for Visit from [...] of the patient or patient sales representative canvas products to confirm the list of medications with [...]
--- OUTSIDE RECORDS SUMMARY | 2016-10-27 23:52 | XMS REPORT ---
Author Author GENERATED, SYSTEM Organization Unknown Address Unknown Phone Unavailable Care Team Providers Care Knowledge Manager Name Role Phone UNASSIGNED DOCTOR , DOCTOR PP [phone] Reason For Visit Chief Complaint PT LEFT [...]
--- OUTSIDE RECORDS SUMMARY | 2016-10-27 23:52 | XMS REPORT | Continuity of Care Document ---
Author Author [facility]IS Organization [facility] Address Unknown Phone Unavailable Support Name Relationship Address Phone JUAN MANUEL PARISH MD Caregiver [address] [place] [address] Insurance Providers Payer Name Policy Number Subscriber Name Relationship Medicare A And B [id number] Miguel Marroquin 19 Self / Same As Patient Blue Cross [facility] Supp [id number] Miguel Marroquin 19 Self / Same As [...] worrisome symptoms. * Emergency Department phone number: [phone], x [phone]* MEDICAL RECORD If you need copies of your X-rays, call [phone] x [phone]. If you need copies of [...] services. SERVICE BILLING [place]PUBL[place] Emergency Room Services [facility] Physician Services [facility] X-rays [place] [facility] Patients will receive bills for services from the appropriate provider. If you have any questions about your [facility] bill, our staff will be happy to assist you. Please call [phone], and ask for the billing department. THANK YOU for choosing [facility] as your emergency care provider! Functional [...] Urine collection method Clean Catch Urine Specific [place] January 26, 2015 9:17am 1.010 1.005-1.030 Urine [...] Encounters Encounter Location Date/Time Registered Emergency Room [facility] 02/01/15 9:35am Registered Clinic [facility] 01/29/15 7:24am Departed Emergency Room [facility] 01/26/15 9:03am Registered Clinic [facility] 01/26/15 8:50am Departed Emergency Room [facility] 01/25/15 5:10pm Departed Emergency Room [facility] 01/24/15 11:04pm Departed Emergency Room [facility] 01/02/15 8:52pm Recent Diagnosis
--- OUTSIDE RECORDS SUMMARY | 2016-10-27 23:52 | XMS REPORT | Continuity of Care Document ---
Author Author [facility] Organization [facility] Address Unknown Phone Unavailable Support Name Relationship Address Phone MUNIR BANKS MD Caregiver [address] [place] [address] KATE MARROQUIN Next Of Kin [address] [place] [address] Insurance Providers Payer Name Policy Number Subscriber Name Relationship Medicare A And B [id number] Miguel Marroquin 19 Self / Same As Patient Blue Cross [facility] Supp [id number] Miguel Marroquin 19 Self / Same As [...] worrisome symptoms. * Emergency Department phone number: [phone], x [phone]* MEDICAL RECORD If you need copies of your X-rays, call [phone] x [phone]. If you need copies of [...] services. SERVICE BILLING [place]PUBL[place] Emergency Room Services [facility] Physician Services [facility] X-rays [place] [facility] Patients will receive bills for services from the appropriate provider. If you have any questions about your [facility] bill, our staff will be happy to assist you. Please call [phone], and ask for the billing department. THANK YOU for choosing [facility] as your emergency care provider! [...] Urine collection method Clean Catch Urine Specific [place] June 01, 2014 10:15pm 1.025 1.005-1.030 Urine [...] Encounters Encounter Location Date/Time Departed Emergency Room [facility] 01/02/15 8:52pm Recent Diagnosis
--- OUTSIDE RECORDS SUMMARY | 2016-10-27 23:56 | XMS REPORT ---
Author Author GENERATED, SYSTEM Organization Unknown Address Unknown Phone Unavailable Care Team Providers Care Pulmonary Fellow Name Role Phone MD CARON, IVONNE PP [...]
--- OUTSIDE RECORDS SUMMARY | 2016-10-27 23:57 | XMS REPORT | Continuity of Care Document ---
Author Author [facility] Organization [facility] Address Unknown Phone Unavailable Support Name Relationship Address Phone MUNIR BANKS MD Caregiver [address] [place] [address] Insurance Providers Payer Name Policy Number Subscriber Name Relationship Medicare A And B [id number] Miguel Marroquin 19 Self / Same As Patient Blue Cross [facility] Supp [id number] Miguel Marroquin 19 Self / Same As [...] worrisome symptoms. * Emergency Department phone number: [phone], x [phone]* MEDICAL RECORD If you need copies of your X-rays, call [phone] x [phone]. If you need copies of [...] SERVICE BILLING [employer]Y Emergency Room Services [facility] Physician Services [facility] X-rays [place] [facility] Patients will receive bills for services from the appropriate provider. If you have any questions about your [facility] bill, our staff will be happy to assist you. Please call [phone], and ask for the billing department. THANK YOU for choosing [facility] as your emergency care provider! Functional Status [...] Urine collection method Clean Catch Urine Specific [place] January 26, 2015 9:17am 1.010 1.005-1.030 Urine [...] Encounter Location Date/Time Departed Emergency Room [facility] 02/06/15 8:14pm Departed Emergency Room [facility] 02/04/15 9:37pm Departed Emergency Room [facility] 02/01/15 9:35am Registered Clinic [facility] 01/29/15 7:24am Departed Emergency Room [facility] 01/26/15 9:03am Registered Clinic [facility] 01/26/15 8:50am Departed Emergency Room [facility] 01/25/15 5:10pm Departed Emergency Room [facility] 01/24/15 11:04pm Recent Diagnosis
--- OUTSIDE RECORDS SUMMARY | 2016-10-27 23:58 | XMS REPORT ---
Author Author GENERATED, SYSTEM Organization Unknown Address Unknown Phone Unavailable Care Team Providers Care Crew Director Name Role Phone UNASSIGNED DOCTOR , DOCTOR PP [phone] Reason For Visit Reason for Visit from [...] the responsibility of the patient or patient automobile sales representative to confirm the list of [...]
--- OUTSIDE RECORDS SUMMARY | 2016-10-27 23:58 | XMS REPORT ---
Author Author GENERATED, SYSTEM Organization Unknown Address Unknown Phone Unavailable Care Team Providers Care Electrocardiograph Technician Name Role Phone UNASSIGNED DOCTOR , DOCTOR PP [phone] Reason For Visit Reason for Visit from [...] 8:00 AM * Address # 1 : [phone] * #2 Office appointment: : [facility] * #2 Date/Time : 04/17/2016 9:15 AM * Address # 2 : [phone] Procedures No relevant procedures performed. Immunizations No [...] responsibility of the patient or patient sales solutions representative to confirm the list of medications [...]
--- OUTSIDE RECORDS SUMMARY | 2016-10-27 23:59 | XMS REPORT ---
Author Author GENERATED, SYSTEM Organization Unknown Address Unknown Phone Unavailable Care Team Providers Care Senior Sql Database Developer Name Role Phone MD CARON, IVONNE PP [...] MG/DL (65-99 MG/DL) *GFR EST NON AFR GIBRALTARIAN 89 ML/MIN *GFRA EST AFR AMER >90 [...] AM* Status: Final Result URINALYSIS Specimen Number: [id number] Sample Collection Date/Time: 06/07/2015 3:20 AM Specimen [...]
[2016-10-28] VITALS (7 sets, daily range): BP systolic 129–156; BP diastolic 80–87; PULSE 70–78; RESP 18–20; TEMP 97–98.6; O2SAT 96–98; Ht 168.9 cm; Wt 77.0 kg
--- OUTSIDE RECORDS SUMMARY | 2016-10-28 | XMS REPORT | Continuity of Care Document ---
Author Author [facility] HCIS Organization [facility] Address Unknown Phone Unavailable Support Name Relationship Address Phone KATE MARTINEZ DO Caregiver [address] [place] [address] KATE MARROQUIN Next Of Kin [address] [place] [address] Insurance Providers Payer Name Policy Number Subscriber Name Relationship Medicare A And B [id number] Miguel Marroquin 19 Self / Same As Patient Blue Cross [facility] Supp [id number] Miguel Marroquin 19 Self / Same As [...] worrisome symptoms. * Emergency Department phone number: [phone], x 543* MEDICAL RECORD If you need copies of your X-rays, call [phone] x [phone]. If you need copies of [...] SERVICE BILLING [employer] Emergency Room Services [facility] Physician Services [facility] X-rays [place] [facility] Patients will receive bills for services from the appropriate provider. If you have any questions about your [facility] bill, our staff will be happy to assist you. Please call [phone], and ask for the billing department. THANK YOU for choosing [facility] as your emergency care provider! [...] Urine collection method Clean Catch Urine Specific [place] June 01, 2014 10:15pm 1.025 1.005-1.030 Urine [...] Encounters Encounter Location Date/Time Departed Emergency Room [facility] 09/01/14 10:56pm Registered [facility] 09/01/14 7:30am Departed Emergency Room [facility] 08/23/14 5:32pm Registered Clinic [facility] 08/12/14 8:31am Recent Diagnosis
--- OUTSIDE RECORDS SUMMARY | 2016-10-28 | XMS REPORT | Continuity of Care Document ---
Author Author [facility] HCIS Organization [facility] Address Unknown Phone Unavailable Care Team Providers Care Bilingual Speech Language Pathologist Name Role Phone NEY MOSS MD Primary Care Physician [phone] Insurance Providers Payer Name Policy Number Subscriber Name Relationship Medicare A And B [id number] Grace Marroquin 19 Self / Same As Patient Chief Complaint and Reason for Visit Chief Complaint Pain Reason for Visit [id number] Back pain Problems Medical Problems Problem Onset [...] Keep your follow up appointments with your [place] counselor and home health care case manager. Some of your test results may not [...] worrisome symptoms. * Emergency Department phone number: [phone], x 543* MEDICAL RECORD If you need copies of your X-rays, call [phone] x [phone]. If you need copies of [...] SERVICE BILLING [employer]Y Emergency Room Services [facility] Physician Services [facility] X-rays [place] [facility] Patients will receive bills for services from the appropriate provider. If you have any questions about your [facility] bill, our staff will be happy to assist you. Please call [phone], and ask for the billing department. THANK YOU for choosing [facility] as your emergency care [...] Urine collection method Clean Catch Urine Specific [place] January 26, 2015 9:17am 1.010 1.005-1.030 Urine [...] Encounters Encounter Location Date/Time Departed Emergency Room [facility] 02/17/15 10:25am Registered Clinic [facility] 02/17/15 10:20am Departed Emergency Room [facility] 02/13/15 3:39am Departed Emergency Room [facility] 02/06/15 8:14pm Departed Emergency Room [facility] 02/04/15 9:37pm Departed Emergency Room [facility] 02/01/15 9:35am Registered Clinic [facility] 01/29/15 7:24am Departed Emergency Room [facility] 01/26/15 9:03am Registered Clinic [facility] 01/26/15 8:50am Departed Emergency Room [facility] 01/25/15 5:10pm Departed Emergency Room [facility] 01/24/15 11:04pm Recent Diagnosis
--- OUTSIDE RECORDS SUMMARY | 2016-10-28 00:01 | XMS REPORT | Continuity of Care Document ---
Author Author [facility] L[facility] HCIS Organization [facility] Address Unknown Phone Unavailable Support Name Relationship Address Phone MARIA ELENA SORIA MD Caregiver [address] [place] [address] Amanuel Morris Caregiver [address] [place], [place] [id number] KATE MARROQUIN Next Of Kin [address] [place] [address] Insurance Providers Payer Name Policy Number Subscriber Name Relationship Medicare A And B [id number] Grace Marroquin 19 Self / Same As Patient Blue Cross [facility] Supp [id number] Grace Marroquin 19 Self / Same As [...] Urine collection method Clean Catch Urine Specific [place] June 01, 2014 10:15pm 1.025 1.005-1.030 Urine [...] Date/Time Departed Emergency Room [facility] 08/23/14 5:32pm Registered Clinic [facility] 08/12/14 8:31am
--- OUTSIDE RECORDS SUMMARY | 2016-10-28 00:01 | XMS REPORT | Continuity of Care Document ---
Author Author [facility] Organization [facility] Address Unknown Phone Unavailable Support Name Relationship Address Phone KATE MARTINEZ DO Caregiver [address] [place] [address] KATE MARROQUIN Next Of Kin [address] [place] [address] Insurance Providers Payer Name Policy Number Subscriber Name Relationship Medicare A And B [id number] Miguel Marroquin 18 Self / Same As Patient Blue Cross [facility] Supp [id number] Miguel Marroquin 19 Self / Same As [...] worrisome symptoms. * Emergency Department phone number: [phone], x [phone]* MEDICAL RECORD If you need copies of your X-rays, call [phone] x [phone]. If you need copies of [...] SERVICE BILLING [employer]EN [employer]Y Emergency Room Services [facility] Physician Services [facility] X-rays [place] [facility] Patients will receive bills for services from the appropriate provider. If you have any questions about your [facility] bill, our staff will be happy to assist you. Please call [phone], and ask for the billing department. THANK YOU for choosing [facility] as your emergency care provider! [...] Urine collection method Clean Catch Urine Specific [place] June 01, 2014 10:15pm 1.025 1.005-1.030 Urine [...] Encounters Encounter Location Date/Time Departed Emergency Room [facility] 09/01/14 10:56pm Discharged Recurring [facility] 09/01/14 7:30am Departed Emergency Room [facility] 08/23/14 5:32pm Registered Clinic [facility] 08/12/14 8:31am Recent Diagnosis
--- OUTSIDE RECORDS SUMMARY | 2016-10-28 00:01 | XMS REPORT ---
Author Author GENERATED, SYSTEM Organization Unknown Address Unknown Phone Unavailable Care Team Providers Care Javascript Web Developer Name Role Phone MD CARON, IVONNE [...] H (65-99 MG/DL) GFR EST NON AFR MOZAMBICAN 89 ML/MIN GFRA EST AFR AMER >90 [...]
--- OUTSIDE RECORDS SUMMARY | 2016-10-28 00:01 | XMS REPORT ---
Author Author GENERATED, SYSTEM Organization Unknown Address Unknown Phone Unavailable Care Team Providers Care Tobacco Feeder Catcher Name Role Phone UNASSIGNED DOCTOR , DOCTOR PP [phone] Reason For Visit Reason for Visit from [...] 8:00 AM * Address # 1 : [phone] * #2 Office appointment: : Randa Grider PV * #2 Date/Time : 04/17/2016 9:15 AM * Address # 2 : [phone] Procedures No relevant procedures performed. Immunizations No [...] the responsibility of the patient or patient fuels sales representative to confirm the list of [...]
--- OUTSIDE RECORDS SUMMARY | 2016-10-28 00:01 | XMS REPORT ---
Author Author GENERATED, SYSTEM Organization Unknown Address Unknown Phone Unavailable Care Team Providers Care Wet Process Operator Name Role Phone MD CARON, IVONNE [...]
--- NOTE | 2016-10-28 00:04 | ERPDOC ---
Departure Disposition Decision Date: Oct 28, 2016 Disposition Decision Time: 01:12 Disposition: 65 TO PSYCH HOSP/UNIT Impression Impression Impression: Primary Impression: Suicidal ideation Additional Impression: Bipolar affective Active/Remission status: currently active Current bipolar episode type: depressed Current episode severity: moderate Qualified Codes: F31.32 - Bipolar disorder, current episode depressed, moderate Severity: Severe Condition: Improved Seen By: Physician only Referrals: OTHER (Family) Problems/Meds/Labs Reviewed?: Yes Medications reviewed and manag: Yes Follow up care ordered?: Yes Mental Status: Alert HPI - Psychosocial General Chief Complaint: Suicide Ideation/Attempt Stated Complaint: SUICIDAL Time Seen by MD: 23:41 Source: patient Exam Limitations: no limitations HPI - Psychosocial Initial Comments Patient has been dealing with depression and feeling as though he is at the end of his rope for several days. Night have to the patient did not get an immediate return call from a friend of his [facility], the patient decided he was through trying and would with a large kitchen knife to do himself in tonight that did not work the patient plan to drinking a large bottle of bleach. The patient's friend tried to reach him by phone 10-15 minutes after his friend had called him, but was unable to get through patient also had another friend and gout who is apparently a sign installer's deputy who contacted the police department officers to do a welfare check on the patient. Obrien officer found the patient with supple large kitchen knives laid out on the counter, as well as a large bottle of bleach, that the patient stated he was preparing in order to kill himself.. Occurred At: home Associated Symptoms: impaired concentration, suicidal ideation Allergies: Coded Allergies: asenapine (Verified Allergy, Unknown, 04/12/16) gabapentin (Verified Allergy, Unknown, 04/12/16) lurasidone (Verified Allergy, Unknown, 04/12/16) quetiapine (Verified Allergy, Unknown, 04/12/16) ziprasidone (Verified Allergy, Unknown, 04/12/16) Past History Past Medical History Metabolic: hypertension GI: GERD Musculoskeletal: back pain Psychological: bipolar Surgical History General: gallbladder Vaccines Hx Influenza Vaccination: No Social History Smoking Status: Current every day smoker Does patient use chewing tobac: No Second Hand Exposure: No Substance Use Type: does not use Alcohol Intake: none Record Review Pertinent history updated: Yes Review of Systems Constitutional Constitutional: DENIES: appetite decrease, appetite increase, chills, dizziness , fever, weakness ENMT Ears: DENIES: pain Hearing: DENIES: hearing loss, tinnitus Balance: DENIES: vertigo Mouth/Throat: DENIES: change in swallowing, change in voice, hoarsness, painful swallowing, sore throat Cardiovascular Cardiac: DENIES: chest pain, dyspnea on exertion Rhythm/Rate: DENIES: irregular beat, palpitations, tachycardia Vascular: DENIES: pedal edema Pulmonary Respiratory: DENIES: cough, dyspnea, pleuritic chest pain GI Upper Abdomen: DENIES: dysphagia, heartburn/indigestion, nausea, pain, vomiting Lower Abdomen: DENIES: blood in stool, constipation, diarrhea, pain General: DENIES: burning, dysuria, frequency, pain, urgency Musculoskeletal General: DENIES: cramps, joint pain, joint swelling, pain, weakness Integumentary Skin: DENIES: rash, sores Neurological General: DENIES: headache, numbness, tingling, vertigo, weakness Psychiatric Psychiatric: suicidal ideation/attempt Physical Exam General General Nourishment: well nourished, well developed, appears stated age, no acute distress, thin General Body Habitus: disheveled Vitals and Pain First Documented Vital Signs Date Time Temp Pulse Resp B/P Pulse Ox O2 Delivery O2 Flow Rate FiO2 10/27/16 23:49 98.9 93 18 190/109 97 Room Air Weight: Kilograms: Height (feet): 5 Height (inches): 9.00 Triage Pain Scale: RN VS reviewed by Provider: Yes Normal Exams: Head: Normocephalic w/o trauma Eyes: Pupils are PERRLA w/ EOMI, No scleral icterus, irritation, or foreign bodies noted ENMT: No facial trauma, nasal exudates, pharyngeal erythema, or exudates are noted Neck: Full range of motion, without adenopathy, JVD, bruits or thyromegaly Chest/Resp: Clear all doty, with good airflow, and symmetry bilaterally CV: Regular rate and rhythm, without murmur or gallop, Pulses 2+ all extremities, capillary refill, <2 seconds all ext., no pedal edema noted Abdomen: Bowel sounds positive, soft, non-tender, non-distended, no hepatosplenomegaly, masses or bruits noted Lymphatic: No lymphadenopathy, or lymphedema noted Musculoskeletal: No tenderness, or deformity noted, good range of motion, all extremities Integumentary: No rashes, hives, or bruising noted, hair and nails, without abnormality Neurologic: Patient is alert, and oriented, cranial nerves, motor/sensory/ cerebellar, exams w/o gross deficits, to observation Psychiatric: Patient exhibits, appropriate attention, emotion and affect Progress Results/Orders Orders Procedure Category Date Status Time Ethanol LAB 10/27/16 Complete 23:44 Drug Screen LAB 10/27/16 Complete Urine-Test At [facility] 23:44 Acetaminophen LAB 10/27/16 Complete 23:44 Salicylate LAB 10/27/16 Complete 23:44 Ua, Dip Wreflex LAB 10/27/16 Complete Microsc & Wire Brusher 23:44 Tsh - Thyroid Stim LAB 10/27/16 Complete Hormone 23:44 Lab Results Laboratory Tests Test 10/28/16 00:00 Urine Collection Type Cleancatch-midstream Urine Color Yellow Urine Turbidity Clear Urine pH 6.0 Urine Specific [place] <=1.005 Urine Protein Negative Urine Glucose (UA) Negative Urine Ketones Negative Urine Blood Negative Urine Nitrite Negative Urine Bilirubin Negative Urine Urobilinogen 0.2EU/DL Urine Leukocyte Esterase Negative Urinalysis Comment Microscopic not ind. Thyroid Stimulating Hormone (TSH) 0.30MIU/L Salicylates Level < 1.0MG/DL Urine Opiates Screen NegativeNG/ML Urine Oxycodone Screen NegativeNG/ML Urine Methadone Screen NegativeNG/ML Urine Propoxyphene Screen NegativeNG/ML Acetaminophen Level < 10UG/ML Urine Barbiturates Screen NegativeNG/ML Urine Tricyclic Antidepressants NegativeNG/ML Urine Phencyclidine Screen NegativeNG/ML Urine Amphetamines Screen NegativeNG/ML Urine Methamphetamines Screen NegativeNG/ML Urine Benzodiazepines Screen NegativeNG/ML Urine Cocaine Screen NegativeNG/ML Urine Cannabinoids Screen NegativeNG/ML Alcohol, Quantitative <10MG/DL Progress Progress Patient persists in stating that if he is left to his own devices tonight he will find someone to kill himself, either by slitting his throat or ingesting a toxic substance. Patient was seen in the ER approximately 12 hours ago for upper abdominal pain, diagnosed with gastritis, and all of the symptoms have now resolved. During that workup the patient had a normal CBC, CMP, and UA. Other medical screening labs are ordered currently include TSH, urine drug screen, salicylate and acetaminophen levels. [facility] is consulted for evaluation of the patient for possible placement for suicidal ideation UA normal, and UDS negative TSH pending, generations screen pending Patient is accepted to [facility] for suicidal ideation with bipolar disease ARIELLA DAVIS MD Oct 28, 2016 00:04
--- OUTSIDE RECORDS SUMMARY | 2016-10-28 00:04 | XMS REPORT | Continuity of Care Document ---
Author Author [facility] Organization [facility] Address Unknown Phone Unavailable Allergies Active Description Code Type Severity Reaction Onset Reported/Identified Relationship to Patient Clinical Status Yes No Known Medication Allergies NKMA N/A N/A 08/22/2014 Yes No Known Allergies No Known Allergies Drug Allergy Unknown N/A 11/17/2014 Yes No Known Drug Allergies [id number] Drug Allergy Unknown N/ A 04/16/2015 Yes quetiapine [id number] Drug Allergy Unknown N/V 04/27/2016 Yes ziprasidone hcl ziprasidone hcl Unknown N/A 05/01/2016 Yes amantadine [id number] Drug Allergy Unknown N/A 10/10/2016 Yes asenapine [id number] Drug Allergy Unknown N/A 10/10/2016 Yes gabapentin [id number] Drug Allergy Unknown N/A 10/10/2016 Yes hydroxyzine [id number] Drug Allergy Unknown N/A 10/10/2016 Yes lurasidone [id number] Drug Allergy Unknown N/A 10/10/2016 Yes trazodone [id number] Drug Allergy Unknown N/A 10/10/2016 Yes ziprasidone [id number] Drug Allergy Unknown N/V 10/10/2016 Medications Problems [...] Leach Ot 401.9 HYPERTENSION NOS 02/17/2016 TIMOTHY AWRE MD Ot 784.7 EPISTAXIS 02/17/2016 MARIA ELENA [...] PAIN IN LEFT KNEE 05/24/2016 Daily Siva H[facility]ON Ot 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 Type Provider Facility Loc./Unit Complaint [id number] 11/17/2014 14:27:00 2014 17:15:00 DIS Emergency Louis HOBSON, [facility]EDS
--- OUTSIDE RECORDS SUMMARY | 2016-10-28 00:04 | XMS REPORT | Continuity of Care Document ---
Author Author [facility] Organization [facility] Address Unknown Phone Unavailable Support Name Relationship Address Phone MUNIR BANKS MD Caregiver [address] [place] [address] Insurance Providers Payer Name Policy Number Subscriber Name Relationship Medicare A And B [id number] Miguel Marroquin 19 Self / Same As Patient Blue Cross [facility] Supp [id number] Miguel Marroquin 19 Self / Same As [...] worrisome symptoms. * Emergency Department phone number: [phone], x [phone]* MEDICAL RECORD If you need copies of your X-rays, call [phone] x [phone]. If you need copies of [...] SERVICE BILLING [employer]IANCE [employer]Y Emergency Room Services [facility] Physician Services [facility] X-rays [place] [facility] Patients will receive bills for services from the appropriate provider. If you have any questions about your [facility] bill, our staff will be happy to assist you. Please call [phone], and ask for the billing department. THANK [...] Urine collection method Clean Catch Urine Specific [place] January 26, 2015 9:17am 1.010 1.005-1.030 Urine [...]
--- OUTSIDE RECORDS SUMMARY | 2016-10-28 00:04 | XMS REPORT ---
Author Author GENERATED, SYSTEM Organization Unknown Address Unknown Phone Unavailable Care Team Providers Care Pharmacy General Manager Name Role Phone UNASSIGNED DOCTOR , DOCTOR PP [phone] Reason For Visit Chief Complaint PAIN IN [...] H (65-99 MG/DL) *GFR EST NON AFR GIBRALTARIAN 71 ML/MIN *GFRA EST AFR AMER 82 [...]
--- NOTE | 2016-10-28 00:05 | NUR ---
GENERATIONS SCREENING RANDY HARRIS FROM GENERATIONS IS HERE TO SCREEN THE PT. PT REMAINS COOPERATIVE
--- OUTSIDE RECORDS SUMMARY | 2016-10-28 00:05 | XMS REPORT | Continuity of Care Document ---
Author Author [facility] Organization [facility] Address Unknown Phone Unavailable Care Team Providers Care Gold Marker Name Role Phone NEY MOSS MD Primary Care Physician [phone] Insurance Providers Payer Name Policy Number Subscriber Name Relationship Medicare A And B [id number] Miguel Marroquin 19 Self / Same As [...] worrisome symptoms. * Emergency Department phone number: [phone], x [phone]* MEDICAL RECORD If you need copies of your X-rays, call [phone] x [phone]. If you need copies of [...] services. SERVICE BILLING LIBERTARIAN Emergency Room Services [facility] Physician Services [facility] X-rays [place] [facility] Patients will receive bills for services from the appropriate provider. If you have any questions about your [facility] bill, our staff will be happy to assist you. Please call [phone], and ask for the billing department. THANK [...] Urine collection method Clean Catch Urine Specific [place] January 26, 2015 9:17am 1.010 1.005-1.030 Urine [...] Date/Time Departed Emergency Room [facility] 02/13/15 [...]
--- OUTSIDE RECORDS SUMMARY | 2016-10-28 00:06 | XMS REPORT | Continuity of Care Document ---
Author Author [facility] Organization [facility]IVE Address Unknown Phone Unavailable Support Name Relationship Address Phone Fara MOSS MD Caregiver [address] [place] [address] NORMAN POTTS MD Caregiver [facility] [address] [place] [phone] IVONNE REARDON Caregiver [address] [place] [address] KATE MARROQUIN Next Of Kin [address] [place] [address] Insurance Providers Payer Name Policy Number Subscriber Name Relationship Medicare [id number] Grace Marroquin 19 Self Blue Cross Select Plan 65 [id number] Grace Marroquin 19 Self Advance Directives Directive [...] F (96.8 - 99.1) Temperature (Calculated Celsius) 36.19338 degrees C (36.0 - 37.3) Temperature Source [...] Has specimen been collected/obtained? Y Urine Specific [place] June 17, 2014 10:12pm 1.010 L - [...] Report June 17, 2014 10:56pm REFERENCE LAB [id number] - Turbidity June 17, 2014 9:32pm < 20 0-20 Glomerular Filtration Rate Calc June 17, 2014 9:32pm 74 - Immature Granulocyte # (Auto) June 17, 2014 9:32pm 0.01 T/MM3 N 0.00 -0.03 Immature Granulocyte % (Auto) June 17, 2014 9:32pm 0.2 % N 0.0-0.5 Icterus Index June 17, 2014 9:32pm < 2 0-7 Name: GRACE MARROQUIN Unit #: [id number] : 1945 Sex: M Loc / Svc: ED DOS: 06/17/14 Signed Report #: [id number] DIAGNOSTIC IMAGING REPORT TYPE OF EXAM: CT [...] hemorrhage. There is a preliminary report by [employer]. . Procedures Procedure Status Date Provider(s) ROUTINE VENIPUNCTURE completed 06/17/14 CT HEAD/BRAIN W/O DYE completed 06/17/14 COMPREHEN METABOLIC PANEL completed 06/17/14 ASSAY OF SALICYLATE completed 06/17/14 URINALYSIS AUTO W/O SCOPE completed 06/17/14 ASSAY OF ACETAMINOPHEN completed 06/17/14 ASSAY THYROID STIM HORMONE completed 06/17/14 COMPLETE CBC W/AUTO DIFF WBC completed 06/17/14 EMERGENCY DEPT VISIT completed 06/17/14 [id number] ITEM OR SERVICE completed 06/17/14 [id number] ITEM OR SERVICE completed 06/17/14 DRUG SCR, UR,STAT completed 06/17/14 Esophagogastroduodenoscopy (EGD) with closed biopsy completed 08/20/14 NORMAN POTTS MD Encounters Encounter Location Date/Time Departed Emergency Room [facility] 06/17/14 9:09pm
--- OUTSIDE RECORDS SUMMARY | 2016-10-28 00:06 | XMS REPORT ---
Author Author GENERATED, SYSTEM Organization Unknown Address Unknown Phone Unavailable Care Team Providers Care Check Weigher Name Role Phone MD CARON, IVONNE PP [...]
--- OUTSIDE RECORDS SUMMARY | 2016-10-28 00:06 | XMS REPORT ---
Author Author GENERATED, SYSTEM Organization Unknown Address Unknown Phone Unavailable Care Team Providers Care Tax Attorney Name Role Phone UNASSIGNED DOCTOR , DOCTOR PP [phone] Reason For Visit Reason for Visit from [...] 03/01/2016 1:20 PM:* #1 Office appointment: : [facility] Intake * Address # 1 : [facility]: [address], [address], [place], [place] - Procedures No relevant procedures performed. [...] responsibility of the patient or patient sales development representative to confirm the list of medications [...] tablet oral twice a day * HYDROcodone-acetaminophen ([place]) 5 mg-325 mg Tablet Directions: 1 tablet oral every six hours PRN pain * tamulosin 1 po daily
--- OUTSIDE RECORDS SUMMARY | 2016-10-28 00:06 | XMS REPORT | Continuity of Care Document ---
Author Author [facility] Organization [facility] Address Unknown Phone Unavailable Support Name Relationship Address Phone JUAN MANUEL PARISH MD Caregiver [address] [place] [address] Insurance Providers Payer Name Policy Number Subscriber Name Relationship Medicare A And B [id number] Miguel Marroquin 19 Self / Same As Patient Blue Cross [facility] Supp [id number] Miguel Marroquin 19 Self / Same As [...] worrisome symptoms. * Emergency Department phone number: [phone], x [phone]* MEDICAL RECORD If you need copies of your X-rays, call [phone] x [phone]. If you need copies of [...] services. SERVICE BILLING LIBERTARIAN Emergency Room Services [facility] Physician Services [facility] X-rays [place] [facility] Patients will receive bills for services from the appropriate provider. If you have any questions about your [facility] bill, our staff will be happy to assist you. Please call [phone], and ask for the billing department. THANK YOU for choosing [facility] as your emergency care provider! Functional Status [...] Urine collection method Clean Catch Urine Specific [place] January 26, 2015 9:17am 1.010 1.005-1.030 Urine [...] Encounters Encounter Location Date/Time Registered Emergency Room [facility] 02/01/15 9:35am Registered Clinic [facility] 01/29/15 7:24am Departed Emergency Room [facility] 01/26/15 9:03am Registered Clinic [facility] 01/26/15 8:50am Departed Emergency Room [facility] 01/25/15 5:10pm Departed Emergency Room [facility] 01/24/15 11:04pm Departed Emergency Room [facility] 01/02/15 8:52pm Recent Diagnosis
--- OUTSIDE RECORDS SUMMARY | 2016-10-28 00:07 | XMS REPORT ---
Author Author GENERATED, SYSTEM Organization Unknown Address Unknown Phone Unavailable Care Team Providers Care Veneer Drier Feeder Name Role Phone UNASSIGNED DOCTOR , DOCTOR PP [phone] Reason For Visit Chief Complaint PT LEFT [...]
--- OUTSIDE RECORDS SUMMARY | 2016-10-28 00:07 | XMS REPORT | Continuity of Care Document ---
Author Author [facility] Organization [facility] Address Unknown Phone Unavailable Support Name Relationship Address Phone MUNIR BANKS MD Caregiver [address] [place] [address] KATE MARROQUIN Next Of Kin [address] [place] [address] Insurance Providers Payer Name Policy Number Subscriber Name Relationship Medicare A And B [id number] Miguel Marroquin 19 Self / Same As Patient Blue Cross [facility] Supp [id number] Miguel Marroquin 19 Self / Same As [...] worrisome symptoms. * Emergency Department phone number: [phone], x [phone]* MEDICAL RECORD If you need copies of your X-rays, call [phone] x [phone]. If you need copies of [...] SERVICE BILLING CONSTITUTION PARTY Emergency Room Services [facility] Physician Services [facility] X-rays [place] [facility] Patients will receive bills for services from the appropriate provider. If you have any questions about your [facility] bill, our staff will be happy to assist you. Please call [phone], and ask for the billing department. THANK YOU for choosing [facility] as your emergency care provider! [...] Urine collection method Clean Catch Urine Specific [place] June 01, 2014 10:15pm 1.025 1.005-1.030 Urine [...] Encounters Encounter Location Date/Time Departed Emergency Room [facility] 01/02/15 8:52pm Recent Diagnosis
--- OUTSIDE RECORDS SUMMARY | 2016-10-28 00:07 | XMS REPORT ---
Author Author GENERATED, SYSTEM Organization Unknown Address Unknown Phone Unavailable Care Team Providers Care Prosthodontist Name Role Phone UNASSIGNED DOCTOR , DOCTOR PP [phone] Reason For Visit Reason for Visit from [...] the responsibility of the patient or patient chemical sales representative to confirm the list of [...]
[2016-10-28 00:13] LABS: BLOOD, URINE NEGATIVE (NEGATIVE); COLOR,URINE YELLOW (YELLOW); LEUKOCYTE ESTERASE ,URINE NEGATIVE (NEGATIVE); NITRITE,URINE NEGATIVE (NEGATIVE); UROBILINOGEN,URINE 0.2 EU/DL (NORMAL)
[2016-10-28 00:19] LABS: ACETAMINOPHEN < 10 UG/ML (10-30); ETHANOL <10 MG/DL (<10); SALICYLATE < 1.0 MG/DL (2-20)
[2016-10-28 00:28] LABS: AMPHETAMINE SCREEN,URINE NEGATIVE; BARBITURATE SCREEN,URINE NEGATIVE; BENZODIAZEPINES SCREEN,URINE NEGATIVE; CANNABINOID SCREEN,URINE NEGATIVE; COCAINE SCREEN,URINE NEGATIVE; METHADONE SCREEN, URINE NEGATIVE; METHAMPHETAMINE SCREEN, URINE NEGATIVE; OPIATE SCREEN,URINE NEGATIVE; PHENCYCLIDINE SCREEN,URINE NEGATIVE; TRICYCLIC ANTIDEPRESSANT,URINE NEGATIVE
--- NOTE | 2016-10-28 01:09 | NUR ---
COMPUTER DOWN TIME-REFER TO PAPER CHARTING
--- OUTSIDE RECORDS SUMMARY | 2016-10-28 01:22 | XMS REPORT ---
Author Author GENERATED, SYSTEM Organization Unknown Address Unknown Phone Unavailable Care Team Providers Care Planner Chief Name Role Phone MD CARON, IVONNE PP [...]
--- OUTSIDE RECORDS SUMMARY | 2016-10-28 01:24 | XMS REPORT ---
Author Author GENERATED, SYSTEM Organization Unknown Address Unknown Phone Unavailable Care Team Providers Care Air Conditioning Unit Tester Name Role Phone UNASSIGNED DOCTOR , DOCTOR PP [phone] Reason For Visit Reason for Visit from [...] 8:00 AM * Address # 1 : [phone] * #2 Office appointment: : Randa Grider PV * #2 Date/Time : 04/17/2016 9:15 AM * Address # 2 : [phone] Procedures No relevant procedures performed. Immunizations No [...]
--- OUTSIDE RECORDS SUMMARY | 2016-10-28 01:24 | XMS REPORT ---
Author Author GENERATED, SYSTEM Organization Unknown Address Unknown Phone Unavailable Care Team Providers Care Pattern Shop Supervisor Name Role Phone UNASSIGNED DOCTOR , DOCTOR PP [phone] Reason For Visit Reason for Visit from [...] the responsibility of the patient or patient outside dealer sales representative to confirm the list of [...]
--- OUTSIDE RECORDS SUMMARY | 2016-10-28 01:24 | XMS REPORT | Continuity of Care Document ---
Author Author [facility] Organization [facility] Address Unknown Phone Unavailable Support Name Relationship Address Phone MUNIR BANKS MD Caregiver [address] [place] [address] Insurance Providers Payer Name Policy Number Subscriber Name Relationship Medicare A And B [id number] Miguel Marroquin 18 Self / Same As Patient Blue Cross [facility] Supp [id number] Miguel Marroquin 19 Self / Same As [...] worrisome symptoms. * Emergency Department phone number: [phone], x [phone]* MEDICAL RECORD If you need copies of your X-rays, call [phone] x [phone]. If you need copies of [...] SERVICE BILLING [employer] Emergency Room Services [facility] Physician Services [facility] X-[facility] [place] [facility] Patients will receive bills for services from the appropriate provider. If you have any questions about your [facility] bill, our staff will be happy to assist you. Please call [phone], and ask for the billing department. THANK YOU for choosing [facility] as your emergency care provider! [...] Urine collection method Clean Catch Urine Specific [place] January 26, 2015 9:17am 1.010 1.005-1.030 Urine [...] Date/Time Departed Emergency Room [facility] 02/06/15 8:14pm Departed Emergency Room [facility] 02/04/15 9:37pm Departed Emergency Room [facility] 02/01/15 9:35am Registered Clinic [facility] 01/29/15 7:24am Departed Emergency Room [facility] 01/26/15 9:03am Registered Clinic [facility] 01/26/15 8:50am Departed Emergency Room [facility] 01/25/15 5:10pm Departed Emergency Room [facility] 01/24/15 11:04pm Recent Diagnosis
--- OUTSIDE RECORDS SUMMARY | 2016-10-28 01:26 | XMS REPORT ---
Author Author GENERATED, SYSTEM Organization Unknown Address Unknown Phone Unavailable Care Team Providers Care Manager Managed Backup Services Name Role Phone MD CARON, IVONNE PP [...] MG/DL (65-99 MG/DL) *GFR EST NON AFR CITIZ[place] 89 ML/MIN *GFRA EST AFR AMER >90 [...] AM* Status: Final Result URINALYSIS Specimen Number: [id number] Sample Collection Date/Time: 06/07/2015 3:20 AM Specimen [...]
--- OUTSIDE RECORDS SUMMARY | 2016-10-28 01:26 | XMS REPORT | Continuity of Care Document ---
Author Author [facility] Organization [facility] Address Unknown Phone Unavailable Care Team Providers Care Cvt Tech Name Role Phone NEY MOSS MD Primary Care Physician [phone] Insurance Providers Payer Name Policy Number Subscriber Name Relationship Medicare A And B [id number] Grace Marroquin 19 Self / Same As Patient Chief Complaint and Reason for Visit Chief Complaint Pain Reason for Visit [id number] Back pain Problems Medical Problems Problem Onset [...] Keep your follow up appointments with your [place] counselor and child support case officer. Some of your test results may not [...] worrisome symptoms. * Emergency Department phone number: [phone], x [phone]* MEDICAL RECORD If you need copies of your X-rays, call [phone] x [phone]. If you need copies of [...] services. SERVICE BILLING [facility] Emergency Room Services [facility] Physician Services [facility] X-rays [place] [facility] Patients will receive bills for services from the appropriate provider. If you have any questions about your [facility] bill, our staff will be happy to assist you. Please call [phone], and ask for the billing department. THANK YOU for choosing [facility] as your emergency care [...] Urine collection method Clean Catch Urine Specific [place] January 26, 2015 9:17am 1.010 1.005-1.030 Urine [...] Encounters Encounter Location Date/Time Departed Emergency Room [facility] 02/17/15 10:25am Registered Clinic [facility] 02/17/15 10:20am Departed Emergency Room [facility] 02/13/15 3:39am Departed Emergency Room [facility] 02/06/15 8:14pm Departed Emergency Room [facility] 02/04/15 9:37pm Departed Emergency Room [facility] 02/01/15 9:35am Registered Clinic [facility] 01/29/15 7:24am Departed Emergency Room [facility] 01/26/15 9:03am Registered Clinic [facility] 01/26/15 8:50am Departed Emergency Room [facility] 01/25/15 5:10pm Departed Emergency Room [facility] 01/24/15 11:04pm Recent Diagnosis
--- OUTSIDE RECORDS SUMMARY | 2016-10-28 01:26 | XMS REPORT | Continuity of Care Document ---
Author Author [facility] Organization [facility] Address Unknown Phone Unavailable Support Name Relationship Address Phone KATE MARTINEZ DO Caregiver [address] [place] [address] KATE MARROQUIN Next Of Kin [address] [place] [address] Insurance Providers Payer Name Policy Number Subscriber Name Relationship Medicare A And B [id number] Miguel Marroquin 19 Self / Same As Patient Blue Cross [facility] Supp [id number] Miguel Marroquin 19 Self / Same As [...] worrisome symptoms. * Emergency Department phone number: [phone], x 543* MEDICAL RECORD If you need copies of your X-rays, call [phone] x [phone]. If you need copies of [...] SERVICE BILLING [employer] Emergency Room Services [facility] Physician Services [facility] X-rays [place] [facility] Patients will receive bills for services from the appropriate provider. If you have any questions about your [facility] bill, our staff will be happy to assist you. Please call [phone], and ask for the billing department. THANK YOU for choosing [facility] as your emergency care provider! Functional [...] Urine collection method Clean Catch Urine Specific [place] June 01, 2014 10:15pm 1.025 1.005-1.030 Urine [...] Encounters Encounter Location Date/Time Departed Emergency Room [facility] 09/01/14 10:56pm Registered [facility] 09/01/14 7:30am Departed Emergency Room [facility] 08/23/14 5:32pm Registered Clinic [facility] 08/12/14 8:31am Recent Diagnosis
--- OUTSIDE RECORDS SUMMARY | 2016-10-28 01:27 | XMS REPORT ---
Author Author GENERATED, SYSTEM Organization Unknown Address Unknown Phone Unavailable Care Team Providers Care Carbonation Tester Name Role Phone UNASSIGNED DOCTOR , DOCTOR PP [phone] Reason For Visit Reason for Visit from [...] 8:00 AM * Address # 1 : [phone] * #2 Office appointment: : Randa Grider [facility] * #2 Date/Time : 04/17/2016 9:15 AM * Address # 2 : [phone] Procedures No relevant procedures performed. Immunizations No [...] the responsibility of the patient or patient automotive sales representative to confirm the list of [...]
--- OUTSIDE RECORDS SUMMARY | 2016-10-28 01:27 | XMS REPORT | Continuity of Care Document ---
Author Author [facility] Organization [facility] Address Unknown Phone Unavailable Support Name Relationship Address Phone MARIA ELENA SORIA MD Caregiver [address] [place] [address] Amanuel Morris Caregiver [address] [place], [place] [id number] KATE MARROQUIN Next Of Kin [address] [place] [address] Insurance Providers Payer Name Policy Number Subscriber Name Relationship Medicare A And B [id number] Grace Marroquin 19 Self / Same As Patient Blue Cross [facility] Supp [id number] Grace Marroquin 19 Self / Same As [...] Urine collection method Clean Catch Urine Specific [place] June 01, 2014 10:15pm 1.025 1.005-1.030 Urine [...] Encounters Encounter Location Date/Time Departed Emergency Room [facility] 08/23/14 5:32pm Registered Clinic [facility] 08/12/14 8:31am
--- OUTSIDE RECORDS SUMMARY | 2016-10-28 01:27 | XMS REPORT | Continuity of Care Document ---
Author Author [facility] Organization [facility] Address Unknown Phone Unavailable Support Name Relationship Address Phone KATE MARTINEZ DO Caregiver [address] [place] [address] KATE MARROQUIN Next Of Kin [address] [place] [address] Insurance Providers Payer Name Policy Number Subscriber Name Relationship Medicare A And B [id number] Miguel Marroquin 19 Self / Same As Patient Blue Cross [facility] Supp [id number] Miguel Marroquin 19 Self / Same As [...] worrisome symptoms. * Emergency Department phone number: [phone], x [phone]* MEDICAL RECORD If you need copies of your X-rays, call [phone] x [phone]. If you need copies of [...] services. SERVICE BILLING [facility] Emergency Room Services [facility] Physician Services [facility] X-rays [place] [facility] Patients will receive bills for services from the appropriate provider. If you have any questions about your [facility] bill, our staff will be happy to assist you. Please call [phone], and ask for the billing department. THANK YOU for choosing [facility] as your emergency care provider! [...] Urine collection method Clean Catch Urine Specific [place] June 01, 2014 10:15pm 1.025 1.005-1.030 Urine [...] Encounters Encounter Location Date/Time Departed Emergency Room [facility] 09/01/14 10:56pm Discharged Recurring [facility] 09/01/14 7:30am Departed Emergency Room [facility] 08/23/14 5:32pm Registered Clinic [facility] 08/12/14 8:31am Recent Diagnosis
--- OUTSIDE RECORDS SUMMARY | 2016-10-28 01:28 | XMS REPORT ---
Author Author GENERATED, SYSTEM Organization Unknown Address Unknown Phone Unavailable Care Team Providers Care Manager Lab Name Role Phone MD CARON, IVONNE PP [...]
--- OUTSIDE RECORDS SUMMARY | 2016-10-28 01:28 | XMS REPORT ---
Author Author GENERATED, SYSTEM Organization Unknown Address Unknown Phone Unavailable Care Team Providers Care Rotary Engraver Name Role Phone MD CARON, IVONNE PP [...] H (65-99 MG/DL) GFR EST NON AFR [place] 89 ML/MIN GFRA EST AFR AMER >90 [...]
--- OUTSIDE RECORDS SUMMARY | 2016-10-28 01:29 | XMS REPORT | Continuity of Care Document ---
Author Author [facility] Organization [facility] Address Unknown Phone Unavailable Support Name Relationship Address Phone MUNIR BANKS MD Caregiver [address] [place] [address] Insurance Providers Payer Name Policy Number Subscriber Name Relationship Medicare A And B [id number] Miguel Marroquin 19 Self / Same As Patient Blue Cross [facility] Supp [id number] Miguel Marroquin 19 Self / Same As [...] worrisome symptoms. * Emergency Department phone number: [phone], x [phone]* MEDICAL RECORD If you need copies of your X-rays, call [phone] x [phone]. If you need copies of [...] services. SERVICE BILLING [facility] Emergency Room Services [facility] Physician Services [facility] X-rays [place] [facility] Patients will receive bills for services from the appropriate provider. If you have any questions about your [facility] bill, our staff will be happy to assist you. Please call [phone], and ask for the billing department. THANK YOU for choosing [facility] as your emergency care provider! [...] Urine collection method Clean Catch Urine Specific [place] January 26, 2015 9:17am 1.010 1.005-1.030 Urine [...] Encounters Encounter Location Date/Time Departed Emergency Room [facility] 02/04/15 9:37pm Departed Emergency Room [facility] 02/01/15 9:35am Registered Clinic [facility] 01/29/15 7:24am Departed Emergency Room [facility] 01/26/15 9:03am Registered Clinic [facility] 01/26/15 8:50am Departed Emergency Room [facility] 01/25/15 5:10pm Departed Emergency Room [facility] 01/24/15 11:04pm Recent Diagnosis
--- OUTSIDE RECORDS SUMMARY | 2016-10-28 01:29 | XMS REPORT | Continuity of Care Document ---
Author Author [facility] Organization [facility] Address Unknown Phone Unavailable Allergies Active Description Code Type Severity Reaction Onset Reported/Identified Relationship to Patient Clinical Status Yes No Known Medication Allergies NKMA N/A N/A 08/22/2014 Yes No Known Allergies No Known Allergies Drug Allergy Unknown N/A 11/17/2014 Yes No Known Drug Allergies [id number] Drug Allergy Unknown N/ A 04/16/2015 Yes quetiapine [id number] Drug Allergy Unknown N/V 04/27/2016 Yes ziprasidone hcl ziprasidone hcl Unknown N/A 05/01/2016 Yes amantadine [id number] Drug Allergy Unknown N/A 10/10/2016 Yes asenapine [id number] Drug Allergy Unknown N/A 10/10/2016 Yes gabapentin [id number] Drug Allergy Unknown N/A 10/10/2016 Yes hydroxyzine [id number] Drug Allergy Unknown N/A 10/10/2016 Yes lurasidone [id number] Drug Allergy Unknown N/A 10/10/2016 Yes trazodone [id number] Drug Allergy Unknown N/A 10/10/2016 Yes ziprasidone [id number] Drug Allergy Unknown N/V 10/10/2016 Medications Problems [...] SORIA MD Ot 401.9 HYPERTENSION NOS 02/17/2016 MAIRA ELENA SORIA MD Ot 780.4 DIZZINESS AND [...] Ot 717.5 DERANGEMENT MENISCUS NEC 02/17/2016 FAST ENY HOBSON Ot 719.46 JOINT PAIN-L/LEG 02/17/2016 FAST [...] Ot 338.29 OTHER CHRONIC PAIN 02/28/2016 FAST ENY HOBSON Ot 717.5 DERANGEMENT MENISCUS NEC 02/28/2016 [...] TIMOTHY WARE MD Ot 784.7 EPISTAXIS 05/31/2016 YNAG HOBSON, MARIA ELENA Ot 401.9 HYPERTENSION NOS [...] OUT D/T PT LV BEF SEE 06/16/2016 MNUIR BANKS MD Ot F99 MENTAL DISORDER, NOT [...] PROJECTED 10/18/2016 PILAR SOSA DO Ot Y92.[address] [facility] [address] IN [facility] NON-INSTITUT ( PRIVATE Procedures Results Test [...] Status Pt. Type Provider Facility Loc./Unit Complaint [id number] 11/17/2014 14:27:00 2014 17:15:00 DIS Emergency Louis HOBSON, [facility] W.EDS
--- OUTSIDE RECORDS SUMMARY | 2016-10-28 01:30 | XMS REPORT ---
Author Author GENERATED, SYSTEM Organization Unknown Address Unknown Phone Unavailable Care Team Providers Care Firer [place] Kiln Name Role Phone UNASSIGNED DOCTOR , DOCTOR PP [phone] Reason For Visit Chief Complaint PAIN IN [...] H (65-99 MG/DL) *GFR EST NON AFR [place] 71 ML/MIN *GFRA EST AFR AMER 82 [...]
--- OUTSIDE RECORDS SUMMARY | 2016-10-28 01:31 | XMS REPORT ---
Author Author GENERATED, SYSTEM Organization Unknown Address Unknown Phone Unavailable Care Team Providers Care Water Taxi Captain Name Role Phone UNASSIGNED DOCTOR , DOCTOR PP [phone] Reason For Visit Reason for Visit from [...] 03/01/2016 1:20 PM:* #1 Office appointment: : [facility] Intake * Address # 1 : [facility]: [address], [address], [place], [place] - Procedures No relevant procedures performed. [...] the responsibility of the patient or patient enrollment eligibility representative to confirm the list of medications [...] tablet oral twice a day * HYDROcodone-acetaminophen ([place]) 5 mg-325 mg Tablet Directions: 1 tablet oral every six hours PRN pain * tamulosin 1 po daily
--- OUTSIDE RECORDS SUMMARY | 2016-10-28 01:31 | XMS REPORT | Continuity of Care Document ---
Author Author [facility] Organization [facility] Address Unknown Phone Unavailable Care Team Providers Care Upholsterer Helper Name Role Phone NEY MOSS MD Primary Care Physician [phone] Insurance Providers Payer Name Policy Number Subscriber Name Relationship Medicare A And B [id number] Miguel Marroquin 19 Self / Same As [...] worrisome symptoms. * Emergency Department phone number: [phone], x [phone]* MEDICAL RECORD If you need copies of your X-rays, call [phone] x [phone]. If you need copies of [...] SERVICE BILLING [employer] Emergency Room Services [facility] Physician Services [facility] X-rays [place] [facility] Patients will receive bills for services from the appropriate provider. If you have any questions about your [facility] bill, our staff will be happy to assist you. Please call [phone], and ask for the billing department. THANK YOU for choosing [facility] as your emergency care provider! [...] Urine collection method Clean Catch Urine Specific [place] January 26, 2015 9:17am 1.010 1.005-1.030 Urine [...] Encounters Encounter Location Date/Time Departed Emergency Room [facility] 02/13/15 3:39am Departed Emergency Room [facility] 02/06/15 8:14pm Departed Emergency Room [facility] 02/04/15 9:37pm Departed Emergency Room [facility] 02/01/15 9:35am Registered Clinic [facility] 01/29/15 7:24am Departed Emergency Room [facility] 01/26/15 9:03am Registered Clinic [facility] 01/26/15 8:50am Departed Emergency Room [facility] 01/25/15 5:10pm Departed Emergency Room [facility] 01/24/15 11:04pm Recent Diagnosis
--- OUTSIDE RECORDS SUMMARY | 2016-10-28 01:31 | XMS REPORT ---
Author Author GENERATED, SYSTEM Organization Unknown Address Unknown Phone Unavailable Care Team Providers Care Assistant City Attorney Name Role Phone MD CARON, IVONNE PP [...]
--- OUTSIDE RECORDS SUMMARY | 2016-10-28 01:31 | XMS REPORT | Continuity of Care Document ---
Author Author [facility] Organization [facility] Address Unknown Phone Unavailable Support Name Relationship Address Phone Fara MOSS MD Caregiver [address] [place] [address] NORMAN POTTS MD Caregiver [facility] [address] [place] [phone] IVONNE REARDON Caregiver [address] [place] [address] KATE MARROQUIN Next Of Kin [address] [place] [address] Insurance Providers Payer Name Policy Number Subscriber Name Relationship Medicare [id number] Grace Marroquin 19 Self Blue Cross Select Plan 65 [id number] Grace Marroquin 19 Self Advance Directives Directive [...] F (96.8 - 99.1) Temperature (Calculated Celsius) 36.74981 degrees C (36.0 - 37.3) Temperature Source [...] Has specimen been collected/obtained? Y Urine Specific [place] June 17, 2014 10:12pm 1.010 L - [...] Report June 17, 2014 10:56pm REFERENCE LAB [id number] - Turbidity June 17, 2014 9:32pm < 20 0-20 Glomerular Filtration Rate Calc June 17, 2014 9:32pm 74 - Immature Granulocyte # (Auto) June 17, 2014 9:32pm 0.01 T/MM3 N 0.00 -0.03 Immature Granulocyte % (Auto) June 17, 2014 9:32pm 0.2 % N 0.0-0.5 Icterus Index June 17, 2014 9:32pm < 2 0-7 Name: GRACE MARROQUIN Unit #: [id number] : 1945 Sex: M Loc / Svc: ED DOS: 06/17/14 Signed Report #: [id number] DIAGNOSTIC IMAGING REPORT TYPE OF EXAM: CT [...] hemorrhage. There is a preliminary report by [facility]. . Procedures Procedure Status Date Provider(s) ROUTINE VENIPUNCTURE completed 06/17/14 CT HEAD/BRAIN W/O DYE completed 06/17/14 COMPREHEN METABOLIC PANEL completed 06/17/14 ASSAY OF SALICYLATE completed 06/17/14 URINALYSIS AUTO W/O SCOPE completed 06/17/14 ASSAY OF ACETAMINOPHEN completed 06/17/14 ASSAY THYROID STIM HORMONE completed 06/17/14 COMPLETE CBC W/AUTO DIFF WBC completed 06/17/14 EMERGENCY DEPT VISIT completed 06/17/14 [id number] ITEM OR SERVICE completed 06/17/14 [id number] ITEM OR SERVICE completed 06/17/14 DRUG SCR, UR,STAT completed 06/17/14 Esophagogastroduodenoscopy (EGD) with closed biopsy completed 08/20/14 NORMAN POTTS MD Encounters Encounter Location Date/Time Departed Emergency Room [facility] 06/17/14 9:09pm
--- OUTSIDE RECORDS SUMMARY | 2016-10-28 01:32 | XMS REPORT ---
Author Author GENERATED, SYSTEM Organization Unknown Address Unknown Phone Unavailable Care Team Providers Care Revenue Agent Name Role Phone UNASSIGNED DOCTOR , DOCTOR PP [phone] Reason For Visit Chief Complaint PT LEFT [...]
--- OUTSIDE RECORDS SUMMARY | 2016-10-28 01:32 | XMS REPORT | Continuity of Care Document ---
Author Author [facility] Organization [facility] Address Unknown Phone Unavailable Support Name Relationship Address Phone JUAN MANUEL PARISH MD Caregiver [address] [place] [address] Insurance Providers Payer Name Policy Number Subscriber Name Relationship Medicare A And B [id number] Miguel Marroquin 19 Self / Same As Patient Blue Cross [facility] Supp [id number] Miguel Marroquin 19 Self / Same As [...] worrisome symptoms. * Emergency Department phone number: [phone], x 543* MEDICAL RECORD If you need copies of your X-rays, call [phone] x [phone]. If you need copies of [...] services. SERVICE BILLING [employer]AT Emergency Room Services [facility] Physician Services [facility] X-rays [place] [facility] Patients will receive bills for services from the appropriate provider. If you have any questions about your [facility] bill, our staff will be happy to assist you. Please call [phone], and ask for the billing department. THANK YOU for choosing [facility] as your emergency care provider! [...] Urine collection method Clean Catch Urine Specific [place] January 26, 2015 9:17am 1.010 1.005-1.030 Urine [...] Encounters Encounter Location Date/Time Registered Emergency Room [facility] 02/01/15 9:35am Registered Clinic [facility] 01/29/15 7:24am Departed Emergency Room [facility] 01/26/15 9:03am Registered Clinic [facility] 01/26/15 8:50am Departed Emergency Room [facility] 01/25/15 5:10pm Departed Emergency Room [facility] 01/24/15 11:04pm Departed Emergency Room [facility] 01/02/15 8:52pm Recent Diagnosis
--- OUTSIDE RECORDS SUMMARY | 2016-10-28 01:32 | XMS REPORT ---
Author Author GENERATED, SYSTEM Organization Unknown Address Unknown Phone Unavailable Care Team Providers Care Registered Nurse Step Down Name Role Phone UNASSIGNED DOCTOR , DOCTOR PP [phone] Reason For Visit Reason for Visit from [...] the responsibility of the patient or patient senior human resources representative to confirm the list of medications [...]
--- OUTSIDE RECORDS SUMMARY | 2016-10-28 01:32 | XMS REPORT | Continuity of Care Document ---
Author Author [facility] Organization [facility] Address Unknown Phone Unavailable Support Name Relationship Address Phone MUNIR BANKS MD Caregiver [address] [place] [address] KATE MARROQUIN Next Of Kin [address] [place] [address] Insurance Providers Payer Name Policy Number Subscriber Name Relationship Medicare A And B [id number] Miguel Marroquin 19 Self / Same As Patient Blue Cross [facility] Supp [id number] Miguel Marroquin 19 Self / Same As [...] worrisome symptoms. * Emergency Department phone number: [phone], x [phone] MEDICAL RECORD If you need copies of your X-rays, call [phone]. If you need copies of [...] services. SERVICE BILLING [facility] Emergency Room Services [facility] Physician Services [facility] X-rays [facility] Patients will receive bills for services from the appropriate provider. If you have any questions about your [facility] bill, our staff will be happy to assist you. Please call [phone], and ask for the billing department. THANK YOU for choosing [facility] as your emergency care provider! [...] Urine collection method Clean Catch Urine Specific [place] June 01, 2014 10:15pm 1.025 1.005-1.030 Urine [...] Encounters Encounter Location Date/Time Departed Emergency Room [facility] 01/02/15 8:52pm Recent Diagnosis
--- NOTE | 2016-10-28 01:40 | NUR ---
DEPART PT IS TAKEN BY W/C TO [facility] RM 189
--- NOTE | 2016-10-28 02:00 | NUR ---
etoh Pt states he drinks a beer or shot every other day. Pt is a smoker smokes 4 cigarettes a day started 6 months ago.
--- NOTE | 2016-10-28 02:00 | NUR ---
patient stated reason for admission Pt states that he got out of senior care on October 06 after 60 days, pt called his cousin and wanted his belongings back: lap top, clothing. Pt cousin refused to answer his call. Pt states "I got pissed off and called my friend and told him I was going to slip my throat, drink bleach, take Tylenol and Aleve." Pt states he still feels suicidal and would go home and slit his throat. Pt cooperative with assessment, vitals, and questions.
--- NOTE | 2016-10-28 02:30 | NUR ---
slums Pt slums score 29
[2016-10-28] MEDS ORDERED: LORAZEPAM 2 MG/ML INJECTION IM PRN (02:45)
[2016-10-28] MEDS ORDERED: RISPERIDONE 1 MG TABLET PO PRN (02:45)
[2016-10-28] MEDS ORDERED: HALOPERIDOL 0.5 MG TABLET PO PRN (02:45)
[2016-10-28] MEDS ORDERED: PRN ORDERS MC (02:45)
[2016-10-28] MEDS ORDERED: HALOPERIDOL 5 MG/ML INJECTION IM PRN (02:45)
[2016-10-28] MEDS ORDERED: LORAZEPAM 0.5 MG TABLET PO PRN (02:45)
[2016-10-28] MEDS: RANITIDINE 150 MG TABLET PO SCH ×3 (03:16→20:19)
[2016-10-28] MEDS: SUCRALFATE 1 G/10ml ORAL SUSPENSION PO SCH ×5 (03:16→23:05)
--- NOTE | 2016-10-28 05:00 | NUR ---
Chart Check 24 hour chart check completed
--- NOTE | 2016-10-28 06:00 | NUR ---
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 Pt awake and upset this morning, pt wants his belongings including his pocket watch, bible with lots of papers stuffed inside of it. Pt reminded that he was in [facility] and that he agreed to come here and meet with Psychiatrist. Pt paced around the room while 1:1 with staff, pt is now sitting in his recliner looking out the window. will monitor pt.
--- NOTE | 2016-10-28 10:40 | NUR ---
MEDICAL TECHNICIAN--AM GROUP PT. was present and actively participated in psychoeducational group facilitated by [facility]. Topic was on facing personal challenges. Patients were asked to identify the resources they use to help sustain them when faced with a difficult issue in life. One pt. identified "God" as his strength. Another pt. identified his as his strength. The pt. mentioned he uses his art work and visualization. Read story about older woman attending college. Talked about never being too old to learn, importance of fining humor everyday and being flexible to change. Pt. mentioned that he had been an active member of the [employer] for over 50 years before choosing to leave it. Pt. was alert, Ox3, calm with pleasant mood. He answered questions that were asked of him and contributed his thoughts to the discussion. Finished up group by listening to a variety of Hinduism Hymns. Pt. sang along with many of the songs played and he moved his hands as if conducting an orchestra.
--- NOTE | 2016-10-28 10:56 | HPPDOC ---
LAST MORELAND V [employer]PERVISOR [employer] G[employer] 10/28/16 1023: HPI - Adult Date DATE: 10/28/16 TIME: 10:14 General Chief Complaint: SI History of Present Illness Miguel is a 71 year old male who presented to the ER last night escorted by [place] [employer]. He was discussing with his friend on the telephone how tired he is of life and that he was through trying. About 10-15 minutes after the phone call ended, his friend tried to contact him again via telephone, when the patient did not answer, his friend notified Micah VERMA who did a welfare check. Upon the welfare check the patient was found to be in his kitchen with a display of kitchen knives and a large bottle of bleach. He did express to Micah VERMA that his intent was to hurt himself. He was brought voluntarily to [facility]'s ED for further evaluation. Miguel was seen at [place] ED previously the same day for evaluation of abdominal pain. He subsequently was dismissed with gastritis. He was given prescriptions for Zantac 150mg twice daily and Carafate 1gm before meals and at bedtime. His lab work was unremarkable except for a sodium level of 148 and glucose of 111. CT results were reviewed, demonstrated right lower lobe pulmonary non-calcified nodule, left renal lesion, and bilateral renal cysts. Suspect these are chronic and can be followed up with an outpatient ultrasound. BUN: 24, creatine: 0.7. Urine tox screen was negative, as was ETOH and APAP levels. Miguel is seen sitting in a chair in the day room. He has a flat affect, but is alert and orientated. He answers questions appropriately. He informs that this past year he has began to have more stressors in his life, but he does not elaborate as to what the stressors are. He reports that he has a long standing history of stomach issues including GERD and a hiatal hernia and he has not been taking medication for the past year. He reports that since his ED visit, his stomach pain has resolved. His only complaint is that he did not bring any other clothes with him to the ED, he otherwise reports that he is doing ok today. He reports that he currently does not have a PCP, however he is [facility]. Previous PCP was Dr. Stan Beckford. Past Medical History Past Medical History Opioid dependence Chronic back pain Hiatal Hernia BPH Bipolar Depression Hyperthyroidism GERD HTN Current tobacco user Schatzki ring of distal esophagus Surgical History Patient's Surgical History: Cholecystectomy Lumbar fusion L1-2 and L3-4 L TKA Colonoscopy 2015 Inguinal hernia repair Current Medications Home Meds Active Scripts Ranitidine HCl (Zantac) 150 Mg Tablet, 150 MG PO BID for ACID REFLUX, #60 TAB Take 1 tablet, by mouth, 2 times a day. Prov:LURDES VIVAR MD 10/27/16 Sucralfate (Carafate) 1 Gm/10 Ml Oral.susp, 1 G PO ACHS, #60 ML Prov:LURDES VIVAR MD 10/27/16 Reported Medications Naproxen Sodium (Aleve) 220 Mg Tablet, 440 MG PO BIDWM Y for PAIN 10/27/16 Acetaminophen (Acetaminophen) 500 Mg Tablet, 1000 MG PO Q8H Y for PAIN 10/27/16 Risperidone (Risperidone) 1 Mg Tablet, 1 MG PO BID Y for PRN ORDERS 10/27/16 Allergies: Coded Allergies: asenapine (Verified Allergy, Unknown, 04/12/16) gabapentin (Verified Allergy, Unknown, 04/12/16) lurasidone (Verified Allergy, Unknown, 04/12/16) quetiapine (Verified Allergy, Unknown, 04/12/16) ziprasidone (Verified Allergy, Unknown, 04/12/16) Family History Family History: Father: Stomach cancer, Sister: HTN Social History Smoking Status: Current every day smoker Does patient use chewing tobac: No Second Hand Exposure: No Substance Use Type: marijuana (Three times per year) Alcohol Intake: a few times a week (Whiskey and beer every other day) Advance Directives: No DPOA for Healthcare Only Social History Comments PCP Dr Stan Beckford Review of Systems Constitutional: REPORTS: fatigue, insomnia Psychiatric Psychiatric: depression All Other Systems All Other Systems: Reviewed (remainder of 10-point ROS Neg.) Physical Exam General General Nourishment: well nourished General Body Habitus: disheveled Vital Signs Vital Signs Date Time Temp Pulse Resp B/P Pulse Ox O2 Delivery O2 Flow Rate FiO2 10/28/16 08:16 70 20 97 Room Air 10/28/16 07:58 97.8 143/86 Height (Feet): 5 Height (Inches): 6.50 Eyes Brief: FOUND: EOMI Respiratory Brief: FOUND: clear all doty, equal bilaterally Cardiovascular (brief) Cardiac Brief: FOUND: murmur, regular rate, regular rhythm Abdomen (brief) Abdominal Brief: FOUND: BS normo active x4, soft Integumentary (brief) Integumentary Brief: FOUND: dry, pink, warm Neurologic (brief) Neurological Brief: FOUND: cranial 2-12 intact Neurologic RN Documented GCS Eye Opening: Verbal: Motor: Total: Psychiatric (brief) FOUND: alert, oriented, other (flat affect) Laboratory Laboratory Tests Test 10/28/16 00:00 Urine Collection Type Cleancatch-midstream Urine Color Yellow Urine Turbidity Clear Urine pH 6.0 Urine Specific [place] <=1.005 Urine Protein Negative Urine Glucose (UA) Negative Urine Ketones Negative Urine Blood Negative Urine Nitrite Negative Urine Bilirubin Negative Urine Urobilinogen 0.2EU/DL Urine Leukocyte Esterase Negative Urinalysis Comment Microscopic not ind. Hemoglobin A1c 5.4% Prealbumin 27.6MG/DL Thyroid Stimulating Hormone (TSH) 0.30MIU/L Salicylates Level < 1.0MG/DL Urine Opiates Screen NegativeNG/ML Urine Oxycodone Screen NegativeNG/ML Urine Methadone Screen NegativeNG/ML Urine Propoxyphene Screen NegativeNG/ML Acetaminophen Level < 10UG/ML Urine Barbiturates Screen NegativeNG/ML Urine Tricyclic Antidepressants NegativeNG/ML Urine Phencyclidine Screen NegativeNG/ML Urine Amphetamines Screen NegativeNG/ML Urine Methamphetamines Screen NegativeNG/ML Urine Benzodiazepines Screen NegativeNG/ML Urine Cocaine Screen NegativeNG/ML Urine Cannabinoids Screen NegativeNG/ML Alcohol, Quantitative <10MG/DL Assessment & Plan Problems: (1) Gastritis Status: Acute (2) Hypernatremia Status: Acute (3) Bipolar affective Status: Acute Qualifiers: Most recent bipolar episode type: most recent episode unspecified type (4) Hypertension Status: Chronic (5) Hyperthyroidism Status: Chronic (6) GERD (gastroesophageal reflux disease) Status: Chronic (7) Chronic back pain Status: Chronic (8) BPH (benign prostatic hyperplasia) Status: Chronic (9) Tobacco dependence Status: Chronic Plan/Intensity of Service Agree with admission to [facility] for further psychiatric recommendations Continue with Carafate 1gm before meals and at bedtime for gastritis as well as Zantac 150mg twice daily. Patient reports that he tried Prilosec 20mg twice daily in the past after his EGD/colonoscopy in 2014, however it never helped. [facility] on 10/29 to monitor electrolyte and renal function, currently Na of 148, suspect this will normalize with oral intake. Appreciate Dr. Van recommendation [facility] for bipolar treatment. He has a reported history of hypertension. Previous H&P from 2014 indicates that at that time he was taking Losartan 100mg daily and Diltiazem 180mg daily. He is currently mildly hypertensive, 143/86. We will continue to monitor his vitals, if he continues to trend up, we may consider starting medication for HTN. TSH in the ED was stable at 0.3. Will obtain a free T3 and Free T4. Continue with Naproxen and Tylenol PRN for chronic back pain. Discussed smoking cessation with patient, will order Nictoine patch PRN. Code Status Full Code Hospital Course Summary Disclaimer The hospital course summary below is not to be considered part of the above Progress Note. Hospital Course Summary Agree with admission to [facility] for further psychiatric recommendations Continue with Carafate 1gm before meals and at bedtime for gastritis as well as Zantac 150mg twice daily. Patient reports that he tried Prilosec 20mg twice daily in the past after his EGD/colonoscopy in 2014, however it never helped. [facility] on 10/29 to monitor electrolyte and renal function, currently Na of 148, suspect this will normalize with oral intake. Appreciate Dr. Van recommendation [facility] for bipolar treatment. He has a reported history of hypertension. Previous H&P from 2014 indicates that at that time he was taking Losartan 100mg daily and Diltiazem 180mg daily. He is currently mildly hypertensive, 143/86. We will continue to monitor his vitals, if he continues to trend up, we may consider starting medication for HTN. TSH in the ED was stable at 0.3. Will obtain a free T3 and Free T4. Continue with Naproxen and Tylenol PRN for chronic back pain. Discussed smoking cessation with patient, will order Nictoine patch PRN. CRISSY MONTESINOS MD 10/28/16 1710: Past Medical History Current Medications Home Meds Active Scripts Ranitidine HCl (Zantac) 150 Mg Tablet, 150 MG PO BID for ACID REFLUX, #60 TAB Take 1 tablet, by mouth, 2 times a day. Prov:LURDES VIVAR MD 10/27/16 Sucralfate (Carafate) 1 Gm/10 Ml Oral.susp, 1 G PO ACHS, #60 ML Prov:LURDES VIVAR MD 10/27/16 Reported Medications Naproxen Sodium (Aleve) 220 Mg Tablet, 440 MG PO BIDWM Y for PAIN 10/27/16 Acetaminophen (Acetaminophen) 500 Mg Tablet, 1000 MG PO Q8H Y for PAIN 10/27/16 Risperidone (Risperidone) 1 Mg Tablet, 1 MG PO BID Y for PRN ORDERS 10/27/16 Allergies: Coded Allergies: asenapine (Verified Allergy, Unknown, 04/12/16) gabapentin (Verified Allergy, Unknown, 04/12/16) lurasidone (Verified Allergy, Unknown, 04/12/16) quetiapine (Verified Allergy, Unknown, 04/12/16) ziprasidone (Verified Allergy, Unknown, 04/12/16) Assessment & Plan Problems: (1) Gastritis Status: Acute (2) Bipolar affective Status: Acute Qualifiers: Most recent bipolar episode type: most recent episode unspecified type (3) Hypertension Status: Chronic (4) Hyperthyroidism Status: Chronic (5) GERD (gastroesophageal reflux disease) Status: Chronic (6) Chronic back pain Status: Chronic (7) BPH (benign prostatic hyperplasia) Status: Chronic (8) Tobacco dependence Status: Chronic Plan/Intensity of Service Have independently interviewed and examined pt. Chart reviewed and examined pt. Chart reviewed. Case discussed with my SUPERVIS[employer]. Above care plan developed with my supervision; agree with above. Doing okay medically. Notes some dyspepsia at time - has been trying to decrease soda intake. Carafate is helping. No nausea. Eating well. Breathing stable without SOA, cough, congestion or pain with breathing. Not having chest pressure. Lungs; clear CV: regular AB: soft nt/nd +BS Ext: no edema MSE: awake alert appropriate Plan: Agree of admission to [facility] for further psychiatric evaluation and treatment. Continue Carafate and Zantac to help gastric symptoms. Encourage po intake of fluids/foods. Monitor blood pressure - initiate antihypertensives as needed. Provide safe, supportive environment. Encourage [facility] group activities. Psychiatry will manage and adjust psychoactive medications. Medically stable for [facility] floor activities. LAST MORELAND APRN Oct 28, 2016 10:23 CRISSY MONTESINOS MD Oct 28, 2016 17:10
--- NOTE | 2016-10-28 14:50 | NUR ---
status pt alert and oriented x3. has been pleasant and cooperative with staff. suicide watch has been lifted by Dr. Van. able to make needs known. ambulates well. does complain of pain in his back. lays on the floor at times in day room. states it feels better on his back.
--- NOTE | 2016-10-28 16:14 | NUR ---
DATA WAREHOUSING ENGINEER--PSH/ADVANCE DIRECTIVE [facility]1 with pt. to gather information for psychosocial history (PSH). Pt. proves to be a fairly reliable historian though his judgment is somewhat impaired. He reports he was born in [place], [place]. He never and has no children. He left the [facility] after 50+ years because of his "flamboyant" lifestyle and "gonzalez" attitude. PT. denies having any long-term relationship. He reports having 8th grade education but then later received his GED. 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 He currently collects [employer] and [employer]. He reports that a brother, Myron Marroquin, is his DPOA-HC. He states has a copy of that document. He would like to be a DNR though he remains a full code at this time. Pt. has conflictual relationship with many of his extended family members because of their rastafari views. Pt. admits to smoking on daily basis for past 10 years. He is inconsistent historian regarding his substance abuse use. He admits to having a history of abusing pain medications and is on a list not to receive opioids through ED. He states he drinks about two bottles of beer twice a week and takes a shot of whiskey every other day. He has repeatedly stated he has only used marijuana 4x in his life. He recently served 60 days in snf after traveling to [place], [place] and attempting to mail himself some marijuana. Pt. is on probation through [facility] until August 12, 2017. Raymundo Rodas is his RESIDENTIAL CHILD CARE COUNSELOR. Pt. has signed two ROIs so that [facility] can communicate with RESIDENTIAL CHILD CARE COUNSELOR. Pt. has an appt. with RESIDENTIAL CHILD CARE COUNSELOR on 11/04/16 at 1030. Pt. is to call [phone] if he is not able to make that appt. Pt. reports he was dx. with bipolar disorder in 1978 and has had at least 3 psychiatric hospitalizations. He admits to making suicidal statements when stressed but he denies he has ever acted on his threats. He receives mental health services through . Burt Vazquez is his CM. Pt. is currently staying in crisis apt. provided by until more permanent housing can be arranged. Pt. admits he recently sold his life-long home and spent over [phone] traveling and staying in [employer] hotels. He reports history of traveling all over the world. [facility] reviewed pt's proposed treatment plan. Pt. had no additional information to add. He did sign the form in agreement. Addendum: 10/28/16 at 1632 by JANELLE SNIDER Amended: Links added.
--- NOTE | 2016-10-28 16:34 | GENHPPDOC ---
[facility] 10/28/16 Start Time: 12:20 Stop Time: 13:10 >50% of this visit spent in counseling/coordination care. Chief Complaint: SI with multiple plans History of Present Illness Patient is a 71-year-old single, disabled (due to mental illness) male who was admitted to [facility] on 10/28/16 due to SI with multiple plans. Patient is seen by [facility] on outpatient basis, has a CM and reportedly diagnosed with bipolar disorder. He says he has had multiple trials of antipsychotics, cannot take [place] as it doesn't control his marlen and Depakote doesn't work. His o/p provider recently started him on Risperdal and he would like to continue this. Patient has a hx of narcotic dependence and thus cannot have controlled substances though he reports he doesn't sleep well without Ambien. He states he cannot take Geodon, Seroquel, Latuda or Saphris. Patient states he has chronic lower back pain and hasn't slept more than 3 hours a night since 1978 due to this. Patient states he became suicidal after he ran out of money and none of his friends would help. He was raised Mennonite but says "they don't approve of his gonzalez lifestyle" and he was ex-communicated in 2008. Patient is currently on probation for trying to mail 5 g of marijuana from [place] to [place]. Past psych hx: Patient states he was diagnosed as bipolar in 1978, was hospitalized with depression 3x in thd but has had only manic episodes since then. He denies any history of psychosis. He says he frequently makes threats of suicide but has never attempted. Patient scored a 29/30 on SLUMS. Marlen: sleep changes, speech changes (mild) Past Medical History Past Medical History Opioid dependence Chronic back pain Hiatal Hernia BPH Bipolar Depression Hyperthyroidism GERD HTN Current tobacco user Schatzki ring of distal esophagus Surgical History Patient's Surgical History: Cholecystectomy Lumbar fusion L1-2 and L3-4 L TKA Colonoscopy 2015 Inguinal hernia repair Current Medications Home Meds Active Scripts Ranitidine HCl (Zantac) 150 Mg Tablet, 150 MG PO BID for ACID REFLUX, #60 TAB Take 1 tablet, by mouth, 2 times a day. Prov:LURDES VIVAR MD 10/27/16 Sucralfate (Carafate) 1 Gm/10 Ml Oral.susp, 1 G PO ACHS, #60 ML Prov:LURDES VIVAR MD 10/27/16 Reported Medications Naproxen Sodium (Aleve) 220 Mg Tablet, 440 MG PO BIDWM Y for PAIN 10/27/16 Acetaminophen (Acetaminophen) 500 Mg Tablet, 1000 MG PO Q8H Y for PAIN 10/27/16 Risperidone (Risperidone) 1 Mg Tablet, 1 MG PO BID Y for PRN ORDERS 10/27/16 Allergies: Coded Allergies: asenapine (Verified Allergy, Unknown, 04/12/16) gabapentin (Verified Allergy, Unknown, 04/12/16) lurasidone (Verified Allergy, Unknown, 04/12/16) quetiapine (Verified Allergy, Unknown, 04/12/16) ziprasidone (Verified Allergy, Unknown, 04/12/16) Family History Family History: Father: Stomach cancer, Sister: HTN Vaccines NONE january 2016 Social History Smoking Status: Current every day smoker Does patient use chewing tobac: No Second Hand Exposure: No Substance Use Type: marijuana (Minimizes use but currently on probation for mailing 5g from [employer] to [employer]) Alcohol Intake: a few times a week (Whiskey and beer every other day) Marital Status: Single Sexuality: male partner Household Members: none Number of Children: 0 Current Occupational Status: disabled (due to mental illness) Grade (if student): GED Advance Directives: No DPOA for Healthcare Only Good at communication, has fair insight into behavior, cooperative, upfront with limits on narcotics Review of Systems Constitutional: REPORTS: insomnia GI Lower Abdomen: constipation Musculoskeletal Lumbar: pain (chronic) Neurological General: other (Denies hx of head injury or LOC), DENIES: headache, memory disturbances, seizures Psychiatric Psychiatric: emotional instability, suicidal ideation/attempt All Other Systems All Other Systems: Reviewed (remainder of 10-point ROS Neg.) [facility] Exam Vitals Vital Signs Date Time Temp Pulse Resp B/P Pulse Ox O2 Delivery O2 Flow Rate FiO2 10/28/16 16:16 98.6 78 18 129/81 98 Room Air Physical examination performed by the hospitalist. Height (Feet): 5 Height (Inches): 6.50 Mental Status Exam Muscle Strength/Tone: Normal Dressing: Other (wears shirt with marijuana leaf, several watches and bracelets , rings on fingers) Grooming: Good Attitude: Manipulative Motor Activity: Normal Eye Contact: Good Speech: Other (Talkative, mildly rapid - unclear what baseline is) Volume: Normal Rhythm: Appropriate Rhythm Sensory: Alert Orientation: Oriented X4 Mood: Irritable Affect: Congruent Rate of Thoughts: Pressured (mild) Thought Organization: Circumstantial Associations: Intact Abstract Reasoning: Intact, able to abstract Thought Content: Ruminations, Helplessness, Somatic Concerns, Other (Anger towards friends/family) Perception/Psychotic: Perception Normal Attention Span/Concentration: Normal Language: Naming Intact Fund of Knowledge: Appropriate Memory: Grossly Intact Suicidal Ideation: Other (Admitted Si with multiple plans at admission) Homicidal Ideation: Denies Insight: Fair Judgment: Limited Impulse Control: Poor Laboratory Tests Test 10/28/16 00:00 Urine Collection Type Cleancatch-midstream Urine Color Yellow Urine Turbidity Clear Urine pH 6.0 Urine Specific [place] <=1.005 Urine Protein Negative Urine Glucose (UA) Negative Urine Ketones Negative Urine Blood Negative Urine Nitrite Negative Urine Bilirubin Negative Urine Urobilinogen 0.2EU/DL Urine Leukocyte Esterase Negative Urinalysis Comment Microscopic not ind. Hemoglobin A1c 5.4% Prealbumin 27.6MG/DL Triglycerides Level Pending Cholesterol Level Pending LDL Cholesterol, Calculated Pending VLDL Cholesterol Pending HDL Cholesterol Direct Pending Cholesterol/HDL Ratio Pending Vitamin B12 Level Pending Folate Pending Thyroid Stimulating Hormone (TSH) 0.30MIU/L Free Thyroxine Pending Free Triiodothyronine Pending Salicylates Level < 1.0MG/DL Urine Opiates Screen NegativeNG/ML Urine Oxycodone Screen NegativeNG/ML Urine Methadone Screen NegativeNG/ML Urine Propoxyphene Screen NegativeNG/ML Acetaminophen Level < 10UG/ML Urine Barbiturates Screen NegativeNG/ML Urine Tricyclic Antidepressants NegativeNG/ML Urine Phencyclidine Screen NegativeNG/ML Urine Amphetamines Screen NegativeNG/ML Urine Methamphetamines Screen NegativeNG/ML Urine Benzodiazepines Screen NegativeNG/ML Urine Cocaine Screen NegativeNG/ML Urine Cannabinoids Screen NegativeNG/ML Alcohol, Quantitative <10MG/DL Rapid Plasma Reagin Nonreactive Assessment and Plan (1) Bipolar affective Assessment: by history Qualifiers: (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 Request records from [facility]. Maintain safety precautions though patient denies that he will harm himself on the unit. Review labwork from admission; contact CM if possible for further collateral. Plan to change Risperdal to 2mg PO q HS and start Gabapentin 300g PO BID for chronic back pain. Continue other current home medications; monitor mood, behavior and response to treatment. LELE VILLEGAS MD Oct 28, 2016 16:24
[2016-10-28] MEDS: GABAPENTIN 300 MG CAPSULE PO SCH (20:19)
[2016-10-28] MEDS: RISPERIDONE 1 MG TABLET PO SCH (20:19)
[2016-10-28] MEDS: NAPROXEN 220 MG TABLET PO PRN (21:05)
--- NOTE | 2016-10-28 23:16 | NUR ---
Chart Check 24 hour chart check completed
--- NOTE | 2016-10-29 00:28 | NUR ---
STATUS PT AWAKE AT START OF SHIFT ALERT AND ORIENTED. PT TALKING ON PHONE WITH FRIEND APPEARS VERY UPSET. FOLLOWING PHONE CONVERSATION PT IS PLEASANT AND COOPERATIVE WITH STAFF. PT REQUEST TO SHAVE AND TAKE SHOWER AND WAS ABLE TO PERFORM CARES HIMSELF WITH NO DIFFICULTY. PT COOPERATIVE WITH MEDICATIONS AND GIVEN PRN ALEVE FOR PAIN 8 OUT OF 10 IN BACK. FOLLOWING CARES PT AMBULATED TO DAY ROOM WHERE HE ATE SHERBERT AND SALT CRACKERS AT HIS REQUEST. PT BACK TO ROOM AND IN BED AT 2130. PT HAS REMAINED IN BED SINCE THEN WITH NO COMPLAINTS OR REQUESTS.
[2016-10-29] MEDS: SUCRALFATE 1 G/10ml ORAL SUSPENSION PO SCH ×4 (05:19→21:59)
--- NOTE | 2016-10-29 06:31 | NUR ---
SUMMARY PT REMAINED IN BED WITH NO COMPLAINTS OR NEEDS UNTIL ROUGHLY 0430 WHEN PT WAS FOUND TO BE AWAKE IN ROOM. PT REQUEST TO AMBULATE AND WALKED IN [place] FOR SHORT TIME BEFORE BEING REDIRECTED TO PT ROOM. PT WAS PROVIDED WITH PEN AND PAPER AT HIS REQUEST TO DO "SOME JOURNAL WRITING" AND WAS GIVEN AN I-POD TO LISTEN TO MUSIC. PT REMAINED IN ROOM LISTENING TO MUSIC AND WRITING UNTIL 519 WHEN HE USED CALL LIGHT TO REQUEST A SNACK, AT THIS TIME PT WAS ASSISTED TO DAY ROOM TO SIT AND VISIT WITH STAFF MEMBER AND OTHER PT WHILE ENJOYING A SNACK. PT IS ALERT ORIENTED X3. PT IS PLEASANT AND COOPERATIVE AND ENJOYS THE CHANCE TO SPEAK WITH ANYONE WHO IS AVAILABLE FOR CONVERSATION. PT IS NOTED TO BE HAPPY, SMILING, COOPERATIVE AND NEITHER SHOWS OR VOICES ANY SUICIDAL IDEATIONS.
--- NOTE | 2016-10-29 07:00 | NUR ---
Patient awake at 0345 per obs form. Total sleep time: 4.25 hours
[2016-10-29 08:21] VITALS: BP 130/77; PULSE 66; RESP 16; TEMP 98.4; O2SAT 95
[2016-10-29] MEDS: RANITIDINE 150 MG TABLET PO SCH ×2 (08:29→20:14)
[2016-10-29] MEDS: GABAPENTIN 300 MG CAPSULE PO SCH ×2 (08:30→20:14)
[2016-10-29] MEDS: NAPROXEN 220 MG TABLET PO PRN ×2 (08:32→17:29)
--- NOTE | 2016-10-29 12:23 | GENPN ---
[facility] Subjective Date DATE: 10/29/16 TIME: 06:13 Subjective/Severity of Illness Medications Current Medications Medications (Trade) Dose Ordered Sig/Rajeev Start Time Stop Time Status Last Admin Dose Admin Acetaminophen (Tylenol Extra Strength) 1,000 mg Q8H PRN 10/28/16 02:45 Naproxen Sodium (ALEVE 220 mg) 440 mg BIDWM PRN 10/28/16 02:45 10/28/16 21:05 440 MG Ranitidine HCl (Zantac) 150 mg BID 10/28/16 09:00 10/28/16 20:19 150 MG Risperidone (Risperdal) 1 mg BID PRN 10/28/16 02:45 10/28/16 12:23 DC Sucralfate (Carafate Slurry) 1 g ACHS 10/28/16 06:30 10/29/16 05:19 1 G Miscellaneous Medication (May use PRN orders) 1 PRN PRN 10/28/16 02:45 Haloperidol (Haldol) 0.5 mg Q6H PRN 10/28/16 02:45 Lorazepam (Ativan) 0.5 mg Q6H PRN 10/28/16 02:45 Lorazepam (Ativan) 0.5 mg Q6H PRN 10/28/16 02:45 Haloperidol Lactate (Haldol 5 Mg/ml Inj) 0.5 mg Q6H PRN 10/28/16 02:45 Risperidone (Risperdal) 2 mg HS 10/28/16 21:00 10/28/16 20:19 2 MG Gabapentin (Neurontin) 300 mg BID 10/28/16 21:00 10/28/16 20:19 300 MG Subjective Mr. Marroquin is a 71 year old male who was admitted here secondary to suicidal threats. He was asleep upon my visit this morning. To RN, he reported that housing difficulties have been his biggest stressor exacerbating his moods. He has a hx of Bipolar DO and also uses alcohol and tobacco daily. RN reports he was in [facility] last [place]. Alert and Oriented x3. RN reports he's been suspicious but takes meds. Tolerating Gabapentin well thus far and Risperidone also. Walks with assistance. Can be intrusive with other patients and their visitors. Makes threats about law suits. Slept off and on, up in halls some thru the night. Eats 100% of meals. Mood irritable. Time of Service: 06:15 Start Time: 06:15 Stop Time: 06:30 Care >50% of this visit spent in counseling/coordination care. [facility] Exam Vitals Vital Signs Date Time Temp Pulse Resp B/P Pulse Ox O2 Delivery O2 Flow Rate FiO2 10/28/16 20:30 18 10/28/16 20:25 97.0 72 140/87 96 Room Air Physical examination performed by the hospitalist. Height (Feet): 5 Height (Inches): 6.50 Mental Status Exam Dressing: Casual Grooming: Fair Attitude: Uncooperative, Guarded Sensory: Alert Orientation: Oriented to person, Oriented to place, Oriented to time Mood: Irritable Affect: Labile Thought Organization: Disorganized, Confused Attention Span/Concentration: Distractable Memory: Poor-recent Suicidal Ideation: None Homicidal Ideation: None Insight: Poor Judgment: Poor Impulse Control: Poor Assessment and Plan (1) Bipolar affective Assessment: by history Plan: 10/29/16: Risperidone and Gabapentin started. Will monitor and titrate over weekend as needed. Time spent reviewing case and chart. 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
--- NOTE | 2016-10-29 15:34 | NUR ---
SMOKING HISTORY Pt is a current smoker. RT consult placed.
[2016-10-29 16:00] VITALS: BP 145/79; PULSE 67; RESP 16; TEMP 97.8; O2SAT 96
--- NOTE | 2016-10-29 18:43 | NUR ---
Laundry Patient's sisters bring in clothing this afternoon and are inventoried by other RN. Clothing is very stinky and dirty, taken to the laundry. Patient calls this RN in to his room complaining he has not yet received his clothes. Patient is informed clothes are in the laundry and he is very angry, stating that his shirts have to be dry-cleaned and starched and asks for reimbursement. Message left for nurse corporate sales manager
--- NOTE | 2016-10-29 18:46 | NUR ---
Shift Summary Patient is awake at the start of this shift, is singing to music from his iPod and greats this RN pleasantly and politely. He is cooperative with assessment cares, oriented x3. He ambulates independently and is able to make his needs known. When asked about recent suicidal statements he waves his hand "oh I wouldn't kill myself". He eats 50% of breakfast and 100% of lunch and supper. Medications are taken whole without argument or incident. Patient's sisters are on the unit this afternoon visiting - bring in personal belongings including extra clothing.
[2016-10-29] MEDS: RISPERIDONE 1 MG TABLET PO SCH ×2 (20:14→20:19)
[2016-10-29 20:15] VITALS: RESP 16
--- NOTE | 2016-10-29 20:19 | NUR ---
HS MEDICATIONS PT REFUSED 1 TABLET OF 1MG RISPERDAL TABLET OF HS MEDICATIONS. PT REPORTS TAKING 2MG LAST NIGHT WAS TOO MUCH FOR HIM AND WAS ONLY WILLING TO TAKE 1MG DOSE.
--- NOTE | 2016-10-29 21:30 | NUR ---
bed time Pt is sleeping in bed at 21:30 will monitor pt.
[2016-10-29 21:56] VITALS: BP 130/67; PULSE 88; RESP 14; TEMP 97.9; O2SAT 96
--- NOTE | 2016-10-29 22:29 | NUR ---
Chart Check 24 hour chart check completed
--- NOTE | 2016-10-29 22:29 | NUR ---
STATUS PT ALERT ORIENTED X3. PT IN ROOM TRYING ON HIS CLOTHES AND FOLDING CLOTHES AT START OF SHIFT. PT PLEASANT AND COOPERATIVE. PT REPORTS HIS PAIN HAS BEEN DOING MUCH BETTER TODAY AND HIS STOMACH HAS NOT BEEN BOTHERING HIM. PT REQUEST TO TAKE SHOWER AND IS UP AD HEATHER, PT ABLE TO PERFORM SELF CARES WITH NO DIFFICULTIES. PT AMBULATED IN HALLS AND SAT IN DAY ROOM SPEAKING WITH STATISTICS PROFESSOR FOR SOME TIME PRIOR TO GOING TO ROOM AND PREPARING FOR BED. PT IN BED READING AT 2115 AND NOTED TO BE SLEEPING AT 2200. PT HAD NO BEHAVIORS. PT HAD NO PRN MEDICATIONS.
[2016-10-29 23:30] VITALS: RESP 18
--- NOTE | 2016-10-29 23:30 | NUR ---
patient status Pt is awake sitting up in recliner, pt jeans on the floor asked pt if I could put his jeans away because it is a fall risk to have jeans on the floor. Pt got up from recliner angry, with fist cliched, states "I have the right to have my clothes on the floor, anyway these are your jeans you shrank them in the laundry." Pt then went over to the closet and pulled open the door and stated my clothes were washed without my permission when they are to be dry cleaned and starched. I have the name of your farm management supervisor and am willing inform them. I expect to be compensated for all my clothing." Pt did sit down in recliner and allowed assessment to be done. Patient later reported to RN ACUTE that I am not happy about split shifts and that it is not done according to patient rights. Pt states he has the right to do whatever I want according to his patients rights. Pt requested AMA paperwork, RN ACUTE calmed patient done, pt states this "super sucks". Pt told to take a breather and agreed to listen to his music. Pt stated to the RN ACUTE that I am going to stay up all night long. Pt is currently sitting in recliner listening to music.
--- NOTE | 2016-10-30 02:09 | NUR ---
Chart Check 24 hour chart check completed
--- NOTE | 2016-10-30 02:30 | NUR ---
patient status Pt is in bed sleeping with ipod on, pt is in bed with 2 bed rails up and bed alarm on.
--- NOTE | 2016-10-30 03:41 | NUR ---
behaviors Pt awake, up in room, irritable, pt turned on water full blast in room, upset when told to turn off water that was keeping other patients awake. Pt went to dayroom with staff, pulled out papers and started writing a list of demands and complaints. PHYSICIAN GENERAL PRACTICE was firm with patient, but did not scold him. Pt list copied and placed on pt chart for review. Original copy given back to patient. will monitor pt.
[2016-10-30] MEDS: SUCRALFATE 1 G/10ml ORAL SUSPENSION PO SCH ×4 (06:15→21:11)
--- NOTE | 2016-10-30 06:50 | NUR ---
shift summary Pt is alert and oriented x3, pt is in a irritable mood due to his clothing. (see previous notes) pt up and down to dayroom, pt slamming his closet door, pt put call light on this morning stated he was not going to take any meds this am. Pt states he ate 25 candy bars and 2 prune juices and is still constipated. Pt offered additional prune juice will update Dr Trivedi on rounds.
--- NOTE | 2016-10-30 07:30 | NUR ---
NOC sleep times: [id number] only
[2016-10-30] MEDS ORDERED: MILK OF MAGNESIA 30 ML SUSP PO PRN (07:45)
[2016-10-30] MEDS: GABAPENTIN 300 MG CAPSULE PO SCH ×3 (08:02→20:09)
[2016-10-30] MEDS: DOCUSATE SODIUM 100 MG CAPSULE PO SCH (08:02)
[2016-10-30] MEDS: RANITIDINE 150 MG TABLET PO SCH ×2 (08:05→20:10)
[2016-10-30] MEDS: RISPERIDONE 0.5 MG TABLET PO SCH (08:05)
[2016-10-30] MEDS: NAPROXEN 220 MG TABLET PO PRN ×2 (08:10→17:18)
[2016-10-30 08:16] VITALS: BP 125/74; PULSE 81; RESP 16; TEMP 97.8; O2SAT 97
--- NOTE | 2016-10-30 10:31 | DI ---
Indication: ITS.REASON: mental status change PROCEDURE: CT HEAD W/O CONTRAST: Encounter: Initial Comparison: June 17, 2014 Technique: Axial CT images through the head were performed without contrast. Iterative Reconstruction dose reducing technique was utilized. FINDINGS: The ventricles are of normal size, shape, and contour for the patient's age. There are scattered areas of low attenuation in the white matter which most likely represent changes from chronic microvascular ischemia. The brainstem, cerebellum, and cerebral hemispheres otherwise have a normal morphology and CT attenuation. There is no evidence of midline displacement. No hemorrhage, signs of acute territorial stroke, mass effect, mass lesions, or edema is evident. The visualized portions of the skull base, midface, and calvarium demonstrate no abnormality. The tympanic and mastoid cavities appear normal. IMPRESSION: No acute intracranial abnormality or hemorrhage. Stable head CT. .
--- NOTE | 2016-10-30 10:47 | DI ---
INDICATION: ITS.REASON: mental status change PROCEDURE: CHEST 2-VIEWS UPRIGHT (PA \T\ LAT) Encounter: Initial COMPARISON: None FINDINGS: The lungs are clear without evidence of focal abnormal airspace opacity. There is no pleural effusion or pneumothorax. The heart size, mediastinal contours and pulmonary vascularity are within normal limits. Old healed right sixth posterior rib fracture. Mild degenerative change in the spine. IMPRESSION: No acute cardiopulmonary disease. .
--- NOTE | 2016-10-30 11:20 | GENPN ---
[facility] Subjective Date DATE: 10/30/16 TIME: 06:24 Subjective/Severity of Illness Medications Current Medications Medications (Trade) Dose Ordered Sig/Rajeev Start Time Stop Time Status Last Admin Dose Admin Acetaminophen (Tylenol Extra Strength) 1,000 mg Q8H PRN 10/28/16 02:45 Naproxen Sodium (ALEVE 220 mg) 440 mg BIDWM PRN 10/28/16 02:45 10/29/16 17:29 440 MG Ranitidine HCl (Zantac) 150 mg BID 10/28/16 09:00 10/29/16 20:14 150 MG Risperidone (Risperdal) 1 mg BID PRN 10/28/16 02:45 10/28/16 12:23 DC Sucralfate (Carafate Slurry) 1 g ACHS 10/28/16 06:30 10/29/16 21:59 1 G Miscellaneous Medication (May use PRN orders) 1 PRN PRN 10/28/16 02:45 Haloperidol (Haldol) 0.5 mg Q6H PRN 10/28/16 02:45 Lorazepam (Ativan) 0.5 mg Q6H PRN 10/28/16 02:45 Lorazepam (Ativan) 0.5 mg Q6H PRN 10/28/16 02:45 Haloperidol Lactate (Haldol 5 Mg/ml Inj) 0.5 mg Q6H PRN 10/28/16 02:45 Risperidone (Risperdal) 2 mg HS 10/28/16 21:00 10/29/16 20:19 2 MG Gabapentin (Neurontin) 300 mg BID 10/28/16 21:00 10/29/16 20:14 300 MG Subjective Mr. Marroquin is a 71 year old male who was admitted here secondary to suicidal threats. He was sorting his clothes upon my visit this morning and was primarily concerned about constipation, having not had a CM the past two days. He was admitted from home due to suicidal threats. RN reports he's been quite demanding here with them and has made various threats to them. Has denied SI since here. Ate 50-100% of meals. Sister visited yesterday and RN reports that the visit went fair but he was quite upset about the state of his clothes. He has been upset about nurses coming into his room. He has a hx of Bipolar DO and also uses alcohol and tobacco daily. Time of Service: 06:30 Start Time: 06:30 Stop Time: 06:45 Care >50% of this visit spent in counseling/coordination care. [facility] Exam Vitals Vital Signs Date Time Temp Pulse Resp B/P Pulse Ox O2 Delivery O2 Flow Rate FiO2 10/29/16 23:30 18 10/29/16 21:56 97.9 88 130/67 96 Room Air Physical examination performed by the hospitalist. Height (Feet): 5 Height (Inches): 6.50 Mental Status Exam Muscle Strength/Tone: Normal Dressing: Eccentric Grooming: Fair Attitude: Other Motor Activity: Normal Eye Contact: Fair Speech: Normal Volume: Normal Rhythm: Appropriate Rhythm Sensory: Alert Orientation: Oriented to person, Oriented to place Mood: Irritable Affect: Labile Thought Organization: Organized Thought Content: Ruminations Suicidal Ideation: Denies Homicidal Ideation: Denies Insight: Fair Judgment: Fair Impulse Control: Poor Assessment and Plan (1) Bipolar affective Assessment: by history Plan: 10/29/16: Risperidone and Gabapentin started. Will monitor and titrate over weekend as needed. Time spent reviewing case and chart. 10/30/16: Increase Risperidone to 0.5mg PO q AM, 2mg PO q HS. Increase Gabapentin to TID. Add Colace and MOM for constipation. 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
--- NOTE | 2016-10-30 13:13 | NUR ---
Patient Status Patient is awake at the start of this shift at 0700; he is walking around his room and organizing/stacking papers. He comes out for supper, is in a good mood and jokes easily with nursing staff. He eats 100% of both meals and took all medications without argument or incident. He has not obsessed over his laundry this morning to staff but did make a comment about receiving compensation from the hospital when visiting with a friend on the phone. He interacts appropriately with other patients without being intrusive. He denied suicidal thoughts/intent this morning
--- NOTE | 2016-10-30 15:00 | PNPDOC ---
Subjective Date DATE: 10/30/16 TIME: 14:34 Subjective Miguel is seen in follow up. He is up in his room with a visitor and appears to be in good spirits. I did not disturb him- I have reviewed his chart at length. He continues to be argumentative with staff at times. Variable behaviors documented. Objective Vital Signs Vital signs Vital Signs Date Time Temp Pulse Resp B/P Pulse Ox O2 Delivery O2 Flow Rate FiO2 10/30/16 08:16 97.8 81 16 125/74 97 Room Air Height (Feet): 5 Height (Inches): 6.50 Weight (Kilograms): 77.000 General General Appearance: Alert, No Acute Distress Respiratory (Brief) Comments No SOA observed. Integumentary (Brief) Integumentary: FOUND: dry, warm Psychiatric (Brief) Psychiatric: FOUND: alert, attentive Laboratory Laboratory Reviewed. Assessment & Plan Problems: (1) Gastritis Status: Acute (2) Bipolar affective Status: Acute Qualifiers: Most recent bipolar episode type: most recent episode unspecified type (3) Hypertension Status: Chronic (4) Hyperthyroidism Status: Chronic (5) GERD (gastroesophageal reflux disease) Status: Chronic (6) Chronic back pain Status: Chronic (7) BPH (benign prostatic hyperplasia) Status: Chronic (8) Tobacco dependence Status: Chronic Plan/Intensity of Service 10/30/16- Mood remains labile. Medication adjustment per psych team. Continue safe environment. BP is improved- continue to monitor for now. Gabapentin, PRN Naproxen for chronic pain. Hx of narcotic dependence noted. No controlled substances. Some concern for gastritis- H2RB, Carafate. May need to stop Naproxen if stomach c/o remain a concern. Mildly elevated TSH- await follow up labs. Reassess electrolytes in AM. Code Status Full Code Hospital Course Summary Disclaimer The hospital course summary below is not to be considered part of the above Progress Note. Hospital Course Summary Agree with admission to [facility] for further psychiatric recommendations Continue with Carafate 1gm before meals and at bedtime for gastritis as well as Zantac 150mg twice daily. Patient reports that he tried Prilosec 20mg twice daily in the past after his EGD/colonoscopy in 2014, however it never helped. BMP on 10/29 to monitor electrolyte and renal function, currently Na of 148, suspect this will normalize with oral intake. Appreciate Dr. Rehan Pleitez for bipolar treatment. He has a reported history of hypertension. Previous H&P from 2014 indicates that at that time he was taking Losartan 100mg daily and Diltiazem 180mg daily. He is currently mildly hypertensive, 143/86. We will continue to monitor his vitals, if he continues to trend up, we may consider starting medication for HTN. TSH in the ED was stable at 0.3. Will obtain a free T3 and Free T4. Continue with Naproxen and Tylenol PRN for chronic back pain. Discussed smoking cessation with patient, will order Nictoine patch PRN. 10/30/16- Mood remains labile. Medication adjustment per psych team. Continue safe environment. BP is improved- continue to monitor for now. Gabapentin, PRN Naproxen for chronic pain. Hx of narcotic dependence noted. No controlled substances. Some concern for gastritis- H2RB, Carafate. May need to stop Naproxen if stomach c/o remain a concern. Mildly elevated TSH- await follow up labs. Reassess electrolytes in AM. MERVIN TIPTON RACK PULLER Oct 30, 2016 14:37
[2016-10-30 16:00] VITALS: BP 140/93; PULSE 77; RESP 16; TEMP 99; O2SAT 97
--- NOTE | 2016-10-30 18:13 | NUR ---
Shift Summary Patient has remained pleasant and cooperative throughout this shift; friend, Remington Alejo visited this afternoon and brought an extra electric razor and laptop for patient use. Laptop use approved by Dr. Brad Trivedi. He has not been argumentative and took all medications without incident or resistive behavior. Presently he is in his room reading/journaling
[2016-10-30 20:05] VITALS: BP 132/80; PULSE 67; RESP 20; TEMP 98; O2SAT 96
[2016-10-30] MEDS: RISPERIDONE 1 MG TABLET PO SCH (20:09)
--- NOTE | 2016-10-31 00:54 | NUR ---
Status Assumed patient care at 1915 and assessment completed at 2004. Patient spends the evening in his room (busies himself with sorting papers and reading), coming out only briefly to notify staff that he wanted to shower. He is ALOx4 and pleasant/cooperative with staff. Denies any SI, anxiety, or depression. States that he has "some" chronic back pain but denies the need for prn Tylenol when offered. Readily compliant with HS medications (continues to take only 1/2 dose of his Risperdal; states that it dries his nose out and that he will talk to the doctor on rounds regarding having the order changed). VS are stable. Independent in his room with cares; gait is steady and he demonstrates appropriate safety awareness. No complaints or negative vocalization; makes appropriate eye contact. Speaks of possible discharge on ; states that his mood is "good" and that he has "positive thoughts" regarding discharge.
[2016-10-31 01:04] LABS: FREE T4 (FREE THYROXINE)-BATCH 0.92 NG/DL (0.78-2.19); T3 FREE - BATCH 4.29 PG/ML (2.77-5.27)
--- NOTE | 2016-10-31 01:39 | NUR ---
Bedtime Patient was in bed by 2245 and asleep by 2300. He was awake all of dayshift. He awakens soon after 0100. Prune juice provide per his request - he is pleasant and chatty with staff in dayroom, talking of his many travels and of his family.
--- NOTE | 2016-10-31 02:40 | NUR ---
Chart Check 24 hour chart check completed
[2016-10-31 04:23] LABS: FOLATE 15.9 NG/ML (2.76-20)
[2016-10-31] MEDS: SUCRALFATE 1 G/10ml ORAL SUSPENSION PO SCH ×4 (05:34→20:11)
--- NOTE | 2016-10-31 06:19 | NUR ---
Summary Patient remains ALOx4 this shift and in a pleasant/happy mood. He isolates in his room last evening (reading/writing/sorting papers) but is up in the dayroom often during the night - engages staff in conversation and wants to show his post card collection/explain various travel experiences. Denies SI, anxiety, or troubling thoughts. No depressive symptoms are noted and comments regarding current hospital stay and anticipated discharge are all of a positive nature. He states that he has slept well tonight (although only 2.25 hours). Remains awake and without complaints at the current time.
[2016-10-31 08:19] VITALS: BP 122/70; PULSE 83; RESP 16; TEMP 98.6; O2SAT 96
[2016-10-31] MEDS: DOCUSATE SODIUM 100 MG CAPSULE PO SCH (08:22)
[2016-10-31] MEDS: GABAPENTIN 300 MG CAPSULE PO SCH ×3 (08:23→20:10)
[2016-10-31] MEDS: RISPERIDONE 0.5 MG TABLET PO SCH (08:23)
[2016-10-31] MEDS: RANITIDINE 150 MG TABLET PO SCH ×2 (08:23→20:10)
[2016-10-31 08:56] LABS: ANION GAP 15 MEQ/L (5-15); BUN/CREATININE RATIO 18 RATIO (6-26); CALCIUM 9.5 MG/DL (8.4-10.2); CHLORIDE 108 MEQ/L (98-107); CO2 - CARBON DIOXIDE 24 MEQ/L (22-30); CREATININE 0.8 MG/DL (0.8-1.5); GLOMERULAR FILTRATION RATE 96; GLUCOSE 105 MG/DL (75-110); POTASSIUM 4.2 MEQ/L (3.6-5); SODIUM 147 MEQ/L (134-144)
--- NOTE | 2016-10-31 11:53 | NUR ---
Phone Call Received a phone call from pt's money position officer Raymundo Lambert. Raymundo states that pt has an appointment with him at 10:30 on MondayNovember 04. Pt will need to call and let him know if he will be unable to make this appt. Pt needs to also call if he gets discharged before this.
[2016-10-31] MEDS: NAPROXEN 220 MG TABLET PO PRN ×2 (12:05→20:11)
[2016-10-31 16:32] VITALS: BP 125/77; PULSE 82; RESP 16; TEMP 98; O2SAT 96
--- NOTE | 2016-10-31 16:49 | NUR ---
[facility] to assess pt's need and interest in engaging in substance abuse counseling once he leaves hospital. Pt. continues to state he has only used marijuana 4x in his whole life. He admits he served fpc time and is on probation due to trying to mail marijuana to himself through the mail. He denies any problem with drug use and is not interested in substance abuse treatment. Pt. reports he drinks half a bottle of beer every other night and a shot of whiskey on the alternate evenings. He said that has only started in past 3-4 months. He denies any problems with drugs OR alcohol. He is not interested in any counseling for outpatient services at this time.
--- NOTE | 2016-10-31 16:54 | GENPN ---
[facility] Subjective Date DATE: 10/31/16 TIME: 15:03 Subjective/Severity of Illness Medications Current Medications Medications (Trade) Dose Ordered Sig/Rajeev Start Time Stop Time Status Last Admin Dose Admin Acetaminophen (Tylenol Extra Strength) 1,000 mg Q8H PRN 10/28/16 02:45 Naproxen Sodium (ALEVE 220 mg) 440 mg BIDWM PRN 10/28/16 02:45 10/31/16 12:05 440 MG Ranitidine HCl (Zantac) 150 mg BID 10/28/16 09:00 10/31/16 08:23 150 MG Risperidone (Risperdal) 1 mg BID PRN 10/28/16 02:45 10/28/16 12:23 DC Sucralfate (Carafate Slurry) 1 g ACHS 10/28/16 06:30 10/31/16 11:52 1 G Miscellaneous Medication (May use PRN orders) 1 PRN PRN 10/28/16 02:45 Haloperidol (Haldol) 0.5 mg Q6H PRN 10/28/16 02:45 Lorazepam (Ativan) 0.5 mg Q6H PRN 10/28/16 02:45 Lorazepam (Ativan) 0.5 mg Q6H PRN 10/28/16 02:45 Haloperidol Lactate (Haldol 5 Mg/ml Inj) 0.5 mg Q6H PRN 10/28/16 02:45 Risperidone (Risperdal) 2 mg HS 10/28/16 21:00 10/30/16 20:09 1 MG Gabapentin (Neurontin) 300 mg BID 10/28/16 21:00 10/30/16 06:31 DC 10/29/16 20:14 300 MG Gabapentin (Neurontin) 300 mg TID 10/30/16 09:00 10/31/16 08:23 300 MG Risperidone (Risperdal) 0.5 mg DAILY 10/30/16 09:00 10/31/16 08:23 0.5 MG Docusate Sodium (Colace) 100 mg DAILY 10/30/16 09:00 10/31/16 08:22 100 MG Magnesium Hydroxide (Mom) 30 ml DAILY PRN 10/30/16 07:45 Subjective Patient seen and chart reviewed. Case discussed with treatment team. Patient is sitting in his room on approach and states that he has been bored here as most patients are older and there are not a lot of activities he is interested in. He states that his mood has improved as he has gotten his belongings and has now gotten his social security/disability check deposited early. He also states that he has gotten rid of his anxiety. He does admit to feeling a little bit manic, but feels that he will soon be ready for discharge. After a thorough interview, I do believe patient has capacity to make his own medical decisions in regards to his treatment. He is aware that his current dose of Risperdal may not be effective as a mood stabilizer and that he may progress into a full-blown manic episode. He admits that he tends to be irresponsible with his money and run out of money before the end of the month, but says this happens regardless of his mood. He feels he may have to go to a [facility] eventually and so he spends all his money instead. Patient has also been writing various letters and notes that he has given to SW. Patient denies SI, HI, or AVH. He has only been willing to take 1mg of Risperdal as he felt that 2mg made his mucous membranes too dry, though he says he slept 6 hours that night and it was the best sleep he has had in years. Per staff, patient can be demanding at times and mildly irritable, but is not aggressive. Patient slept only 3.75 hours overnight. Appetite is good. VSS. No psychotropic PRNs required in the past 24 hours. Time of Service: 06:30 Start Time: 09:40 Stop Time: 10:00 Care >50% of this visit spent in counseling/coordination care. [facility] Exam Vitals Vital Signs Date Time Temp Pulse Resp B/P Pulse Ox O2 Delivery O2 Flow Rate FiO2 10/31/16 08:19 98.6 83 16 122/70 96 Room Air Physical examination performed by the hospitalist. Height (Feet): 5 Height (Inches): 6.50 Mental Status Exam Muscle Strength/Tone: Normal Dressing: Casual Grooming: Good Attitude: Manipulative Motor Activity: Normal Eye Contact: Good Speech: Normal Volume: Normal Rhythm: Appropriate Rhythm Sensory: Alert Orientation: Oriented X4 Mood: Neutral Affect: Other (Mildly irritable at times) Rate of Thoughts: Appropriate Rate Thought Organization: Other (Appears disorganized in written notes but patient more organized during interview) Associations: Intact Abstract Reasoning: Poor abstract reasoning Thought Content: Somatic Concerns, Other (No other abnormal thought content elicited upon interview) Perception/Psychotic: Perception Normal Attention Span/Concentration: Distractable Language: Naming Intact Memory: Grossly Intact Suicidal Ideation: Denies Homicidal Ideation: Denies Insight: Limited Judgment: Limited Impulse Control: Other (Limited) Laboratory Tests Test 10/31/16 07:45 Turbidity < 20 Sodium Level 147MEQ/L Potassium Level 4.2MEQ/L Chloride Level 108MEQ/L Carbon Dioxide Level 24MEQ/L Anion Gap 15MEQ/L Blood Urea Nitrogen 14.0MG/DL Creatinine 0.8MG/DL Glomerular Filtration Rate Calc 96 BUN/Creatinine Ratio 18RATIO Glucose Level 105MG/DL Calculated Osmolality 283MOSM/KG Calcium Level 9.5MG/DL Icterus Index < 2 Chemistry Specimen Hemolysis < 15 Assessment and Plan (1) Bipolar affective Assessment: by history Plan: 10/29/16: Risperidone and Gabapentin started. Will monitor and titrate over weekend as needed. Time spent reviewing case and chart. 10/30/16: Increase Risperidone to 0.5mg PO q AM, 2mg PO q HS. Increase Gabapentin to TID. Add Colace and MOM for constipation. 10/31/16: Patient agrees to take Risperdal as prescribed above tonight. He also requests Voltaren gel for arthritis. He states that he may wish to leave tomorrow; patient has capacity to make his own medical decisions at this point. Though I do not believe his bipolar disorder is currently well-controlled, I do not believe he is an imminent danger to self or others. Will continue to monitor. 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
--- NOTE | 2016-10-31 16:55 | NUR ---
Shift summary Pt is alert and oriented x3, pt is able to make needs known. Pt has been cooperative with assessment. Pt has some of his clothes on the floor on blankets drying, he states he washes most of his clothes by hand. Pt did become upset when informed that the IPOD that was given to him this morning wasn't his it was actually another pts on the unit. Pt took the IPOD over to the sink and threw it in and turned on the water. Pt was informed if he couldn't take care of the hospital property than he would not be able to use it. Pt has calmed since then. Pt given Aleve for back pain at noon today, states it helps for a while. Pt is not in his room, rearranging things. Pt has ate 100% of meals today.
--- NOTE | 2016-10-31 17:23 | NUR ---
AGRICULTURAL PRODUCE WASHER [facility] returned phone call to Remington Alejo, friend of patient ([phone]). He is on list to receive information on patient. He and some other members of their restoration community, including the female military police officer from [place], have formed a choctaw to help provide assistance to pt. They have found it very challenging to try and provide help pt. needs and what he will accept. Police have been involved multiple times over the years. They do not feel that pt. is able to function on his own out in the community. He is "tremendously intelligent" but misuses his intelligence and it gets him into trouble. He has lots of anger over storage and control of his 27 boxes of personal items that are stored at his cousin's home. He frequently threatens legal action and has taken people to court in the past. Remington wants to get the boxes to a storage facility so that pt. will quit harassing his cousin. This SW talked with pt. He has the name of a storage facility in [place]. He will get the account set up in his name and Remington has agreed to pay the initial cost of renting the storage unit. Remington will deliver the 27 boxes to the storage unit and he will tell pt. that the choctaw is done helping him because they feel they are just enabling him to continue with his current lifestyle and refusing assistance. Remington is aware that pt. very likely will threaten suicide the next time he gets angry. He was advised to always call 911 when pt. threatens suicide but to let the professionals handle his threats and behaviors.
[2016-10-31] MEDS: RISPERIDONE 1 MG TABLET PO SCH (20:10)
[2016-10-31 21:10] VITALS: BP 147/86; PULSE 75; RESP 16; TEMP 97.7; O2SAT 97
--- NOTE | 2016-10-31 21:40 | NUR ---
SUMMARY PATIENT HAS BEEN COOPERATIVE AND PLEASANT THIS EVENING. HE HAS NOT DEMONSTRATED ANY AGGRESSIVE BEHAVIORS AND DENIES SUICIDAL IDEATION. PATIENT TOOK ALL HIS SCHEDULED MEDICATIONS WHOLE. HE DID NOT REFUSE ANY. HE REQUESTED TO SHOWER TONIGHT AND ONLY REQUIRED MINIMAL ASSISTANCE. HE REMAINED IN HIS ROOM ALL EVENING UNTIL BEDTIME. HE SPENT MOST OF THE EVENING IN HIS ROOM REARRANGING HIS PERSONAL ITEMS. NO PRN MEDICATIONS GIVEN. PATIENT REMAINED IN BED WITH BED ALARM ON AND BED RAILS UP X2.
--- NOTE | 2016-10-31 23:21 | NUR ---
Chart Check 24 hour chart check completed
[2016-10-31 23:56] VITALS: RESP 18
[2016-11-01] MEDS: DICLOFENAC 1% TOPICAL GEL 100 G TUBE TOP PRN ×4 (01:29→21:30)
[2016-11-01 02:34] LABS: LDL CHOLESTEROL,CALCULATED 85.4 (66-159); RISK FACTOR 4.5 RATIO (0-5.0); VLDL CHOLESTEROL 25.6 MG/DL (0-28)
--- NOTE | 2016-11-01 06:01 | NUR ---
Summary/sleep time assumed care of patient at 2300. Patient was assessed prior to going to sleep, patient slept from 2200 to 0045. Patient slept total of 2.75 hours this shift. Patient has been in the dayroom watching tv or working on papers most of the shift. Patient has had a pleasant and polite demeanor with staff. No agitation, yelling, cursing, or threatening observed. Patient complained of arthritic pain in left knee, prn aspercreme applied. Patient stated relief. Patient is currently in his room preforming hygiene cares.
[2016-11-01] MEDS: SUCRALFATE 1 G/10ml ORAL SUSPENSION PO SCH ×4 (06:34→21:25)
[2016-11-01 08:00] VITALS: BP 139/88; PULSE 73; RESP 20; TEMP 97.4; O2SAT 97
[2016-11-01] MEDS: RISPERIDONE 0.5 MG TABLET PO SCH (08:27)
[2016-11-01] MEDS: GABAPENTIN 300 MG CAPSULE PO SCH ×3 (08:27→21:25)
[2016-11-01] MEDS: RANITIDINE 150 MG TABLET PO SCH ×2 (08:27→21:25)
[2016-11-01] MEDS: DOCUSATE SODIUM 100 MG CAPSULE PO SCH (08:27)
--- NOTE | 2016-11-01 08:47 | NUR ---
JERONIMO CM VISITED WITH DR VILLEGAS AND ULTRASOUND COORDINATOR REGARDING D/C PLAN FOR PT. PT PLAN IS TO RETURN TO [facility] [place] WHEN TREATMENT IS COMPLETE AT [facility] [place].
--- NOTE | 2016-11-01 08:54 | PNPDOC ---
RUSSELL BROWN GUILLERMO 11/01/16 0846: Subjective Date DATE: 11/01/16 TIME: 08:43 Subjective Miguel was eating breakfast. He asked about what to do about his right big toe - he dropped a tv on it a few weeks ago and the ED physician in [place] drilled a hole in the nail. Currently, it is starting to pull away from the nailbed and he is expecting it to fall off. He's been putting Carmex on the medial border, but it burned a little. He plans to soak it today in water. Otherwise, he's doing quite well, and denies any complaints. He was in good spirits and joked with me this morning. Objective Vital Signs Vital signs Vital Signs Date Time Temp Pulse Resp B/P Pulse Ox O2 Delivery O2 Flow Rate FiO2 10/31/16 23:56 18 10/31/16 21:10 97.7 75 147/86 97 Room Air Height (Feet): 5 Height (Inches): 6.50 Weight (Kilograms): 77.000 General General Appearance: Alert, Orientated x 3, Well Nourished, Well Developed, No Acute Distress Eyes (Brief) Eyes: FOUND: PERRL, NOT FOUND: scleral icterus ENMT (Brief) ENMT: FOUND: mucosa moist, NOT FOUND: pharnyx erythema Respiratory (Brief) Respiratory: FOUND: clear all doty, equal bilaterally Cardiovascular (Brief) Cardiac: FOUND: regular rate, regular rhythm Abdomen (Brief) Abdominal: FOUND: BS normo active x4, soft, NOT FOUND: distended, tender Extremities (Brief) Extremity : Side: Bilateral Extremity Finding: NOT FOUND: edema Comments right great toenail is pulling away from the nailbed. There is old hematoma under the nail, and a scant amount of dried bloody drainage on the medial aspect. There is no significant toe swelling; very subtle erythema. He has good ROM and walks comfortably in his flip-flops. Musculoskeletal (Brief) Musculoskeletal: FOUND: extremities move equally Integumentary (Brief) Integumentary: FOUND: dry, pink, warm Psychiatric (Brief) Psychiatric: FOUND: alert, attentive, normal affect, oriented Laboratory Laboratory Laboratory Tests 10/31/16 07:45 Assessment & Plan Problems: (1) Gastritis Status: Acute (2) Bipolar affective Status: Acute Qualifiers: Most recent bipolar episode type: most recent episode unspecified type (3) Hypertension Status: Chronic (4) Hyperthyroidism Status: Chronic (5) GERD (gastroesophageal reflux disease) Status: Chronic (6) Chronic back pain Status: Chronic (7) BPH (benign prostatic hyperplasia) Status: Chronic (8) Tobacco dependence Status: Chronic (9) Vitamin B12 deficiency Plan/Intensity of Service Vitamin B12 deficiency (163) - start SQ replacement. Add PRN antibiotic ointment to use on his toe rather than Carmex. Hypernatremia - encourage adequate oral intake TSH was slightly low at 0.3 - T4 and T3 were both within normal range. Outpt f/ u recommended. Psychiatric notes reviewed - pt has discussed signing out, and he has mental capacity to make this decision. Recheck CBC and BMP on 11/03/16. Code Status Full Code Hospital Course Summary Disclaimer The hospital course summary below is not to be considered part of the above Progress Note. Hospital Course Summary Agree with admission to [facility] for further psychiatric recommendations Continue with Carafate 1gm before meals and at bedtime for gastritis as well as Zantac 150mg twice daily. Patient reports that he tried Prilosec 20mg twice daily in the past after his EGD/colonoscopy in 2014, however it never helped. BMP on 10/29 to monitor electrolyte and renal function, currently Na of 148, suspect this will normalize with oral intake. Appreciate Dr. Rehan Pleitez for bipolar treatment. He has a reported history of hypertension. Previous H&P from 2015 indicates that at that time he was taking Losartan 100mg daily and Diltiazem 180mg daily. He is currently mildly hypertensive, 143/86. We will continue to monitor his vitals, if he continues to trend up, we may consider starting medication for HTN. TSH in the ED was stable at 0.3. Will obtain a free T3 and Free T4. Continue with Naproxen and Tylenol PRN for chronic back pain. Discussed smoking cessation with patient, will order Nictoine patch PRN. 10/30/16- Mood remains labile. Medication adjustment per psych team. Continue safe environment. BP is improved- continue to monitor for now. Gabapentin, PRN Naproxen for chronic pain. Hx of narcotic dependence noted. No controlled substances. Some concern for gastritis- H2RB, Carafate. May need to stop Naproxen if stomach c/o remain a concern. Mildly elevated TSH- await follow up labs. Reassess electrolytes in AM. 11/01/16 Vitamin B12 deficiency (163) - start SQ replacement. Add PRN antibiotic ointment to use on his toe rather than Carmex. Hypernatremia - encourage adequate oral intake TSH was slightly low at 0.3 - T4 and T3 were both within normal range. Outpt f/ u recommended. Psychiatric notes reviewed - pt has discussed signing out, and he has mental capacity to make this decision. MICHELLE TAPIA MD 11/01/16 1808: Assessment & Plan Assessment 11/01/2016-I reviewed this chart, the patient history, and the LAB INTERN's/PA's documented findings as above. We discussed and formulated the assessment and plan as above with the additions below.-Dr. Tapia Patient complains of chronic low back and knee pains. He thinks that he had a walker it would help with low back pain. He states he has had addiction in the past to narcotics and would like to find ways to control his pain without narcotics. He has no other complaints. On exam he is alert and in no acute distress. Chest is clear to auscultation. Cardiovascular reveals a regular rate and rhythm. Abdomen is soft and nontender. Extremities are free of edema. Regarding low back pain, will consult PT to see if a walker would be helpful and to see if there are any stretching or strengthening exercises he could do to help with his low back pain. We'll also add Lidoderm patches for back pain. Agree with addition of subcutaneous B-12 for B-12 deficiency. RUSSELL BROWN APRN Nov 01, 2016 08:46 MICHELLE TAPIA MD Nov 01, 2016 18:08
[2016-11-01] MEDS: NAPROXEN 220 MG TABLET PO PRN (09:32)
[2016-11-01] MEDS: NEOMYCIN/POLYM/BACITR OINT PACKET TOP PRN ×2 (10:16→21:29)
[2016-11-01] MEDS: CYANOCOBALAMIN (B-12) 1000mcg/ml INJECTION SQ SCH (10:16)
--- NOTE | 2016-11-01 11:25 | NUR ---
Status Pt is independent with cares, cooperative with assessment. Pt given Aleve for pain to back and cream applied to back as well. Pt ate 100% of breakfast. Denies suicidal ideations. Pt is in room looking through mail at this time.
--- NOTE | 2016-11-01 12:54 | NUR ---
Sleep 3 hrs Pt to bed at 2115 up at 130, according to 15 minute observation sheets pt slept a total of 3 hrs.
--- NOTE | 2016-11-01 13:37 | GENPN ---
[facility] Subjective Date DATE: 11/01/16 TIME: 08:37 Subjective/Severity of Illness Medications Current Medications Medications (Trade) Dose Ordered Sig/Rajeev Start Time Stop Time Status Last Admin Dose Admin Acetaminophen (Tylenol Extra Strength) 1,000 mg Q8H PRN 10/28/16 02:45 Naproxen Sodium (ALEVE 220 mg) 440 mg BIDWM PRN 10/28/16 02:45 10/31/16 20:11 440 MG Ranitidine HCl (Zantac) 150 mg BID 10/28/16 09:00 11/01/16 08:27 150 MG Risperidone (Risperdal) 1 mg BID PRN 10/28/16 02:45 10/28/16 12:23 DC Sucralfate (Carafate Slurry) 1 g ACHS 10/28/16 06:30 11/01/16 06:34 1 G Miscellaneous Medication (May use PRN orders) 1 PRN PRN 10/28/16 02:45 Haloperidol (Haldol) 0.5 mg Q6H PRN 10/28/16 02:45 Lorazepam (Ativan) 0.5 mg Q6H PRN 10/28/16 02:45 Lorazepam (Ativan) 0.5 mg Q6H PRN 10/28/16 02:45 Haloperidol Lactate (Haldol 5 Mg/ml Inj) 0.5 mg Q6H PRN 10/28/16 02:45 Risperidone (Risperdal) 2 mg HS 10/28/16 21:00 10/31/16 20:10 2 MG Gabapentin (Neurontin) 300 mg BID 10/28/16 21:00 10/30/16 06:31 DC 10/29/16 20:14 300 MG Gabapentin (Neurontin) 300 mg TID 10/30/16 09:00 11/01/16 08:27 300 MG Risperidone (Risperdal) 0.5 mg DAILY 10/30/16 09:00 11/01/16 08:27 0.5 MG Docusate Sodium (Colace) 100 mg DAILY 10/30/16 09:00 11/01/16 08:27 100 MG Magnesium Hydroxide (Mom) 30 ml DAILY PRN 10/30/16 07:45 Diclofenac Sodium (Voltaren 1% Gel) 1 applic QID PRN 10/31/16 17:00 11/01/16 01:29 1 APPLIC Subjective Patient seen and chart reviewed. Case discussed with treatment team. Patient is sitting in his room on approach and appears to be in a hypomanic state, but is pleasant and cooperative through interview. He reports that he tolerated Risperdal 2mg well last night and is agreeable to continuing hospitalization and recommended medication changes. He slept 2.75 hours last night and "feels energetic" but reports that he has never slept well due to pain. He says his anxiety has been relieved as his friend has agreed to rent a storage unit for him. Patient denies SI, HI, or AVH. Per staff, patient became upset yesterday and threw the unit's iPod in the sink and turned on the water. Otherwise, no further behavioral difficulties after that incident. Appetite is good. VSS. No psychotropic PRNs required in the past 24 hours. Time of Service: 06:30 Start Time: 08:40 Stop Time: 09:00 Care >50% of this visit spent in counseling/coordination care. [facility] Exam Vitals Vital Signs Date Time Temp Pulse Resp B/P Pulse Ox O2 Delivery O2 Flow Rate FiO2 10/31/16 23:56 18 10/31/16 21:10 97.7 75 147/86 97 Room Air Physical examination performed by the hospitalist. Height (Feet): 5 Height (Inches): 6.50 Mental Status Exam Muscle Strength/Tone: Normal Dressing: Casual Grooming: Fair Attitude: Manipulative Motor Activity: Normal Eye Contact: Good Speech: Normal Volume: Normal Rhythm: Appropriate Rhythm Sensory: Alert Orientation: Oriented X4 Mood: Neutral Affect: Labile Rate of Thoughts: Appropriate Rate Thought Organization: Organized Associations: Intact Abstract Reasoning: Poor abstract reasoning Thought Content: Somatic Concerns Perception/Psychotic: Perception Normal Attention Span/Concentration: Distractable Language: Naming Intact Fund of Knowledge: Appropriate Memory: Grossly Intact Suicidal Ideation: Denies Homicidal Ideation: Denies Insight: Limited Judgment: Limited Impulse Control: Poor (improving) Assessment and Plan (1) Bipolar affective Assessment: by history Plan: 10/29/16: Risperidone and Gabapentin started. Will monitor and titrate over weekend as needed. Time spent reviewing case and chart. 10/30/16: Increase Risperidone to 0.5mg PO q AM, 2mg PO q HS. Increase Gabapentin to TID. Add Colace and MOM for constipation. 10/31/16: Patient agrees to take Risperdal as prescribed above tonight. He also requests Voltaren gel for arthritis. He states that he may wish to leave tomorrow; patient has capacity to make his own medical decisions at this point. Though I do not believe his bipolar disorder is currently well-controlled, I do not believe he is an imminent danger to self or others. Will continue to monitor. 11/01/16: Would like to increase Risperdal further but will do so gradually as patient is just now tolerating the dose without adverse effects, which increases his compliance. I would like to get a SHAHEEN/RIPPA prior to discharge for a data point in patient's ability to care for self and manage condition outside of the hospital. 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
--- NOTE | 2016-11-01 13:51 | NUR ---
HUMAN SERVICES CARE SPECIALIST--INDIVIDUAL [facility]1 with pt. He was alert, Ox3, calm with pleasant mood. He states that he was able to get a storage unit rented. A friend, Remington, and patient's cousin, Sandra, came by this afternoon and advised him that they were going to move his 27 boxes of personal items from Sandra's barn/garage to the storage unit. They also informed Miguel that they were done helping him. He was going to be on his own from here on out. Pt. expressed pleasure that he now had control over all of his property. He states he plans on staying in the hospital until at least November [address] Van can continue to adjust his medication. He is willing to take a higher level of Risperdal. He did give this SW permission to contact his CM at . He is aware that he has an appt. with his CHILD PROTECTION SPECIALIST on Monday and will need to call and cancel that appt. if he is not discharged before then.
--- NOTE | 2016-11-01 14:08 | NUR ---
TEXTILE ENGINEER--PV CONTACT LSCSW received phone call from pt's CM at ([facility] [phone]). She was concerned about his whereabouts and was relieved to know that he was safe in the hospital. She was updated regarding his medication and potential discharge plans. She states pt. should be able to safely return to the crisis apartment has set up for pt. She was advised that pt's ADVERTISING INTERN knows of patient's whereabouts.
[2016-11-01 16:10] VITALS: BP 145/87; PULSE 64; RESP 14; TEMP 97.6; O2SAT 98
[2016-11-01] MEDS: ACETAMINOPHEN 500 MG TABLET PO PRN (16:18)
--- NOTE | 2016-11-01 18:23 | NUR ---
Shift Summary/Sleep 0 Pt has been pleasant and cooperative this afternoon, pt given Tylenol for back pain and also cream. Pt walks at times hunched over, due to the back pain. Pt stated "he will ask Dr. Van about a PT consult for possible use of a walker tomorrow to see if this will help". Pt is polite willing to help other pts. Pt has been in room most of the day working on paperwork, looking at mail, making phone calls. Pt denies SI. Compliant with taking prescribed Meds today.
[2016-11-01 19:51] VITALS: BP 132/86; PULSE 68; RESP 16; TEMP 98.7; O2SAT 96
--- NOTE | 2016-11-01 20:05 | NUR ---
status arrived on shift, patient is currently in room on the phone. Will continue to monitor.
[2016-11-01] MEDS: LIDOCAINE PATCH REMOVAL TOP SCH (21:00)
[2016-11-01] MEDS: RISPERIDONE 1 MG TABLET PO SCH (21:24)
--- NOTE | 2016-11-01 22:05 | NUR ---
status patient was cooperative with assessment, and medications. Patient complained of pain during assessment, prn Aspercreme given. Patient also requested prn Neosporin at that time. Patient took a 15 minute nap once done on the phone before coming out to the dayroom for his hs meds.
--- NOTE | 2016-11-02 01:50 | NUR ---
status/behavior Patient came into hallway to ask staff for prn tylenol for joint pain. The patient was told that staff would get is as soon as they were done getting a different patient back to their room. Patient started speaking across nurse and internal combustion engine subassembler telling other patient that "he shouldn't have to wait on slow, good for nothing, worthless dumbasses." Miguel was told that is inappropriate and he needed to go back into his room and that the nurse would be back with his pain medication.
[2016-11-02] MEDS: ACETAMINOPHEN 500 MG TABLET PO PRN ×3 (02:10→21:10)
--- NOTE | 2016-11-02 04:38 | NUR ---
status patient has been sitting in dayroom writing papers. Patient will stop every so often and walk around table to check on other patient, Miguel is writing down and trying to keep track of the other patient. Patient is rude at times, cursing and demanding, slamming papers down, rasing voice, and intruding into cares with other patients if his wants can not be met immediately. patient has been redirected multiple times, behaviors stop for short periods.
[2016-11-02] MEDS: DICLOFENAC 1% TOPICAL GEL 100 G TUBE TOP PRN ×2 (05:22→21:10)
[2016-11-02] MEDS: SUCRALFATE 1 G/10ml ORAL SUSPENSION PO SCH ×4 (06:36→19:46)
--- NOTE | 2016-11-02 08:18 | NUR ---
summary patient was pleasant and cooperative with staff when his requests or demands were able to be met instantly. If patient was asked to wait a moment patient would throw a fit observed by rasing voice, cursing, slamming papers/books. Patient yelled across staff at other patient when he asked for tylenol for left knee pain around 0155. Patient was directed back to room to wait and that the nurse would be back once done with the other patient. PRN tylenol 1000mg was given po at 0210. When taking the prn tylenol to patient this nurse spoke with patient about his behavior. Explained to the patient the reason why he was told to go to his room was for yelling at the other patient and that had been inappropriate. Patient acknowledged the incident and stated he understood. Talked with patient about being patient and that staff will help him even when they can't right away. Talked with patient about coming out of his room again, expressed if he wanted to go back into the dayroom that would be okay as long as he left other patients alone and wasn't rasing his voice as to wake others. Patient stated he understood and was okay with those terms. Later in shift patient continued intrusive behaviors as walking up and down the benitez patient was stopping to peer into other patient rooms. Down in the dayroom patient would pace around room watching other patient, writing notes about what the other patient was doing. When other patient was dozing off in recliner, patient began picking up and forcefully putting down his books, going to sit by that patient making noises. Patient was asked to give other patient some space on multiple occasions, patient would comply for short periods. for sleep totals this shift patient slept from [id number] and from [id number]. Patient has been awake since 99.
[2016-11-02 08:24] VITALS: BP 138/78; PULSE 67; RESP 18; TEMP 97.9; O2SAT 99
[2016-11-02] MEDS: DOCUSATE SODIUM 100 MG CAPSULE PO SCH (09:09)
[2016-11-02] MEDS: GABAPENTIN 300 MG CAPSULE PO SCH ×3 (09:09→19:45)
[2016-11-02] MEDS: RANITIDINE 150 MG TABLET PO SCH ×2 (09:10→19:46)
[2016-11-02] MEDS: RISPERIDONE 0.5 MG TABLET PO SCH (09:10)
[2016-11-02] MEDS: CYANOCOBALAMIN (B-12) 1000mcg/ml INJECTION SQ SCH (09:10)
[2016-11-02] MEDS: LIDOCAINE 5% PATCH TD SCH (09:11)
--- NOTE | 2016-11-02 09:11 | NUR ---
Pt Status Pt is alert and oriented and verbalizes needs. Talks about mother and shows nurse her drivers license. Report right hip and mid back pain level of 9/10. Indicates exactly where to place lidocaine patches. Pt is calm and cooperative with meds.
--- NOTE | 2016-11-02 09:11 | NUR ---
Pt Status Pt reports pain at mid back and right hip at level 9/10. Pt sits at bedside and is alert and oriented and cooperative. Talks abao Addendum: 11/02/16 at 1003 by NADEEN SEVILLA RN disregard note
[2016-11-02] MEDS: NEOMYCIN/POLYM/BACITR OINT PACKET TOP PRN (09:20)
--- NOTE | 2016-11-02 09:30 | NUR ---
Sleep Time Pt awake since 0100, is up in hallway and room and reports he does not sleep well since not on Ambien. Reports he frequently sleeps little. Pt has many piles of cards about room and follows around sink. No verbal or physical aggression but frequent request to use phone and often in motion, in and out of bed.
--- NOTE | 2016-11-02 11:33 | NUR ---
POLICE INSPECTOR--AM GROUP Pt. actively participated in psychoeducational group facilitated by [facility]. Started off group by talking about expectations of the unit and encouraged all patients to engage in some of the activities involved. Talked about different interests and hobbies. One pt. mentioned she collects a certain kind of boogie and another mentioned he collects arrow heads. One patient stated that she worked too hard and did not have time for hobbies or collections. Talked with patients about importance of taking time for themselves, now that they have time. Reminded them that today can be as special as they make it. Talked about favorite foods from their childhood and most unusual food they have eaten. Pt. mentioned that when he was in [place], he was served pork and beans for breakfast. Finished up group by listening to Alon young. Pt. was attentive during group. He was observed smiling and actively engaged in the discussion. He stated he was over being "mad" from overnight and he planned on staying through Monday as Dr. Van had recommended.
[2016-11-02 16:00] VITALS: BP 126/65; PULSE 72; RESP 18; TEMP 97.6; O2SAT 99
--- NOTE | 2016-11-02 18:03 | NUR ---
Shift Summary and Sleep Time No sleep since awake at 0100. Pt frequently walks in benitez and utilizes phone, very intense conversation at times as if scolding someone but not in loud tone. Arranged byrd today in containers and very engaged in doing this. No verbal aggression towards staff or other patients.
[2016-11-02] MEDS: RISPERIDONE 1 MG TABLET PO SCH (19:46)
[2016-11-02] MEDS: LIDOCAINE PATCH REMOVAL TOP SCH (19:46)
[2016-11-02 20:32] VITALS: BP 147/84; PULSE 65; RESP 15; TEMP 97; O2SAT 98
[2016-11-02] MEDS: NAPROXEN 220 MG TABLET PO PRN (21:09)
--- NOTE | 2016-11-02 21:26 | GENPN ---
[facility] Subjective Date DATE: 11/02/16 TIME: 21:22 Subjective/Severity of Illness Medications Current Medications Medications (Trade) Dose Ordered Sig/Rajeev Start Time Stop Time Status Last Admin Dose Admin Acetaminophen (Tylenol Extra Strength) 1,000 mg Q8H PRN 10/28/16 02:45 11/02/16 21:10 1,000 MG Naproxen Sodium (ALEVE 220 mg) 440 mg BIDWM PRN 10/28/16 02:45 11/02/16 21:09 440 MG Ranitidine HCl (Zantac) 150 mg BID 10/28/16 09:00 11/02/16 19:46 150 MG Risperidone (Risperdal) 1 mg BID PRN 10/28/16 02:45 10/28/16 12:23 DC Sucralfate (Carafate Slurry) 1 g ACHS 10/28/16 06:30 11/02/16 19:46 1 G Miscellaneous Medication (May use PRN orders) 1 PRN PRN 10/28/16 02:45 Haloperidol (Haldol) 0.5 mg Q6H PRN 10/28/16 02:45 Lorazepam (Ativan) 0.5 mg Q6H PRN 10/28/16 02:45 Lorazepam (Ativan) 0.5 mg Q6H PRN 10/28/16 02:45 Haloperidol Lactate (Haldol 5 Mg/ml Inj) 0.5 mg Q6H PRN 10/28/16 02:45 Risperidone (Risperdal) 2 mg HS 10/28/16 21:00 11/02/16 17:49 DC 11/01/16 21:24 2 MG Gabapentin (Neurontin) 300 mg BID 10/28/16 21:00 10/30/16 06:31 DC 10/29/16 20:14 300 MG Gabapentin (Neurontin) 300 mg TID 10/30/16 09:00 11/02/16 19:45 300 MG Risperidone (Risperdal) 0.5 mg DAILY 10/30/16 09:00 11/02/16 09:10 0.5 MG Docusate Sodium (Colace) 100 mg DAILY 10/30/16 09:00 11/02/16 09:09 100 MG Magnesium Hydroxide (Mom) 30 ml DAILY PRN 10/30/16 07:45 Diclofenac Sodium (Voltaren 1% Gel) 1 applic QID PRN 10/31/16 17:00 11/02/16 21:10 1 APPLIC Neomycin/ Polymyxin/ Bacitracin (Neosporin) 1 applic BID PRN 11/01/16 08:45 11/02/16 09:20 1 APPLIC Cyanocobalamin (Vit. B-12) 1,000 mcg Taper DAILY 11/01/16 09:00 12/06/16 08:59 11/02/16 09:10 1,000 MCG Lidocaine (Lidoderm) 2 patch DAILY 11/02/16 09:00 11/02/16 09:11 2 PATCH Lidocaine (Lidoderm Patch Removal) 1 removal 2100 11/01/16 21:00 11/02/16 19:46 1 REMOVAL Risperidone (Risperdal) 3 mg HS 11/02/16 21:00 11/02/16 19:46 3 MG Subjective Patient seen and chart reviewed. Case discussed with treatment team. Patient is sitting in his room on approach and appears to be in a hypomanic state, but is pleasant and cooperative through interview. He reports that he tolerated Risperdal 2mg well last night and is agreeable to continuing hospitalization and recommended medication changes. He still is not sleeping through the night but now says he is feeling fatigued during the day due to this. A postcard patient wrote to his nephew states that "all people are b es." He reportedly makes many phone calls "to discuss business" with various people and sounds very intense during these. He continues to be intermittently irritable with nursing staff. He was given a walker by PT and reports this has helped with his back pain. We discussed various options for sleep but patient doesn't feel that non-controlled substances are helpful for him. He is agreeable to increasing Risperdal further. Patient denies SI, HI, or AVH. Appetite is good. VSS. No psychotropic PRNs required in the past 24 hours. Time of Service: 06:30 Start Time: 17:40 Stop Time: 18:00 Care >50% of this visit spent in counseling/coordination care. [facility] Exam Vitals Vital Signs Date Time Temp Pulse Resp B/P Pulse Ox O2 Delivery O2 Flow Rate FiO2 11/02/16 20:32 97.0 65 15 147/84 98 Room Air Physical examination performed by the hospitalist. Height (Feet): 5 Height (Inches): 6.50 Mental Status Exam Muscle Strength/Tone: Normal Dressing: Casual Grooming: Good Attitude: Tense Motor Activity: Normal Eye Contact: Good Speech: Normal Volume: Normal Rhythm: Appropriate Rhythm Orientation: Oriented X4 Mood: Irritable Affect: Labile (improved) Rate of Thoughts: Appropriate Rate Thought Organization: Organized Associations: Intact Abstract Reasoning: Poor abstract reasoning Thought Content: Other (Increased goal-directed activity but no other abnormal thought content elicited) Perception/Psychotic: Perception Normal Attention Span/Concentration: Distractable Language: Naming Intact Fund of Knowledge: Appropriate Memory: Grossly Intact Suicidal Ideation: Denies Homicidal Ideation: Denies Insight: Limited Judgment: Limited Impulse Control: Poor (improving) Assessment and Plan (1) Bipolar affective Assessment: by history Plan: 10/29/16: Risperidone and Gabapentin started. Will monitor and titrate over weekend as needed. Time spent reviewing case and chart. 10/30/16: Increase Risperidone to 0.5mg PO q AM, 2mg PO q HS. Increase Gabapentin to TID. Add Colace and MOM for constipation. 10/31/16: Patient agrees to take Risperdal as prescribed above tonight. He also requests Voltaren gel for arthritis. He states that he may wish to leave tomorrow; patient has capacity to make his own medical decisions at this point. Though I do not believe his bipolar disorder is currently well-controlled, I do not believe he is an imminent danger to self or others. Will continue to monitor. 11/01/16: Would like to increase Risperdal further but will do so gradually as patient is just now tolerating the dose without adverse effects, which increases his compliance. I would like to get a SHAHEEN/RIPPA prior to discharge for a data point in patient's ability to care for self and manage condition outside of the hospital. 11/02/16: Increase Risperdal to 0.5mg PO q AM and 3mg PO q HS. 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
--- NOTE | 2016-11-02 23:25 | NUR ---
Shift Summary () Patient is in his room writing when this RN assumed cares at 1900. He smiles and tells me he recognizes me from the weekend. He is cooperative with assessment cares, pleasant, oriented x3. He takes medications whole without incident or argument. He is able to make his needs known, did not have any suicidal, paranoid or threatening behaviors/verbalizations this evening. Presently he is laying in bed with his eyes closed
--- NOTE | 2016-11-03 00:38 | NUR ---
Chart Check 24 hour chart check completed
--- NOTE | 2016-11-03 03:05 | NUR ---
Sleep Noted in observation check that pt. went to bed at 2145 for sleep. Pt. has been sleeping well since; up now with assist for bathroom.
[2016-11-03] MEDS: NEOMYCIN/POLYM/BACITR OINT PACKET TOP PRN ×2 (03:16→21:32)
--- NOTE | 2016-11-03 03:22 | NUR ---
Awake Pt. awake. Neosporin to right great toe. c/o pain left knee, next pain med due at 0500. Tea bag provided per pt. request. Pt. asks about procedure to release himself from [facility]; encouraged to visit with SW in the AM.
[2016-11-03] MEDS: ACETAMINOPHEN 500 MG TABLET PO PRN (05:08)
[2016-11-03] MEDS: DICLOFENAC 1% TOPICAL GEL 100 G TUBE TOP PRN ×3 (05:49→21:32)
[2016-11-03] MEDS: SUCRALFATE 1 G/10ml ORAL SUSPENSION PO SCH ×4 (05:49→21:22)
--- NOTE | 2016-11-03 06:46 | NUR ---
Shift note Pt. slept from 0300 till 0500 and then has been awake busy in his room and now wandering in and out of his room into the hallway. Tylenol and Voltaren gel given this morning 0500 for joint pain; rated '7'.
[2016-11-03 06:58] LABS: BASOPHILS % (AUTO) 0.3 % (0-2); EOSINOPHILS # (AUTO) 0.2 T/MM3 (0-0.5); EOSINOPHILS % (AUTO) 3.2 % (0-4); HGB - HEMOGLOBIN 14.7 GM/DL (13.5-17.5); IMMATURE GRANULOCYTE # (AUTO) 0.01 T/MM3 (0.00-0.03); IMMATURE GRANULOCYTE % (AUTO) 0.2 % (0.0-0.5); LYMPHOCYTES # (AUTO) 1.9 T/MM3 (1-4.8); LYMPHOCYTES % (AUTO) 30.8 % (23-45); MEAN CORPUSCULAR HGB 29.6 UUG (26-34); MEAN CORPUSCULAR HGB CONC(MCHC 33.4 GM/DL (31-37); MEAN CORPUSCULAR VOLUME 88.5 UM3 (80-100); MEAN PLATELET VOLUME 9.6 UM3 (9.4-12.4); MONOCYTES # (AUTO) 0.6 T/MM3 (0-0.8); MONOCYTES % (AUTO) 9.7 % (0-9.0); NEUTROPHILS #(AUTO)-ABSOLUTE 3.4 T/MM3 (1.8-7.7); NEUTROPHILS % (AUTO) 55.8 % (33-66); RED BLOOD COUNT 4.97 M/MM3 (4.50-5.90)
[2016-11-03 07:11] LABS: ANION GAP 14 MEQ/L (5-15); BUN/CREATININE RATIO 19 RATIO (6-26); CALCIUM 9.8 MG/DL (8.4-10.2); CHLORIDE 106 MEQ/L (98-107); CO2 - CARBON DIOXIDE 25 MEQ/L (22-30); CREATININE 0.9 MG/DL (0.8-1.5); GLOMERULAR FILTRATION RATE 83; GLUCOSE 101 MG/DL (75-110); POTASSIUM 4.6 MEQ/L (3.6-5); SODIUM 145 MEQ/L (134-144)
[2016-11-03 08:00] VITALS: PULSE 74; RESP 20
--- NOTE | 2016-11-03 08:00 | NUR ---
WAKE UP NOTE PATIENT WOKE UP AT 0600 THIS MORNING.
[2016-11-03 08:08] VITALS: BP 107/65; PULSE 74; RESP 20; TEMP 97.2; O2SAT 97
[2016-11-03] MEDS: DOCUSATE SODIUM 100 MG CAPSULE PO SCH (09:07)
[2016-11-03] MEDS: GABAPENTIN 300 MG CAPSULE PO SCH ×3 (09:07→21:21)
[2016-11-03] MEDS: RISPERIDONE 0.5 MG TABLET PO SCH (09:07)
[2016-11-03] MEDS: RANITIDINE 150 MG TABLET PO SCH ×2 (09:09→21:22)
[2016-11-03] MEDS: CYANOCOBALAMIN (B-12) 1000mcg/ml INJECTION SQ SCH (09:13)
[2016-11-03] MEDS: LIDOCAINE 5% PATCH TD SCH (09:15)
--- NOTE | 2016-11-03 14:00 | NUR ---
STATUS patient is AO x 3, pleasant, cooperative with assessment, compliant with medications. No inappropriate behaviors noted, no SI commends made, patient complain on pain on his hands and left knee, Aspercreme was applied. Patient denies needs or concerns at the moment.
[2016-11-03 16:04] VITALS: BP 145/85; PULSE 65; RESP 16; TEMP 98.1; O2SAT 98
--- NOTE | 2016-11-03 16:56 | NUR ---
SHIPPING SUPERVISOR--INDIVIDUAL Pt. reports he continues to "improve." He showed this SW the flower arrangement he purchased for himself and had delivered. He was quite proud that he got it for discounted mahan and it only cost him $28.00. Pt. had the arrangement so that he could have 2 separate arrangements. He has stacks of paperwork neatly arranged around the davis of his room. He has mailed multiple letters and large envelopes to wide variety of people. Pt. asked about getting a Pepsi. This SW was able to get pt. a pop from dining room. Pt. has been pleasant and cheerful for most of day.
--- NOTE | 2016-11-03 18:07 | NUR ---
SHIFT SUMMARY PATIENT HAS BEEN PLEASANT, COOPERATIVE WITH ASSESSMENT AND COMPLIANT WITH MEDICATIONS, NO SI COMMENTS MADE THIS SHIFT, PATIENT WAS IN A HAPPY MOOD, HE WAS SOCIALIZING WITH OTHER PATIENTS, NO INAPPROPRIATE BEHAVIORS NOTED, HE IS UP AD HEATHER AND AMBULATES WITH HIS FWW, HE IS ABLE TO VERBALIZE NEEDS, PATIENT CAME OUT FOR MEALS, HE ATE 100 % OF ALL MEALS. PATIENT COMPLAIN OF PAIN THIS MORNING, ASPERCREME WAS APPLIED TO HIS FINGERS AND LEFT KNEE. NO PRN MEDICATIONS GIVEN, NO AGGRESSIVE BEHAVIORS NOTED. PATIENT INTERACTED WELL WITH STAFF. PATIENT DENIES NEEDS OR CONCERNS AT THE MOMENT.
[2016-11-03 19:24] VITALS: BP 156/74; PULSE 87; RESP 16; TEMP 98; O2SAT 97
[2016-11-03] MEDS: LIDOCAINE PATCH REMOVAL TOP SCH (21:00)
[2016-11-03] MEDS: RISPERIDONE 1 MG TABLET PO SCH (21:21)
--- NOTE | 2016-11-03 22:30 | NUR ---
SUMMARY PT PLEASANT AND APPR WITH STAFF AND CARES. TOOK MEDICATIONS WITHOUT DIFFICULTY/ RESISTANCE. DENIES SI, MADE NO SUICIDAL STATEMENTS. PT SPENT MUCH OF SHIFT IN DAYROOM, LAUGHING AND CHATTING WITH RN, STAFF, AND PTS. HE IS CURRENTLY IN DAYROOM, WITH STAFF PRESENT. Addendum: 11/03/16 at 2234 by EVERETT MANSFIELD RN PT DID C/O PAIN IN HIS SHOULDER AND KNUCKLES, REQUESTED ASPERCREME FOR HIS JOINTS AND PRN NEOSPORIN FOR HIS FEET. RN PROVIDED AND PT WAS APPRECIATIVE. NO FURTHER C/O PAIN MED REQUESTS.
--- NOTE | 2016-11-03 23:34 | NUR ---
Chart Check 24 hour chart check completed
--- NOTE | 2016-11-04 00:16 | NUR ---
Sleep time Noted pt. in bed asleep at 2300. Continues to sleep at this time; no distress noted. Bed alarm on.
[2016-11-04] MEDS: ACETAMINOPHEN 500 MG TABLET PO PRN (04:10)
--- NOTE | 2016-11-04 04:10 | NUR ---
Awake Pt. awake. 5 hrs of sleep. Pt. states "I'm awake for the next 14 hours." Up ad viviana in room and hallway.
--- NOTE | 2016-11-04 04:54 | NUR ---
Pain Pain rated knee pain '8'; received Tylenol at 0410. Rates pain a '3' now; states Tylenol helped.
[2016-11-04] MEDS: SUCRALFATE 1 G/10ml ORAL SUSPENSION PO SCH ×2 (06:21→12:02)
--- NOTE | 2016-11-04 06:23 | NUR ---
Shift Note Slept another 1.5hrs after pain relieved. Pt. up in day room now dressed for the day; eating sherbet.
[2016-11-04] MEDS: RANITIDINE 150 MG TABLET PO SCH (08:06)
[2016-11-04] MEDS: DOCUSATE SODIUM 100 MG CAPSULE PO SCH (08:06)
[2016-11-04] MEDS: GABAPENTIN 300 MG CAPSULE PO SCH (08:06)
[2016-11-04] MEDS: CYANOCOBALAMIN (B-12) 1000mcg/ml INJECTION SQ SCH (08:07)
[2016-11-04] MEDS: LIDOCAINE 5% PATCH TD SCH (08:08)
[2016-11-04 08:26] VITALS: BP 119/77; PULSE 71; RESP 18; TEMP 97; O2SAT 96
[2016-11-04 08:35] VITALS: PULSE 71; RESP 18
[2016-11-04] MEDS: NEOMYCIN/POLYM/BACITR OINT PACKET TOP PRN (08:51)
[2016-11-04] MEDS: DICLOFENAC 1% TOPICAL GEL 100 G TUBE TOP PRN (08:51)
[2016-11-04] MEDS ORDERED: RISPERIDONE 1 MG TABLET PO SCH (09:00)
--- NOTE | 2016-11-04 09:00 | NUR ---
SLEEP 5.50 Hours Pt went to bed at 2245 last night and awoke at 0615. Pt slept a total of 5.5 hours as documented on the 15 minute observation forms.
[2016-11-04] MEDS: NAPROXEN 220 MG TABLET PO PRN (10:38)
[2016-11-04] MEDS ORDERED: RISP1TAB4 PO ×2 (10:41)
[2016-11-04] MEDS ORDERED: GABA300C PO (10:41)
--- NOTE | 2016-11-04 11:10 | GENPN ---
[facility] Subjective Date DATE: 11/03/16 TIME: 08:20 Subjective/Severity of Illness Medications Current Medications Medications (Trade) Dose Ordered Sig/Rajeev Start Time Stop Time Status Last Admin Dose Admin Acetaminophen (Tylenol Extra Strength) 1,000 mg Q8H PRN 10/28/16 02:45 11/03/16 05:08 1,000 MG Naproxen Sodium (ALEVE 220 mg) 440 mg BIDWM PRN 10/28/16 02:45 11/02/16 21:09 440 MG Ranitidine HCl (Zantac) 150 mg BID 10/28/16 09:00 11/02/16 19:46 150 MG Risperidone (Risperdal) 1 mg BID PRN 10/28/16 02:45 10/28/16 12:23 DC Sucralfate (Carafate Slurry) 1 g ACHS 10/28/16 06:30 11/03/16 05:49 1 G Miscellaneous Medication (May use PRN orders) 1 PRN PRN 10/28/16 02:45 Haloperidol (Haldol) 0.5 mg Q6H PRN 10/28/16 02:45 Lorazepam (Ativan) 0.5 mg Q6H PRN 10/28/16 02:45 Lorazepam (Ativan) 0.5 mg Q6H PRN 10/28/16 02:45 Haloperidol Lactate (Haldol 5 Mg/ml Inj) 0.5 mg Q6H PRN 10/28/16 02:45 Risperidone (Risperdal) 2 mg HS 10/28/16 21:00 11/02/16 17:49 DC 11/01/16 21:24 2 MG Gabapentin (Neurontin) 300 mg BID 10/28/16 21:00 10/30/16 06:31 DC 10/29/16 20:14 300 MG Gabapentin (Neurontin) 300 mg TID 10/30/16 09:00 11/02/16 19:45 300 MG Risperidone (Risperdal) 0.5 mg DAILY 10/30/16 09:00 11/02/16 09:10 0.5 MG Docusate Sodium (Colace) 100 mg DAILY 10/30/16 09:00 11/02/16 09:09 100 MG Magnesium Hydroxide (Mom) 30 ml DAILY PRN 10/30/16 07:45 Diclofenac Sodium (Voltaren 1% Gel) 1 applic QID PRN 10/31/16 17:00 11/03/16 05:49 1 APPLIC Neomycin/ Polymyxin/ Bacitracin (Neosporin) 1 applic BID PRN 11/01/16 08:45 11/03/16 03:16 1 APPLIC Cyanocobalamin (Vit. B-12) 1,000 mcg Taper DAILY 11/01/16 09:00 12/06/16 08:59 11/02/16 09:10 1,000 MCG Lidocaine (Lidoderm) 2 patch DAILY 11/02/16 09:00 11/02/16 09:11 2 PATCH Lidocaine (Lidoderm Patch Removal) 1 removal 2100 11/01/16 21:00 11/02/16 19:46 1 REMOVAL Risperidone (Risperdal) 3 mg HS 11/02/16 21:00 11/02/16 19:46 3 MG Subjective Patient seen and chart reviewed. Case discussed with treatment team. Patient is sitting in his room on approach and appears to be in a hypomanic state, but is pleasant and cooperative through interview. He reports that he tolerated Risperdal 2mg well last night and is agreeable to continuing hospitalization and recommended medication changes. He has been more appropriate with nursing staff. He did order several byrd for himself from [employer] and continues to write many letters to various people though content appears more appropriate. He is agreeable to increasing Risperdal further. Patient denies SI, HI, or AVH. Patient reports he slept significantly better, ~5 -6 hours total though interrupted. Appetite is good. VSS. No psychotropic PRNs required in the past 24 hours. Time of Service: 06:30 Start Time: 09:00 Stop Time: 09:20 Care >50% of this visit spent in counseling/coordination care. [facility] Exam Vitals Vital Signs Date Time Temp Pulse Resp B/P Pulse Ox O2 Delivery O2 Flow Rate FiO2 11/03/16 08:08 97.2 74 20 107/65 97 Room Air Physical examination performed by the hospitalist. Height (Feet): 5 Height (Inches): 6.50 Mental Status Exam Muscle Strength/Tone: Normal Dressing: Casual Grooming: Good Attitude: Cooperative Motor Activity: Normal Eye Contact: Good Speech: Normal Volume: Normal Rhythm: Appropriate Rhythm Sensory: Alert Orientation: Oriented X4 Mood: Neutral Affect: Congruent Rate of Thoughts: Appropriate Rate Thought Organization: Organized Associations: Intact Abstract Reasoning: Intact, able to abstract Computation: Intact Thought Content: Somatic Concerns Perception/Psychotic: Perception Normal Attention Span/Concentration: Short Span Language: Naming Intact Fund of Knowledge: Appropriate Memory: Grossly Intact Suicidal Ideation: Denies Homicidal Ideation: Denies Insight: Fair Judgment: Fair Impulse Control: Fair Laboratory Tests Test 11/03/16 06:44 White Blood Count 6.0T/MM3 Red Blood Count 4.97M/MM3 Hemoglobin 14.7GM/DL Hematocrit 44.0% Mean Corpuscular Volume 88.5UM3 Mean Corpuscular Hemoglobin 29.6UUG Mean Corpuscular Hemoglobin Concent 33.4GM/DL RDW Standard Deviation 42.9FL Platelet Count 192T/MM3 Mean Platelet Volume 9.6UM3 Immature Granulocyte % (Auto) 0.2% Neutrophils (%) (Auto) 55.8% Lymphocytes (%) (Auto) 30.8% Monocytes (%) (Auto) 9.7% Eosinophils (%) (Auto) 3.2% Basophils (%) (Auto) 0.3% Absolute Immature Granulocyte (auto 0.01T/MM3 Absolute Neutrophils (auto) 3.4T/MM3 Absolute Lymphocytes (auto) 1.9T/MM3 Absolute Monocytes (auto) 0.6T/MM3 Absolute Eosinophils (auto) 0.2T/MM3 Absolute Basophils (auto) 0.0T/MM3 Turbidity < 20 Sodium Level 145MEQ/L Potassium Level 4.6MEQ/L Chloride Level 106MEQ/L Carbon Dioxide Level 25MEQ/L Anion Gap 14MEQ/L Blood Urea Nitrogen 17.0MG/DL Creatinine 0.9MG/DL Glomerular Filtration Rate Calc 83 BUN/Creatinine Ratio 19RATIO Glucose Level 101MG/DL Calculated Osmolality 281MOSM/KG Calcium Level 9.8MG/DL Icterus Index < 2 Chemistry Specimen Hemolysis < 15 Assessment and Plan (1) Bipolar affective Assessment: by history Plan: 10/29/16: Risperidone and Gabapentin started. Will monitor and titrate over weekend as needed. Time spent reviewing case and chart. 10/30/16: Increase Risperidone to 0.5mg PO q AM, 2mg PO q HS. Increase Gabapentin to TID. Add Colace and MOM for constipation. 4/24/17: Patient agrees to take Risperdal as prescribed above tonight. He also requests Voltaren gel for arthritis. He states that he may wish to leave tomorrow; patient has capacity to make his own medical decisions at this point. Though I do not believe his bipolar disorder is currently well-controlled, I do not believe he is an imminent danger to self or others. Will continue to monitor. 11/01/16: Would like to increase Risperdal further but will do so gradually as patient is just now tolerating the dose without adverse effects, which increases his compliance. I would like to get a SHAHEEN/RIPPA prior to discharge for a data point in patient's ability to care for self and manage condition outside of the hospital. 11/02/16: Increase Risperdal to 0.5mg PO q AM and 3mg PO q HS. 11/03/16: Increase Risperdal to 1mg PO q AM and 3mg PO q HS. 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
[2016-11-04] MEDS ORDERED: CYAN10009 PO (11:44)
[2016-11-04] MEDS ORDERED: DICL100G5 TOP (11:44)
--- NOTE | 2016-11-04 12:43 | NUR ---
[facility]--DISCHARGE PLANNING Pt. is requesting discharge from the unit today. When asked if he was having any suicidal thoughts, he laughed and said, "Of course not." Pt. states he is feeling much better and has some business to take care of. He had already called his [employer] officer to let him know he would not make his 1030 appt. for today. Pt. stated he would need a taxi if his PV CM (Ivonne Payne) was not available to transport him home. This SW was unsuccessful in contacting Ivonne. Per patient's request, a taxi was called and will pick him up at ED entrance at 1300. Elizabeth, CM from , called this SW back and left message that Ivonne was out for today. Elizabeth would go by and see pt. in his apartment at 4:30 today.
--- NOTE | 2016-11-04 13:24 | NUR ---
DISCHARGE NOTE PATIENT WAS DISCHARGE TODAY AT 1315 TO HOME, PATIENT SIGNS DISCHARGE PAPERS AND DISCHARGE PACKAGE WAS GIVEN TO PATIENT. PATIENT WAS IN A GOOD CONDITION DURING DISCHARGE, ALL BELONGING WERE SEND WITH PATIENT. PATIENT WAS ESCORTED TO [facility] ER ENTRANCE VIA WHEEL CHAIR BY [facility] STAFF MEMBERS, THERE WAS A CAB WAITING FOR HIM AT THE ENTRANCE. FAMILY WAS NOT PRESENT DURING DISCHARGE. PATIENT WAS GIVEN unit contact information given along with plans for follow-up care with PCP and MH professional as outlined in PHS. No pending labs on discharge
--- NOTE | 2016-11-07 12:35 | NUR ---
JERONIMO DECKER UNABLE TO REACH PT PHONE IS D/C. JERONIMO SPOKE WITH GERRI THE APPARTMENT [employer] WHO STATES THAT PT HAS RETURN TO HIS APARTMENT. GERRI HAS NO CONCERNS FOR PT AT THIS TIME.
== END 2016-11-04 13:15 | disposition home or self-care (01) | DRG 885 ==
LOC: ED 23:37 → GEN 10-28 01:17
PROVIDERS: ADMIT Psychiatry & Neurology Psychiatry; ATTEND Psychiatry & Neurology Psychiatry
DX: F31.9 Bipolar disorder, unspecified (principal); E87.0 Hyperosmolality and hypernatremia; F11.20 Opioid dependence, uncomplicated; K29.00 Acute gastritis without bleeding; F60.9 Personality disorder, unspecified; I10 Essential (primary) hypertension; E05.90 Thyrotoxicosis, unspecified without thyrotoxic crisis or storm; F17.200 Nicotine dependence, unspecified, uncomplicated; G89.29 Other chronic pain; M54.9 Dorsalgia, unspecified; K21.9 Gastro-esophageal reflux disease without esophagitis; K44.9 Diaphragmatic hernia without obstruction or gangrene; K22.2 Esophageal obstruction; E53.8 Deficiency of other specified B group vitamins; N40.0 Benign prostatic hyperplasia without lower urinary tract symptoms; Z98.1 Arthrodesis status
CPT/HCPCS: 36415; 80048; 80061; 80306; 80307; 81003; 82607; 82746; 83036; 84134; 84439; 84443; 84481; 85025; 86592; 93005; 99406; 99407

== ENCOUNTER 2016-11-19 04:41 | Emergency (ER) | payer MEDICARE ==
[~2016-11-19] VITALS: Ht 175.3 cm; Wt 77.0 kg
[~2016-11-19 04:41] MED LIST changes: -ARIP5TAB10 PO; -CALC500T7; -CLIN300C86 PO; +CYAN10009 PO; +GABA300C PO; -HYDR-3841 PO; -HYDR2TAB56 PO; -METH-310 PO; -ONDA4TAB4 PO; -ORPH100T2 PO; -OXYC15TA50 PO; -PROC5TAB; -PROM25TA7 PO; -RISP1TAB27 PO; +RISP1TAB4 PO
[2016-11-19 04:44] VITALS: Ht 175.3 cm; Wt 77.0 kg
--- NOTE | 2016-11-19 05:05 | ERPDOC ---
Departure Disposition Decision Date: November 19, 2016 Disposition Decision Time: 06:45 Disposition: 01 DISCHARGED HOME, SELF-CARE Impression Impression Impression: Primary Impression: Gastritis Gastritis type: unspecified gastritis Chronicity: unspecified Gastritis bleeding: without bleeding Qualified Codes: K29.70 - Gastritis, unspecified, without bleeding Severity: Moderate Condition: Improved Seen By: Physician only Referrals: [facility] 2 Days Patient Instructions: Abdominal Pain (ED) Problems/Meds/Labs Reviewed?: Yes Medications reviewed and manag: Yes Follow up care ordered?: Yes Mental Status: Alert, Oriented Scripts Sucralfate (Carafate) 1 Gm/10 Ml Oral.susp 10 ML PO QID for 10 Days, #400 ML 0 Refills Prov: KEVIN MIXON DO 11/19/16 Ranitidine HCl (Zantac) 150 Mg Tablet 150 MG PO BID for ACID REFLUX for 30 Days, #60 TAB 0 Refills Take 1 tablet, by mouth, 2 times a day. Prov: KEVIN MIXON DO 11/19/16 HPI - Abdominal Pain General Chief Complaint: Abdominal Pain Stated Complaint: STOMACH PAIN Time Seen by Provider: 04:46 Source: patient History/Exam Limitations: no limitations HPI - Abdominal Pain Initial Comments 71-year-old male presents to emergency department with a chief complaint of an exacerbation of his chronic abdominal pain. Patient noted increase in symptoms one day ago. He denies any trauma, travel, poorly prepared food, or recent antibiotic use. Patient describes a sharp moderate pain without radiation across the middle of his abdomen. He denies any other complaints or associated symptoms. He does note improvement of symptoms with fentanyl given by EMS. This is a typical exacerbation of the patient's abdominal pain. Patient was seen on 10/27/2016 for similar symptoms and only filled the Zantac but did not fill the carafate prescription he was given. He did not follow-up with a primary care physician as directed. Occurred At: home Onset: Gradual Allergies: Coded Allergies: asenapine (Verified Allergy, Unknown, 11/19/16) lurasidone (Verified Allergy, Unknown, 11/19/16) quetiapine (Verified Allergy, Unknown, 11/19/16) ziprasidone (Verified Allergy, Unknown, 11/19/16) Past History Patient Surgical History Cholecystectomy Lumbar fusion L1-2 and L3-4 L TKA Colonoscopy 2014 Inguinal hernia repair Past Medical History Metabolic: hypertension GI: GERD Musculoskeletal: back pain Psychological: bipolar Surgical History General: gallbladder Family History Family History: Negative Vaccines Hx Influenza Vaccination: No Hx Pneumococcal Vaccination: Yes (january 2016) Social History Smoking Status: Never smoker Does patient use chewing tobac: No Second Hand Exposure: No Substance Use Type: marijuana Alcohol Intake: none, a few times a week Marital Status: Single Sexuality: male partner Household Members: none Number of Children: 0 Current Occupational Status: disabled Grade (if student): GED Review of Systems Constitutional Constitutional: DENIES: chills, fever Eyes General: DENIES: erythema, exudate Lids/Accessories: DENIES: erythema, swelling Vision: DENIES: acuity, blurring ENMT Ears: DENIES: drainage, pain Hearing: DENIES: hearing loss Balance: DENIES: ataxia, falling to one side Sinuses: DENIES: congestion, pain Nose: DENIES: nosebleeds, pain Mouth/Throat: DENIES: painful swallowing, sore throat Teeth: DENIES: pain Jaw: DENIES: pain Cardiovascular Cardiac: DENIES: chest pain, dyspnea on exertion Rhythm/Rate: DENIES: irregular beat, palpitations Vascular: DENIES: pedal edema, unilateral swelling Pulmonary Respiratory: DENIES: cough, dyspnea, pleuritic chest pain, sputum GI Upper Abdomen: DENIES: nausea, vomiting Lower Abdomen: DENIES: blood in stool, diarrhea General: DENIES: dysuria, frequency, urgency Musculoskeletal General: DENIES: joint pain, tenderness Integumentary Skin: DENIES: itching, rash Neurological General: DENIES: headache, numbness, weakness Psychiatric Psychiatric: DENIES: depression, nervousness, suicidal ideation/attempt Endocrine Endocrine: DENIES: polydipsia, polyphagia Hematologic/Lymphatic Hematologic/Lymphatic: DENIES: frequent nosebleeds, lymphadenopathy Allergic/Immunological Allergic/Immunoligical: DENIES: allergic reactions, hives Physical Exam General General Nourishment: well nourished, well developed, appears stated age, no acute distress, adult General Body Habitus: well groomed Vitals and Pain First Documented Vital Signs Date Time Temp Pulse Resp B/P Pulse Ox O2 Delivery O2 Flow Rate FiO2 11/19/16 04:44 98.6 65 20 189/109 97 Room Air Weight: Kilograms: 77.000 Height (feet): 5 Height (inches): 9.00 Triage Pain Scale: RN VS reviewed by Provider: Yes Normal Exams: Head: Normocephalic w/o trauma Eyes: Pupils are PERRLA w/ EOMI, No scleral icterus, irritation, or foreign bodies noted ENMT: No facial trauma, nasal exudates, pharyngeal erythema, or exudates are noted Dental: No fractured, loose, or missing teeth noted Neck: Full range of motion, without adenopathy, JVD, bruits or thyromegaly Chest/Resp: Clear all doty, with good airflow, and symmetry bilaterally CV: Regular rate and rhythm, without murmur or gallop, Pulses 2+ all extremities, capillary refill, <2 seconds all ext., no pedal edema noted Abdomen: Bowel sounds positive, soft, non-tender, non-distended, no hepatosplenomegaly, masses or bruits noted Lymphatic: No lymphadenopathy, or lymphedema noted Musculoskeletal: No tenderness, or deformity noted, good range of motion, all extremities Integumentary: No rashes, hives, or bruising noted, hair and nails, without abnormality Neurologic: Patient is alert, and oriented, cranial nerves, motor/sensory/ cerebellar, exams w/o gross deficits, to observation Psychiatric: Patient exhibits, appropriate attention, emotion and affect Abdomen (brief) Comments NO CVAT. Differential Diagnoses Considering: Bowel Obstruction, Diverticulitis, GERD, Ileus, Pancreatitis Progress Results/Orders Orders Procedure Category Date Status Time Cbc W/Auto LAB 11/19/16 Complete Diff-Reflex Manual Cmp - Comprehensive LAB 11/19/16 Complete Metabolic Lipase LAB 11/19/16 Complete Ua, Dip Wreflex LAB 11/19/16 Complete Microsc & Application Packaging Specialist 04:46 EKG EKG 11/19/16 Taken Troponin I W LAB 11/19/16 Complete Hemolysis Index Normal Saline (Ns) PHA 11/19/16 Complete 05:30 Ct Abd/Pelvis CT 11/19/16 Taken W/Contrast Only 05:26 Iohexol (Omnipaque) PHA 11/19/16 Complete 05:40 Normal Saline (Ns) PHA 11/19/16 Complete 05:40 Saline Flush (Iv PHA 11/19/16 Complete Flush) 05:40 Ondansetron Inj PHA 11/19/16 Complete (Zofran) 06:00 Hydromorphone PHA 11/19/16 Complete (Dilaudid) 06:00 G.I. Cocktail PHA 11/19/16 Complete (/Maalox/Lidocaine 06:45 Lab Results Laboratory Tests Test 11/19/16 05:05 11/19/16 05:34 White Blood Count 7.2T/MM3 Red Blood Count 4.75M/MM3 Hemoglobin 14.0GM/DL Hematocrit 42.4% Mean Corpuscular Volume 89.3UM3 Mean Corpuscular Hemoglobin 29.5UUG Mean Corpuscular Hemoglobin Concent 33.0GM/DL RDW Standard Deviation 44.3FL Platelet Count 206T/MM3 Mean Platelet Volume 10.1UM3 Immature Granulocyte % (Auto) 0.7% Neutrophils (%) (Auto) 61.2% Lymphocytes (%) (Auto) 24.9% Monocytes (%) (Auto) 8.5% Eosinophils (%) (Auto) 4.1% Basophils (%) (Auto) 0.6% Absolute Immature Granulocyte (auto 0.05T/MM3 Absolute Neutrophils (auto) 4.4T/MM3 Absolute Lymphocytes (auto) 1.8T/MM3 Absolute Monocytes (auto) 0.6T/MM3 Absolute Eosinophils (auto) 0.3T/MM3 Absolute Basophils (auto) 0.0T/MM3 Turbidity < 20 Sodium Level 147MEQ/L Potassium Level 3.8MEQ/L Chloride Level 109MEQ/L Carbon Dioxide Level 25MEQ/L Anion Gap 13MEQ/L Blood Urea Nitrogen 19.0MG/DL Creatinine 0.7MG/DL Glomerular Filtration Rate Calc 111 BUN/Creatinine Ratio 27RATIO Glucose Level 101MG/DL Calculated Osmolality 284MOSM/KG Calcium Level 9.4MG/DL Total Bilirubin 0.90MG/DL Icterus Index < 2 Aspartate Amino Transf (AST/SGOT) 30U/L Alanine Aminotransferase (ALT/SGPT) 33U/L Alkaline Phosphatase 168U/L Troponin I < 0.012ng/ml Total Protein 7.0G/DL Albumin 4.2G/DL Globulin 2.8G/DL Albumin/Globulin Ratio 1.5RATIO Lipase 155U/L Chemistry Specimen Hemolysis < 15 Urine Collection Type Cleancatch-midstream Urine Color Yellow Urine Turbidity Clear Urine pH 6.0 Urine Specific [place] 1.010 Urine Protein Negative Urine Glucose (UA) Negative Urine Ketones Negative Urine Blood Negative Urine Nitrite Negative Urine Bilirubin Negative Urine Urobilinogen 0.2EU/DL Urine Leukocyte Esterase Negative Urinalysis Comment Microscopic not ind. Medications Current ED Medications Sodium Chloride (NS) 500 ml @ 999 mls/hr Q31M ONCE IV Last administered on 05:25; Start 11/19/16 at 05:30; Stop 11/19/16 at 06:00; Status DC Iohexol 1 bottle 1 bottle STK-MED ONCE .ROUTE ; Start 11/19/16 at 05:40; Stop at 05:41; Status DC Sodium Chloride (NS) 100 ml @ As Directed STK-MED ONCE .ROUTE ; Start 11/19/16 at 05:40; Stop 11/19/16 at 05:41; Status DC Sodium Chloride (Iv Flush) 10 ml STK-MED ONCE .ROUTE ; Start 11/19/16 at 05:40; Stop 11/19/16 at 05:41; Status DC Ondansetron HCl (Zofran) 4 mg O ONCE IV Last administered on 11/19/16 06:27; Start 11/19/16 at 06:00; Stop 11/19/16 at 06:01; Status DC Hydromorphone HCl (Dilaudid) 0.5 mg O ONCE IV Last administered on 11/19/16 06:24; Start 11/19/16 at 06:00; Stop 11/19/16 at 06:01; Status DC Pharmacy Profile Note (/Maalox/ Lidocaine Soln) 30 ml O ONCE PO ; Start 11/19/16 at 06:45; Stop 11/19/16 at 06:46; Status DC Progress Progress Labs / imaging were discussed in detail with the patient and questions are answered. Patient is given IV hydration. Patient is given parental narcotic and antiemetic medications intravenously in the emergency department with improvement of symptoms. Patient is given a GI cocktail with improvement of symptoms. Patient is discharged home in improved condition. He is to follow up as instructed. Patient is to return to the emergency department if his condition worsens or changes in any manner. Patient is given a refill of the Zantac prescription which he is currently out of. Patient is given a new prescription for Carafate which he did not fill before. Patient is in agreement with the current plan of management. He is discharged home in improved condition. He is to follow up as instructed. He is to return to the emergency department if his condition worsens or changes in any manner. Counseling was provided to the patient regarding the importance of obtaining a primary care physician and following up with the physician. Patient was also counseled regarding the importance of filling prescriptions that he was provided with in the emergency department today. He verbalizes agreement and understanding. EKG EKG : Rate: 60-100 Rhythm: sinus [place]: normal QRS: normal Intervals: normal ST/T: normal Interpreted by: signing physician CT CT : CT: Abd/Pelvis IV contrast Interpretation: Normal, Faxed Report KEVIN MIXON DO November 19, 2016 05:05
[2016-11-19 05:18] LABS: BASOPHILS % (AUTO) 0.6 % (0-2); EOSINOPHILS # (AUTO) 0.3 T/MM3 (0-0.5); EOSINOPHILS % (AUTO) 4.1 % (0-4); HCT - HEMATOCRIT 42.4 % (41-53); IMMATURE GRANULOCYTE # (AUTO) 0.05 T/MM3 (0.00-0.03); IMMATURE GRANULOCYTE % (AUTO) 0.7 % (0.0-0.5); LYMPHOCYTES # (AUTO) 1.8 T/MM3 (1-4.8); LYMPHOCYTES % (AUTO) 24.9 % (23-45); MEAN CORPUSCULAR HGB 29.5 UUG (26-34); MEAN CORPUSCULAR VOLUME 89.3 UM3 (80-100); MEAN PLATELET VOLUME 10.1 UM3 (9.4-12.4); MONOCYTES # (AUTO) 0.6 T/MM3 (0-0.8); MONOCYTES % (AUTO) 8.5 % (0-9.0); NEUTROPHILS #(AUTO)-ABSOLUTE 4.4 T/MM3 (1.8-7.7); NEUTROPHILS % (AUTO) 61.2 % (33-66); RED BLOOD COUNT 4.75 M/MM3 (4.50-5.90); WBC - WHITE BLOOD COUNT 7.2 T/MM3 (4.5-11.0)
[2016-11-19] MEDS ORDERED: DOXE10CA2 PO (05:20)
[2016-11-19 05:24] LABS: ALBUMIN 4.2 G/DL (3.5-5.0); ALBUMIN/GLOBULIN RATIO 1.5 RATIO (1.1-2.2); ALKALINE PHOSPHATASE 168 U/L (38-126); ALT (SGPT) 33 U/L (21-72); ANION GAP 13 MEQ/L (5-15); AST (SGOT) 30 U/L (17-59); BUN/CREATININE RATIO 27 RATIO (6-26); CALCIUM 9.4 MG/DL (8.4-10.2); CHLORIDE 109 MEQ/L (98-107); CO2 - CARBON DIOXIDE 25 MEQ/L (22-30); CREATININE 0.7 MG/DL (0.8-1.5); GLOMERULAR FILTRATION RATE 111; GLUCOSE 101 MG/DL (75-110); LIPASE 155 U/L (23-300); POTASSIUM 3.8 MEQ/L (3.6-5); SODIUM 147 MEQ/L (134-144)
[2016-11-19] MEDS ORDERED: NORMAL SALINE 500 ML IV ONE (05:30)
[2016-11-19 05:38] LABS: BLOOD, URINE NEGATIVE (NEGATIVE); COLOR,URINE YELLOW (YELLOW); LEUKOCYTE ESTERASE ,URINE NEGATIVE (NEGATIVE); NITRITE,URINE NEGATIVE (NEGATIVE); UROBILINOGEN,URINE 0.2 EU/DL (NORMAL)
[2016-11-19] MEDS ORDERED: IOHEXOL 300 MG/ML 100ml INJECTION ONE (05:40)
[2016-11-19] MEDS ORDERED: NORMAL SALINE 100 ML ONE (05:40)
[2016-11-19] MEDS ORDERED: SALINE FLUSH 10ml SYRINGE ONE (05:40)
[2016-11-19] MEDS ORDERED: ONDANSETRON 4mg/2ml INJECTION IV ONE (06:00)
[2016-11-19] MEDS ORDERED: HYDROMORPHONE 2mg/ml INJECTION IV ONE (06:00)
[2016-11-19] MEDS ORDERED: G.I. COCKTAIL 30ml PO ONE (06:45)
--- NOTE | 2016-11-19 06:45 | NUR ---
ACTIVITY UP TO BR TO VOID. STEADY ON FEET
[2016-11-19] MEDS ORDERED: SUCR1ORA3 PO (06:49)
[2016-11-19] MEDS ORDERED: RANI150T12 PO (06:49)
[2016-11-19 07:02] VITALS: BP 163/85; PULSE 69; RESP 16; TEMP 98; O2SAT 96
--- NOTE | 2016-11-19 07:02 | NUR ---
DISMISSAL AMB TO LOBBY TO AWAIT TAXI RIDE HOME
[2016-11-20] MEDS ORDERED: PROC-14 PO (05:50)
--- NOTE | 2016-11-20 10:21 | DI ---
Indication: ITS.REASON: ABD Pain PROCEDURE: CT ABD/PELVIS W/CONTRAST ONLY: Encounter: Initial Comparison: October 27, 2016 Technique: Axial CT images were performed through the abdomen and pelvis after the administration of intravenous contrast. Coronal and sagittal two-dimensional reformats. Automated Exposure Control and Iterative Reconstruction dose reducing techniques were utilized. Contrast: Omnipaque 300 98 mL Findings: Stable small pulmonary nodules in the right lower lobe. Bilateral lower lobe atelectasis. Small arterially enhancing focus in the superior right lobe of the liver on image #21 measuring 6 mm in size, statistically representing a flash filling hemangioma. Small subcentimeter low-attenuation foci in both lobes of the liver probably representing cysts. No bile duct dilatation. The gallbladder is surgically absent. Granulomatous disease in the spleen. The pancreas and adrenal glands are within normal limits. Bilateral probable renal cysts. No abdominal or pelvic adenopathy. Bladder is normal. Prostate and rectum are normal. No free fluid. No evidence of a bowel obstruction. Colonic diverticulosis without diverticulitis. The appendix is normal. Bone windows show degenerative and postoperative changes in the spine. Impression: No acute disease process seen. There is a preliminary report by [employer]. .
== END 2016-11-19 07:02 | disposition home or self-care (01) ==
LOC: ED 04:41
DX: K29.70 Gastritis, unspecified, without bleeding (principal)
CPT/HCPCS: 74177; 80053; 81003; 83690; 84484; 85025; 93005; 96361; 96374; 96375; 99284; J1170; J2405; J7050; J7999; Q9967

== ENCOUNTER 2016-11-20 05:04 | Emergency (ER) | payer MEDICARE ==
[~2016-11-20] VITALS: Ht 175.3 cm; Wt 83.0 kg
[~2016-11-20 05:04] MED LIST changes: +DOXE10CA2 PO
[2016-11-20 05:05] VITALS: Ht 175.3 cm; Wt 83.0 kg
[2016-11-20] MEDS ORDERED: PROCHLORPERAZINE 10 MG TABLET PO ONE (05:15)
[2016-11-20] MEDS ORDERED: SUCRALFATE 1 G/10ml ORAL SUSPENSION PO ONE (05:15)
[2016-11-20] MEDS ORDERED: RANITIDINE 150 MG TABLET PO ONE (05:15)
--- NOTE | 2016-11-20 05:15 | ERPDOC ---
Departure Disposition Decision Date: November 20, 2016 Disposition Decision Time: 05:47 Disposition: 01 DISCHARGED HOME, SELF-CARE Impression Impression Impression: Primary Impression: Gastritis Gastritis type: unspecified gastritis Chronicity: acute Gastritis bleeding : without bleeding Qualified Codes: K29.00 - Acute gastritis without bleeding Severity: Severe Condition: Improved Seen By: Physician only Patient Instructions: Gastritis (ED) Problems/Meds/Labs Reviewed?: Yes Medications reviewed and manag: Yes Additional Instructions: Take your routine Zantac twice daily Fill a Carafate prescription as soon as possible Take Compazine 10 mg one tablet 3 times daily as needed for stomach upset or pain You may also use [id number] Maalox 10 mL/2 teaspoons up to 5 times daily as needed for abdominal pain It is strongly recommended that she follow up with your primary physician as soon as possible to arrange further testing for definitive diagnosis of your abdominal pain Follow up care ordered?: Yes Mental Status: Alert Scripts Prochlorperazine Maleate (Compazine) 10 Mg Tablet 10 MG PO QID, #30 TAB 0 Refills Prov: ARIELLA DAVIS MD 11/20/16 HPI - Abdominal Pain General Chief Complaint: Abdominal Pain Stated Complaint: ABD PAIN/CRAMPING Time Seen by Provider: 05:08 Source: patient, EMS History/Exam Limitations: no limitations HPI - Abdominal Pain Initial Comments Patient presents with recurrence of his epigastric pain from gastritis. Patient was seen yesterday, had normal lab and CT, and felt much better after given Carafate in the ER. Patient was given prescription for Zantac and Carafate which she states works very well for his abdominal pain. However due to the excessive cost, patient's prescription for 400 cc of Carafate was $112, patient was unable to afford the prescription yesterday. Patient had recurrence of his pain at 1 AM, took one Zantac and to gabapentin without relief. Occurred At: home Onset: Rapid Duration: 4-6 hrs Quality: burning, sharpness Location: epigastric Associated Symptoms: DENIES: back pain, chest pain, diaphoresis, fatigue, fever /chills, headache, heartburn, nausea/vomiting, rash, shortness of breath, swelling/mass in abdomen, syncope, weakness Hx of Similar Symptoms: Yes Allergies: Coded Allergies: asenapine (Verified Allergy, Unknown, 11/19/16) lurasidone (Verified Allergy, Unknown, 11/19/16) quetiapine (Verified Allergy, Unknown, 11/19/16) ziprasidone (Verified Allergy, Unknown, 11/19/16) Past History Patient Medical History Problem List Updates: Chronic recurrent gastritis Patient Surgical History Cholecystectomy Lumbar fusion L1-2 and L3-4 L TKA Colonoscopy 2014 Inguinal hernia repair Past Medical History Metabolic: hypertension GI: GERD Musculoskeletal: back pain Psychological: bipolar Surgical History General: gallbladder Vaccines Hx Influenza Vaccination: No Hx Pneumococcal Vaccination: Yes (january 2016) Social History Does patient use chewing tobac: No Second Hand Exposure: No Substance Use Type: marijuana Alcohol Intake: none, a few times a week Marital Status: Single Sexuality: male partner Household Members: none Number of Children: 0 Current Occupational Status: disabled Grade (if student): GED Review of Systems Constitutional Constitutional: DENIES: appetite decrease, appetite increase, chills, dizziness , fever, weakness ENMT Ears: DENIES: pain Hearing: DENIES: hearing loss, tinnitus Balance: DENIES: vertigo Mouth/Throat: DENIES: change in swallowing, change in voice, hoarsness, painful swallowing, sore throat Cardiovascular Cardiac: DENIES: chest pain, dyspnea on exertion Rhythm/Rate: DENIES: irregular beat, palpitations, tachycardia Vascular: DENIES: pedal edema Pulmonary Respiratory: DENIES: cough, dyspnea, pleuritic chest pain GI Upper Abdomen: pain, DENIES: dysphagia, food intolerances, heartburn/ indigestion, hematemesis, nausea, vomiting Lower Abdomen: DENIES: blood in stool, markos-colored stools, constipation, diarrhea, melena, pain, painful BM General: DENIES: burning, dysuria, frequency, pain, urgency Musculoskeletal General: DENIES: cramps, joint pain, joint swelling, pain, weakness Integumentary Skin: DENIES: rash, sores Neurological General: DENIES: headache, numbness, tingling, vertigo, weakness Physical Exam General General Nourishment: well nourished, well developed, appears stated age, no acute distress General Body Habitus: well groomed Vitals and Pain First Documented Vital Signs Date Time Temp Pulse Resp B/P Pulse Ox O2 Delivery O2 Flow Rate FiO2 11/20/16 05:05 98.2 67 18 178/94 65 Room Air Weight: Kilograms: Height (feet): 5 Height (inches): 9.00 Triage Pain Scale: RN VS reviewed by Provider: Yes Normal Exams: Head: Normocephalic w/o trauma Eyes: Pupils are PERRLA w/ EOMI, No scleral icterus, irritation, or foreign bodies noted ENMT: No facial trauma, nasal exudates, pharyngeal erythema, or exudates are noted Neck: Full range of motion, without adenopathy, JVD, bruits or thyromegaly Chest/Resp: Clear all doty, with good airflow, and symmetry bilaterally CV: Regular rate and rhythm, without murmur or gallop, Pulses 2+ all extremities, capillary refill, <2 seconds all ext., no pedal edema noted Lymphatic: No lymphadenopathy, or lymphedema noted Musculoskeletal: No tenderness, or deformity noted, good range of motion, all extremities Integumentary: No rashes, hives, or bruising noted, hair and nails, without abnormality Neurologic: Patient is alert, and oriented, cranial nerves, motor/sensory/ cerebellar, exams w/o gross deficits, to observation Psychiatric: Patient exhibits, appropriate attention, emotion and affect Abdomen (brief) Abdominal Brief: FOUND: bowel normo active x4, soft, tender (I'll epigastric tenderness), NOT FOUND: distended, hepatosplenomegaly Progress Results/Orders Orders Procedure Category Date Status Time Ranitidine (Zantac) PHA 11/20/16 Complete 05:15 Prochlorperazine PHA 11/20/16 Complete (Compazine) 05:15 Sucralfate Slurry PHA 11/20/16 Complete (Carafate Slurry) 05:15 Medications Current ED Medications Ranitidine HCl (Zantac) 150 mg O ONCE PO Last administered on 11/20/16 05:21 ; Start 11/20/16 at 05:15; Stop 11/20/16 at 05:17; Status DC Prochlorperazine Maleate (Compazine) 10 mg O ONCE PO Last administered on 11/20 05:21; Start 11/20/16 at 05:15; Stop 11/20/16 at 05:17; Status DC Sucralfate (Carafate Slurry) 1 g O ONCE PO Last administered on 11/20/16 05: 34; Start 11/20/16 at 05:15; Stop 11/20/16 at 05:17; Status DC Progress Progress Patient given additional 150 mg Zantac, Compazine 10 mg, and Carafate 1 g slurry - patient had significant relief Given pack and prescription for Compazine 10 mg one tablet 3 times daily to help with gastric spasms Until patient can get Carafate filled, recommended to use Maalox 10 mL up to 5 times daily as needed It is strongly suspected that the patient has gastric ulcers, and I strongly recommended the patient follow-up with his primary care physician as soon as possible to arrange further testing for definitive diagnosis ARIELLA DAVIS MD November 20, 2016 05:14
[2016-11-20] MEDS ORDERED: PROC-14 PO (05:50)
[2016-11-20] MEDS ORDERED: PROCHLORPERAZINE 10MG (PrePack) SENT HOME ONE (06:00)
[2016-11-20 06:15] VITALS: BP 153/93; PULSE 68; RESP 18; TEMP 98.2; O2SAT 97
--- NOTE | 2016-11-20 06:15 | NUR ---
DEPART PT GIVEN DI FOR GASTRITIS, COMPAZINE, AND F/U. PREPAK/RX PROVIDED FOR COMPAZINE. VERBALIZES UNDERSTANDING OF DI, MEDS, AND NEED FOR F/U. QUESTIONS ASKED/ANSWERED - DENIES FURTHER QUESTIONS/NEEDS AT THIS TIME. PERSONAL BELONGINGS GATHERED. IV SITE REMOVED. PT ESCORTED/AMBULATED TO ED EXIT - GAIT STABLE, NO SIGN OF DISTRESS AT THIS TIME.
== END 2016-11-20 06:15 | disposition home or self-care (01) ==
LOC: ED 05:04
DX: K29.00 Acute gastritis without bleeding (principal)
CPT/HCPCS: 99283; A9270

== ENCOUNTER 2016-11-24 07:35 | Emergency (ER) | payer MEDICARE ==
[~2016-11-24] VITALS: Ht 154.9 cm; Wt 84.8 kg
[~2016-11-24 07:35] MED LIST changes: +PROC-14 PO
[2016-11-24 07:40] VITALS: Ht 154.9 cm; Wt 84.8 kg
--- NOTE | 2016-11-24 07:44 | NUR ---
DR VIVAR IN
[2016-11-24] MEDS ORDERED: NORMAL SALINE 1,000 ML IV ONE (07:53)
[2016-11-24 08:04] LABS: BLOOD, URINE NEGATIVE (NEGATIVE); COLOR,URINE YELLOW (YELLOW); LEUKOCYTE ESTERASE ,URINE NEGATIVE (NEGATIVE); NITRITE,URINE NEGATIVE (NEGATIVE); UROBILINOGEN,URINE 0.2 EU/DL (NORMAL)
[2016-11-24 08:04] LABS: BASOPHILS % (AUTO) 0.7 % (0-2); EOSINOPHILS # (AUTO) 0.3 T/MM3 (0-0.5); EOSINOPHILS % (AUTO) 4.3 % (0-4); HCT - HEMATOCRIT 43.4 % (41-53); HGB - HEMOGLOBIN 14.3 GM/DL (13.5-17.5); IMMATURE GRANULOCYTE # (AUTO) 0.03 T/MM3 (0.00-0.03); IMMATURE GRANULOCYTE % (AUTO) 0.5 % (0.0-0.5); LYMPHOCYTES # (AUTO) 2.3 T/MM3 (1-4.8); LYMPHOCYTES % (AUTO) 38.2 % (23-45); MEAN CORPUSCULAR HGB 29.4 UUG (26-34); MEAN CORPUSCULAR HGB CONC(MCHC 32.9 GM/DL (31-37); MEAN CORPUSCULAR VOLUME 89.3 UM3 (80-100); MONOCYTES # (AUTO) 0.5 T/MM3 (0-0.8); MONOCYTES % (AUTO) 8.7 % (0-9.0); NEUTROPHILS #(AUTO)-ABSOLUTE 2.9 T/MM3 (1.8-7.7); NEUTROPHILS % (AUTO) 47.6 % (33-66); RED BLOOD COUNT 4.86 M/MM3 (4.50-5.90); WBC - WHITE BLOOD COUNT 6.1 T/MM3 (4.5-11.0)
[2016-11-24 08:09] LABS: ALBUMIN 4.3 G/DL (3.5-5.0); ALBUMIN/GLOBULIN RATIO 1.5 RATIO (1.1-2.2); ALKALINE PHOSPHATASE 188 U/L (38-126); ALT (SGPT) 37 U/L (21-72); ANION GAP 15 MEQ/L (5-15); AST (SGOT) 20 U/L (17-59); BUN/CREATININE RATIO 16 RATIO (6-26); CALCIUM 9.2 MG/DL (8.4-10.2); CHLORIDE 111 MEQ/L (98-107); CO2 - CARBON DIOXIDE 23 MEQ/L (22-30); CREATININE 0.8 MG/DL (0.8-1.5); GLOMERULAR FILTRATION RATE 96; GLUCOSE 99 MG/DL (75-110); LIPASE 227 U/L (23-300); POTASSIUM 4.1 MEQ/L (3.6-5); SODIUM 149 MEQ/L (134-144); TOTAL PROTEIN 7.1 G/DL (6.3-8.2)
--- NOTE | 2016-11-24 08:09 | NUR ---
TO CT PER CART
--- NOTE | 2016-11-24 08:33 | DI ---
Indication: ITS.REASON: abd pain PROCEDURE: CT ABD/PELVIS W/O CONTRAST: Encounter: Initial Comparison: CT abdomen/pelvis dated November 19, 2016 Technique: Axial CT images were performed through the abdomen and pelvis without intravenous contrast. Coronal and sagittal two-dimensional reformats. Automated Exposure Control and Iterative Reconstruction dose reducing techniques were utilized. Findings: Stable tiny basilar pulmonary nodules with right lower lobe atelectasis or scarring. The unenhanced contours of the liver shows several small cysts. No bile duct dilatation. The gallbladder is surgically absent. The spleen, pancreas and adrenal glands are within normal limits bilateral renal cysts. No renal or ureteral stone disease appreciated. No free fluid. Sigmoid colonic diverticulosis without evidence of acute diverticulitis. Moderate to large amount of stool throughout the colon. No evidence of a small bowel obstruction. The appendix is gas-filled and normal. Bone windows are unchanged. Impression: Stable exam. No acute disease process seen in the abdomen or pelvis. .
[2016-11-24] MEDS ORDERED: PROM25TA7 (08:54)
[2016-11-24] MEDS ORDERED: PANT40TA PO (08:54)
--- NOTE | 2016-11-24 09:00 | NUR ---
REPORT TO KASSIE PADILLA
[2016-11-24] MEDS ORDERED: G.I. COCKTAIL 30ml PO ONE (09:15)
--- NOTE | 2016-11-24 09:30 | NUR ---
PROVIDER DR VIVAR AT BEDSIDE
--- NOTE | 2016-11-24 09:40 | ERPDOC ---
Departure Disposition Decision Date: November 24, 2016 Disposition Decision Time: 09:40 Disposition: 01 DISCHARGED HOME, SELF-CARE Impression Impression Impression: Primary Impression: GERD (gastroesophageal reflux disease) Severity: Moderate Condition: Improved Seen By: Physician only Referrals: NIKHIL BURTON APRN (Family) Patient Instructions: Abdominal Pain (ED) Problems/Meds/Labs Reviewed?: Yes Medications reviewed and manag: Yes Additional Instructions: Protonix 40 mg, every morning. Zantac 150 mg by mouth in the evening. GI cocktail to use as needed. Follow-up with your primary care provider to make sure the EGD as scheduled. Follow up care ordered?: Yes Mental Status: Alert, Oriented Scripts Ranitidine HCl (Zantac) 150 Mg Tablet 150 MG PO HS for ACID REFLUX, #30 TAB Take 1 tablet, by mouth, once a day at bedtime. Prov: LURDES VIVAR MD 11/24/16 HPI - Abdominal Pain General Chief Complaint: Abdominal Pain Stated Complaint: GENERALIZED ABD PAIN X1 MONTH Time Seen by Provider: 07:53 HPI - Abdominal Pain Initial Comments 71-year-old gentleman presents with abdominal pain. He has a long history of abdominal pain, is taking multiple medications for it. He does continue to adjust and discard medications as he tries to figure out will work best. He started smoking about 6 months ago but has quit drinking completely. EMS was called out to his house because of pain. He has been to the ED several times for this abdominal pain. He does have an EGD scheduled in a week, but does not feel like he can wait that long. Positive nausea, no vomiting, no fever or chill. No shortness of breath. Allergies: Coded Allergies: asenapine (Verified Allergy, Unknown, 11/24/16) lurasidone (Verified Allergy, Unknown, 11/24/16) quetiapine (Verified Allergy, Unknown, 11/24/16) ziprasidone (Verified Allergy, Unknown, 11/24/16) Past History Patient Surgical History Cholecystectomy Lumbar fusion L1-2 and L3-4 L TKA Colonoscopy 2015 Inguinal hernia repair Past Medical History Metabolic: hypertension GI: GERD Musculoskeletal: back pain Psychological: bipolar Surgical History General: gallbladder Vaccines Hx Influenza Vaccination: No Hx Pneumococcal Vaccination: Yes (january 2016) Social History Does patient use chewing tobac: No Second Hand Exposure: No Substance Use Type: marijuana Alcohol Intake: none, a few times a week Marital Status: Single Sexuality: male partner Household Members: none Number of Children: 0 Current Occupational Status: disabled Grade (if student): GED Review of Systems Constitutional Constitutional: see HPI Pulmonary Respiratory: see HPI GI Upper Abdomen: see HPI Musculoskeletal General: DENIES: cramps, joint pain, joint swelling, pain, weakness All other Systems All Other Systems: Reviewed and Negative Physical Exam General General Nourishment: well nourished, well developed Distress Description Abdominal pain is causing distress Vitals and Pain First Documented Vital Signs Date Time Temp Pulse Resp B/P Pulse Ox O2 Delivery O2 Flow Rate FiO2 11/24/16 07:40 98.3 78 16 172/97 97 Room Air Weight: Kilograms: 84.800 Height (feet): 5 Height (inches): 1.00 Triage Pain Scale: Normal Exams: Head: Normocephalic w/o trauma Chest/Resp: Clear all doty, with good airflow, and symmetry bilaterally CV: Regular rate and rhythm, without murmur or gallop, Pulses 2+ all extremities, capillary refill, <2 seconds all ext., no pedal edema noted Neurologic: Patient is alert, and oriented, cranial nerves, motor/sensory/ cerebellar, exams w/o gross deficits, to observation Abdomen (brief) Comments Positive bowel sounds no masses, mildly tender midepigastric. Otherwise normal exam. Differential Diagnoses Considering: Diverticulitis, GERD, GI Bleed, Ileus, Ulcer Progress Results/Orders Orders Procedure Category Date Status Time Iv Lock (Ed Only) EDM 11/24/16 Transmitted 07:53 Nothing By Mouth (Ed EDM 11/24/16 Transmitted Only) 07:53 Cbc W/Auto LAB 11/24/16 Complete Diff-Reflex Manual 07:53 Cmp - Comprehensive LAB 11/24/16 Complete Metabolic 07:53 Lipase LAB 11/24/16 Complete 07:53 Ua, Dip Wreflex LAB 11/24/16 Complete Microsc & Supervisory [employer] Intercept Controller 07:53 Occult Blood, Stool LAB 11/24/16 Logged 07:53 Urine Culture ISAIAS 11/24/16 In Process 07:53 Ct Abd/Pelvis W/O CT 11/24/16 Resulted Contrast 07:53 Normal Saline (Normal PHA 11/24/16 Complete Saline Iv) 07:53 G.I. Cocktail PHA 11/24/16 Complete (/Maalox/Lidocaine 09:15 Lab Results Laboratory Tests Test 11/24/16 07:26 11/24/16 07:57 White Blood Count 6.1T/MM3 Red Blood Count 4.86M/MM3 Hemoglobin 14.3GM/DL Hematocrit 43.4% Mean Corpuscular Volume 89.3UM3 Mean Corpuscular Hemoglobin 29.4UUG Mean Corpuscular Hemoglobin Concent 32.9GM/DL RDW Standard Deviation 44.5FL Platelet Count 195T/MM3 Mean Platelet Volume 10.0UM3 Immature Granulocyte % (Auto) 0.5% Neutrophils (%) (Auto) 47.6% Lymphocytes (%) (Auto) 38.2% Monocytes (%) (Auto) 8.7% Eosinophils (%) (Auto) 4.3% Basophils (%) (Auto) 0.7% Absolute Immature Granulocyte (auto 0.03T/MM3 Absolute Neutrophils (auto) 2.9T/MM3 Absolute Lymphocytes (auto) 2.3T/MM3 Absolute Monocytes (auto) 0.5T/MM3 Absolute Eosinophils (auto) 0.3T/MM3 Absolute Basophils (auto) 0.0T/MM3 Turbidity < 20 Sodium Level 149MEQ/L Potassium Level 4.1MEQ/L Chloride Level 111MEQ/L Carbon Dioxide Level 23MEQ/L Anion Gap 15MEQ/L Blood Urea Nitrogen 13.0MG/DL Creatinine 0.8MG/DL Glomerular Filtration Rate Calc 96 BUN/Creatinine Ratio 16RATIO Glucose Level 99MG/DL Calculated Osmolality 286MOSM/KG Calcium Level 9.2MG/DL Total Bilirubin 0.90MG/DL Icterus Index < 2 Aspartate Amino Transf (AST/SGOT) 20U/L Alanine Aminotransferase (ALT/SGPT) 37U/L Alkaline Phosphatase 188U/L Total Protein 7.1G/DL Albumin 4.3G/DL Globulin 2.8G/DL Albumin/Globulin Ratio 1.5RATIO Lipase 227U/L Chemistry Specimen Hemolysis < 15 Urine Collection Type Cleancatch-midstream Urine Color Yellow Urine Turbidity Clear Urine pH 6.0 Urine Specific Lilly <=1.005 Urine Protein Negative Urine Glucose (UA) Negative Urine Ketones Negative Urine Blood Negative Urine Nitrite Negative Urine Bilirubin Negative Urine Urobilinogen 0.2EU/DL Urine Leukocyte Esterase Negative Urinalysis Comment Microscopic not ind. Medications Current ED Medications Sodium Chloride (Normal Saline IV) 1,000 ml @ 1,000 mls/hr Q1H ONCE IV Last administered on 11/24/16 07:40; Start 11/24/16 at 07:53; Stop 11/24/16 at 08:52 ; Status DC Pharmacy Profile Note (/Maalox/ Lidocaine Soln) 30 ml O ONCE PO Last administered on 11/24/16 09:20; Start 11/24/16 at 09:15; Stop 11/24/16 at 09:16 ; Status DC Progress Progress Patient has obvious reflux and gastritis. I have given him GI cocktail, which resolved his pain and he is very comfortable. CT abdomen and pelvis is negative. Labs are appropriate. He is currently been changed to 40 mg Protonix. I recommended he restart his Zantac in the evening and take the Protonix in the morning. Please GI cocktail as needed. Follow up with his primary care provider to schedule EGD. LURDES VIVAR MD November 24, 2016 09:39
[2016-11-24] MEDS ORDERED: RANI150T12 PO (09:45)
[2016-11-24 09:58] VITALS: BP 154/96; PULSE 69; RESP 16; TEMP 98.3; O2SAT 97
== END 2016-11-24 09:58 | disposition home or self-care (01) ==
LOC: ED 07:35
DX: K21.9 Gastro-esophageal reflux disease without esophagitis (principal); K29.70 Gastritis, unspecified, without bleeding; F17.210 Nicotine dependence, cigarettes, uncomplicated
CPT/HCPCS: 74176; 80053; 81003; 83690; 85025; 87086; 96360; 99283; J7030; J7999

== ENCOUNTER 2016-12-05 08:05 | Emergency (ER) | payer MEDICARE ==
[~2016-12-05] VITALS: Ht 175.3 cm; Wt 84.8 kg
[~2016-12-05 08:05] MED LIST changes: -CYAN10009 PO; -NAPR220T61 PO; +PANT40TA PO; +PROM25TA7
[2016-12-05 08:07] VITALS: TEMP 98.3; Ht 175.3 cm; Wt 84.8 kg
[2016-12-05] MEDS ORDERED: NORMAL SALINE 1,000 ML IV ONE (08:17)
--- NOTE | 2016-12-05 08:45 | NUR ---
RADIOLOGY RADIOLOGY IN ROOM FOR PORTABLE FILMS
[2016-12-05 08:48] LABS: BASOPHILS % (AUTO) 0.4 % (0-2); EOSINOPHILS # (AUTO) 0.2 T/MM3 (0-0.5); EOSINOPHILS % (AUTO) 5.2 % (0-4); HCT - HEMATOCRIT 40.4 % (41-53); HGB - HEMOGLOBIN 13.5 GM/DL (13.5-17.5); IMMATURE GRANULOCYTE # (AUTO) 0.01 T/MM3 (0.00-0.03); IMMATURE GRANULOCYTE % (AUTO) 0.2 % (0.0-0.5); LYMPHOCYTES # (AUTO) 1.4 T/MM3 (1-4.8); LYMPHOCYTES % (AUTO) 29.6 % (23-45); MEAN CORPUSCULAR HGB 29.5 UUG (26-34); MEAN CORPUSCULAR HGB CONC(MCHC 33.4 GM/DL (31-37); MEAN CORPUSCULAR VOLUME 88.4 UM3 (80-100); MEAN PLATELET VOLUME 9.7 UM3 (9.4-12.4); MONOCYTES # (AUTO) 0.6 T/MM3 (0-0.8); NEUTROPHILS #(AUTO)-ABSOLUTE 2.5 T/MM3 (1.8-7.7); NEUTROPHILS % (AUTO) 52.6 % (33-66); RED BLOOD COUNT 4.57 M/MM3 (4.50-5.90); WBC - WHITE BLOOD COUNT 4.7 T/MM3 (4.5-11.0)
--- NOTE | 2016-12-05 09:03 | ERPDOC ---
Departure Disposition Decision Date: December 05, 2016 Disposition Decision Time: 10:01 Disposition: 01 DISCHARGED HOME, SELF-CARE Impression Impression Impression: Primary Impression: Knee pain, chronic Laterality: left Qualified Codes: G89.29 - Other chronic pain; M25.562 - Pain in left knee Severity: Moderate Condition: Improved Seen By: Physician only Referrals: NIKHIL BURTON APRN (Family) 1 Week YOUR SURGEON 1 Week Patient Instructions: Knee Pain (ED) Problems/Meds/Labs Reviewed?: Yes Medications reviewed and manag: Yes Additional Instructions: You have chronic knee pain. Take tylenol and apply ice as needed for pain; do not exceed 4000mg of tylenol in 24 hours. Take the tramadol for pain not controlled with tylenol and ice. Follow up with your doctor and surgeon for further evaluation and care. Follow up care ordered?: Yes Mental Status: Alert, Oriented Scripts Tramadol HCl (Tramadol HCl) 50 Mg Tablet 1 TAB PO Q6HR Y for PAIN, #20 TAB 0 Refills Prov: NOVEMBER,BROCK M DO 12/05/16 HPI General Chief Complaint: Lower Extremity Pain Stated Complaint: L KNEE PAIN TOTAL KNEE 1 YEAR AGO Time Seen by Provider: 08:17 Source: patient Exam Limitations: no limitations HPI Knee Initial Comments 71yo man presents to the ER today for knee pain. Pt had left total knee replacement 13 months ago in [place]; c/o signficant issues ever since. Had f/u with his surgeon 4 wks after surgery, but was unhappy that he wasn't given narcotics. Pt took too much naproxen in the last few months - is scheduled for an upper GI for gastritis. Has taken 8 (unk dose) tylenol tabs since 0000 this AM. Has a h/o narcotic abuse following back surgery several years ago. Occurred At: home Onset: Constant Duration: other Pain Scale: Now & Worst: 8/10 Severity: severe Method of Injury: other (Prior surgery) Modifying Factors: IMPROVES WITH: cold therapy, immobilization, pain medication , rest, WORSENES WITH: jarring, movement, weight bearing Associated Symptoms: pain, stiffness, swelling, DENIES: clicking, locking, numbness, popping, redness, unable to bend, unable to straighten, weakness Allergies: Coded Allergies: asenapine (Verified Allergy, Unknown, 12/05/16) lurasidone (Verified Allergy, Unknown, 12/05/16) quetiapine (Verified Allergy, Unknown, 12/05/16) ziprasidone (Verified Allergy, Unknown, 12/05/16) Past History Patient Surgical History Cholecystectomy Lumbar fusion L1-2 and L3-4 L TKA Colonoscopy 2014 Inguinal hernia repair Past Medical History Metabolic: hypertension GI: GERD Musculoskeletal: back pain Psychological: bipolar Surgical History General: gallbladder Vaccines Hx Influenza Vaccination: No Hx Pneumococcal Vaccination: Yes (january 2016) Social History Does patient use chewing tobac: No Second Hand Exposure: No Substance Use Type: marijuana Alcohol Intake: none, a few times a week Marital Status: Single Sexuality: male partner Household Members: none Number of Children: 0 Current Occupational Status: disabled Grade (if student): GED Review of Systems Musculoskeletal General: joint pain All other Systems All Other Systems: Reviewed and Negative Exam General General Nourishment: well nourished, well developed, appears stated age, no acute distress, adult General Body Habitus: well groomed Vital Signs: RN Vital Signs have been reviewed: Yes, Temperature: 98.3, Source : Oral, Heart Rate: 72, Respiratory Rate: 16, BP: 153/90, Pulse Oximetry: 97 Height (Feet): 5 Height (Inches): 9.00 [place] Knee Knee : Knee: Left Inspection: NOT FOUND: discoloration, erythema, pallor, swelling Palpation: warm, NOT FOUND: cool, tender lat. joint line, tender med. joint line Stability: A/P cruciate, MCL intact, anterior drawer sign, posterior drawer sign ROM: extension to 180 degrees, flexion to 0 degrees Neuro: soft touch intact, strength Neurologic RN Documented GCS Eye Opening: Verbal: Motor: Total: Supervisory Exam Head: atraumatic Eyes: PERRL Nares: no exudate Neck: trachea midline Chest: symmetric Abdomen: non-distended Neurological: no abnormal movements Skin: pink, dry Psychological: alert, appropriate Differential Diagnoses Considering: Cellulitis, Contusion, Dislocation, Fracture, Sprain, Strain, Tibial Plateau Fracture Progress Results/Orders Orders Procedure Category Date Status Time Cmp - Comprehensive LAB 12/05/16 Complete Metabolic 08:17 Cbc W/Auto LAB 12/05/16 Complete Diff-Reflex Manual 08:17 Ethanol LAB 12/05/16 Complete 08:17 Acetaminophen LAB 12/05/16 Complete 08:17 Salicylate LAB 12/05/16 Complete 08:17 Ua, Dip Wreflex LAB 12/05/16 Complete Microsc & Director [facility] 08:17 Iv Lock (Ed Only) EDM 12/05/16 Transmitted 08:17 Normal Saline (Normal PHA 12/05/16 Complete Saline Iv) 08:17 Nothing By Mouth (Ed EDM 12/05/16 Transmitted Only) 08:17 Knee Left 2 View RAD 12/05/16 Resulted 08:17 Tramadol (Ultram) PHA 12/05/16 Complete 09:15 Lab Results Laboratory Tests Test 12/05/16 08:37 12/05/16 09:30 White Blood Count 4.7T/MM3 Red Blood Count 4.57M/MM3 Hemoglobin 13.5GM/DL Hematocrit 40.4% Mean Corpuscular Volume 88.4UM3 Mean Corpuscular Hemoglobin 29.5UUG Mean Corpuscular Hemoglobin Concent 33.4GM/DL RDW Standard Deviation 43.8FL Platelet Count 181T/MM3 Mean Platelet Volume 9.7UM3 Immature Granulocyte % (Auto) 0.2% Neutrophils (%) (Auto) 52.6% Lymphocytes (%) (Auto) 29.6% Monocytes (%) (Auto) 12.0% Eosinophils (%) (Auto) 5.2% Basophils (%) (Auto) 0.4% Absolute Immature Granulocyte (auto 0.01T/MM3 Absolute Neutrophils (auto) 2.5T/MM3 Absolute Lymphocytes (auto) 1.4T/MM3 Absolute Monocytes (auto) 0.6T/MM3 Absolute Eosinophils (auto) 0.2T/MM3 Absolute Basophils (auto) 0.0T/MM3 Turbidity < 20 Sodium Level 147MEQ/L Potassium Level 4.0MEQ/L Chloride Level 110MEQ/L Carbon Dioxide Level 24MEQ/L Anion Gap 13MEQ/L Blood Urea Nitrogen 15.0MG/DL Creatinine 0.8MG/DL Glomerular Filtration Rate Calc 96 BUN/Creatinine Ratio 19RATIO Glucose Level 110MG/DL Calculated Osmolality 284MOSM/KG Calcium Level 9.4MG/DL Total Bilirubin 1.00MG/DL Icterus Index < 2 Aspartate Amino Transf (AST/SGOT) 22U/L Alanine Aminotransferase (ALT/SGPT) 32U/L Alkaline Phosphatase 163U/L Total Protein 6.7G/DL Albumin 4.1G/DL Globulin 2.6G/DL Albumin/Globulin Ratio 1.6RATIO Chemistry Specimen Hemolysis < 15 Salicylates Level < 1.0MG/DL Acetaminophen Level < 10UG/ML Alcohol, Quantitative <10MG/DL Urine Collection Type Cleancatch-midstream Urine Color Yellow Urine Turbidity Clear Urine pH 6.0 Urine Specific [place] 1.010 Urine Protein Negative Urine Glucose (UA) Negative Urine Ketones Negative Urine Blood Trace-lysed Urine Nitrite Negative Urine Bilirubin Negative Urine Urobilinogen NormalEU/DL Urine Leukocyte Esterase Negative Urinalysis Comment Microscopic not ind. Medications Current ED Medications Sodium Chloride (Normal Saline IV) 1,000 ml @ 0 mls/hr Q0M ONCE IV Last administered on 12/05/16 08:43; Start 12/05/16 at 08:17; Stop 12/05/16 at 08:19 ; Status DC Tramadol HCl (Ultram) 50 mg O ONCE PO Last administered on 12/05/16 09:16; Start 12/05/16 at 09:15; Stop 12/05/16 at 09:16; Status DC Progress Progress 71yo man with subjective knee pain, swelling, and stiffness. No obvious pathology on hx, PE, or rad today. No evidence of acetaminophen overdose or liver toxicity. Because of documented gastritis with NSAID overuse and stated misuse of acetaminophen, will give tramadol for pain at this time. F/u with PCM and surgeon for pain control and re-eval. Xray Xray : Xray: Knee L Interpretation: Normal, Interpreted by BROCK Condon DO December 05, 2016 09:03
--- NOTE | 2016-12-05 09:05 | NUR ---
REPORT REC'D FROM RANDY MENDOZA. THIS RN WILL RESUME CARE.
[2016-12-05 09:11] LABS: ACETAMINOPHEN < 10 UG/ML (10-30); ALBUMIN 4.1 G/DL (3.5-5.0); ALBUMIN/GLOBULIN RATIO 1.6 RATIO (1.1-2.2); ALKALINE PHOSPHATASE 163 U/L (38-126); ALT (SGPT) 32 U/L (21-72); ANION GAP 13 MEQ/L (5-15); AST (SGOT) 22 U/L (17-59); BUN/CREATININE RATIO 19 RATIO (6-26); CALCIUM 9.4 MG/DL (8.4-10.2); CHLORIDE 110 MEQ/L (98-107); CO2 - CARBON DIOXIDE 24 MEQ/L (22-30); CREATININE 0.8 MG/DL (0.8-1.5); ETHANOL <10 MG/DL (<10); GLOMERULAR FILTRATION RATE 96; GLUCOSE 110 MG/DL (75-110); SALICYLATE < 1.0 MG/DL (2-20); SODIUM 147 MEQ/L (134-144); TOTAL PROTEIN 6.7 G/DL (6.3-8.2)
[2016-12-05] MEDS ORDERED: TRAMADOL 50 MG TABLET PO ONE (09:15)
[2016-12-05] MEDS ORDERED: METH500T6 PO (09:31)
[2016-12-05 09:44] LABS: COLOR,URINE YELLOW (YELLOW)
[2016-12-05 09:45] LABS: LEUKOCYTE ESTERASE ,URINE NEGATIVE (NEGATIVE); NITRITE,URINE NEGATIVE (NEGATIVE); UROBILINOGEN,URINE NORMAL (NORMAL)
[2016-12-05 09:47] LABS: BLOOD, URINE TRACE-LYSED (NEGATIVE)
--- NOTE | 2016-12-05 09:50 | DI ---
Indication: ITS.REASON: Left knee Pain PROCEDURE: KNEE LEFT 2 VIEW: Encounter: Initial Comparison: None Findings: There is no acute fracture, dislocation or malalignment identified. Total knee replacement appears intact. Impression: No acute osseous abnormality. .
[2016-12-05] MEDS ORDERED: TRAM50TA4 PO (10:03)
--- NOTE | 2016-12-05 10:05 | NUR ---
PROVIDER DR. ARCHER AT BEDSIDE TO SPEAK WITH PT.
[2016-12-05 10:16] VITALS: BP 172/98; PULSE 67; RESP 16; O2SAT 98
--- NOTE | 2016-12-05 10:16 | NUR ---
DISCHARGE WRITTEN INSTRUCTIONS WITH TRAMADOL RX REVIEWED AND SENT WITH PT. PT VERBALIZES UNDERSTANDING OF DI AND MEDICATION, DENIES QUESTIONS. PT AMBULATES TO LOBBY FOR RIDE WITH STEADY GAIT AT THIS TIME.
== END 2016-12-05 10:16 | disposition home or self-care (01) ==
LOC: ED 08:05
DX: M25.562 Pain in left knee (principal); G89.29 Other chronic pain; Z96.652 Presence of left artificial knee joint; Z79.899 Other long term (current) drug therapy
CPT/HCPCS: 36415; 73560; 80053; 80307; 81003; 85025; 96360; 99284; A9270; J7030